=== PATIENT | female | born 1945 | race Caucasian/White ===

== ENCOUNTER 2023-06-04 14:13 | Outpatient (REF) | payer MEDICARE, SELFPAY ==
--- NOTE | ~2023-06-04 | XR_ITS ---
EXAMINATION: XR LUMBOSACRAL SPINE CLINICAL INFORMATION: Spinal stenosis. Pain. COMPARISON: None available. TECHNIQUE: Three views of the lumbosacral spine. FINDINGS: Severe degenerative disc space narrowing throughout with grade 1 anterolisthesis on a degenerative basis L4-L5 and L5-S1. No fracture or spondylolysis. Scoliosis of moderate severity convex right thoracolumbar spine junction. XR/XR lumbar spine 2-3V IMPRESSION: Advanced multilevel spondylosis as above.
== END 2023-06-04 14:14 | disposition home or self-care (01) ==
LOC: HO.HOSX 14:13
PROVIDERS: Visit Provider Neurological Surgery
DX: M48.062 Spinal stenosis, lumbar region with neurogenic claudication (principal); M41.56 Other secondary scoliosis, lumbar region
CPT/HCPCS: 72100; 99202

== ENCOUNTER 2023-06-04 14:13 | Outpatient (AMB) | payer MEDICARE, SELFPAY ==
--- NOTE | 2023-06-04 15:03 | A.SPINEOV_ITS ---
Intake Intake Visit Reasons: spinal stenoisis and severe sciatica Intake Note: Mrs. Contreras is here today c/o low back pain. MRI done @ [place], [facility]. Composite Mechanic Required: No Assessment & Plan Assessment & Plan (1) Scoliosis of lumbar region due to degenerative disease of spine in adult: Code(s): M41.56 - Other secondary scoliosis, lumbar region (2) Lumbar stenosis with neurogenic claudication: Code(s): M48.062 - Spinal stenosis, lumbar region with neurogenic claudication Plan: Dear colleague Thank you for referring Portia Contreras to the office today with a chief complaint of a bilateral leg pain. HPI: This 78-year-old female is suffering from progressive bilateral leg pain that started several years ago. She can hardly walk or stand. The symptoms are debilitating. Sitting down or leaning forward improves her symptoms. The pain radiates from her buttocks to the outside of her ankles, right right side is more affected than the left side. She also notices numbness off her feet. She tried multiple cortisone injections that initially provided relief. She also did physical therapy and chiropractic therapy. She denies significant back pain. PMH: Hypertension,, osteopenia, knee replacement in 2021 without complications Social history: . Nonsmoker. Medications: Duloxetine, bupropion, amlodipine, Abilify Allergies: Sensitivity to codeine Physical Exam: Pleasant female. She is able to reproduce her symptoms in the office with walking. Sitting down relieves her symptoms. There is numbness of her feet. Straight leg raise is negative. No motor deficits. Radiological Studies: MRI done at [place] on 04/19/2023 shows a lumbar degenerative scoliosis from L2-S1, and L4-5 grade 2 spondylolisthesis with associated severe spinal stenosis and a grade 1 L5-S1 spondylolisthesis. An x- ray of the lumbar spine confirms the MRI findings. Impression/Plan: This patient is suffering from progressive neurogenic claudication related to the grade 2 spondylolisthesis with associated severe L4- 5 spinal stenosis. She denies significant back pain. Normally, I would offer a minimally invasive correction of the spondylolisthesis and scoliosis. However, in the absence of back pain and in the presence of poor bone quality, I offered her a midline sparing L4-5 decompression only. She is aware that the spondylolisthesis can progress after the decompression which would require a minimally invasive lumbar fusion. We discussed the procedure, possible complications and expected postoperative course. The procedure will be done in day surgery. She will call my office if she wants to proceed. She will need me dical clearance from the primary care physician Thank you for allowing me to participate in your patients care. total time spent was 50 minutes in counseling ,coordination of plan, personal review of imaging, surgical decision making and subsequent plan Ramos Phillips MD, PhD Spine Fellowship Trained Neurosurgeon Director, [facility] Orders: Orders XR lumbar spine 2-3V Today M48.062 - Spinal stenosis, lumbar region with neurogenic claudication Coding Level of Care Code New Pt Level 4 (69744) Diagnoses Scoliosis of lumbar region due to degenerative disease of spine in adult M41.56 Lumbar stenosis with neurogenic claudication M48.062
== END 2023-06-04 17:00 | disposition home or self-care (01) ==
PROVIDERS: PCP Internal Medicine; Visit Provider Neurological Surgery
DX: M41.56 Other secondary scoliosis, lumbar region (principal); M48.062 Spinal stenosis, lumbar region with neurogenic claudication
CPT/HCPCS: 99204

== ENCOUNTER 2023-07-29 08:31 | Day surgery (SDC) | payer MEDICARE, SELFPAY ==
[2023-07-10 10:10] VITALS: BMI 24.7
--- NOTE | 2023-07-25 09:41 | HO.ANESPROP2 ---
Documented by User: Estelita Almodovar NP 07/31/23 14:36 HPI - Anesthesia Eval Consult details Narrative: 78yo F for L4-5 Midline Sparing Decompression PCP cleared Case reviewed by Dr Fam NAVARRO Active Problems Active Problems: All Active Problems (Updated 07/10/23 @ 14:01 by Juliann Guerrero, CHUY) Scoliosis of lumbar region due to degenerative disease of spine in adult (Acute) Lumbar stenosis with neurogenic claudication (Acute) Past Medical History Medical History (Updated 07/10/23 @ 14:01 by Juliann Guerrero RN) History of Mohs micrographic surgery for skin cancer Mild secondary hyperparathyroidism Diverticulosis Peripheral neuropathy Lumbosacral stenosis with neurogenic claudication Liver cyst Angiomyolipoma of kidney Left knee DJD Actinic keratoses White coat syndrome with hypertension Colonic adenoma Hx of squamous cell carcinoma History of MRSA infection Basal cell carcinoma (BCC) Arthritis Thyroid nodule Anxiety Depression Weakness of lower extremity Asthma Cough Osteopenia HTN (hypertension) Surgical History Surgical History (Updated 07/10/23 @ 14:01 by Juliann Guerrero RN) Hx of tonsillectomy H/O colonoscopy Hx of total knee replacement Social History Social History Are you a primary coronary care unit nurse to a significant other at home: No Do you presently have visiting nurse or other home services: No Patient Tobacco Use Status: Never used Tobacco Meds Allergies Allergy/AdvReac Type Severity Reaction Status Date / Time codeine Allergy Severe Abdominal Verified 07/29/23 09:19 Pain Home Medications Medication Instructions Recorded Confirmed Last Taken Type amlodipine 5 mg tablet 7.5 mg PO DAILY 07/10/23 07/29/23 07/29/23 History aripiprazole 2 mg tablet (Abilify) 2 mg PO DAILY 07/10/23 07/29/23 07/29/23 History bupropion HCl 150 mg 24 hr tablet, 150 mg PO QAM 07/10/23 07/29/23 07/29/23 History extended release bupropion HCl 300 mg 24 hr tablet, 300 mg PO QAM 07/10/23 07/29/23 07/29/23 History extended release duloxetine 30 mg capsule,delayed 30 mg PO DAILY 07/10/23 07/29/23 07/29/23 History release duloxetine 60 mg capsule,delayed 60 mg PO DAILY 07/10/23 07/29/23 07/29/23 History release Exam Exam Date and Time: July 25, 2023 0941 Height,Weight and Vital Signs: Height 5 ft 2 in Weight 61.235 kg Pertinent Lab Results Pertinent Lab Results: BMP 06/2023 from outside facility WNL Narrative Narrative: EKG 06/2023 NSR @ 82 Biatrial enlargement No change from 2020 Assessment and Plan Assessment Anesthesia Assessment: Chart Reviewed Documented by User: Guillermina Cruz MD 08/01/23 07:32 PMFSH Past Medical History Medical History (Updated 07/10/23 @ 14:01 by Juliann Guerrero RN) History of Mohs micrographic surgery for skin cancer Mild secondary hyperparathyroidism Diverticulosis Peripheral neuropathy Lumbosacral stenosis with neurogenic claudication Liver cyst Angiomyolipoma of kidney Left knee DJD Actinic keratoses White coat syndrome with hypertension Colonic adenoma Hx of squamous cell carcinoma History of MRSA infection Basal cell carcinoma (BCC) Arthritis Thyroid nodule Anxiety Depression Weakness of lower extremity Asthma Cough Osteopenia HTN (hypertension) Family History Family history of problems with anesthesia: No Surgical History Surgical History (Updated 07/10/23 @ 14:01 by Juliann Guerrero, RN) Hx of tonsillectomy H/O colonoscopy Hx of total knee replacement History of Problems with Anesthesia: No Social History Social History Are you a primary coronary care unit nurse to a significant other at home: No Do you presently have visiting nurse or other home services: No Patient Tobacco Use Status: Never used Tobacco Meds Allergies Allergy/AdvReac Type Severity Reaction Status Date / Time codeine Allergy Severe Abdominal Verified 07/29/23 09:19 Pain Home Medications Medication Instructions Recorded Confirmed Last Taken Type amlodipine 5 mg tablet 7.5 mg PO DAILY 07/10/23 07/29/23 07/29/23 History aripiprazole 2 mg tablet (Abilify) 2 mg PO DAILY 07/10/23 07/29/23 07/29/23 History bupropion HCl 150 mg 24 hr tablet, 150 mg PO QAM 07/10/23 07/29/23 07/29/23 History extended release bupropion HCl 300 mg 24 hr tablet, 300 mg PO QAM 07/10/23 07/29/23 07/29/23 History extended release duloxetine 30 mg capsule,delayed 30 mg PO DAILY 07/10/23 07/29/23 07/29/23 History release duloxetine 60 mg capsule,delayed 60 mg PO DAILY 07/10/23 07/29/23 07/29/23 History release Exam Airway Mallampati Class: II TM Dist: >3cm Neck ROM: Full Heart: rrr Lungs: cta Assessment and Plan Assessment Anesthesia Assessment: Anesthesia Plan Discussed Final Anesthetic Review Family History of Problems with Anesthesia: No History of Problems with Anesthesia: No NPO: Yes ASA Class: II Final Preanesthetic Review: No Changes in Pt Med Stat, Meds/Allgs Chart Reviewed, Consent Obtained/Reviewed and Anes Risks/Benef Reviewed Patient Risk: Low Procedure Risk: Low Anesthetic Plan Anesthetic Plan: GA Disposition: Standard PACU
[2023-07-29] VITALS (10 sets, daily range): BP systolic 113–141; BP diastolic 65–84; PULSE 70–79; RESP 14–16; TEMP 36.7–37.2; O2SAT 95–100
--- NOTE | ~2023-07-29 | FL_ITS ---
EXAMINATION: XR FLUOROSCOPY WITH IMAGES CLINICAL INFORMATION: L4-L5 midline sparing decompression. COMPARISON: None available. TECHNIQUE: Fluoroscopy Supervised By: Dr. Ramos Phillips. Fluoroscopy Time: 0.0 minutes. Cumulative Dose: 5.6 mGy. DAP: 0.8 Gy-cm2. Images: 1. FINDINGS: Single image submitted shows surgical instrument overlying posterior elements at L4. FL/FL guidance in OR IMPRESSION: Fluoroscopy provided with imaging.
--- NOTE | 2023-07-29 07:02 | MHC.SHP ---
Pre-Procedural Eval Section A Date of Service: 07/29/23 Section B Chief Complaint: Spinal stenosis, lumbar region with neurogenic Allergies: Allergies Allergy/AdvReac Type Severity Reaction Status Date / Time codeine Allergy Abdominal Verified 07/10/23 10:01 Pain Review of Systems Sugical H&P ROS: Negative: Constitution, Cardiovascular, Respiratory, Neurological, Psychiatric, Hem-Onc, Allergic/Immunologic, Gastrointestinal, Genitourinary, Musculoskeletal, Integumentary, Endocrine and Eyes/Ears/Nose/Throat Exam Surgical H&P Exam: Not Evaluated: HEENT, Not Evaluated: Heart, Not Evaluated: Lungs, Not Evaluated: Extremities, Not Evaluated: Abdomen, Not Evaluated: Skin and Not Evaluated: Neurological Plan Diagnosis/Plan: Unchanged I have reviewed the history and physical and performed a pertinent physical examination on my patient. No changes have occurred unless specified. Plan remains the same, L4-5 midline sparing decompression Time Spent With Patient Time: Total time managing care of this patient today _10___ minutes.
[2023-07-29] MEDS: methocarbamoL 750 MG TABLET PO (09:44)
[2023-07-29] MEDS: Lactated Ringers 1,000 ML 100 ML IVCONT (09:44)
[2023-07-29] MEDS: Gabapentin 300 MG CAPSULE PO (09:45)
[2023-07-29 09:57] LABS: Mean Corpuscular HGB Conc 33.3 g/dl (31.0-35.0); Mean Corpuscular Hemoglobin 30.2 pg (27.0-33.0); Mean Corpuscular Volume 90.7 fL (80.0-98.0); Mean Platelet Volume 9.5 fL (9.4-12.3); Platelet Count 238 X10*3/uL (160-400); Red Cell Distribution Width 14.9 % (11.0-16.0); White Blood Count 4.3 X10*3/uL (4.8-10.8)
--- NOTE | 2023-07-29 13:53 | PM.DS ---
DS: Providers Provider Date of Service: 07/29/23 Date of discharge: 07/29/23 Primary care physician: Khurram Ferrer MD Admitting clinician: Ramos Phillips DS: Diagnosis Discharge Diagnosis (1) Lumbar stenosis with neurogenic claudication: Status: Acute DS: Summary Time Spent with Patient Time attestation: Total time managing care of this patient today ____ minutes. Discharge coordination time: Less than 30 minutes Quality: Safe Use of Opioids Does Pt have an Active Cancer Diagnosis on the Problem List?: No Quality: Stroke Does the patient have a stroke diagnosis?: No Physical Exam Vital Signs: Vital Signs: Last Vital Signs Temp 99.0 F 07/29/23 09:30 Pulse 71 07/29/23 09:30 Resp 16 07/29/23 09:30 BP 141/84 H 07/29/23 09:30 Pulse Ox 98 07/29/23 09:30 O2 Del Method Room Air 07/29/23 09:30 BMI result Body Mass Index 24.7 DS: Data Data Completed and Pending Labs on day of discharge: Laboratory Results - last 24 hr 07/29/23 07/29/23 09:40 09:40 WBC 4.3 L RBC 4.30 Hgb 13.0 Hct 39.0 MCV 90.7 MCH 30.2 MCHC 33.3 RDW 14.9 Plt Count 238 MPV 9.5 Absolute Nucleated RBC 0.000 Nucleated RBC % (auto) 0.0 Blood Type A Positive Antibody Screen NEGATIVE Discharge Plan Discharge Patient Disposition: Home, Self-Care Referrals: Khurram Ferrer MD [Primary Care Provider] - 1 Week Discharge Medications: New oxycodone 5 mg tablet 5 mg PO Q4H PRN (Reason: pain) Qty: 20 0RF Rx Instructions: Partial Fill upon patient request. Continued amlodipine 5 mg Tablet 7.5 mg PO DAILY bupropion HCl 300 mg Tablet Extended Release 24 Hr 300 mg PO QAM Patient Comments: for a total of 450 mg daily in the morning bupropion HCl 150 mg Tablet Extended Release 24 Hr 150 mg PO QAM Patient Comments: for a total of 450 mg daily in the morning duloxetine 30 mg Capsule,Delayed Release(Dr/Ec) 30 mg PO DAILY duloxetine 60 mg Capsule,Delayed Release(Dr/Ec) 60 mg PO DAILY Patient Comments: for a total of 90 mg Daily in the morning aripiprazole [Abilify] 2 mg Tablet 2 mg PO DAILY Discharge Orders: Discharge Order (Routine); Ordered 07/29/23 Ordered By: Christopher Bender Diet: Advance to usual diet Activity on Discharge: As tolerated Activity Restrictions/Additional Instructions: After your spinal surgery we ask you to observe the following restrictions/guidelines: Activity: It is normal to feel some discomfort as you increase your activity, but that will improve with time. We ask you avoid heavy lifting or acitivities that cause pain. As a general rule, 8lbs is a safe limit for lifting right after surgery. Walk as much as you feel comfortable but not to exhaustion. You will feel extra tired the first few days after surgery. Stay well hydrated. It is OK to walk up and down stairs You may return to driving when you are off narcotics (such as vicodin, oxycodone, dilaudid, etc), and you are back to normal functional capacity. If you have any concerns please check with office before driving. Return to work is specific to each patient and each surgery, so please speak with your doctor/PA at first follow up. Please bring paperwork such as FMLA at that time if you need it filled out. Medications: For optimum pain control, it is best to start with a combination of 500 mg of Tylenol every 4 hours with 600 mg of Motrin every 8 hours, and use narcotics as needed in between for breakthrough pain. We will give you a short supply of narcotics after surgery (usually one weeks worth). If you need more please call the office but do not use more than prescribed. You will need to give our office 48 hours notice if you need narcotics refilled and we do not fill narcotics on weekends or evenings. If you are on a narcotic, it is a good idea to take a stool softener such as colace or senna to avoid constipation If you take blood thinner such as aspirin, Plavix, Coumadin, Effient, Eliquis etc for conditions such as Afib, DVT, Pulmonary embolus, coronary disease, stents etc please speak with your surgeon about specific details as to when you can resume these medications. You can resume NSAIDs on post op day 1 (eg: Motrin, Naproxen, etc). Follow up: Please call the office, , after surgery to arrange a 3 week follow up for wound check. Wound Care: You may remove your dressing on the first day after surgery. You may leave open to air. Please do not remove the steri strips underneath. they will fall off on their own in one week. IT IS NORMAL FOR THE WOUND TO OOZE OR BE BLOODY FOR A FEW DAYS AFTER SURGERY. IF THIS HAPPENS JUST PLACE NEW DRESSING OVER IT TO AVOID STAINING CLOTHES. You may shower on post op day # 1 We ask that you do not let the water soak the wound. If it does get wet, just towel dry lightly. Please do not scrub your incision or place any type of chemical/ointment on the wound. No tub baths, pools or jacuzzis for one month. If you have any leaking or redness from your wound, or fevers, please call office
--- NOTE | 2023-07-29 13:57 | P.OP_ITS ---
Operative Note Operative Note Date of Service: 07/29/23 Narrative: Preoperative Diagnosis: L4-5 spinal stenosis/lateral recess stenosis/neural foraminal stenosis Operation: L4-5 bilateral Laminotomy, Partial facetectomy and foraminotomy with use of microscope Consent Informed Consent was obtained for this operation. I have explained the nature, purpose and benefits of the operation. I have discussed the risks and benefit of the operation including possible complications or adverse events with patient/family. Alternative(s) were discussed with the patient with their relative benefits and risks as well as the consequences of not accepting the operation were included in obtaining consent. Surgeon: ASHLEY WYATT MD, PHD Procedure Assisted By: Christopher Taylor Description of Procedure This 78-year-old female a suffering from neurogenic claudication. Imaging reviews a lumbar degenerative scoliosis, and L4-5 spondylolisthesis min associated spinal stenosis. She has poor bone quality and in the absence of back pain, I offered her a simple L4-5 lumbar midline sparing decompression to reduce the risk of additional instability to a minimum. The procedure complications were explained. The patient was consented. The patient was brought to the operating room and endotracheally intubated. The patient was turned in prone position on the Xavier frame. Prep and drape was done followed by timeout. The Physician assistant manager pt provided access. A mid lumbar incision was made followed by release of the paravertebral muscle on the right side to expose the L4-5 lamina and facet joints. An intraoperative x-ray was obtained to confirm the correct level. The microscope was brought in. I took over the procedure. The high-speed drill was used to do a L4-5 laminotomy until flavum ligament was reached. a 2. Kerrison was used to expand the laminotomy near flush to the pedicles and to include a partial facetectomy. The flavum and was opened and resected with a 3. Kerrison to decompress the underlying thecal sac. The patient was turned contralaterally after which the spinous processes were undercut in order for me to perform a contralateral decompression. The lateral recesses and the exiting L5 nerve roots were decompressed bilaterally. A long nerve hook could be easily passed along the medial side of the pedicles as a sign of adequate decompression. The microscope was removed. Hemostasis was done. The physician assistant manager pt close the Incision in 2 layers. Steri-Strips were used to approximate incision. An OpSite with Tegaderm was used to cover the incision. All sponge needle counts were correct. Patient was extubated and transported in stable is to recovery room. Anesthesia: General Estimated Blood Loss (ml): 20 mL Complications: None Duration of Surgery: Under 60 Minutes Postoperative Plan: Discharge to home
== END 2023-07-29 16:22 | disposition home or self-care (01) ==
PROVIDERS: Nurse Practitioner; PCP Internal Medicine; Visit Provider Neurological Surgery
PROC: (CPT 63047; principal; 2023-07-29 10:40)
DX: M48.062 Spinal stenosis, lumbar region with neurogenic claudication (principal); M41.56 Other secondary scoliosis, lumbar region; M85.80 Other specified disorders of bone density and structure, unspecified site; M54.50 Low back pain, unspecified; R26.2 Difficulty in walking, not elsewhere classified; I10 Essential (primary) hypertension; E04.2 Nontoxic multinodular goiter; E21.1 Secondary hyperparathyroidism, not elsewhere classified; F32.5 Major depressive disorder, single episode, in full remission; F41.1 Generalized anxiety disorder; Z96.652 Presence of left artificial knee joint; Z85.828 Personal history of other malignant neoplasm of skin; Z86.14 Personal history of Methicillin resistant Staphylococcus aureus infection; Z79.899 Other long term (current) drug therapy
CPT/HCPCS: 63047; 36415; 85027; 86850; 86900; 86901; J0131; J0690; J1885; J2371; J2405; J3010

== ENCOUNTER → 2023-07-29 08:31 | Outpatient (BNV) | payer MEDICARE, SELFPAY | PROVIDERS: PCP Internal Medicine; Visit Provider Physician Assistant | DX: M48.062 Spinal stenosis, lumbar region with neurogenic claudication (principal) | CPT/HCPCS: 63047 ==

== ENCOUNTER 2023-08-19 14:14 | Outpatient (AMB) | payer MEDICARE, SELFPAY ==
--- NOTE | 2023-08-19 14:21 | A.SPINEOV_ITS ---
Intake Intake Visit Reasons: 1st post op Intake Note: Mrs. Contreras is here today for her 1st post-op. Hay Buckler Required: No Allergies codeine Allergy (Severe, Verified 07/29/23 09:19) Abdominal Pain Assessment & Plan Assessment & Plan (1) Lumbar stenosis with neurogenic claudication: Code(s): M48.062 - Spinal stenosis, lumbar region with neurogenic claudication Plan Procedure: L4-5 bilateral Laminotomy, Partial facetectomy and foraminotomy Portia comes in today for her 1st postoperative visit. She reports feeling very much the same since her surgery. She feels she is in the same amount of pain and continues to have difficulty walking / standing for prolonged periods of time. She is still completing a large majority of her ADLs at home. 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 Portia was encouraged that she likely has a lot of inflammation after her bilateral decompression, and that she should start feeling better in the next 2 weeks when the inflammation is able to recede. Full strength in UE / LE. Sensation grossly intact. Patient is able to ambulate well, without assistance. She can rise from a seated position without difficulty. Incision sites are clean, dry, and appear well healing. We will follow-up with the patient in 6 weeks for her 2nd postoperative visit. She requested that she be sent to physical therapy. A referral was printed out for her. Orders: Orders PT Evaluation and Treatment Today M48.062 - Spinal stenosis, lumbar region with neurogenic claudication Coding Level of Care Code Global (70081) Diagnoses Lumbar stenosis with neurogenic claudication M48.062
== END 2023-08-19 14:47 | disposition home or self-care (01) ==
PROVIDERS: PCP Internal Medicine; Visit Provider Physician Assistant
DX: M48.062 Spinal stenosis, lumbar region with neurogenic claudication (principal)
CPT/HCPCS: 99024

== ENCOUNTER → 2023-08-19 14:14 | Outpatient (BNVA) | payer MEDICARE, SELFPAY | PROVIDERS: PCP Internal Medicine; Visit Provider Physician Assistant ==

== ENCOUNTER 2023-09-30 13:56 | Outpatient (AMB) | payer MEDICARE, SELFPAY ==
--- NOTE | 2023-09-30 14:24 | A.OFFVIS_ITS ---
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: No Allergies codeine Allergy (Severe, Verified 07/29/23 09:19) Abdominal Pain PFSH Medical History (Updated 07/10/23 @ 14:01 by Juliann Guerrero RN) History of Mohs micrographic surgery for skin cancer Mild secondary hyperparathyroidism Diverticulosis Peripheral neuropathy Lumbosacral stenosis with neurogenic claudication Liver cyst Angiomyolipoma of kidney Left knee DJD Actinic keratoses White coat syndrome with hypertension Colonic adenoma Hx of squamous cell carcinoma History of MRSA infection Basal cell carcinoma (BCC) Arthritis Thyroid nodule Anxiety Depression Weakness of lower extremity Asthma Cough Osteopenia HTN (hypertension) Surgical History (Updated 07/10/23 @ 14:01 by Juliann Guerrero RN) Hx of tonsillectomy H/O colonoscopy Hx of total knee replacement Social History Are you a primary home health caregiver to a significant other at home: No Do you presently have visiting nurse or other home services: No Patient Tobacco Use Status: Never used Tobacco Assessment & Plan Assessment & Plan (1) Lumbar stenosis with neurogenic claudication: Code(s): M48.062 - Spinal stenosis, lumbar region with neurogenic claudication Plan Procedure: L4-5 bilateral Laminotomy, Partial facetectomy and foraminotomy Portia comes in today for her 2nd postoperative visit. She reports that she feels much better than she did at her previous visit. She states that she has been able to ambulate around her house, complete the majority of her ADLs, engage in walking on the treadmill, and engage in walking outside. She does state that she has been going to physical therapy as well, and finds that this is very beneficial/helpful for her. She has good control of her tenderness/ occasional pain with [id number] pain medications. Thankfully she states that she feels better day by day, and is very grateful that she no longer has the pain that she had at her 1st postoperative visit. No neurological deficits. Patient is able to ambulate well, rises from a seated position without difficulty. Incision site is closed, well healing, with no signs of drainage. Portia is doing very well at this time, and there is no need for continued routine follow-up. She was encouraged to make an appointment with our office if she feels she needs to see us in the future. Otoniel Phillips MD,PhD [facility] Coding Level of Care Code Global (96236) Diagnoses Lumbar stenosis with neurogenic claudication M48.062
== END 2023-09-30 14:45 | disposition home or self-care (01) ==
PROVIDERS: PCP Internal Medicine; Visit Provider Physician Assistant
DX: M48.062 Spinal stenosis, lumbar region with neurogenic claudication (principal)
CPT/HCPCS: 99024

== ENCOUNTER → 2023-09-30 13:56 | Outpatient (BNVA) | payer MEDICARE, SELFPAY | PROVIDERS: PCP Internal Medicine; Visit Provider Physician Assistant ==

== ENCOUNTER 2023-12-23 14:26 | Outpatient (AMB) | payer MEDICARE, SELFPAY ==
--- NOTE | 2023-12-23 14:30 | MHC.OFFVIS ---
Intake Intake Visit Reasons: sciatica pain right leg and left hip sharp pain [employer] Supervisor Required: No Allergies codeine Allergy (Severe, Verified 07/29/23 09:19) Abdominal Pain [facility] Medical History (Updated 12/23/23 @ 14:52 by Ramos Phillips MD, PhD) History of Mohs micrographic surgery for skin cancer Mild secondary hyperparathyroidism Diverticulosis Peripheral neuropathy Lumbosacral stenosis with neurogenic claudication Liver cyst Angiomyolipoma of kidney Left knee DJD Actinic keratoses White coat syndrome with hypertension Colonic adenoma Hx of squamous cell carcinoma History of MRSA infection Basal cell carcinoma (BCC) Arthritis Thyroid nodule Anxiety Depression Weakness of lower extremity Asthma Cough Osteopenia HTN (hypertension) Surgical History (Updated 07/10/23 @ 14:01 by Juliann Guerrero RN) Hx of tonsillectomy H/O colonoscopy Hx of total knee replacement Social History Are you a primary personal carer to a significant other at home: No Do you presently have visiting nurse or other home services: No Patient Tobacco Use Status: Never used Tobacco Assessment & Plan Assessment & Plan (1) Scoliosis of lumbar region due to degenerative disease of spine in adult: Code(s): M41.56 - Other secondary scoliosis, lumbar region Plan: Dear colleague, On December 23, 2023, I saw for follow-up Portia Contreras. She underwent a lumbar decompression in July 2023 for neurogenic claudication. She has residual right lumbar radiculopathy in the morning. The pain radiates down to her zimmerman. Another complaint is intermittent pain in the left SI joint region with sudden movements. I explained to the patient that her symptoms are most likely related to the L4-5 anterolisthesis and a correction may be the next step to solve the remainder of her symptoms. Today's flexion-extension x-rays show a stable L4-5 anterolisthesis. I would like to give her symptoms more time to see if further recovery happens. I will order a new MRI of the lumbar spine for January after which I will see her for return visit to determine what the next step will be. I spent 30 minutes in his reviewing imaging ordering test and discussing plan of care. Ramos Phillips MD, PhD Spine Fellowship Trained Neurosurgeon Director, [facility] (2) Spondylolisthesis, lumbar region: Code(s): M43.16 - Spondylolisthesis, lumbar region Plan gh Orders: Orders XR lumbar spine 4V min Today M41.56 - Other secondary scoliosis, lumbar region, M43.16 - Spondylolisthesis, lumbar region MR lumbar spine wo/w con 01/23/24 M48.062 - Spinal stenosis, lumbar region with neurogenic claudication Coding Level of Care Code Est Pt Level 4 (90970) Diagnoses Scoliosis of lumbar region due to degenerative disease of spine in adult M41.56 Spondylolisthesis, lumbar region M43.16
== END 2023-12-23 15:15 | disposition home or self-care (01) ==
PROVIDERS: PCP Internal Medicine; Visit Provider Neurological Surgery
DX: M41.56 Other secondary scoliosis, lumbar region (principal); M43.16 Spondylolisthesis, lumbar region
CPT/HCPCS: 99214

== ENCOUNTER 2023-12-23 14:26 | Outpatient (REF) | payer MEDICARE, SELFPAY ==
--- NOTE | ~2023-12-23 | XR_ITS ---
EXAMINATION: XR LUMBOSACRAL SPINE WITH OBLIQUES CLINICAL INFORMATION: Lumbar scoliosis. COMPARISON: None available. TECHNIQUE: AP and lateral (neutral, flexion and extension) views of the lumbosacral spine are submitted. FINDINGS: There is bony demineralization. There is a moderate lumbar levoscoliosis. There is mild leftward disc space narrowing at L1-L2. At L2-L3, there is marked disc space narrowing, with vacuum disc phenomenon. At L3-L4, there is moderate rightward disc space narrowing. At L4-L5, there is marked disc space narrowing, with vacuum disc phenomenon and a 5 mm anterolisthesis. At L5-S1, there is marked disc space narrowing, with vacuum disc phenomenon and a 6 mm anterolisthesis. No acute fracture or spondylolisthesis is seen. There is multi-level lumbar facet arthropathy, most pronounced at L3-L4 through L5-S1. The paravertebral soft tissues are unremarkable. XR/XR lumbar spine 4V min IMPRESSION: 1. There is multi-level lumbar degenerative disc disease, spondylosis and facet arthropathy. Degenerative disease is particularly pronounced at L2-L3, L4-L5 and L5-S1, where it is marked. Grade 1 anterolistheses are noted at L4-L5 and L5-S1. 2. There is multi-level lumbar facet arthropathy, most pronounced at L3-L4 through L5-S1. 3. There is a moderate lumbar levoscoliosis.
== END 2023-12-23 14:27 | disposition home or self-care (01) ==
LOC: HO.HOSX 14:26
PROVIDERS: PCP Internal Medicine; Visit Provider Neurological Surgery
DX: M43.16 Spondylolisthesis, lumbar region (principal); M41.56 Other secondary scoliosis, lumbar region; M48.062 Spinal stenosis, lumbar region with neurogenic claudication
CPT/HCPCS: 72110; 99212

== ENCOUNTER 2024-02-18 13:55 | Outpatient (AMB) | payer MEDICARE, SELFPAY ==
--- NOTE | 2024-02-18 14:03 | HO.SPINEOV ---
Intake Intake Visit Reasons: F/u MRI results Intake Note: Ms. Contreras is here today to F/u MRI [employer] Supervisor Required: No Allergies codeine Allergy (Severe, Verified 07/29/23 09:19) Abdominal Pain Assessment & Plan Assessment & Plan (1) Spondylolisthesis, lumbar region: Code(s): M43.16 - Spondylolisthesis, lumbar region Plan Portia is a pleasant 79-year-old female who comes in today as a follow-up patient after being previously evaluated by Dr. Phillips for continued low back pain with right-sided radiculopathy. She reports that her right-sided lower extremity radiculopathy is her worst symptom. When describing she states that it starts in her low back shoots over anterior thigh goes over her anterior right knee in terminates in her right anterior tibialis. She states the pain is constant throughout the day and that lifting/bending exacerbate her pain. She reports nearly 100% pain relief from laying down flat. I reviewed her MRI imaging with Dr. Phillips who saw the patient alongside this continuity writer today. He offered her a L4-5 OLIF to address her right-sided lower extremity radiculopathy. We believe her symptoms are originating from the grade 2 spondylolisthesis seen at L4-5. Portia was counseled extensively on the possibility of adjacent segment disease above this level fusion, she has a degenerative scoliosis with the apex at L2. The alternative surgery that was offered to the patient by Dr. Phillips was in L2-3, L3-4, and L4-5 OLIF. He recommended that she have the single-level performed instead as a more conservative treatment that will address her primary pain symptoms. She is aware that she may need to have subsequent superior levels addressed in the future, and agrees to proceed with a single-level fusion at L4-5. She also agrees to and understands that this is only to address her right lower extremity pain, and is not to address her back pain or any other neurological issues. Portia was given risk and benefits of surgery including but not limited to infection, hematoma, nerve injury, durotomy, weakness, bowel/bladder injury, persistent pain, as well as the option to continue with conservative treatment and patient wishes to proceed with surgery. They are aware they should stop NSAIDs 7 days prior to surgery. All questions were answered to the best of our ability. If there is anything about this patients medical history that we have overlooked or concerns you have about us proceeding with surgery we would appreciate any input you can offer. Total amount of time spent in this visit was 30 minutes in discussion of symptoms, 35 imaging results and subsequent plan of care Otoniel Phillips MD,PhD [facility] Coding Level of Care Code Est Pt Level 4 (35743) Diagnoses Spondylolisthesis, lumbar region M43.16
== END 2024-02-18 14:57 | disposition home or self-care (01) ==
LOC: HO.HNS 13:55
PROVIDERS: PCP Internal Medicine; Visit Provider Physician Assistant
DX: M43.16 Spondylolisthesis, lumbar region (principal)
CPT/HCPCS: 99214

== ENCOUNTER → 2024-02-18 13:55 | Outpatient (BNVA) | payer MEDICARE, SELFPAY | PROVIDERS: PCP Internal Medicine; Visit Provider Physician Assistant | DX: M43.16 Spondylolisthesis, lumbar region (principal) | CPT/HCPCS: 99212 ==

== ENCOUNTER → 2024-04-06 13:09 | Outpatient (BNV) | payer MEDICARE, SELFPAY | PROVIDERS: Admitting Provider Neurological Surgery; PCP Internal Medicine; Visit Provider Internal Medicine Cardiovascular Disease | DX: Z01.818 Encounter for other preprocedural examination (principal) | CPT/HCPCS: 93010 ==

== ENCOUNTER 2024-04-20 08:22 | Inpatient (IN) | payer MEDICARE, SELFPAY ==
--- NOTE | 2024-04-06 | ECG_ITS ---
Test Reason : PREOP Blood Pressure : / mmHG Vent. Rate : 074 BPM Atrial Rate : 074 BPM P-R Int : 176 ms QRS Dur : 078 ms QT Int : 380 ms P-R-T Axes : 067 015 054 degrees QTc Int : 421 ms Normal sinus rhythm Possible Left atrial enlargement Borderline ECG No previous ECGs available Referred By: Estelita Almodovar Electronically Signed By:SHARIFA SALAS MD
[2024-04-06 12:03] VITALS: BP 169/80; PULSE 74; RESP 16; O2SAT 99; BMI 24.3
--- NOTE | 2024-04-06 12:28 | P.CONAN_ITS ---
Documented by User: Estelita Almodovar NP 04/15/24 12:34 HPI - Anesthesia Eval Consult details Narrative: 79yo F for L4-5 Oblique Lumbar Interbody Fusion, 04/20/24 s/p L4-5 Midline Sparing Decompression 07/2023 with GA-ETT 7 - pt reports no issues with anesthesia (Medically cleared prior) No recent illness No CP/SOB with walking BP up at PAT. Documented white coat. Will monitor at home and bring log DOS Asthma. Controlled. No inhalers required. PMFSH Active Problems Active Problems: All Active Problems Spondylolisthesis, lumbar region (Acute) Lumbar stenosis with neurogenic claudication (Acute) Scoliosis of lumbar region due to degenerative disease of spine in adult (Acute) Past Medical History Medical History ADHD (attention deficit hyperactivity disorder) History of Mohs micrographic surgery for skin cancer Mild secondary hyperparathyroidism Diverticulosis Peripheral neuropathy Lumbosacral stenosis with neurogenic claudication Liver cyst Angiomyolipoma of kidney Left knee DJD Actinic keratoses White coat syndrome with hypertension Colonic adenoma Hx of squamous cell carcinoma History of MRSA infection (~2021) Basal cell carcinoma (BCC) Arthritis Thyroid nodule Anxiety Depression Weakness of lower extremity Asthma Cough Osteopenia HTN (hypertension) Family History Family history of problems with anesthesia: No Surgical History Surgical History History of lumbar laminectomy (~07/2023) Hx of tonsillectomy H/O colonoscopy Hx of total knee replacement History of Problems with Anesthesia: No Social History Social History Are you a primary progressive care unit registered nurse to a significant other at home: No Do you presently have visiting nurse or other home services: No Comment: aware of trip hazard Patient Tobacco Use Status: Former Tobacco user Quit Date: 1975 Tobacco use type: Cigarette Use of substances other than those prescribed or required for medical reasons: Yes Substance Use Type: Marijuana Substance Use Frequency: Occasionally Have you been hit, kicked, punched, or otherwise hurt by someone within the past year? If so, by whom?: No Are you DNR?: No Advance Directives: No (will bring dos) Advance Directives Information Provided: No Advance Directives on File: No Recently lost weight without trying: No Nutrition Risks: Surgical patient >75years Poor oral hygiene: No Meds Allergies Allergy/AdvReac Type Severity Reaction Status Date / Time codeine Allergy Severe Abdominal Verified 04/06/24 11:59 Pain Home Medications ?Medication ?Instructions ?Recorded ?Confirmed ?Last Taken ?Type amlodipine 5 mg tablet 7.5 mg PO DAILY 07/10/23 04/06/24 07/29/23 History aripiprazole 2 mg tablet (Abilify) 1 mg PO DAILY 07/10/23 04/06/24 07/29/23 History bupropion HCl 300 mg 24 hr tablet, 450 mg PO DAILY 07/10/23 04/20/24 04/20/24 History extended release duloxetine 30 mg capsule,delayed 90 mg PO DAILY 07/10/23 04/06/24 04/20/24 History release methylphenidate HCl 20 mg biphasic 20 mg PO DAILY 04/06/24 04/06/24 Unknown History 50-50 capsule,extended release alendronate 70 mg tablet 70 mg PO QWEEK 04/20/24 Unknown History bupropion HCl 300 mg 24 hr tablet, 300 mg PO DAILY 04/20/24 Unknown History extended release duloxetine 60 mg capsule,delayed 60 mg PO DAILY 04/20/24 04/20/24 Unknown History release fluorouracil 5 % topical cream 1 appl topical BID 04/20/24 Unknown History Exam Height,Weight and Vital Signs: Height 5 ft 2.5 in Weight 61.235 kg Last Vital Signs Pulse 74 04/06/24 12:03 Resp 16 04/06/24 12:03 BP 169/80 H 04/06/24 12:03 Pulse Ox 99 04/06/24 12:03 O2 Del Method Room Air 04/06/24 12:03 Pertinent Lab Results Pertinent Lab Results: Lab Results 04/06/24 04/06/24 Range/Units 13:00 13:07 WBC 3.0 L (4.8-10.8) X10*3/uL RBC 4.52 (4.20-5.50) X10*6/uL Hgb 13.5 (12.0-16.0) g/dl Hct 40.2 (37.0-47.0) % MCV 88.9 (80.0-98.0) fL MCH 29.9 (27.0-33.0) pg MCHC 33.6 (31.0-35.0) g/dl RDW 14.8 (11.0-16.0) % Plt Count 261 (160-400) X10*3/uL MPV 9.9 (9.4-12.3) fL Absolute Nucleated RBC 0.000 (0.0-0.012) X10*3/uL Nucleated RBC % (auto) 0.0 (0.0-0.2) /100WBC Sodium 141 (135-145) mmol/L Potassium 4.3 (3.3-5.1) mmol/L Chloride 104 (96-108) mmol/L Carbon Dioxide 26 (22-29) mmol/L Anion Gap 15 (12-20) BUN 16 (9-16) mg/dL Creatinine 0.67 (0.5-1.4) mg/dL Estim Creat Clear Calc 60.5 Estimated GFR > 60 Random Glucose 89 (60-115) mg/dL Calcium 10.0 (8.4-10.2) mg/dL Blood Type A Positive Antibody Screen NEGATIVE Narrative Narrative: EKG 03/2024 Vent. Rate : 074 BPM Atrial Rate : 074 BPM P-R Int : 176 ms QRS Dur : 078 ms QT Int : 380 ms P-R-T Axes : 067 015 054 degrees QTc Int : 421 ms Normal sinus rhythm Possible Left atrial enlargement Borderline ECG No previous ECGs available Airway Mallampati Class: II TM Dist: >3cm Neck ROM: Full Loose/Missing/Broken Teeth: No (crowned molars) Heart: rrr Lungs: cta Assessment and Plan Assessment Anesthesia Assessment: Anesthesia Plan Discussed and PAT Visit Final Anesthetic Review Family History of Problems with Anesthesia: No History of Problems with Anesthesia: No Documented by User: Mara Lopez MD 04/20/24 10:29 [facility] Past Medical History Medical History ADHD (attention deficit hyperactivity disorder) History of Mohs micrographic surgery for skin cancer Mild secondary hyperparathyroidism Diverticulosis Peripheral neuropathy Lumbosacral stenosis with neurogenic claudication Liver cyst Angiomyolipoma of kidney Left knee DJD Actinic keratoses White coat syndrome with hypertension Colonic adenoma Hx of squamous cell carcinoma History of MRSA infection (~2021) Basal cell carcinoma (BCC) Arthritis Thyroid nodule Anxiety Depression Weakness of lower extremity Asthma Cough Osteopenia HTN (hypertension) Surgical History Surgical History History of lumbar laminectomy (~07/2023) Hx of tonsillectomy H/O colonoscopy Hx of total knee replacement Social History Social History Are you a primary progressive care unit registered nurse to a significant other at home: No Do you presently have visiting nurse or other home services: No Comment: aware of trip hazard Patient Tobacco Use Status: Former Tobacco user Quit Date: 1975 Tobacco use type: Cigarette Use of substances other than those prescribed or required for medical reasons: Yes Substance Use Type: Marijuana Substance Use Frequency: Occasionally Have you been hit, kicked, punched, or otherwise hurt by someone within the past year? If so, by whom?: No Are you DNR?: No Advance Directives: No (will bring dos) Advance Directives Information Provided: No Advance Directives on File: No Recently lost weight without trying: No Nutrition Risks: Surgical patient >75years Poor oral hygiene: No Meds Allergies Allergy/AdvReac Type Severity Reaction Status Date / Time codeine Allergy Severe Abdominal Verified 04/06/24 11:59 Pain Home Medications ?Medication ?Instructions ?Recorded ?Confirmed ?Last Taken ?Type amlodipine 5 mg tablet 7.5 mg PO DAILY 07/10/23 04/06/24 07/29/23 History aripiprazole 2 mg tablet (Abilify) 1 mg PO DAILY 07/10/23 04/06/24 07/29/23 History bupropion HCl 300 mg 24 hr tablet, 450 mg PO DAILY 07/10/23 04/20/24 04/20/24 History extended release duloxetine 30 mg capsule,delayed 90 mg PO DAILY 07/10/23 04/06/24 04/20/24 History release methylphenidate HCl 20 mg biphasic 20 mg PO DAILY 04/06/24 04/06/24 Unknown History 50-50 capsule,extended release alendronate 70 mg tablet 70 mg PO QWEEK 04/20/24 Unknown History bupropion HCl 300 mg 24 hr tablet, 300 mg PO DAILY 04/20/24 Unknown History extended release duloxetine 60 mg capsule,delayed 60 mg PO DAILY 04/20/24 04/20/24 Unknown History release fluorouracil 5 % topical cream 1 appl topical BID 04/20/24 Unknown History Assessment and Plan Assessment Anesthesia Assessment: Chart Reviewed Final Anesthetic Review NPO: Yes ASA Class: II Final Preanesthetic Review: Meds/Allgs Chart Reviewed, Consent Obtained/Reviewed and Anes Risks/Benef Reviewed Patient Risk: Low Procedure Risk: Intermediate Anesthetic Plan Anesthetic Plan: GA Disposition: Standard PACU
[2024-04-06 13:28] LABS: Hematocrit 40.2 % (37.0-47.0); Hemoglobin 13.5 g/dl (12.0-16.0); Mean Corpuscular HGB Conc 33.6 g/dl (31.0-35.0); Mean Corpuscular Hemoglobin 29.9 pg (27.0-33.0); Mean Corpuscular Volume 88.9 fL (80.0-98.0); Mean Platelet Volume 9.9 fL (9.4-12.3); Platelet Count 261 X10*3/uL (160-400); Red Blood Count 4.52 X10*6/uL (4.20-5.50); Red Cell Distribution Width 14.8 % (11.0-16.0)
[2024-04-06 14:11] LABS: Anion Gap 15 (12-20); Blood Urea Nitrogen 16 mg/dL (9-16); Carbon Dioxide 26 mmol/L (22-29); Chloride 104 mmol/L (96-108); Creatinine Clr Calc Pharmacy 60.5; Estimated Glomerular Filt Rate > 60; Glucose Random 89 mg/dL (60-115); Potassium 4.3 mmol/L (3.3-5.1); Sodium 141 mmol/L (135-145)
[2024-04-20] VITALS (11 sets, daily range): BP systolic 101–143; BP diastolic 53–81; PULSE 69–84; RESP 16–18; TEMP 36.2–36.7; O2SAT 7–100
--- NOTE | ~2024-04-20 | FL_ITS ---
EXAMINATION: XR FLUOROSCOPY WITH IMAGES CLINICAL INFORMATION: OLIF at the level the level of L4-L5 COMPARISON: Radiograph of lumbar spine from 12/23/2023 TECHNIQUE: Fluoroscopy Supervised By: Flavio Phillips M.D.. Fluoroscopy Time: 1.62 minutes. Cumulative Dose: 55.7 mGy. DAP: 15.819 Gycm2. Images: 40 FINDINGS: 2 screws placed and each side at the level of L5-L4 with disc spacer placement. FL/FL guidance in OR IMPRESSION: See report
[2024-04-20] MEDS: Lactated Ringers 1,000 ML 100 ML IVCONT (09:29)
[2024-04-20] MEDS: methocarbamoL 750 MG TABLET PO (09:34)
[2024-04-20] MEDS: Gabapentin 300 MG CAPSULE PO (09:34)
--- NOTE | 2024-04-20 10:37 | MHC.SHP ---
Pre-Procedural Eval Section A - 24 Hr Update-Section A only Date of Service: 04/20/24 The patient is an INPATIENT: No Changes since office visit: No Cold of Flu in the past 2 weeks, No New Medical Problems, No Changes in Medication and No Patient answered all questions The patient has been examined within 24 hours of the surgical procedure. The History & Physical has been completed within 30 days and I have reviewed it.: No Section B - Complete if H&P > 30 days Chief Complaint: s/p 14-5 OLIF Allergies: Allergies Allergy/AdvReac Type Severity Reaction Status Date / Time codeine Allergy Severe Abdominal Verified 04/06/24 11:59 Pain Review of Systems Sugical H&P ROS: Negative: Constitution, Cardiovascular, Respiratory, Neurological, Psychiatric, Hem-Onc, Allergic/Immunologic, Gastrointestinal, Genitourinary, Musculoskeletal, Integumentary, Endocrine and Eyes/Ears/Nose/Throat Exam Surgical H&P Exam: Normal: Abdomen (flat ND, NT ) and Normal: Neurological (awake, alert,oriented ) Plan Diagnosis/Plan: Unchanged L4-5 OLIF Time Spent With Patient Time: Total time managing care of this patient today __5__ minutes.
--- NOTE | 2024-04-20 13:47 | W.PM.OPN ---
Operative Note Operative Note Date of Service: 04/20/24 Narrative: Preop Diagnosis: 1.) Lumbar spondylolisthesis L4-5 Procedure: 1) L4-5 discectomy, arthrodesis and implantation cage through an anterolateral, retroperitoneal approach 2) L4-5 posterior instrumented fusion 3) allograft 4)injection of 10 cc of Exparel at the bilateral L4 transverse processi for a muscular erector spinae block and additional Exparel in paravertebral tissue for postop management Consent Informed Consent was obtained for this operation. I have explained the nature, purpose and benefits of the operation. I have discussed the risks and benefit of the operation including possible complications or adverse events with patient/family. Alternative(s) were discussed with the patient with their relative benefits and risks as well as the consequences of not accepting the operation were included in obtaining consent. Surgeon: ASHLEY WYATT MD, PHD Procedure Assisted By: sahara Alvarez Description of Procedure This patient is suffering from back pain and neurogenic claudication due to grade 2 L4-5 spondylolisthesis. The patient was offered an oblique lumbar interbody fusion L4-5. The procedure complications were explained. The patient was consented. The patient was brought to the operating room and endotracheally intubated. The patient was turned in a lateral position with the left side up. Prep and drape was done followed by timeout. A small incision was made in the left lower abdominal quadrant. The muscle fascia was opened after which the 3 muscle layer was split to enter the retroperitoneal space. Dilators were docked in the anterior one third of the L4-5 disc space followed by a retractor. The retractor was opened. The L4-5 disc space was exposed. An annulotomy was done after which an elevator Meza was used to release the disc material from its endplates and to perforate the contralateral side. A partial discectomy was done. An 8 mm height trial implant was inserted. The discectomy was completed. The endplates were prepared. An 8 mm x 45 mm with Brinda degree lordosis 4 web cage filled with allograft was inserted into the disc space under fluoroscopic guidance. This resulted in partial reduction of the spondylolisthesis. The retractor was removed. Hemostasis was done. The incision was closed in 2 layers. Steri-Strips used to approximate incision. An OpSite with Tegaderm was used to cover the incision. This marked first part of the procedure. The patient was turned prone on the [place] spine table. 2C arms were installed for fluoroscopy. Prep and drape was done followed by a second timeout. 2 paramedian incisions were made lateral from the L4-L5 pedicles. The muscle fascia was opened after which the muscle layer was split bluntly to expose the posterolateral gutter. The following steps were taken. A pediguard tap was used to create a transpedicular trajectory into the vertebral body. A K wire was placed. A specially designed instrument was advanced over the K wire to decorticate the posterolateral gutter in preparation for the posterolateral fusion. A pedicle screw was advanced over the K wire and the K wire was removed. The steps were done for the bilateral L4 and L5 pedicles. A total of 4 screws were placed with a diameter of 6.5 x 45 mm. Pedicle screws were connected with for mm jeimy bilaterally and locked down with locking caps. This process resulted in a further reduction of the spondylolisthesis. The extension towers were removed. The posterolateral gutter was filled with allograft to complete the posterolateral L4-5 fusion Hemostasis was done and the incision was closed in 2 layers. Steri-Strips were used to approximate the incision. An OpSite were taken and was used to cover the incision. All sponge and needle counts were correct. Patient was extubated and transferred in stable is to recovery room. This procedure was done with the aid of our physician assistant business manager, often interpretation of the fluoroscopy images, pedicle screw placement and closure of the paramedian incisions. Anesthesia: General Estimated Blood Loss (ml): 25 Duration of Surgery: 2 hours Complications: None Postoperative Plan: Admit to inpatient for observation
--- NOTE | 2024-04-20 16:24 | PHA.MEDREC ---
Pharmacy Consult ? Medication Reconciliation Pharmacy has completed the medication reconciliation. Spoke with Patient about alendronate 70mg, she takes it every Friday.
[2024-04-20] MEDS: Ketorolac Tromethamine 15 MG/ML VIAL IVPUSH (17:32)
[2024-04-20] MEDS: ceFAZolin Sodium/Dextrose,Iso 2 GM/50 ML PIGGYBACK IV (17:32)
[2024-04-20] MEDS: 0.9 % Sodium Chloride 1,000 ML 75 ML IVCONT (17:33)
[2024-04-20] MEDS: Acetaminophen 1,000 MG/100 ML PIGGYBACK 400 MG IV (20:18)
[2024-04-20] MEDS: Docusate Sodium 100 MG CAPSULE PO (20:24)
[2024-04-21] MEDS: Ketorolac Tromethamine 15 MG/ML VIAL IVPUSH ×2 (00:43→05:29)
[2024-04-21] MEDS: ceFAZolin Sodium/Dextrose,Iso 2 GM/50 ML PIGGYBACK IV ×2 (00:43→05:30)
[2024-04-21] MEDS: Acetaminophen 1,000 MG/100 ML PIGGYBACK 400 MG IV ×2 (02:14→08:23)
[2024-04-21 03:20] VITALS: BP 138/73; PULSE 77; RESP 16; TEMP 36.2; O2SAT 96
[2024-04-21 07:25] VITALS: BP 154/72; PULSE 78; RESP 16; TEMP 36; O2SAT 95
[2024-04-21 07:29] VITALS: BP 154/72; PULSE 78; RESP 16; TEMP 36; O2SAT 95
[2024-04-21 08:13] VITALS: BP 154/72; PULSE 78; O2SAT 95
[2024-04-21] MEDS: ARIPiprazole 2 MG TABLET 1 MG PO (08:20)
[2024-04-21] MEDS: buPROPion HCl XL 150 MG TAB.ER.24H 450 MG PO (08:21)
[2024-04-21] MEDS: DULoxetine HCl 30 MG CAPSULE.DR 90 MG PO (08:21)
[2024-04-21] MEDS: Docusate Sodium 100 MG CAPSULE PO (08:21)
[2024-04-21] MEDS: amLODIPine Besylate 2.5 MG TABLET 7.5 MG PO (08:21)
--- NOTE | 2024-04-21 09:36 | PM.DS ---
DS: Providers Provider Date of Service: 04/21/24 Date of admission: 04/20/24 08:22 Primary care physician: Khurram Ferrer MD DS: Summary Time Attestation Discharge Coordination Time (in mins): 30 Quality: Safe Use of Opioids Does Pt have an Active Cancer Diagnosis on the Problem List?: No Quality: Stroke Does the patient have a stroke diagnosis?: No Physical Exam Vital Signs: Vital Signs: Last Vital Signs Temp 96.8 F 04/21/24 07:29 Pulse 78 04/21/24 08:13 Resp 16 04/21/24 07:29 BP 154/72 H 04/21/24 08:13 Pulse Ox 95 04/21/24 08:13 O2 Del Method Room Air 04/21/24 07:29 O2 Flow Rate 2 04/20/24 15:10 BMI result Body Mass Index 24.3 Discharge Plan Discharge Anticipated Discharge Date/Time: 04/21/24 09:37 Patient Disposition: Home, Self-Care Discharge Diagnosis: s/p L4-5 OLIF Referrals: Khurram Ferrer MD [Primary Care Provider] - 1 Week Discharge Medications: New hydrocodone-acetaminophen 5-325 mg tablet 1 tab PO Q4-6H PRN (Reason: severe pain (scale score 7-10)) Qty: 30 0RF Rx Instructions: Partial Fill upon patient request. Continued duloxetine 30 mg Capsule,Delayed Release(Dr/Ec) 90 mg PO DAILY aripiprazole [Abilify] 2 mg Tablet 1 mg PO DAILY methylphenidate HCl 20 mg capsule,ER biphasic 50-50 20 mg PO DAILY alendronate 70 mg tablet 70 mg PO QWEEK Rx Instructions: Sundays fluorouracil 5 % cream 1 appl topical BID amlodipine 2.5 mg tablet 2.5 mg PO DAILY amlodipine 5 mg tablet 5 mg PO DAILY bupropion HCl 450 mg Tablet Extended Release 24 Hr 450 mg PO DAILY ibuprofen 200 mg Tablet 400 mg PO DAILY PRN (Reason: Pain) Discharge Orders: Discharge Order (Routine); Ordered 04/21/24 Ordered By: Otoniel Canada Diet: Advance to usual diet Activity on Discharge: As tolerated Stand Alone Forms: Patient Portal Discharge page Print Language: Syrian Activity Restrictions/Additional Instructions: After your spinal surgery we ask you to observe the following restrictions/guidelines: Activity: With lumbar fusion surgery it is normal to have days in the first couple of weeks where you have increased leg pain. This usually lasts 1-2 days and self resolves with the continuation of medication. Attempt to stay mobile and continue activity as tolerated. It is normal to feel some discomfort as you increase your activity, but that will improve with time. We ask you avoid heavy lifting or activities that cause pain. As a general rule, 8lbs is a safe limit for lifting right after surgery. Walk as much as you feel comfortable but not to exhaustion. You will feel extra tired the first few days after surgery. Stay well hydrated. It is OK to walk up and down stairs You may return to driving when you are off narcotics (such as vicodin, oxycodone, dilaudid, etc), and you are back to normal functional capacity. If you have any concerns please check with office before driving. Return to work is specific to each patient and each surgery, so please speak with your doctor/PA at first follow up. Please bring paperwork such as FMLA at that time if you need it filled out. Medications: It is recommended that you take Tylenol 500 mg every 4 hours for the 1st week postoperatively, ?alongside ibuprofen 600 mg every 8 hours. We will give you a short supply of narcotics after surgery (usually one weeks worth). ?Please use this for breakthrough pain that is refractory to the Tylenol / ibuprofen . If you need more please call the office but do not use more than prescribed. You will need to give our office 48 hours notice if you need narcotics refilled and we do not fill narcotics on weekends or evenings. If you are on a narcotic, it is a good idea to take a stool softener such as colace or senna to avoid constipation If you take blood thinner such as aspirin, Plavix, Coumadin, Effient, Eliquis etc for conditions such as Afib, DVT, Pulmonary embolus, coronary disease, stents etc please speak with your surgeon about specific details as to when you can resume these medications. You can resume NSAIDs on post op day 1 (eg: Motrin, Naproxen, etc). Follow up: Please call the office, , after surgery to arrange a 3 week follow up for wound check. Wound Care: You may remove your dressing on the first day after surgery. ?You may ?leave open to air. Please do not remove the steri strips underneath. they will fall off on their own in one week. IT IS NORMAL FOR THE WOUND TO OOZE OR BE BLOODY FOR A FEW DAYS AFTER SURGERY. ?IF THIS HAPPENS JUST PLACE NEW DRESSING OVER IT TO AVOID STAINING CLOTHES. You may shower on post op day # 1 We ask that you do not let the water soak the wound. If it does get wet, just towel dry lightly. Please do not scrub your incision or place any type of chemical/ointment on the wound. No tub baths, pools or jacuzzis for one month. If you have any leaking or redness from your wound, or fevers, please call office Care Plan Goals: Return to normal activity as tolerated Health Concerns: None Plan of Treatment: Follow-up in clinic in 2-3 weeks Assessment: POD: 1 Procedure: L4-5 OLIF Ramona was seen sitting upright in her chair this morning eating breakfast on 3 . She reports she is up walking around is otherwise doing well. She is met with Physical therapy and was able to walk up and down the jimenez and do stairs. She feels her symptoms are much better than pre-operatively. She still reports mild low back pain but states her shooting leg pains have subsided. She is voiding well, tolerating diet. Afebrile, vital signs stable. Full strength 5/5 UE / LE. Posterior and oblique dressings have some staining without signs of hematoma. No active sanguineous drainage. Area is dry. Plan: Patient is s/p L4-5 OLIF POD:1. Overall, Portia is doing very well and meeting all expectations with physical therapy. She has ambulating to the bathroom and tolerating diet. She meets criteria to be medically discharged home. This was discussed with the attending Neurosurgeon Dr. Phillips. A prescription for Vicodin was sent into her pharmacy in [place]. Otoniel Phillips MD,PhD [facility]
--- NOTE | 2024-04-21 09:37 | HO.POSTANES ---
Post Anesthesia Evaluation Post Anesthesia Evaluation Date of Service: 04/21/24 Vital Signs: Vital Signs Temp Pulse Resp BP Pulse Ox O2 Del Method 04/21/24 08:13 78 154/72 H 95 04/21/24 07:29 96.8 F 78 16 154/72 H 95 Room Air 04/21/24 07:25 96.8 F 78 16 154/72 H 95 Room Air 04/21/24 03:20 97.2 F 77 16 138/73 96 Room Air 04/20/24 22:00 97.2 F 84 16 143/72 H 95 Room Air Anesthesia: General Endotracheal-GETA Mental Status: Awake Pain Control: Satisfactory Nausea/Vomiting: None Hydration: Adequate Anesthesia-Related Issues: No Anes. Related Issues
[2024-04-21] MEDS: HYDROcodone Bit/Acetam 7.5/325 TABLET 1 TAB PO (10:56)
--- NOTE | 2024-04-21 11:03 | MHC.CM.PN ---
IMM DELIVERED. PT LIVES WITH SPOUSE AND IS INDEPENDENT. + HCP, COPY AT HOME. PCP DR. PAZ. DP: PT HAS BEEN MEDICALLY CLEARED FOR DC HOME, NO SERVICES. [facility] WILL TRANSPORT
== END 2024-04-21 10:59 | disposition home or self-care (01) | DRG 460 ==
LOC: HO.SSSA 08:25 → HO.S3 14:16
PROVIDERS: Neurological Surgery; Nurse Practitioner; Admitting Provider Physician Assistant; PCP Internal Medicine; Visit Provider Physician Assistant
PROC: 0SG00A0 Fusion of Lumbar Vertebral Joint with Interbody Fusion Device, Anterior Approach, Anterior Column, Open Approach (ICD-10-PCS; principal; 2024-04-20 11:10)
DX: M43.16 Spondylolisthesis, lumbar region (principal); Z87.891 Personal history of nicotine dependence; Z79.899 Other long term (current) drug therapy
CPT/HCPCS: 36415; 80048; 85027; 86850; 86900; 86901; 93005; 97161; C1713; C1889; C9290; J0131; J0665; J0690; J1100; J1170; J1885; J2250; J2405; J2598; J2704; J3010; L8699

== ENCOUNTER → 2024-04-20 08:22 | Outpatient (BNV) | payer MEDICARE, SELFPAY | PROVIDERS: Admitting Provider Physician Assistant; PCP Internal Medicine; Visit Provider Neurological Surgery | DX: M43.16 Spondylolisthesis, lumbar region (principal) | CPT/HCPCS: 20930; 22558; 22612; 22840; 22853; 99499 ==

== ENCOUNTER 2024-05-13 11:19 | Outpatient (AMB) | payer MEDICARE, SELFPAY ==
--- NOTE | 2024-05-13 09:37 | A.SPINEOV_ITS ---
Intake Visit Reasons: 1st post op Intake Note: Ms. Contreras is here for her 1st post op appointment. Petroleum Sampler Required: No Allergies codeine Allergy (Severe, Verified 04/06/24 11:59) Abdominal Pain Assessment & Plan Assessment & Plan (1) Spondylolisthesis, lumbar region: Code(s): M43.16 - Spondylolisthesis, lumbar region Category: Medical Plan Procedure: L4-5 OLIF Portia comes in today for her 1st postoperative visit. To recap she is s/p L4-5 OLIF which we identified as the likely primary pain generator. She does have a degenerative scoliosis with the apex at L2 and was offered an alternative surgery by Dr. Phillips (L2-3, L3-4, and L4-5 OLIF). After discussion it was decided that she would have the single-level performed instead as a more conservative treatment that will likely address her primary pain symptoms. She is aware that she may need to have subsequent superior levels addressed in the future. She reports she is satisfied with the surgery and feels the bulk of her symptoms have resolved aside from her right-sided posterior buttocks pain. Thank fully the severe shooting radiculopathy has subsided. She is still taking her narcotic pain medications alongside OTC pain control. We extensively discussed the postoperative healing course & activity guidelines. I answered all of her questions. No new neurological deficits. Patient is able to ambulate well, rises from a seated position without the assistance of a chair. Incision sites are closed, well healing, with no signs of drainage. We will follow-up with the patient in 6 weeks for their 2nd postoperative visit. At that time we will get x-rays to review with the patient. Otoniel Phillips MD,PhD [facility] Coding Level of Care Code Global (53167) Diagnoses Spondylolisthesis, lumbar region M43.16
== END 2024-05-13 11:51 | disposition home or self-care (01) ==
PROVIDERS: PCP Internal Medicine; Visit Provider Physician Assistant
DX: M43.16 Spondylolisthesis, lumbar region (principal)
CPT/HCPCS: 99024

== ENCOUNTER → 2024-05-13 11:19 | Outpatient (BNVA) | payer MEDICARE, SELFPAY | PROVIDERS: PCP Internal Medicine; Visit Provider Physician Assistant | DX: M43.16 Spondylolisthesis, lumbar region (principal) | CPT/HCPCS: 99212 ==

== ENCOUNTER 2024-06-28 09:00 | Outpatient (REF) | payer MEDICARE, SELFPAY ==
--- NOTE | ~2024-06-28 | XR_ITS ---
EXAMINATION: XR LUMBOSACRAL SPINE CLINICAL INFORMATION: Pain status-post arthrodesis. COMPARISON: Lumbar spine radiographs dated 12/23/2023. TECHNIQUE: 4 views of the lumbar spine, inclusive of flexion and extension views, were obtained. FINDINGS: There is bony demineralization. There is a moderate lumbar levoscoliosis. At L2-3, there is marked disc space narrowing, with vacuum disc phenomenon. At L3-4, there is moderate rightward disc space narrowing. At L4-5, there has been an interim posterior fusion and discectomy, with stable grade 1 anterolisthesis and intact posterior fixation rods, pedicle screws and disc spacer. No hardware failure or loosening is seen. At L5-S1, there is marked degenerative disc disease, with disc space narrowing, vacuum disc phenomenon and a 7 mm anterolisthesis. There is no instability with flexion or extension. The posterior elements are intact. The paravertebral soft tissues are unremarkable. XR/XR lumbar spine 4V min IMPRESSION: 1. There is a stable grade 1 anterolisthesis status post L4-5 posterior fusion and discectomy. No hardware failure or loosening is seen. 2. No instability is seen with flexion or extension. 3. There is multi-level lumbar degenerative disc disease, most pronounced at L1-2 and L5-S1. Electronically signed by: Lee Gonzalez MD 07/19/2024 06:50 PM EDT
== END 2024-06-28 09:01 | disposition home or self-care (01) ==
LOC: HO.HOSX 09:00
PROVIDERS: Visit Provider Physician Assistant
DX: Z98.1 Arthrodesis status (principal)
CPT/HCPCS: 72110; 99212

== ENCOUNTER 2024-06-28 13:23 | Outpatient (AMB) | payer MEDICARE, SELFPAY ==
--- NOTE | 2024-06-28 13:43 | HO.SPINEOV ---
Intake Visit Reasons: 2nd post op with Xray Intake Note: Ms. Contreras is here for a 2nd post-op visit. 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 To recap she has a degenerative scoliosis but was offered an L4-5 OLIF to address her primary pain concerns. Since the surgery she was reported resolution of her shooting radiculopathy, but does continue to report some pain in her right posterior thigh. Overall she is doing much better than she did prior to her surgery. Her X-ray imaging shows stable placement of surgical construct with no changes from flouroscopy. No new neurological deficits. The patient is able to ambulate well and rises from a seated position without difficulty. Posterior/anterior lateral incision sites appear clean and well healed. I would like to follow up with Portia again in 2 months for her 3rd postoperative visit to ensure that she continues to heal well. Otoniel Phillips MD,PhD [facility] Orders: Orders XR lumbar spine 4V min Today Z98.1 - Arthrodesis status Coding Level of Care Code Global (19774) Diagnoses S/P spinal fusion Z98.1
== END 2024-06-28 14:11 | disposition home or self-care (01) ==
PROVIDERS: PCP Internal Medicine; Visit Provider Physician Assistant
DX: Z98.1 Arthrodesis status (principal)
CPT/HCPCS: 99024

== ENCOUNTER 2024-08-30 13:24 | Outpatient (AMB) | payer MEDICARE, SELFPAY ==
--- NOTE | 2024-08-30 13:33 | HO.SPINEOV ---
Intake Visit Reasons: 3rd post op Intake Note: Mrs. Contreras is here today for her 3rd post-op visit. Civil Litigation Attorney Required: No Allergies codeine Allergy (Severe, Verified 08/30/24 13:41) Abdominal Pain Assessment & Plan Assessment & Plan (1) S/P spinal fusion: Code(s): Z98.1 - Arthrodesis status Category: Surgical Plan Procedure: L4-5 OLIJEOMA Greene comes in today for her 3rd postoperative follow up. Thankfully, the bulk of her symptoms have resolved since her surgery. She has minimal low back pain has been doing much better in regards to ambulation. Unfortunately, she continues to report some right-sided hip/leg pain. She has tried over the counter remedies but this aching / throbbing pain persists. We discussed how this may be a result of her degenerative scoliosis, which would require more than just an L4-5 fusion to correct. She understands this and feels that overall she is doing much better than she did before surgery. She has no real want / desire to have subsequent procedures done, as her current state is quite tolerable. She overall feels much better than she did before surgery. No new neurological deficits. Patient is able to ambulate well, rises from a seated position without difficulty. We will follow-up with the patient in [address] a CT scan to evaluate for fusion. We also discussed how physical therapy may be beneficial for her. I completed a referral for her to go to physical therapy. Otoniel Phillips MD,PhD [facility] Orders: Orders PT Evaluation and Treatment 08/30/24 Z98.1 - Arthrodesis status CT lumbar spine wo IV con 01/31/25 M43.16 - Spondylolisthesis, lumbar region Coding Level of Care Code Est Pt Level 3 (09495) Diagnoses S/P spinal fusion Z98.1
== END 2024-08-30 14:03 | disposition home or self-care (01) ==
PROVIDERS: PCP Internal Medicine; Visit Provider Physician Assistant
DX: Z98.1 Arthrodesis status (principal)
CPT/HCPCS: 99213

== ENCOUNTER → 2024-08-30 13:24 | Outpatient (BNVA) | payer MEDICARE, SELFPAY | PROVIDERS: PCP Internal Medicine; Visit Provider Physician Assistant | DX: Z98.1 Arthrodesis status (principal) | CPT/HCPCS: 99212 ==

== ENCOUNTER 2025-01-31 14:51 | Outpatient (REF) | payer MEDICARE, SELFPAY ==
--- NOTE | ~2025-01-31 | CT_ITS ---
CLINICAL HISTORY: M43.16 - Spondylolisthesis, lumbar region CT lumbar spine without contrast Comparison: DX/SR - XR LUMBAR SPINE 4V MIN - 06/28/24 13:35 EDT Findings: No acute fracture. Scoliosis with multilevel degenerative changes of the lumbar spine with osteophyte formation and narrowing of the intervertebral disc space. There is grade 1 anterolisthesis of L4 on L5 and L5 on S1. Status post posterior spinal fusion of L4-L5 with spacer. Degenerative facet arthropathy of the lower lumbar spine. Left kidney stone. Angiomyolipoma of the right kidney. T12-L1: Unremarkable L1-L2: Disc bulging without spinal stenosis. Urwn-ig-nmoqnstx bilateral neural foramina stenosis. L2-L3: Disc bulging without spinal stenosis. Patent left neural foramina. Tdkb-bl-khxszfsj right neural foramina stenosis L3-L4: Disc bulging without spinal stenosis. Mild right neural foramina stenosis and moderate left neural foramina stenosis. L4-L5: No spinal stenosis. Mild bilateral neural foramina stenosis. L5-S1: No spinal stenosis. Moderate bilateral neural foramina stenosis. IMPRESSION: No acute fracture. Multilevel degenerative changes of the lumbar spine as above. Status post fusion of the lower lumbar spine with no evidence of hardware complication. This document has been electronically signed by: Katelyn Rodriguez MD on 02/01/2025 15:16:26
--- OUTSIDE RECORDS SUMMARY | 2025-01-31 16:59 | XMS_ITS | Encounter Summary ---
Author Organization [facility] Address [address] [place] [address] Care Team Providers Care Supervisor Line Department Name Role Phone Krystle Chacon MD MPH Primary Care Provider Shari Khurram Linn MD Primary Care Provider Christiano Juarez MD, Darshak Primary Care Provider [phone] Reta Schuler MD Primary Care Provider [phone] Maria Cox TURBINE SUBASSEMBLER Unavailable [phone] Encounter Details Date Type Department Care Team (Late st Contact Info) Description 05/24/2019 Orders Only [facility] [address] [place] [phone] John Pineda MD [address] [address] Social History Tobacco Use Types Packs/Day Years Used Date Smoking Tobacco: Former Cigarettes Q uit: 11/24/1975 Smokeless Tobacco: Never Comments:remote hx quit Alcohol Use Standard Drinks/Week Comments Yes 7 (1 standard drink = 0.6 oz pur e alcohol) Comments No Sex and Gender Information Value Date Recorded Sex Assigned at Not on file Legal Sex Female 8:32 PM EST Gender Identity Not on file Sexual Orientation Not on file Occupation Industry Job Start Date Job End Date retired Not on file Not on file Not on file documented as of this encounter Progress Notes * John Pineda MD - 05/28/2019 3:34 PM EDT [facility] Nursing staff; would you kindly let Portia know that the recent laboratory tests came back normal. I am looking forward to seeing her in a couple of weeks in the [facility] lab and hope we have some more information for her then. I would be pleased to talk with her if she would like. Thank you, John * John Pineda MD - 05/28/2019 3:01 PM EDT The laboratory tests performed to seek for a cause of the apparent polyneuropathy are negative/normal including B12, Lyme, DANA and JEFFREY. I have sent a Mundi message to Mrs. Contreras. cc: Dr. Chacon.John Pineda M.D. documented in this encounter Plan of Treatment Not on file documented as of this encounter Goals Goal Patient Goal Type Associated Problems Recent Progress Patient-Stated? Author Blood Pressure < 140/90 Blood Pressure 133/69(2024 10:45 AM EST) No Jacqui De Jesus RN documented as of this encounter Procedures * Due to [place] [employer] law, this organization might not be sharing negative HIV tests. Procedure Name Priority Date/Time Associated Diagnosis Comments BORRELIA BURGDORFERI AB (LYME), EIA WITH REFLEX IGG, IGM WB Routine 05/24/2019 12:15 PM EDT Idiopathic peripheral neuropathy IMMUNOFIXATION, SERUM Routine 05/24/2019 12:15 PM EDT Idiopathic peripheral neuropathy DANA SCREEN IFA W/REFLEX TO TITER/PATTERN IFA Routine 05/24/2019 12:15 PM EDT Idiopathic peripheral neuropathy VITAMIN B12 (CYANOCOBALAMIN), SERUM Routine 05/24/2019 12:15 PM EDT Idiopathic peripheral neuropathy documented in this encounter Results * Due to [place] [employer] law, this organization might not be sharing negative HIV tests. * VITAMIN B12 (CYANOCOBALAMIN), SERUM (05/24/2019 12:15 PM EDT) Vitamin B12 (Cobalamins) 742 200 - 1100 pg/mL [facility] 05/24/2019 12:1 5 PM EDT 05/24/2019 1:21 PM EDT Narrative Resulting Agency Comment [id number] John Pineda MD LABORATORY Final Result Performing Organization Address City/State/[facility] Co de Phone Number [facility] [address] [place] [address] * BORRELIA BURGDORFERI AB (LYME), EIA WITH REFLEX IGG, IGM WB (05/24/2019 12:15 PM EDT) Borrelia burgdorferi Ab <0.90 index [facility] Comment: ? Index ?Interpretation ? ----- ? < 0.90 ? Negative ? 0.90-1.09 ?Equivocal ? > 1.09 ? Positive As recommended by the Food and Drug Administration (FDA), all samples with positive or equivocal results in a Borrelia burgdorferi antibody screen will be tested using a blot method. Positive or equivocal screening test results should not be interpreted as truly positive until verified as such using a supplemental assay (e.g., B. burgdorferi blot). The screening test and/or blot for B. burgdorferi antibodies may be falsely negative in early stages of Lyme disease, including the period when erythema migrans is apparent. 05/24/2019 12:1 5 PM EDT 05/24/2019 1:21 PM EDT Narrative Resulting Agency Comment [id number] John Pineda MD LABORATORY Final Result Performing Organization Address City/State/[facility] Co de Phone Number [facility] [address] [place] [address] * IMMUNOFIXATION, SERUM (05/24/2019 12:15 PM EDT) Interpretation No monoclonal proteins detected. [facility] 05/24/2019 12:1 5 PM EDT 05/24/2019 1:21 PM EDT Narrative Resulting Agency Comment [id number] John Pineda MD LABORATORY Final Result Performing Organization Address [facility] Co de Phone Number [facility] [address] [place] [phone] * DANA SCREEN IFA W/REFLEX TO TITER/PATTERN IFA (05/24/2019 12:15 PM EDT) DANA IFA NEGATIVE NEGATIVE [facility] Comment: Although the specimen was negative for anti- nuclear antibodies (DANA), the presence of cytoplasmic fluorescence was noted on the HEp-2 slide. ??Other reactivities (e.g., anti- mitochondrial antibodies or anti-smooth muscle antibodies) may be responsible for this fluorescence. DANA IFA is a first line screen for detecting the presence of up to approximately 150 autoantibodies in various autoimmune diseases. A negative DANA IFA result suggests DANA-associated autoimmune diseases are not present at this time. Visit Physician FAQs for interpretation of all antibodies in the [place], prevalence, and association with diseases at http://education.[employer]/ faq/IZQ753 05/24/2019 12:1 5 PM EDT 05/24/2019 1:21 PM EDT Narrative Resulting Agency Comment [id number] John Pineda MD LABORATORY Final Result Performing Organization Address City/[facility] Co de Phone Number [facility] [address] [place] [address] documented in this encounter Visit Diagnoses Diagnosis Idiopathic peripheral neuropathy Unspecified hereditary and idiopathic peripheral neuropathy documented in this encounter Care Teams Supervisor Line Department Relationship Specialty Start Date End Date Krystle Chacon MD MPH PCP - General 11/11/14 12/11/20 Khurram Ferrer MD PCP - General Internal Medicine 12/12/20 05/24/24 Robert Lam MD [address] [place] [address] PCP - General 05/25/24 09/08/24 Reta Schuler MD [address] [place] [address] PCP - General Internal Medicine 09/09/24 Maria Cox NP [address] [place] [id number] PCP - Backup PCP Internal Medicine 09/09/24 documented as of this encounter
--- OUTSIDE RECORDS SUMMARY | 2025-01-31 16:59 | XMS_ITS | Encounter Summary ---
Author Organization [facility] Address [address] [place] [address] [place] [id number] Care Team Providers Care Emergency Room Physician Assistant Name Role Phone Krystle Chacon Md Primary Care Provider [phone] Encounter Details Date Type Department Care Team (Late st Contact Info) Description 05/18/2014 Patient Message [facility] [address] [place] [phone] Online, [employer]Street USED BY [employer] TO CREATE USER MESSAGE ENCOUNTERS BY NON-PROVIDERS Lab Tests Social History Tobacco Use Types Packs/Day Years Used Date Smoking Tobacco: Former Comments:remote hx quit Alcohol Use Standard Drinks/Week Comments Yes 0 (1 standard drink = 0.6 oz pur e alcohol) 4-5 drinks/week Comments No Sex and Gender Information Value Date Recorded Sex Assigned at Not on file Legal Sex Female 8:46 PM EDT Gender Identity Not on file Sexual Orientation Not on file 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
--- OUTSIDE RECORDS SUMMARY | 2025-01-31 16:59 | XMS_ITS | Encounter Summary ---
Author Organization [facility] Address [address] [place] [address] Care Team Providers Care Neck Pinner Name Role Phone Khurram Ferrer MD Primary Care Provider Christiano Juarez MD, Darshak Primary Care Provider Reta Schuler MD Primary Care Provider [phone] Maria Cox BELT BRANDER Unavailable [phone] Encounter Details Date Type Department Care Team (Late st Contact Info) Description 03/01/2021 Orders Only [facility] [address] [place] [address] Khurram Ferrer MD [address] [address] Social History Tobacco Use Types Packs/Day Years Used Date Smoking Tobacco: Former Cigarettes 1 10 0 11/24/1965 - 11/24/1975 Smokeless Tobacco: Never Comments:remote hx quit [...] file Not on file Not on file COVID-19 Exposure Response Date Recorded In the last month, have you been in contact with someone who was confirmed or suspected to have Coronavirus / COVID-19? No / Unsure 02/28/2021 11:26 AM EDT documented as of this encounter Miscellaneous Notes * Result Encounter Note - Pushpa Guerrero RN - 03/01/2021 9:23 AM EDT Pre-op labs/EKG * Result Encounter Note - Khurram Ferrer MD - 03/01/2021 9:23 AM EDT . documented in this encounter Plan of Treatment Not on file documented as of this encounter Goals Goal Patient Goal Type Associated Problems Recent Progress Patient-Stated? Author Blood Pressure < 140/90 Blood Pressure 133/69(2024 10:45 AM EST) No Jacqui De Jesus RN documented as of this encounter Procedures * Due to [place] [employer] law, this organization might not be sharing negative HIV tests. Procedure Name Priority Date/Time Associated Diagnosis Comments VENIPUNCTURE Routine 03/01/2021 9:28 AM EDT High risk medication use EKG-TO BE READ & BILLED BY ADULT OR PEDIATRIC CARDIOLOGY Routine 03/01/2021 9:10 AM EDT Benign essential HTN High risk medication use documented in this encounter Results * Due to [facility] law, this organization might not be sharing negative HIV tests. * (ABNORMAL) CBC (H/H, RBC, INDICES,WBC, PLT) (03/01/2021 9:28 AM EDT) WBC 3.7(L) 3.8 - 10.8 K/uL [facility] RBC 4.21 3.80 - 5.10 M/uL [facility] Hemoglobin 12.6 11.7 - 15.5 g/dL [facility] Hematocrit 39.7 35.0 - 45.0 % [facility] MCV 94.3 80.0 - 100.0 fl [facility] MCH 29.9 27.0 - 33.0 pg [facility] MCHC 31.7(L) 32.0 - 36.0 g/dL [facility] RDW 15.2(H) 11.0 - 15.0 % [facility] PLT 244 140 - 400 K/uL [facility] 03/01/2021 9:28 AM EDT 03/01/2021 9:[address] [facility] - 03/01/2021 12:41 PM EDT Patient's primary care provider is: ??N/A Testing performed at: [facility], [address] [place] [address], [address], Ict Customer Support Officer: Christopher Quintero MD us Khurram Ferrer MD LAB SAME DAY RESULT Final R esult [address] [address] DIRECTOR Christopher Quintero MD * EKG-TO BE READ & BILLED BY ADULT OR PEDIATRIC CARDIOLOGY (03/01/2021 9:10 AM EDT) VENTRICULAR RATE 66 BPM MUS E EKG SYSTEM ATRIAL RATE 66 BPM MUSE EKG SYSTEM P-R INTERVAL 166 ms MUSE EK G SYSTEM QRS DURATION 80 ms MUSE EK G SYSTEM QT 390 ms MUSE EKG SYSTEM QTC 408 ms MUSE EKG SYSTEM P AXIS 55 degrees MUSE EKG SYSTEM R AXIS 15 degrees MUSE EKG SYSTEM T AXIS 56 degrees MUSE EKG SYSTEM EKG INTERPRETATION Normal sinus rhythm Normal ECG When compared with ECG of 02-JAN-2016 16:23, Premature atrial complexes are no longer Present Confirmed by Dora RIVERS, MILDRED [place] ([id number]) on 03/01/2021 1:53:07 PM MUSE EKG SYSTEM 03/01/2021 9:10 AM EDT 03/01/2021 1:53 PM EDT us Khurram Ferrer MD CARDIOVASCULAR-WITH INBSKT RTG Final Result MUSE EKG SYSTEM documented in this encounter Visit Diagnoses Diagnosis Benign essential HTN Essential hypertension, benign High risk medication use Encounter for long-term (current) use of other medications documented in this encounter Care Teams Neck Pinner Relationship Specialty Start Date End Date Khurram Ferrer MD PCP - General Internal Medicine 12/12/20 05/24/24 Robert Lam MD [address] [address] PCP - General 05/25/24 09/08/24 Reta Schuler MD [address] [place] [address] PCP - General Internal Medicine 09/09/24 Maria Cox NP [address] [place] [address] PCP - Backup PCP Internal Medicine 09/09/24 documented as of this encounter
--- OUTSIDE RECORDS SUMMARY | 2025-01-31 16:59 | XMS_ITS | Encounter Summary ---
Author Organization [facility] Address [address] [place] [address] Care Team Providers Care Housing And Residence Life Director Name Role Phone Krystle Chacon MD MPH Primary Care Provider Shari Khurram Linn MD Primary Care Provider Christiano Juarez MD, Darshak Primary Care Provider Reta Schuler MD Primary Care Provider [phone] Maria Cox ADJUSTO WRITER OPERATOR Unavailable [phone] Encounter Details Date Type Department Care Team (Late st Contact Info) Description 03/01/2018 Orders Only [facility] [address] [place] [phone] Krystle Chacon MD MPH Social History Tobacco Use Types Packs/Day Years [...] 140/90 Blood Pressure 133/69(2024 10:45 AM EST) Jacqui Tatum RN documented as of this encounter Procedures * Due to [place] state law, this organization might not be sharing negative HIV tests. Procedure Name Priority Date/Time Associated Diagnosis Comments CBC (H/H, RBC, INDICES,WBC, PLT) Routine 03/01/2018 10:31 AM EDT Screening for hyperlipidemia Screening for diabetes mellitus (DM) Screening for deficiency anemia LIPID PANEL WITH REFLEX TO DIRECT LDL Routine 03/01/2018 10:31 AM EDT Screening for hyperlipidemia Screening for diabetes mellitus (DM) Screening for deficiency anemia COMPREHENSIVE METABOLIC PANEL WITH GFR Routine 03/01/2018 10:31 AM EDT Screening for hyperlipidemia Screening for diabetes mellitus (DM) Screening for deficiency anemia documented in this encounter Results * Due to [place] [employer] law, this organization might not be sharing negative HIV tests. * (ABNORMAL) LIPID PANEL WITH REFLEX TO DIRECT LDL (03/01/2018 10:31 AM EDT) Cholesterol 224(H) <200 mg/dL [facility] Triglyceride 54 <150 mg/dL [facility] HDL Cholesterol 114 >40 mg/dL [facility] Comment: NCEP GUIDELINES Desireable >60 mg/dL Borderline 40-59 mg/dL ?? Undesirable <40 mg/dL LDL Cholesterol 99 <130 mg/dL [facility] CHOL/HDL Ratio 2 0 - 5 CALC [facility] 03/01/2018 10:3 1 AM EDT 03/01/2018 10:31 AM EDT [facility] 03/01/2018 11:44 AM EDT Patient's primary care provider is: ??N/A Testing performed at: [facility], [address] [place] [address], [address], Gear Tooth Lapping Machine Operator: Rosalia Gonzales, Ph.D us Krystle Chacon MD MPH LABORATORY Final Resu lt [address] [address] DIRECTOR Rosalia Gonzales, Ph.D * COMPREHENSIVE METABOLIC PANEL WITH GFR (03/01/2018 10:31 AM EDT) Glucose 79 65 - 99 mg/dl [facility] Urea Nitrogen Blood (BUN) 16 7 - 25 mg/dL [facility] Creatinine 0.76 0.50 - 1.16 mg/dL [facility] Sodium 138 136 - 145 mmo/L [facility] Potassium 4.9 3.5 - 5.3 mmol/L [facility] Chloride 99 98 - 107 mmo/L [facility] Calcium 9.1 8.5 - 10.4 mg/dL [facility] Protein Total (Serum) 6.5 6.0 - 8.3 g/dL [facility] Albumin 4.3 3.5 - 5.2 g/dL [facility] Globulin 2 2 - 4 G/DL [facility] Bilirubin Total 0.38 0.00 - 1.20 mg/dL [facility] Alkaline phosphatase 69 33 - 130 U/L [facility] AST (SGOT) 26 <38 U/L [facility] ALT (SGPT) 25 <47 U/L [facility] Carbon dioxide 28 23 - 33 mmol/L [facility] GFR 80 >60 ml/min [facility] Comment:If the patient is Af rican Tajik, please multiply result by 1.210 03/01/2018 10:3 1 AM EDT 03/01/2018 10:31 AM EDT Narrative [facility] - 03/01/2018 11:44 AM EDT Patient's primary care provider is: ??N/A Testing performed at: [facility], [address] [place] [address], [address], Gear Tooth Lapping Machine Operator: Rosalia Gonzales, Ph.D us Krystle Chacon MD MPH LABORATORY Final Resu lt [address] [address] DIRECTOR Rosalia Gonzales, Ph.D * (ABNORMAL) CBC (H/H, RBC, INDICES,WBC, PLT) (03/01/2018 10:31 AM EDT) WBC 3.1(L) 3.8 - 10.8 K/uL [facility] RBC 4.22 3.80 - 5.10 M/uL [facility] Hemoglobin 12.8 11.7 - 15.5 g/dL [facility] Hematocrit 39.7 35.0 - 45.0 % [facility] MCV 94.1 80.0 - 100.[address] MCH 30.3 27.0 - 33.[address] MCHC 32.2 32.0 - 36.0 g/dL [facility] RDW 14.4 11.0 - 15.0 % [facility] PLT 251 140 - 400 K/uL [facility] 03/01/2018 10:3 1 AM EDT 03/01/2018 10:31 AM EDT Narrative [facility] - 03/01/2018 10:50 AM EDT Patient's primary care provider is: ??N/A Testing performed at: [facility], [address] [place] [address], [address], Gear Tooth Lapping Machine Operator: Rosalia Gonzales, Ph.D Krystle Chacon MD MPH LAB SAME DAY RESULT Final Result Performing Organization Address City/State/[facility] Co de Phone Number [address] [address] DIRECTOR Rosalia Gonzales, Ph.D documented in this encounter Visit Diagnoses Diagnosis Screening for hyperlipidemia Screening for lipoid disorders Screening for diabetes mellitus (DM) Screening for diabetes mellitus Screening for deficiency anemia Screening for other and unspecified deficiency anemia documented in this encounter Care Teams Housing And Residence Life Director Relationship Specialty Start Date End Date Krystle Chacon MD MPH PCP - General 11/11/14 12/11/20 Khurram Ferrer MD PCP - General Internal Medicine 12/12/20 05/24/24 Robert Lam MD [address] [facility] [address] [place] [address] PCP - General 05/25/24 09/08/24 Reta Schuler MD [address] [place] [address] PCP - General Internal Medicine 09/09/24 Maria Cox NP [address] [place] [address] PCP - Backup PCP Internal Medicine 09/09/24 documented as of this encounter
--- OUTSIDE RECORDS SUMMARY | 2025-01-31 16:59 | XMS_ITS | Encounter Summary ---
Author Organization [facility] Address [address] [place] [address] Care Team Providers Care Sintering Press Operator Name Role Phone Krystle Chacon MD MPH Primary Care Provider Shari Khurram Linn MD Primary Care Provider Christiano Juarez MD, Darshak Primary Care Provider Reta Schuler MD Primary Care Provider [phone] Maria Cox ABA TUTOR Unavailable [phone] Encounter Details Date Type Department Care Team (Late st Contact Info) Description 02/17/2017 Orders Only [facility] Adult Medicine [address] [place] [phone] Krystle Chacon MD MPH Social History Tobacco [...] 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 Author Blood Pressure < 140/90 Blood Pressure 133/69(2024 10:45 AM EST) Jacqui Tatum RN documented as of this encounter Procedures * Due to [place] [employer] law, this organization might not be sharing negative HIV tests. Procedure Name Priority Date/Time Associated Diagnosis Comments CBC (H/H, RBC, INDICES,WBC, PLT) Routine 02/17/2017 7:57 AM EDT Osteopenia Screening for deficiency anemia Screening for diabetes mellitus (DM) Screening for hyperlipidemia LIPID PANEL WITH REFLEX TO DIRECT LDL Routine 02/17/2017 7:57 AM EDT Osteopenia Screening for deficiency anemia Screening for diabetes mellitus (DM) Screening for hyperlipidemia COMPREHENSIVE METABOLIC PANEL WITH GFR Routine 02/17/2017 7:57 AM EDT Osteopenia Screening for deficiency anemia Screening for diabetes mellitus (DM) Screening for hyperlipidemia documented in this encounter Results * Due to [place] [employer] law, this organization might not be sharing negative HIV tests. * (ABNORMAL) LIPID PANEL WITH REFLEX TO DIRECT LDL (02/17/2017 7:57 AM EDT) Cholesterol 216(H) <200 mg/dL [facility] Triglyceride 52 <150 mg/dL [facility] HDL Cholesterol 102 >40 mg/dL [facility] Comment: NCEP GUIDELINES Desireable >60 mg/dL Borderline 40-59 mg/dL ?? Undesirable <40 mg/dL LDL Cholesterol 103 <130 mg/dL [facility] CHOL/HDL Ratio 2 0 - 5 CALC [facility] 02/17/2017 7:57 AM EDT 02/17/2017 7:57 AM EDT Narrative [facility] - 02/17/2017 12:48 PM EDT fasting Patient's primary care provider is: ??N/A Testing performed at: [facility], [address] [place] [address], [address], Geophysical Engineer: Rui Watson M.D. us Krystle Chacon MD MPH LABORATORY Final Resu lt [address] [address] DIRECTOR RUI WATSON M.D. * COMPREHENSIVE METABOLIC PANEL WITH GFR (02/17/2017 7:57 AM EDT) Glucose 96 65 - 99 mg/dl [facility] Urea Nitrogen Blood (BUN) 9 7 - 25 mg/dL [facility] Creatinine 0.77 0.50 - 1.16 mg/dL [facility] Sodium 142 136 - 145 mmo/L [facility] Potassium 4.8 3.5 - 5.3 mmol/L [facility] Chloride 102 98 - 107 mmo/L [facility] Calcium 9.2 8.5 - 10.4 mg/dL [facility] Protein Total (Serum) 6.8 6.0 - 8.3 g/dL [facility] Albumin 4.3 3.5 - 5.2 g/dL [facility] Globulin 2 2 - 4 G/DL [facility] Bilirubin Total 0.21 0.20 - 1.50 mg/dL [facility] Alkaline phosphatase 83 33 - 130 U/L [facility] AST (SGOT) 26 <38 U/L [facility] ALT (SGPT) 24 <47 U/L [facility] Carbon dioxide 29 23 - 33 mmol/L [facility] GFR 79 >60 ml/min [facility] Comment:If the patient is Af rican Venezuelan, please multiply result by 1.210 02/17/2017 7:57 AM EDT 02/17/2017 7:57 AM EDT Narrative [facility] - 02/17/2017 12:48 PM EDT fasting Patient's primary care provider is: ??N/A Testing performed at: [facility], [address] [place] [address], [address], Geophysical Engineer: Rui Watson M.D. us Krystle Chacon MD MPH LABORATORY Final Resu lt [address] [address] DIRECTOR RUI WATSON M.D. * CBC (H/H, RBC, INDICES,WBC, PLT) (02/17/2017 7:57 AM EDT) WBC 3.9 3.8 - 10.8 K/uL [facility] RBC 4.33 3.80 - 5.10 M/uL [facility] Hemoglobin 13.2 11.7 - 15.5 g/dL [facility] Hematocrit 39.7 35.0 - 45.0 % [facility] MCV 91.7 80.0 - 100.0 fl [facility] MCH 30.5 27.0 - 33.0 pg [facility] MCHC 33.2 32.0 - 36.0 g/dL [facility] RDW 14.4 11.0 - 15.0 % [facility] PLT 249 140 - 400 K/uL [facility] 02/17/2017 7:57 AM EDT 02/17/2017 7:57 AM EDT Narrative [facility] - 02/17/2017 8:34 AM EDT fasting Patient's primary care provider is: ??N/A Testing performed at: [facility], [address] [place] [address], [id number], Geophysical Engineer: Rui Watson M.D. Krystle Chacon MD MPH LAB SAME DAY RESULT Final Result Performing Organization Address City/State/[facility] de Phone Number [address] [address] DIRECTOR RUI WATSON M.D. documented in this encounter Visit Diagnoses Diagnosis Osteopenia Disorder of bone and cartilage, unspecified Screening for deficiency anemia Screening for other and unspecified deficiency anemia Screening for diabetes mellitus (DM) Screening for diabetes mellitus Screening for hyperlipidemia Screening for lipoid disorders documented in this encounter Care Teams Sintering Press Operator Relationship Specialty Start Date End Date Krystle Chacon MD MPH PCP - General 11/11/14 12/11/20 Khurram Ferrer MD PCP - General Internal Medicine 12/12/20 05/24/24 Robert Lam MD [address] [place] [address] PCP - General 05/25/24 09/08/24 Reta Schuler MD [address] [place] [address] PCP - General Internal Medicine 09/09/24 Maria Cox NP [address] [place] [address] PCP - Backup PCP Internal Medicine 09/09/24 documented as of this encounter
--- OUTSIDE RECORDS SUMMARY | 2025-01-31 16:59 | XMS_ITS | Encounter Summary ---
Author Organization [facility] Address [address] [place] [address] Care Team Providers Care Teller Supervisor Name Role Phone Krystle Chacon MD MPH Primary Care Provider Shari Khurram Linn MD Primary Care Provider Christiano Juarez MD, Darshak Primary Care Provider Reta Schuler MD Primary Care Provider [phone] Maria Cox RISK ASSESSOR Unavailable [phone] Encounter Details Date Type Department Care Team (Late st Contact Info) Description 04/08/2016 [facility] [address] [place] [phone] Charito Neal MD [address] [address] Social History Tobacco Use Types Packs/Day Years [...] 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 Author Blood Pressure < 140/90 Blood Pressure 133/69(2024 10:45 AM EST) No Jacqui De Jesus RN documented as of this encounter Procedures * Due to [employer] law, this organization might not be sharing negative HIV tests. Procedure Name Priority Date/Time Associated Diagnosis Comments PHOSPHATE, SERUM Routine 04/08/2016 9:12 AM EDT Osteopenia MAGNESIUM, SERUM Routine 04/08/2016 9:12 AM EDT Osteopenia VITAMIN D, 25-HYDROXY, TOTAL, IMMUNOASSAY Routine 04/08/2016 9:12 AM EDT Osteopenia COMPREHENSIVE METABOLIC PANEL WITH GFR Routine 04/08/2016 9:12 AM EDT Osteopenia PARATHYROID HORMONE (PTH), INTACT WITH CALCIUM, SERUM Routine 04/08/2016 9:10 AM EDT Osteopenia COLLAGEN CROSS-LINKED N-TELOPEPTIDE (NTX), URINE Routine 04/08/2016 9:10 AM EDT Osteopenia documented in this encounter Results * Due to [place] [employer] law, this organization might not be sharing negative HIV tests. * COMPREHENSIVE METABOLIC PANEL WITH GFR (04/08/2016 9:12 AM EDT) Glucose 87 65 - 99 mg/dl [facility] Urea Nitrogen Blood (BUN) 19 7 - 25 mg/dL [facility] Creatinine 0.77 0.50 - 1.16 mg/dL [facility] Sodium 140 136 - 145 mmo/L [facility] Potassium 4.4 3.5 - 5.3 mmol/L [facility] Chloride 100 98 - 107 mmo/L [facility] Calcium 9.7 8.5 - 10.4 mg/dL [facility] Protein Total (Serum) 6.9 6.0 - 8.3 g/dL [facility] Albumin 4.6 3.5 - 5.2 g/dL [facility] Globulin 2 2 - 4 G/DL [facility] Bilirubin Total 0.29 0.20 - 1.50 mg/dL [facility] Alkaline phosphatase 81 33 - 130 U/L [facility] AST (SGOT) 24 <38 U/L [facility] ALT (SGPT) 22 <47 U/L [facility] Carbon dioxide 27 23 - 33 mmol/L [facility] GFR 79 >60 ml/min [facility] Comment:If the patient is Af rican [place], please multiply result by 1.210 04/08/2016 9:12 AM EDT 04/08/2016 9:12 AM EDT [facility] - 04/08/2016 10:51 AM EDT Patient is not fasting Patient's primary care provider is: ??N/A Testing performed at: [facility], [address] [place] [address], [address], Lactation Nurse: Rui Watson M.D. us Charito Neal MD LABORATORY Final Result Performing Organization Address [facility] de Phone Number [address] [address] DIRECTOR RUI WATSON M.D. * PHOSPHATE, SERUM (04/08/2016 9:12 AM EDT) [facility] Phosphate 3.0 2.5 - 4.5 mg/dL [facility] 04/08/2016 9:12 AM EDT 04/08/2016 9:12 AM EDT [facility] - 04/08/2016 10:51 AM EDT Patient is not fasting Patient's primary care provider is: ??N/A Testing performed at: [facility], [address] [place] [address], [address], Lactation Nurse: Rui Watson M.D. us Charito Neal MD LABORATORY Final Result Performing Organization Address [facility] de Phone Number [address] [address] DIRECTOR RUI WATSON M.D. * MAGNESIUM, SERUM (04/08/2016 9:12 AM EDT) Magnesium 2.1 1.5 - 2.5 mg/dL [facility] 04/08/2016 9:12 AM EDT 04/08/2016 9:[address] [facility] - 04/08/2016 10:51 AM EDT Patient is not fasting Patient's primary care provider is: ??N/A Testing performed at: [facility], [address] [place] [address], [address], Lactation Nurse: Rui Watson M.D. Charito Nela MD LABORATORY Final Result Performing Organization Address [facility] Co de Phone Number [address] [address] DIRECTOR RUI WATSON M.D. * VITAMIN D, 25-HYDROXY, TOTAL, IMMUNOASSAY (04/08/2016 9:12 AM EDT) VIT D, 25-OH, TOTAL 58 >29 ng/mL [facility] Comment: Vitamin D Status ??25-OH Vitamin D: Deficiency: ? <20 ng/mL Insufficiency: ? 20-29 ng/mL Optimal: ?> or = 30 ng/mL 04/08/2016 9:12 AM EDT 04/08/2016 9:12 AM EDT [facility] - 04/08/2016 11:45 AM EDT Patient is not fasting Patient's primary care provider is: ??N/A Testing performed at: [facility], [address] [place] [address], [address], Lactation Nurse: Rui Watson M.D. us Charito Neal MD LABORATORY Final Result Performing Organization Address [facility] Co de Phone Number [address] [address] DIRECTOR RUI WATSON M.D. * COLLAGEN CROSS-LINKED N-TELOPEPTIDE (NTX), URINE (04/08/2016 9:10 AM EDT) Collagen crosslinked N-telopeptide/Cre atinine (Urine) 27 4 - 64 [facility] Comment: {N TELOPEPTIDE (NTX) {[id number]) Premenopausal ?Females: ??4 - 64 nmole BCE/mmole creatinine Results are primarily used for monitoring the response to therapy. ??A value within the premenopausal range does not rule out osteoporosis nor the need for therapy Units of Measure: nmol BCE/mmol creatinine Creatinine (Urine) 22.9 20 - 320 mg/dL [facility] Comment:{CREATININE, RANDOM URINE {[id number]) 04/08/2016 9:10 AM EDT 04/08/2016 2:46 PM EDT Narrative Resulting Agency Comment [id number] us Charito Neal MD LABORATORY Final Result [facility] [address] [place] [address] * PARATHYROID HORMONE (PTH), INTACT WITH CALCIUM, SERUM (04/08/2016 9:10 AM EDT) Parathyroid Hormone (PTH), Intact 53 14 - 64 pg/mL [facility] Comment: {PARATHYROID HORMONE, INTACT {[id number]) Interpretive Guide ?Intact PTH ? Calcium ? ------- Normal Parathyroid ?Normal ? Normal Hypoparathyroidism ?Low or Low Normal ?Low Hyperparathyroidism ?? Primary ?Normal or High ? High ?? Secondary ?High ? Normal or Low ?? Tertiary ? High ? High Non-Parathyroid ?? Hypercalcemia ?Low or Low Normal ?High Calcium 9.6 8.6 - 10.4 mg/dL [facility] Comment:{CALCIUM {[id number]) 04/08/2016 9:10 AM EDT 04/08/2016 2:46 PM EDT Narrative Resulting Agency Comment [id number] Charito Neal MD LABORATORY Final Result [facility] [address] [place] [address] documented in this encounter Visit Diagnoses Diagnosis Osteopenia Disorder of bone and cartilage, unspecified documented in this encounter Care Teams Teller Supervisor Relationship Specialty Start Date End Date Krystle Chacon MD MPH PCP - General 11/11/14 12/11/20 Khurram Ferrer MD PCP - General Internal Medicine 12/12/20 05/24/24 Robert Lam MD [address] [place] [address] PCP - General 05/25/24 09/08/24 Reta Schuler MD [address] [place] [address] PCP - General Internal Medicine 09/09/24 Maria Cox, PATI [address] [place] [address] PCP - Backup PCP Internal Medicine 09/09/24 documented as of this encounter
--- OUTSIDE RECORDS SUMMARY | 2025-01-31 16:59 | XMS_ITS | Encounter Summary ---
Author Organization [facility] Address [address] [place] [address] Care Team Providers Care Product Promoter Sales Person Name Role Phone Krystle Chacon MD MPH Primary Care Provider Shari Khurram Linn MD Primary Care Provider Christiano Juarez MD, Darshak Primary Care Provider [phone] Reta Schuler MD Primary Care Provider [phone] Maria Cox LEGAL SUPPORT MANAGER Unavailable Reason for Referral * CONSULT AND TREATMENT (Routine) - Auth Not Needed Specialty Diagnoses / Procedures Referred By Jessie kenny Referred To Contact Mammography Diagnoses annual screening Procedures REQUEST FOR MAMMOGRAPHY BILATERAL(DX: SCREENING FOR BREAST CANCER Z12.31)(1 YR FROM LAST) NON-FC Krystle Chacon MD MPH [facility] Referral ID Status Reason Start Date Expiration Date Visits Requested Visits Authorized [id number] Auth Not Needed Continuity of Care 01/09/2017 1 1 Encounter Details Date Type Department Care Team (Late st Contact Info) Description 01/09/2017 Orders Only [facility] Adult Medicine [address] [place] [phone] Krystle Chacon MD MPH Social History Tobacco [...] 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 Author Blood Pressure < 140/90 Blood Pressure 133/69(2024 10:45 AM EST) No Jacqui De Jesus RN documented as of this encounter Visit Diagnoses Not on filedocumented in this encounter Care Teams Product Promoter Sales Person Relationship Specialty Start Date End Date Krystle Chacon MD MPH PCP - General 11/11/14 12/11/20 Khurram Ferrer MD PCP - General Internal Medicine 12/12/20 05/24/24 Robert Lam MD [address] [address] PCP - General 05/25/24 09/08/24 Reta Schuler MD [address] [place] [address] PCP - General Internal Medicine 09/09/24 Maria Cox NP [address] [place] [address] PCP - Backup PCP Internal Medicine 09/09/24 documented as of this encounter
--- OUTSIDE RECORDS SUMMARY | 2025-01-31 16:59 | XMS_ITS | Encounter Summary ---
Author Organization [facility] Address [address] [place] [address] Care Team Providers Care Logistics Coordinator Name Role Phone Krystle Chacon MD MPH Primary Care Provider Shari Khurram Linn MD Primary Care Provider Christiano Juarez MD, Darshak Primary Care Provider [phone] Reta Schuler MD Primary Care Provider [phone] Maria Cox PACKAGER OR PACKER AND WEIGHER Unavailable [phone] Encounter Details Date Type Department Care Team (Late st Contact Info) Description 01/10/2016 Orders Only [facility] Adult Medicine [address] [place] [phone] Krystle Chacon MD MPH Social History Tobacco [...] 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 Author Blood Pressure < 140/90 Blood Pressure 133/69(2024 10:45 AM EST) No Jacqui De Jesus RN documented as of this encounter Procedures * Due to [facility] law, this organization might not be sharing negative HIV tests. Procedure Name Priority Date/Time Associated Diagnosis Comments T4, FREE, SERUM Routine 01/10/2016 9:52 AM EST Thyroid nodule BUN/CREATININE RATIOW/EGFR Routine 01/10/2016 9:52 AM EST Liver lesion HTN, white coat LIPID PANEL WITH REFLEX TO DIRECT LDL Routine 01/10/2016 9:52 AM EST HTN, white coat Osteopenia Screening for hyperlipidemia T3 (TRIIODOTHYRONINE) , FREE, SERUM Routine 01/10/2016 9:52 AM EST Thyroid nodule documented in this encounter Results * Due to [place] [employer] law, this organization might not be sharing negative HIV tests. * T4, FREE, SERUM (01/10/2016 9:52 AM EST) FT4 1.5 0.9 - 1.7 NG/DL [facility] 01/10/2016 9:52 AM EST 01/10/2016 9:52 AM EST Narrative [facility] - 01/10/2016 11:48 AM EST fasting Patient's primary care provider is: ??N/A Testing performed at: [facility], [address] [place] [address], [address], Police Chief: Rui Watson M.D. us Krystle Chacon MD MPH LABORATORY Final Resu lt Performing Organization Address City/State/[facility] Co de Phone Number [address] [address] DIRECTOR RUI WATSON M.D. * (ABNORMAL) LIPID PANEL WITH REFLEX TO DIRECT LDL (01/10/2016 9:52 AM EST) Cholesterol 224(H) <200 mg/dL [facility] Triglyceride 59 <150 mg/dL [facility] HDL Cholesterol 112 >40 mg/dL [facility] Comment: NCEP GUIDELINES Desireable >60 mg/dL Borderline 40-59 mg/dL ?? Undesirable <40 mg/dL LDL Cholesterol 100 <130 mg/dL [facility] CHOL/HDL Ratio 2 0 - 5 CALC [facility] 01/10/2016 9:52 AM EST 01/10/2016 9:52 AM EST Narrative [facility] - 01/10/2016 11:48 AM EST fasting Patient's primary care provider is: ??N/A Testing performed at: [facility], [address] [place] [address], [address], Police Chief: Rui Watson M.D. us Krystle Chacon MD MPH LABORATORY Final Resu lt Performing Organization Address [facility] de Phone Number [address] [address] DIRECTOR RUI WATSON M.D. * BUN/CREATININE RATIOW/EGFR (01/10/2016 9:52 AM EST) Urea Nitrogen Blood (BUN) 15 7 - 25 mg/dL [facility] Creatinine 0.82 0.50 - 1.16 mg/dL [facility] GFR 73 >60 ml/min [facility] Comment:If the patient is Af rican [place], please multiply result by 1.210 01/10/2016 9:52 AM EST 01/10/2016 9:52 AM EST Narrative [facility] - 01/10/2016 11:48 AM EST fasting Patient's primary care provider is: ??N/A Testing performed at: [facility], [address] [place] [address], [address], Police Chief: Rui Watson M.D. us Krystle Chacon MD MPH LABORATORY Final Resu lt Performing Organization Address [facility] de Phone Number [address] [address] DIRECTOR RUI E. WATSON, M.D. * T3 (TRIIODOTHYRONINE), FREE, SERUM (01/10/2016 9:52 AM EST) Free T3 2.5 2.3 - 4.2 pg/mL [facility] Comment:{T3, FREE {[id number]) 01/10/2016 9:52 AM EST 01/10/2016 2:01 PM EST Narrative Resulting Agency Comment [id number] us Krystle Chacon MD MPH LABORATORY Final Resu lt [facility] [address] [place] [address] documented in this encounter Visit Diagnoses Diagnosis Liver lesion Other specified disorders of liver HTN, white coat Unspecified essential hypertension Osteopenia Disorder of bone and cartilage, unspecified Screening for hyperlipidemia Screening for lipoid disorders Thyroid nodule Nontoxic uninodular goiter documented in this encounter Care Teams Logistics Coordinator Relationship Specialty Start Date End Date Krystle Chacon MD MPH PCP - General 11/11/14 12/11/20 Khurram Ferrer MD PCP - General Internal Medicine 12/12/20 05/24/24 Robert Lam MD [address] [place] [address] PCP - General 05/25/24 09/08/24 Reta Schuler MD [address] [place] [address] PCP - General Internal Medicine 09/09/24 Maria Cox NP [address] [place] [address] PCP - Backup PCP Internal Medicine 09/09/24 documented as of this encounter
--- OUTSIDE RECORDS SUMMARY | 2025-01-31 16:59 | XMS_ITS | Encounter Summary ---
Author Organization [facility] Address [address] [place] [address] Care Team Providers Care Livestock Broker Name Role Phone Krystle Chacon MD MPH Primary Care Provider Shari Khurram Linn MD Primary Care Provider Christiano Juarez MD, Darshak Primary Care Provider [phone] Reta Schuler MD Primary Care Provider [phone] Maria Cox CAPPER MACHINE OPERATOR Unavailable Reason for Visit * Reason Onset Date Comments Discussion With Provider 01/05/2016 Encounter Details Date Type Department Care Team (Late st Contact Info) Description 01/05/2016 Telephone [facility] Medicine [address] [place] [phone] Krystle Chacon, MPH Discussion With Provider Social History Tobacco Use Types Packs/Day Years [...] 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 palps are associated w NSR and occ wPACs. I advised consideration of starting low dose beta-gerardo Check cardiac enzymes F/u w me next week * Telephone Encounter - Jacque Leon - 01/05/2016 2:45 PM EST [facility] ER calling asking for Dr. Chacon to call Dr. Gould. [phone] documented in this encounter Plan of Treatment Not on file documented as of this encounter Goals Goal Patient Goal Type Associated Problems Recent Progress Patient-Stated? Author Blood Pressure < 140/90 Blood Pressure 133/69(2024 10:45 AM EST) No Jacqui De Jesus RN documented as of this encounter Visit Diagnoses Not on filedocumented in this encounter Care Teams Livestock Broker Relationship Specialty Start Date End Date Krystle Chacon MD MPH PCP - General 11/11/14 12/11/20 Khurram Ferrer MD PCP - General Internal Medicine 12/12/20 05/24/24 Robert Lam MD [address] [place] [address] PCP - General 05/25/24 09/08/24 Reta Schuler MD [address] [place] [address] PCP - General Internal Medicine 09/09/24 Maria Cox NP [address] [place] [address] PCP - Backup PCP Internal Medicine 09/09/24 documented as of this encounter
--- OUTSIDE RECORDS SUMMARY | 2025-01-31 16:59 | XMS_ITS | Encounter Summary ---
Author Organization [facility] Address [address] [place] [address] Care Team Providers Care Rcis Name Role Phone Krystle Chacon MD MPH Primary Care Provider Shari Khurram Linn MD Primary Care Provider [phone] Christiano Juarez MD, Darshak Primary Care Provider Reta Schuler MD Primary Care Provider [phone] Maria Cox HAND HOSE CUTTER Unavailable [phone] Encounter Details Date Type Department Care Team (Late st Contact Info) Description 04/08/2016 Orders Only [facility] Adult Medicine [address] [place] [phone] Krystle Chacon MD MPH Social History Tobacco [...] 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 documented in this encounter Plan of Treatment Not on file documented as of this encounter Goals Goal Patient Goal Type Associated Problems Recent Progress Patient-Stated? Author Blood Pressure < 140/90 Blood Pressure 133/69(2024 10:45 AM EST) No Jacqui De Jesus RN documented as of this encounter Procedures * Due to [place] [employer] law, this organization might not be sharing negative HIV tests. Procedure Name Priority Date/Time Associated Diagnosis Comments TSH, 3RD GENERATION Routine 04/08/2016 9 :11 AM EDT Thyroid nodule documented in this encounter Results * Due to [place] [employer] law, this organization might not be sharing negative HIV tests. * TSH, 3RD GENERATION (04/08/2016 9:11 AM EDT) TSH (Thyrotropin) 1.89 0.40 - 4.50 uIU/ml [facility] 04/08/2016 9:11 AM EDT 04/08/2016 9:11 AM EDT Narrative [facility] - 04/08/2016 10:50 AM EDT Patient is not fasting Patient's primary care provider is: ??N/A Testing performed at: [facility], [address] [place] [address], [address], Carry Out Clerk: Rui Watson M.D. us Krystle Chacon MD MPH LABORATORY Final Resu lt [address] [address] DIRECTOR RUI WATSON M.D. documented in this encounter Visit Diagnoses Diagnosis Thyroid nodule Nontoxic uninodular goiter documented in this encounter Care Teams Rcis Relationship Specialty Start Date End Date Krystle Chacon MD MPH PCP - General 11/11/14 12/11/20 Khurram Ferrer MD PCP - General Internal Medicine 12/12/20 05/24/24 Robert Lam MD [address] [place] [address] PCP - General 05/25/24 09/08/24 Reta Schuler MD [address] [place] [address] PCP - General Internal Medicine 09/09/24 Maria Cox NP [address] [place] [address] PCP - Backup PCP Internal Medicine 09/09/24 documented as of this encounter
--- OUTSIDE RECORDS SUMMARY | 2025-01-31 16:59 | XMS_ITS | Encounter Summary ---
Author Organization [facility] Address [address] [place] [address] Care Team Providers Care Packer And Carry Out Name Role Phone Krystle Chacon MD MPH Primary Care Provider Shari Khurram Linn MD Primary Care Provider Christiano Juarez MD, Darshak Primary Care Provider [phone] Reta Schuler MD Primary Care Provider [phone] Maria Cox STEEL HANGER Unavailable [phone] Encounter Details Date Type Department Care Team (Late st Contact Info) Description 05/29/[address] 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 * Krysta Eduardo - 06/02/2015 9:20 AM EDTQuick Note: Pt notified of lab results and plan documented in this encounter Plan of Treatment Not on file documented as of this encounter Procedures * Due to [place] [employer] law, this organization might not be sharing negative HIV tests. Procedure Name Priority Date/Time Associated Diagnosis Comments MEASLES IGG AB (RUBEOLA) Routine 05/29/2015 11:50 AM EDT Disorder of bone and cartilage, unspecified Benign neoplasm of colon Need for prophylactic vaccination and inoculation against unspecified single disease Elevated blood pressure reading without diagnosis of hypertension Routine general medical examination at a health care facility RUBELLA ANTIBODY IGG, SERUM Routine 05/29/2015 11:50 AM EDT Disorder of bone and cartilage, unspecified Benign neoplasm of colon Need for prophylactic vaccination and inoculation against unspecified single disease Elevated blood pressure reading without diagnosis of hypertension Routine general medical examination at a health care facility MUMPS VIRUS ANTIBODY, IGG, SERUM Routine 05/29/2015 11:50 AM EDT Disorder of bone and cartilage, unspecified Benign neoplasm of colon Need for prophylactic vaccination and inoculation against unspecified single disease Elevated blood pressure reading without diagnosis of hypertension Routine general medical examination at a health care facility BUN/CREATININE RATIOW/EGFR Routine 05/29/2015 11:50 AM EDT documented in this encounter Results * Due to [place] [employer] law, this organization might not be sharing negative HIV tests. * BUN/CREATININE RATIOW/EGFR (05/29/2015 11:50 AM EDT) Urea Nitrogen Blood (BUN) 14 7 - 25 mg/dL [facility] Comment:{UREA NITROGEN (BUN) {[id number]) Creatinine 0.74 0.50 - 0.99 mg/dL [facility] Comment: {CREATININE {[id number]) For patients >49 years of age, the reference limit for Creatinine is approximately 13% higher for people identified as -Icelandic. GFR 83 > OR = 60 mL/min/1 .73m2 [facility] Comment:{eGFR NON-AFR. AMERI CAN {[id number]) GFR () 96 > OR = 60 mL/min/1 .73m2 [facility] Comment:{eGFR AMERIC AN {[id number]) BUN/Creatinine Ratio NOT APPLICABLE 6 (calc) [facility] Comment:{BUN/CREATININE RATI O {[id number]) 05/29/2015 11:5 0 AM EDT 05/30/2015 3:34 AM EDT Narrative [facility] - 05/31/2015 12:07 PM EDT Please note that this estimated GFR does not include an adjustment for the patient's height or weight, and can therefore, be viewed as reliable only for patients with heights between 60 and 72 . More precise quantification using a 24-hour urine sample or height-based algorithm is recommended for patients outside of this range of height and for those individuals with more precise needs for GFR calculation. Report Comments: (ORIGINAL ATRIUS R-KVNAHSQ ANTIBODY I (ORIGINAL ATRIUS AGDBGIE (MEASLES) I us Krystle Chacon MD MPH LABORATORY Final Resu lt [facility] [address] [place] [address] * (ABNORMAL) MUMPS VIRUS ANTIBODY, IGG, SERUM (05/29/2015 11:50 AM EDT) Mumps virus Ab.IgG 0.93(L) index [facility] Comment: {MUMPS VIRUS ANTIBODY (IGG) {[id number]) Index ?Interpretation < or = 0.90 ?Negative 0.91-1.09 ?Equivocal > or = 1.10 ?Positive A positive result indicates that the patient has antibody to mumps virus. It does not differentiate between an active or past infection. The clinical diagnosis must be interpreted in conjunction with the clinical signs and symptoms of the patient. 05/29/2015 11:5 0 AM EDT 05/30/2015 3:34 AM EDT Narrative [facility] - 05/30/2015 2:15 PM EDT Report Comments: (ORIGINAL ATRIUS U-[id number] ANTIBODY I (ORIGINAL ATRIUS YTHOPLX (MEASLES) I Resulting Agency Comment [id number] us Krystle Chacon MD MPH LABORATORY Final Resu lt Performing Organization Address City/State/[facility] Co de Phone Number [facility] [address] [place] [address] * MEASLES IGG AB (RUBEOLA) (05/29/2015 11:50 AM EDT) Measles virus Ab.IgG >5.00 index [facility] Comment: {MEASLES ANTIBODY (IGG) {[id number]) ? Index ? Explanation of Test Results ? --------- ?< or = 0.90 ?Negative - No Rubeola (Measles) IgG ?Antibody detected ?0.91 - 1.09 ?Equivocal ?> or = 1.10 ?Positive - Rubeola (Measles) IgG ?Antibody detected ?Positive results suggest recent or previous infection ?with Measles (Rubeola) virus and imply immunity. ?Patients exhibiting equivocal results should be ?retested in one month, if clinically indicated. 05/29/2015 11:5 0 AM EDT 05/30/2015 3:34 AM EDT Narrative [facility] - 05/30/2015 2:15 PM EDT Report Comments: (ORIGINAL ATRIUS B-VWVTDTE ANTIBODY I (ORIGINAL ATRIUS RMWVORR (MEASLES) I Resulting Agency Comment [id number] us Krystle Chacon MD MPH LABORATORY Final Resu lt Performing Organization Address [facility] de Phone Number [facility] [address] [place] [address] * RUBELLA ANTIBODY IGG, SERUM (05/29/2015 11:50 AM EDT) Rubella virus Ab.IgG 3.37 [facility] Comment: {RUBELLA ANTIBODY (IGG) {[id number]) ? Value ?Interpretation ? ----- ? < or = 0.90 ?Not consistent with Immunity ? 0.91-1.09 ?Equivocal ? > or = 1.10 ?Consistent with Immunity The presence of rubella IgG antibody suggests immunization or past or current infection with rubella virus. 05/29/2015 11:5 0 AM EDT 05/30/2015 3:34 AM EDT Narrative [facility] - 05/30/2015 2:15 PM EDT Report Comments: (ORIGINAL ATRIUS D-WIITGZS ANTIBODY I (ORIGINAL ATRIUS SFDTTLZ (MEASLES) I Resulting Agency Comment [id number] us Krystle Chacon MD MPH LABORATORY Final Resu lt Performing Organization Address [facility] Co de Phone Number [facility] [address] [place] [address] documented in this encounter Visit Diagnoses Diagnosis Disorder of bone and cartilage, unspecified- Primary Benign neoplasm of colon Need for prophylactic vaccination and inoculation against unspecified single disease Elevated blood pressure reading without diagnosis of hypertension Routine general medical examination at a health care facility Abnormal finding Other nonspecific abnormal finding documented in this encounter Care Teams Packer And Carry Out Relationship Specialty Start Date End Date Krystle Chacon MD MPH PCP - General 11/11/14 12/11/20 Khurram Ferrer MD PCP - General Internal Medicine 12/12/20 05/24/24 Robert Lam MD [address] [place] [address] PCP - General 05/25/24 09/08/24 Reta Schuler MD [address] [place] [address] PCP - General Internal Medicine 09/09/24 Maria Cox NP [address] [place] [address] PCP - Backup PCP Internal Medicine 09/09/24 documented as of this encounter
--- OUTSIDE RECORDS SUMMARY | 2025-01-31 16:59 | XMS_ITS | Encounter Summary ---
Author Organization [facility] Address [address] [place] [address] Care Team Providers Care Supervisor Process Testing Name Role Phone Khurram Ferrer MD Primary Care Provider Christiano Juarez MD, Darshak Primary Care Provider [phone] Reta Schuler MD Primary Care Provider [phone] Maria Cox WELFARE INVESTIGATOR Unavailable [phone] Encounter Details Date Type Department Care Team (Late st Contact Info) Description 12/25/2020 Orders Only [facility] Adult Medicine [address] [place] [phone] Krystle Chacon MD MPH Social History [...] Progress Notes * Marybeth Horn LPN - 12/25/2020 9:17 AM EST . documented in this encounter Plan of Treatment Not on file documented as of this encounter Goals Goal Patient Goal Type Associated Problems Recent Progress Patient-Stated? Author Blood Pressure < 140/90 Blood Pressure 133/69(2024 10:45 AM EST) No Jacqui De Jesus RN documented as of this encounter Procedures * Due to [place] [employer] law, this organization might not be sharing negative HIV tests. 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 * (ABNORMAL) COMPREHENSIVE METABOLIC PANEL WITH GFR (12/25/2020 9:23 AM EST) Glucose 104(H) 65 - 99 mg/dl [facility] Urea Nitrogen Blood (BUN) 15 7 - 25 mg/dL [facility] Creatinine 0.84 0.50 - 1.16 mg/dL [facility] Sodium 142 136 - 145 mmo/L [facility] Potassium 4.8 3.5 - 5.3 mmol/L [facility] Chloride 104 98 - 107 mmo/L [facility] Calcium 9.5 8.5 - 10.4 mg/dL [facility] Protein Total (Serum) 6.4 6.0 - 8.3 g/dL [facility] Albumin 4.2 3.5 - 5.2 g/dL [facility] Globulin 2 2 - 4 G/DL [facility] Bilirubin Total 0.22 0.00 - 1.20 mg/dL [facility] Alkaline phosphatase 94 33 - 130 U/L [facility] AST (SGOT) 28 <38 U/L [facility] ALT (SGPT) 23 <47 U/L [facility] Carbon dioxide 28 23 - 33 mmol/L [facility] GFR 70 >60 ml/min [facility] Comment:If the patient is Af rican Swazi, please multiply result by 1.210 12/25/2020 9:23 AM EST 12/25/2020 9:23 AM EST Narrative [facility] - 12/25/2020 11:35 AM EST Patient's primary care provider is: ??N/A Testing performed at: [facility], [address] [place] [address], [address], Metal Shaping Machine Operator: Christopher Quintero MD us Krystle Chacon MD MPH LABORATORY Final Resu lt Performing Organization Address [facility] Co de Phone Number [address] [address] DIRECTOR Christopher Quintero MD * (ABNORMAL) LIPID PANEL WITH REFLEX TO DIRECT LDL (12/25/2020 9:23 AM EST) Cholesterol 218(H) <200 mg/dL [facility] Triglyceride 56 <150 mg/dL [facility] HDL Cholesterol 95 >40 mg/dL [facility] Comment: NCEP GUIDELINES Desirable >60 mg/dL Borderline 40-59 mg/dL ?? Undesirable <40 mg/dL LDL Cholesterol 112 <130 mg/dL [facility] CHOL/HDL Ratio 2 0 - 5 CALC [facility] 12/25/2020 9:23 AM EST 12/25/2020 9:23 AM EST Narrative [facility] - 12/25/2020 11:35 AM EST Patient's primary care provider is: ??N/A Testing performed at: [facility], [address] [place] [address], [address], Metal Shaping Machine Operator: Christopher Quintero MD us Krystle Chacon MD MPH LABORATORY Final Resu lt Performing Organization Address 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
--- OUTSIDE RECORDS SUMMARY | 2025-01-31 16:59 | XMS_ITS | Encounter Summary ---
Author Organization [facility] Address [address] [place] [address] Care Team Providers Care Kerfer Machine Operator Name Role Phone Krystle Chacon MD MPH Primary Care Provider Shari Khurram Linn MD Primary Care Provider Christiano Juarez MD, Darshak Primary Care Provider [phone] Reta Schuler MD Primary Care Provider [phone] Maria Cox CHRISTIAN SCIENCE READER Unavailable [phone] Reason for Referral * CONSULT AND TREATMENT (Routine) - Closed Specialty Diagnoses / Procedures Referred By Jessie kenny Referred To Contact Mammography Diagnoses annual screening Procedures REQUEST FOR MAMMOGRAPHY BILATERAL(DX: SCREENING FOR BREAST CANCER V76.12)(1 YR FROM LAST) NON-FC Krystle Chacon MD MPH [facility] Referral ID Status Reason Start Date Expiration Date V isits Requested Visits Authorized [id number] Closed Continuity of Care 10/13/2016 1 1 Encounter Details Date Type Department Care Team (Late st Contact Info) Description 11/28/2015 Orders Only 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 Not on file documented as of this encounter Plan of Treatment Scheduled Orders Name Type Priority Associated Diagnoses Orde r Schedule REQUEST FOR MAMMOGRAPHY BILATERAL(DX: SCREENING FOR BREAST CANCER V76.12)(1 YR FROM LAST) NON-FC Imaging Routine Expected: 2015 documented as of this encounter Visit Diagnoses Not on filedocumented in this encounter Care Teams Kerfer Machine Operator Relationship Specialty Start Date End Date Krystle Chacon MD MPH PCP - General 11/11/14 12/11/20 Khurram Ferrer MD PCP - General Internal Medicine 12/12/20 05/24/24 Robert Lam MD [address] [place] [address] PCP - General 05/25/24 09/08/24 Reta Schuler MD [address] [place] [address] PCP - General Internal Medicine 09/09/24 Maria Cox NP [address] [place] [address] PCP - Backup PCP Internal Medicine 09/09/24 documented as of this encounter
--- OUTSIDE RECORDS SUMMARY | 2025-01-31 16:59 | XMS_ITS | Encounter Summary ---
Author Organization [facility] Address [address] [place] [address] Care Team Providers Care System Specialist Name Role Phone Krystle Chacon MD MPH Primary Care Provider Shari Khurram Linn MD Primary Care Provider Christiano Juarez MD, Darshak Primary Care Provider [phone] Reta Schuler MD Primary Care Provider [phone] Maria Cox PERSONNEL PSYCHOLOGIST Unavailable [phone] Encounter Details Date Type Department Care Team (Late st Contact Info) Description 06/17/2018 Orders Only [facility] [address] [place] [phone] Charito Neal MD [address] [address] Social History Tobacco Use Types Packs/Day Years Used Date Smoking Tobacco: Former Cigarettes Q uit: 11/24/1975 Smokeless Tobacco: Never Comments:remote hx quit Alcohol Use Standard Drinks/Week Comments Yes 0 (1 standard drink = 0.6 oz pur e alcohol) 7 drinks/week Comments No Sex and Gender Information [...] of this encounter Procedures * Due to [place] [employer] law, this organization might not be sharing negative HIV tests. Procedure Name Priority Date/Time Associated Diagnosis Comments TSH, 3RD GENERATION Routine 06/17/2018 7 :50 AM EDT Multinodular goiter T4, FREE, SERUM Routine 06/17/2018 7:50 AM EDT Multinodular goiter PHOSPHATE, SERUM Routine 06/17/2018 7:50 AM EDT Multinodular goiter Osteopenia, unspecified location MAGNESIUM, SERUM Routine 06/17/2018 7:50 AM EDT Multinodular goiter Osteopenia, unspecified location COMPREHENSIVE METABOLIC PANEL WITH GFR Routine 06/17/2018 7:50 AM EDT Multinodular goiter Osteopenia, unspecified location PARATHYROID HORMONE (PTH), INTACT WITH CALCIUM, SERUM Routine 06/17/2018 7:47 AM EDT Multinodular goiter Osteopenia, unspecified location COLLAGEN CROSS-LINKED N-TELOPEPTIDE (NTX), URINE Routine 06/17/2018 7:47 AM EDT Multinodular goiter Osteopenia, unspecified location documented in this encounter Results * Due to [place] [employer] law, this organization might not be sharing negative HIV tests. * T4, FREE, SERUM (06/17/2018 7:50 AM EDT) FT4 1.2 0.9 - 1.7 NG/DL [facility] 06/17/2018 7:50 AM EDT 06/17/2018 7:50 AM EDT Narrative [facility] - 06/17/2018 9:41 AM EDT fasting Patient's primary care provider is: ??N/A Testing performed at: [facility], [address] [place] [address], [address], Ross Carrier Driver: Rosalia Gonzales, Ph.D us Charito Neal MD LABORATORY Final Result Performing Organization Address [facility] de Phone Number [address] [address] DIRECTOR Rosalia Gonzales, Ph.D * TSH, 3RD GENERATION (06/17/2018 7:50 AM EDT) TSH (Thyrotropin) 2.45 0.40 - 4.50 uIU/ml [facility] 06/17/2018 7:50 AM EDT 06/17/2018 7:50 AM EDT Narrative [facility] - 06/17/2018 11:58 AM EDT fasting Patient's primary care provider is: ??N/A Testing performed at: [facility], [address] [place] [address], [address], Ross Carrier Driver: Rosalia Gonzales, Ph.D Charito Neal MD LABORATORY Final Result Performing Organization Address [facility] de Phone Number [address] [address] DIRECTOR Rosalia Gonzales, Ph.D * PHOSPHATE, SERUM (06/17/2018 7:50 AM EDT) Phosphate 3.1 2.5 - 4.5 mg/dL [facility] 06/17/2018 7:50 AM EDT 06/17/2018 7:50 AM EDT Narrative [facility] - 06/17/2018 9:41 AM EDT fasting Patient's primary care provider is: ??N/A Testing performed at: [facility], [address] [place] [address], [address], Ross Carrier Driver: Rosalia Gonzales, Ph.D Charito Neal MD LABORATORY Final Result Performing Organization Address [facility] de Phone Number [address] [address] DIRECTOR Rosalia Gonzales, Ph.D * MAGNESIUM, SERUM (06/17/2018 7:50 AM EDT) Magnesium 1.9 1.5 - 2.5 mg/dL [facility] 06/17/2018 7:50 AM EDT 06/17/2018 7:50 AM EDT Narrative [facility] - 06/17/2018 9:41 AM EDT fasting Patient's primary care provider is: ??N/A Testing performed at: [facility], [address] [place] [address], [address], Ross Carrier Driver: Rosalia Gonzales, Ph.D Charito Neal MD LABORATORY Final Result Performing Organization Address [facility] de Phone Number [address] [address] DIRECTOR Rosalia Gonzales, Ph.D * COMPREHENSIVE METABOLIC PANEL WITH GFR (06/17/2018 7:50 AM EDT) Glucose 98 65 - 99 mg/dl [facility] Urea Nitrogen Blood (BUN) 15 7 - 25 mg/dL [facility] Creatinine 0.71 0.50 - 1.16 mg/dL [facility] Sodium 137 136 - 145 mmo/L [facility] Potassium 4.7 3.5 - 5.3 mmol/L [facility] Chloride 102 98 - 107 mmo/L [facility] Calcium 9.2 8.5 - 10.4 mg/dL [facility] Protein Total (Serum) 6.3 6.0 - 8.3 g/dL [facility] Albumin 4.2 3.5 - 5.2 g/dL [facility] Globulin 2 2 - 4 G/DL [facility] Bilirubin Total 0.37 0.00 - 1.20 mg/dL [facility] Alkaline phosphatase 71 33 - 130 U/L [facility] AST (SGOT) 24 <38 U/L [facility] ALT (SGPT) 24 <47 U/L [facility] Carbon dioxide 27 23 - 33 mmol/L [facility] GFR 86 >60 ml/min [facility] Comment:If the patient is Af rican Gabonese, please multiply result by 1.210 06/17/2018 7:50 AM EDT 06/17/2018 7:50 AM EDT Narrative [facility] - 06/17/2018 9:41 AM EDT fasting Patient's primary care provider is: ??N/A Testing performed at: [facility], [address] [place] [address], [address], Ross Carrier Driver: Rosalia Gonzales, Ph.D us Charito Neal MD LABORATORY Final Result Performing Organization Address [facility] de Phone Number [address] [address] DIRECTOR Rosalia Gonzales, Ph.D * (ABNORMAL) PARATHYROID HORMONE (PTH), INTACT WITH CALCIUM, SERUM (06/17/2018 7:47 AM EDT) Parathyroid Hormone (PTH), Intact 82(H) 14 - 64 pg/mL [facility] Comment: Interpretive Guide ?Intact PTH ? Calcium ? ------- Normal Parathyroid ?Normal ? Normal Hypoparathyroidism ?Low or Low Normal ?Low Hyperparathyroidism ?? Primary ?Normal or High ? High ?? Secondary ?High ? Normal or Low ?? Tertiary ? High ? High Non-Parathyroid ?? Hypercalcemia ?Low or Low Normal ?High Calcium 8.8 8.6 - 10.4 mg/dL [facility] 06/17/2018 7:47 AM EDT 06/17/2018 5:12 PM EDT Narrative Resulting Agency Comment [id number] Charito Neal MD LABORATORY Final Result Performing Organization Address [facility] de Phone Number [facility] [address] [place] [address] * COLLAGEN CROSS-LINKED N-TELOPEPTIDE (NTX), URINE (06/17/2018 7:47 AM EDT) Collagen crosslinked N-telopeptide/Cre atinine (Urine) 33 4 - 64 [facility] Comment: Premenopausal ?Females: ??4 - 64 nmole BCE/mmole creatinine Results are primarily used for monitoring the response to therapy. ??A value within the premenopausal range does not rule out osteoporosis nor the need for therapy Units of Measure: nmol BCE/mmol creatinine Creatinine (Urine) 56.2 20 - 320 mg/dL [facility] 06/17/2018 7:47 AM EDT 06/17/2018 5:12 PM EDT Narrative Resulting Agency Comment [id number] Charito Neal MD LABORATORY Final Result Performing Organization Address [facility] de Phone Number [facility] [address] [place] [address] documented in this encounter Visit Diagnoses Diagnosis Multinodular goiter Nontoxic multinodular goiter Osteopenia, unspecified location documented in this encounter Care Teams System Specialist Relationship Specialty Start Date End Date Krystle Chacon MD MPH PCP - General 11/11/14 12/11/20 Khurram Ferrer MD PCP - General Internal Medicine 12/12/20 05/24/24 Robert Lam MD [address] [facility] [address] [place] [address] PCP - General 05/25/24 09/08/24 Reta Schuler MD [address] [place] [address] PCP - General Internal Medicine 09/09/24 Maria Cox NP [address] [place] [address] PCP - Backup PCP Internal Medicine 09/09/24 documented as of this encounter
--- OUTSIDE RECORDS SUMMARY | 2025-01-31 16:59 | XMS_ITS | Encounter Summary ---
Author Organization [facility] Address [address] [place] [address] Care Team Providers Care Carpet Technician Name Role Phone Khurram Ferrer MD Primary Care Provider Christiano Juarez MD, Darshak Primary Care Provider [phone] Reta Schuler MD Primary Care Provider [phone] Maria Cox FEEDER CATCHER TOBACCO Unavailable [phone] Reason for Visit * Reason Comments Appointment Encounter Details Date Type Department Care Team ([facility] st Contact Info) Description 04/07/2023 Telephone [facility] REFERRAL [facility] [address] [place] [address] Christo Carranza MD [address] [place] [address] Appointment Social History Tobacco Use Types Packs/Day Years Used Date Smoking Tobacco: Former Cigarettes 1 10 0 11/24/1965 - 11/24/1975 Smokeless Tobacco: Never Comments:remote hx quit Alcohol Use Standard Drinks/Week Comments Yes 7 (1 standard drink = 0.6 oz pur e alcohol) PHQ-2 Answer Date Recorded [facility] PHQ-2 SEVERITY SCORE (Range 0-6) 2 04/03/2022 Comments No Sex and Gender Information Value Date Recorded Sex Assigned at Not on file Legal Sex Female 8:32 PM EST Gender Identity Not on file Sexual Orientation Not on file Occupation Industry Job Start Date Job End Date retired Not on file Not on file Not on file documented as of this encounter Miscellaneous Notes * Telephone Encounter - Yaima Christine - 04/07/2023 9:01 AM EDT Please remove the current MRI order as the exam is not being done within [facility] Please place a NON-FCorder instead. When the patient is not coming to [facility] we should not have these orders on our work queue. Thank you, Benefit Coordinator Radiology documented in this encounter Plan of Treatment Not on file documented as of this encounter Goals Goal Patient Goal Type Associated Problems Recent Progress Patient-Stated? Author Blood Pressure < 140/90 Blood Pressure 133/69(2024 10:45 AM EST) Jacqui Tatum RN documented as of this encounter Visit Diagnoses Not on filedocumented in this encounter Care Teams Carpet Technician Relationship Specialty Start Date End Date Khurram Ferrer MD PCP - General Internal Medicine 12/12/20 05/24/24 Robert Lam MD [address] [place] [address] PCP - General 05/25/24 09/08/24 Reta Schuler MD [address] [place] [address] PCP - General Internal Medicine 09/09/24 Maria Cox NP [address] [place] [address] PCP - Backup PCP Internal Medicine 09/09/24 documented as of this encounter
--- OUTSIDE RECORDS SUMMARY | 2025-01-31 16:59 | XMS_ITS | Encounter Summary ---
Author Organization [facility] Address [address] [place] [address] Care Team Providers Care Field Marketing Associate Name Role Phone Khurram Ferrer MD Primary Care Provider Christiano Juarez MD, Darshak Primary Care Provider [phone] Reta Schuler MD Primary Care Provider [phone] Maria Cox COMPUTER HELP DESK REPRESENTATIVE Unavailable [phone] Encounter Details Date Type Department Care Team (Late st Contact Info) Description 07/16/2023 Orders Only [facility] [address] [place] [phone] Maria Cox, COMPUTER HELP DESK REPRESENTATIVE [address] [place] [address] Social History Tobacco Use Types Packs/Day Years Used Date Smoking Tobacco: Former Cigarettes 1 10 0 11/24/1965 - 11/24/1975 Smokeless Tobacco: Never Comments:remote hx quit Alcohol Use Standard Drinks/Week Comments Yes 7 (1 standard drink = 0.6 oz pur e alcohol) PHQ-2 Answer Date Recorded PHQ-2 Score 0 06/17/2023 Intimate Partner Violence Answer Date R ecorded Fear of Current or Ex-Partner Not on file Emotionally Abused Not on file 07/10/2023 Physically Abused Not on file 07/10/2023 Sexually Abused Not on file 07/10/2023 Feel Safe at Home Not on file 07/10/2023 Comments No Sex and Gender Information Value Date Recorded Sex Assigned at Not on file Legal Sex Female 8:32 PM EST Gender Identity Not on file Sexual Orientation Not on file Occupation Industry Job Start Date Job End Date retired Not on file Not on file Not on file documented as of this encounter Miscellaneous Notes * Result Encounter Note - Maria Cox NP - 07/16/2023 1:36 PM EDT See tele enc 07/23/2023. documented in this encounter Plan of Treatment Not on file documented as of this encounter Goals Goal Patient Goal Type Associated Problems Recent Progress Patient-Stated? Author Blood Pressure < 140/90 Blood Pressure 133/69(2024 10:45 AM EST) No Jacqui De Jesus RN documented as of this encounter Procedures * Due to [facility] law, this organization might not be sharing negative HIV tests. Procedure Name Priority Date/Time Associated Diagnosis Comments LIPID PANEL WITH REFLEX TO DIRECT LDL Routine 07/16/2023 1:38 PM EDT Screening for lipid disorders COMPREHENSIVE METABOLIC PANEL WITH GFR Routine 07/16/2023 1:38 PM EDT Screening for diabetes mellitus documented in this encounter Results * Due to [facility] law, this organization might not be sharing negative HIV tests. * (ABNORMAL) LIPID PANEL WITH REFLEX TO DIRECT LDL (07/16/2023 1:38 PM EDT) Cholesterol 271(H) <200 mg/dL [facility] Triglyceride 66 <150 mg/dL [facility] HDL Cholesterol 94 >40 mg/dL [facility] Comment: NCEP GUIDELINES Desirable >60 mg/dL Borderline 40-59 mg/dL ?? Undesirable <40 mg/dL LDL Cholesterol 164(H) <130 mg/dL [facility] CHOL/HDL Ratio 3 0 - 5 CALC [facility] 07/16/2023 1:38 PM EDT 07/16/2023 1:38 PM EDT Narrative [facility] - 07/16/2023 3:31 PM EDT Patient's primary care provider is: ??N/A Testing performed at: [facility], [address] [place] [address], [address], Thiokol Operator: Christopher Quintero MD Maria Cox PATI LABORATORY Final Result [address] [address] DIRECTOR Christopher Quintero MD * COMPREHENSIVE METABOLIC PANEL WITH GFR (07/16/2023 1:38 PM EDT) Glucose 87 65 - 99 mg/dl [facility] Urea Nitrogen Blood (BUN) 15 7 - 25 mg/dL [facility] Creatinine 0.65 0.50 - 1.16 mg/dL [facility] Sodium 139 135 - 146 mmo/L [facility] Potassium 4.3 3.5 - 5.3 mmol/L [facility] Chloride 101 98 - 107 mmo/L [facility] Calcium 9.8 8.5 - 10.4 mg/dL [facility] Protein Total (Serum) 6.6 6.0 - 8.3 g/dL [facility] Albumin 4.5 3.5 - 5.2 g/dL [facility] Globulin 2 2 - 4 G/DL [facility] Bilirubin Total 0.62 0.00 - 1.20 mg/dL [facility] Alkaline phosphatase 81 33 - 130 U/L [facility] AST (SGOT) 26 <38 U/L [facility] ALT (SGPT) 31 <47 U/L [facility] Carbon dioxide 27 23 - 33 mmol/L [facility] GFR 94 >60 ml/min [facility] 07/16/2023 1:38 PM EDT 07/16/2023 1:38 PM EDT Narrative [facility] - 07/16/2023 3:31 PM EDT Patient's primary care provider is: ??N/A Testing performed at: [facility], [address] [place] [address] [place], [address], Thiokol Operator: Christopher Quintero MD Maria Cox COMPUTER HELP DESK REPRESENTATIVE LABORATORY Final Result [facility] [address] [place] [address] DIRECTOR Christopher Quintero MD documented in this encounter Visit Diagnoses Diagnosis Screening for diabetes mellitus Screening for lipid disorders documented in this encounter Care Teams Field Marketing Associate Relationship Specialty Start Date End Date Khurram Ferrer MD PCP - General Internal Medicine 12/12/20 05/24/24 Robert Lam MD [address] [address] PCP - General 05/25/24 09/08/24 Reta Schuler MD [address] [place] [address] PCP - General Internal Medicine 09/09/24 Maria Cox NP [address] [place] [address] PCP - Backup PCP Internal Medicine 09/09/24 documented as of this encounter
--- OUTSIDE RECORDS SUMMARY | 2025-01-31 16:59 | XMS_ITS | Encounter Summary ---
Author Organization [facility] Address [address] [place] [address] Care Team Providers Care Wad Impregnator Name Role Phone Krystle Chacon MD MPH Primary Care Provider Shari Khurram Linn MD Primary Care Provider Christiano Juarez MD, Darshak Primary Care Provider [phone] Reta Schuler MD Primary Care Provider [phone] Maria Cox SHOWCASE TRIMMER Unavailable [phone] Encounter Details Date Type Department Care Team (Late st Contact Info) Description 04/12/2019 Orders Only [facility] [address] [place] [phone] Krystle Chacon MD MPH Social History Tobacco [...] of this encounter Procedures * Due to [place] [employer] law, this organization might not be sharing negative HIV tests. Procedure Name Priority Date/Time Associated Diagnosis Comments HEMOGLOBIN A1C Routine 04/12/2019 4:42 PM EDT Numbness of foot documented in this encounter Results * Due to [facility] law, this organization might not be sharing negative HIV tests. * HEMOGLOBIN A1C (04/12/2019 4:42 PM EDT) Hemoglobin A1C 4.7 <5.7 % Total [facility] Comment: For diagnostic purposes: <5.7 ?Decreased risk of diabetes 5.7 - 6.4 ?Increased risk of diabetes >6.5 ? Consistent with diabetes Diagnosis of diabetes should be confirmed by repeat testing. Estimated Average Glucose 88 mg/dL(calc ) [facility] 04/12/2019 4:42 PM EDT 04/12/2019 4:42 PM EDT Narrative [facility] - 04/12/2019 5:42 PM EDT Patient's primary care provider is: ??N/A Testing performed at: [facility], [address] [place] [address], [address], Food And Beverage Outlets Manager: Christopher Quintero MD Krystle Chacon MD MPH LABORATORY Final Resu lt [address] [address] DIRECTOR Christopher Quintero MD documented in this encounter Visit Diagnoses Diagnosis Numbness of foot Disturbance of skin sensation documented in this encounter Care Teams Wad Impregnator Relationship Specialty Start Date End Date Krystle Chacon MD MPH PCP - General 11/11/14 12/11/20 Khurram Ferrer MD PCP - General Internal Medicine 12/12/20 05/24/24 Robert Lam MD [address] [place] [address] [address] [place] [address] PCP - General 05/25/24 09/08/24 Reta Schuler MD [address] [place] [address] PCP - General Internal Medicine 09/09/24 Maria Cox NP [address] [place] [address] PCP - Backup PCP Internal Medicine 09/09/24 documented as of this encounter
--- OUTSIDE RECORDS SUMMARY | 2025-01-31 16:59 | XMS_ITS | Encounter Summary ---
Author Organization [facility] Address [address] [place] [address] Care Team Providers Care Tonguer Name Role Phone Khurram Ferrer MD Primary Care Provider Christiano Juarez MD, Darshak Primary Care Provider Reta Schuler MD Primary Care Provider [phone] Maria Cox BREWING TECHNICIAN Unavailable [phone] Encounter Details Date Type Department Care Team (Late st Contact Info) Description 09/04/2022 Orders Only [facility] [address] [place] [phone] Nina Goldberg MD [address] [place] [address] Social History Tobacco Use Types Packs/Day Years Used Date Smoking Tobacco: Former Cigarettes 1 10 0 11/24/1965 - 11/24/1975 Smokeless Tobacco: Never Comments:remote hx quit Alcohol Use Standard Drinks/Week Comments Yes 7 (1 standard drink = 0.6 oz pur e alcohol) PHQ-2 Answer Date [facility]ed [facility] SEVERITY SCORE (Range 0-6) 2 04/03/2022 [...] Miscellaneous Notes * Result Encounter Note - Asad Parnell LPN - 09/04/2022 9:49 AM EDT Received result note via nurse pool . Routing to covering provider. Please advise : Future Appointments 09/12/22 9:25 AM [facility] 10/16/22 10:15 AM Christo Carranza MD [facility] * Result Encounter Note - Mara Collins MD FACP - 09/04/2022 9:49 AM EDT . documented in this encounter Plan of Treatment Not on file documented as of this encounter Goals Goal Patient Goal Type Associated Problems Recent Progress Patient-Stated? Author Blood Pressure < 140/90 Blood Pressure 133/69(2024 10:45 AM EST) No Jacqui De Jesus RN documented as of this encounter Procedures * Due to [place] state law, this organization might not be sharing negative HIV tests. Procedure Name Priority Date/Time Associated Diagnosis Comments PTH, INTACT (WITHOUT CALCIUM) Routine 09/04/2022 9:50 AM EDT TSH, 3RD GENERATION Routine 09/04/2022 9 :50 AM EDT Multinodular goiter VENIPUNCTURE Routine 09/04/2022 9:50 AM EDT Mild secondary hyperparathyroidism (HCC) COMPREHENSIVE METABOLIC PANEL WITH GFR Routine 09/04/2022 9:50 AM EDT Mild secondary hyperparathyroidism (HCC) documented in this encounter Results * Due to [place] [employer] law, this organization might not be sharing negative HIV tests. * (ABNORMAL) PTH, INTACT (WITHOUT CALCIUM) (09/04/2022 9:50 AM EDT) Parathyroid Hormone (PTH), Intact 78.2(H) 14.0 - 72.0 pg/mL [facility] Comment:PTH pg/mL x 0.1061 = pmol/L 09/04/2022 9:50 AM EDT 09/04/2022 9:50 AM EDT N[address]ative [facility] - 09/04/2022 12:33 PM EDT Patient's primary care provider is: ??N/A Testing performed at: [facility], [address] [place] [address], [address], Information Technology Audit Manager: Christopher Quintero MD us Mara Collins MD FACP LABORATORY Final Resu lt [address] [address] DIRECTOR Christopher Quintero MD * COMPREHENSIVE METABOLIC PANEL WITH GFR (09/04/2022 9:50 AM EDT) Glucose 84 65 - 99 mg/dl [facility] Urea Nitrogen Blood (BUN) 16 7 - 25 mg/dL [facility] Creatinine 0.73 0.50 - 1.16 mg/dL [facility] Sodium 138 135 - 146 mmo/L [facility] Potassium 4.5 3.5 - 5.3 mmol/L [facility] Chloride 101 98 - 107 mmo/L [facility] Calcium 9.4 8.5 - 10.4 mg/dL [facility] Protein Total (Serum) 6.5 6.0 - 8.3 g/dL [facility] Albumin 4.3 3.5 - 5.2 g/dL [facility] Globulin 2 2 - 4 G/DL [facility] Bilirubin Total 0.49 0.00 - 1.20 mg/dL [facility] Alkaline phosphatase 76 33 - 130 U/L [facility] AST (SGOT) 24 <38 U/L [facility] ALT (SGPT) 22 <47 U/L [facility] Carbon dioxide 27 23 - 33 mmol/L [facility] GFR 82 >60 ml/min [facility] 09/04/2022 9:50 AM EDT 09/04/2022 9:50 AM EDT Narrative [facility] - 09/04/2022 12:33 PM EDT Patient's primary care provider is: ??N/A Testing performed at: [facility], [address] [place] [address], [address], Information Technology Audit Manager: Christopher Quintero MD Mara Collins MD [facility] Final Resu lt Performing Organization Address [facility] de Phone Number [address] [address] DIRECTOR Christopher Quintero MD * TSH, 3RD GENERATION (09/04/2022 9:50 AM EDT) TSH (Thyrotropin) 1.90 0.40 - 4.50 uIU/ml [facility] 09/04/2022 9:50 AM EDT 09/04/2022 9:50 AM EDT Narrative [facility] - 09/04/2022 12:47 PM EDT Patient's primary care provider is: ??N/A Testing performed at: [facility], [address] [place] [address], [address], Information Technology Audit Manager: Christopher Quintero MD Mara Collins MD [facility] Final Resu lt Performing Organization Address [facility] Phone Number [address] [address] DIRECTOR Christopher Quintero MD * VITAMIN D, 25-HYDROXY, TOTAL, IMMUNOASSAY (09/04/2022 9:50 AM EDT) VIT D, 25-OH, TOTAL 53 >29 ng/mL [facility] Comment: Vitamin D Status ??25-OH Vitamin D: Deficiency: ? <20 ng/mL Insufficiency: ? 20-29 ng/mL Optimal: ?> or = 30 ng/mL 09/04/2022 9:50 AM EDT 09/04/2022 9:50 AM EDT Narrative [facility] - 09/04/2022 12:33 PM EDT Patient's primary care provider is: ??N/A Testing performed at: [facility], [address] [place] [address], [address], Information Technology Audit Manager: Christopher Quintero MD us Mara oCllins MD FACP LABORATORY Final Resu lt [address] [address] DIRECTOR Christopher Quintero MD documented in this encounter Visit Diagnoses Diagnosis Mild secondary hyperparathyroidism (HHS) Multinodular goiter Nontoxic multinodular goiter documented in this encounter Care Teams Tonguer Relationship Specialty Start Date End Date Khurram Ferrer MD PCP - General Internal Medicine 12/12/20 05/24/24 Robert Lam MD [address] [place] [address] PCP - General 05/25/24 09/08/24 Reta Schuler MD [address] [place] [address] PCP - General Internal Medicine 09/09/24 Maria Cox NP [address] [place] [address] PCP - Backup PCP Internal Medicine 09/09/24 documented as of this encounter
--- OUTSIDE RECORDS SUMMARY | 2025-01-31 16:59 | XMS_ITS | Clinical Summary ---
Author Organization [facility] [employer] [facility] [employer] Address [address] [facility] [place] [address] Care Team Providers Care Manager Forensic Name Role Phone Krystle Chacon MD Primary Care Provider [phone] Immunizations Name Administration Dates Next Due Fluzone Trivalent High Dose (65+ years) 10/03/20 16 Social History Tobacco Use Types Packs/Day Years Used Date Smoking Tobacco: Never Assessed Comments Unknown Sex and Gender Information Value Date Recorded Sex Assigned at Not on file Legal Sex Female 3:59 AM EDT Gender Identity Not on file Sexual Orientation Not on file Plan of Treatment Health Maintenance Due Date Last Done Comments Depression: Screening Annual ly using PHQ-2/9 in Adults 18 yrs or above (or HM Modifier)([facility]) 1963 Hepatitis C Virus Infection in Adolescents and Adults: Screening (or Modifier) ([facility]) 1963 SDOH Screening Reminder: Monica arias for all adults ([facility]) 1963 Tobacco Smoking Cessation: i n Adults excluding Women: Behavioral and Pharmacotherapy Interventions ([facility]) 1965 DTaP/Tdap/Td Vaccines ([facility]) (1 - Tdap) 1966 Lipid Screening: Every 5 yrs for Women aged 45+ (or HM Modifier) ([facility]) 1993 Zoster/Shingles Vaccine Seri es Screening: Adults aged 18+ yrs (or HM Modifiers)([facility]) (1 of 2) 1997 Osteoporosis Screening to Pr event Fractures: Women aged 65 years+ ([facility]) 01/29/2012 Pneumococcal Vaccination Scr eening: Patients 65+ yrs of age ([facility]) (1 of 1 - PCV) 01/29/2012 RSV Vaccines (1 - 1-dose 75+ series) 2022 Flu Vaccination: Ages 65+: Y early High Dose Recommended (or Modifier)([facility] ) 06/24/2024 10/03/2016 COVID-19 Vaccine Screening: Initial Series and Booster Status ([facility]) (2023- season) 2024 Medical Devices Not on file Insurance [facility] Care Teams Manager Forensic Relationship Specialty Start Date End Date Krystle Chacon MD PCP - Drywall Mechanic 10/03/16
--- OUTSIDE RECORDS SUMMARY | 2025-01-31 16:59 | XMS_ITS | Encounter Summary ---
Author Organization [facility] Address [address] [place] [address] Care Team Providers Care Plant Security Guard Name Role Phone Krystle Chacon MD MPH Primary Care Provider Shari Khurram Linn MD Primary Care Provider Christiano Juarez MD, Darshak Primary Care Provider [phone] Reta Schuler MD Primary Care Provider [phone] Maria Cox CLINIC OFFICE MANAGER Unavailable [phone] Encounter Details Date Type Department Care Team (Late st Contact Info) Description 08/15/2020 Orders Only [facility] Orthopedic Surgery [address] [place] [address] Jose Davis MD [address] [place] [address] Social History Tobacco Use Types Packs/Day Years [...] documented as of this encounter Visit Diagnoses Diagnosis Pain Generalized pain documented in this encounter Care Teams Plant Security Guard Relationship Specialty Start Date End Date Krystle Chacon MD MPH PCP - General 11/11/14 12/11/20 Khurram Ferrer MD PCP - General Internal Medicine 12/12/20 05/24/24 Robert Lam MD [address] [place] [address] PCP - General 05/25/24 09/08/24 Reta Schuler MD [address] [place] [address] PCP - General Internal Medicine 09/09/24 Maria Cox NP [address] [place] [address] PCP - Backup PCP Internal Medicine 09/09/24 documented as of this encounter
--- OUTSIDE RECORDS SUMMARY | 2025-01-31 16:59 | XMS_ITS | Encounter Summary ---
Author Organization [facility] Address [address] [place] [address] Care Team Providers Care Executive Housekeeper Name Role Phone Krystle Chacon MD MPH Primary Care Provider Shari Khurram Linn MD Primary Care Provider Christiano Juarez MD, Darshak Primary Care Provider [phone] Reta Schuler MD Primary Care Provider [phone] Maria Cox WOOD HEEL CEMENTER Unavailable [phone] Reason for Referral * CONSULT AND TREATMENT (Routine) - [facility]irect [facility] Diagnoses / Procedures Referred By Jessie kenny Referred To Contact Nephrology Diagnoses Angiomyolipoma of kidney, unspecified laterality Minerva Ortiz MD Phone: tel: fax: Referral ID Status Reason Start Date Expiration Date Visits Requested Visits Authorized [id number] [facility] Required 06/14/2015 3 3 Encounter Details Date Type Department Care Team (Late st Contact Info) Description 06/14/2015 Orders Only [facility] Adult Medicine [address] [place] [phone] Minerva Ortiz MD [facility] [address] 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 Not on file Not on file documented as of this encounter Plan of Treatment Scheduled Referrals Name Type Priority Associated Diagnoses Orde r Schedule CONSULT NEPHROLOGY NON-FC Referral Routine Angiomyolipoma of kidney, unspecified laterality Ordered: 06/14/2015 documented as of this encounter Visit Diagnoses Diagnosis Angiomyolipoma of kidney, unspecified laterality- Primary documented in this encounter Care Teams Executive Housekeeper Relationship Specialty Start Date End Date Krystle Chacon MD MPH PCP - General 11/11/14 12/11/20 Khurarm Ferrer MD PCP - General Internal Medicine 12/12/20 05/24/24 Robert Lam MD [address] [place] [address] PCP - General 05/25/24 09/08/24 Reta Schuler MD [address] [place] [address] PCP - General Internal Medicine 09/09/24 Maria Cox NP [address] [place] [address] PCP - Backup PCP Internal Medicine 09/09/24 documented as of this encounter
--- OUTSIDE RECORDS SUMMARY | 2025-01-31 16:59 | XMS_ITS | Patient Health Record ---
Author Organization Andrew Raphael MD Address [address] [place] [address]46 Care Team Providers Care Display And Banner Designer Name Role Phone Ijeoma Andrew Unavailable [phone] ALLERGIES Allergen (clinical drug ingredient) Drug/Non Drug Allergy documented on EMR Reaction Allergy Type Onset Date Status codeine codeine (uncoded) Unknown Allergy Ac tive REASON FOR REFERRAL No Information MEDICATIONS Medication SIG (Take, Route, Frequency, Duration) Notes Start Date End Date Status Fluoxetine Active buPROPion HCl Active PROBLEMS Problem Type ICD Code Onset Dates Problem Status W/U Status Risk SNOMED Code Notes Problem Lumbar spondylosis (M47.816) Active confirmed Lumbar spondylosis (607561854) 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 566556413 PLAN OF TREATMENT Pending Test Test Name Order Date X Ray : lumbar spine (PA,LAT,Flex,Ext) 0 07/09/2023 x ray: 3 ft scoliosis series 07/09/2023 LUMBAR SPINE W_FLEX EXT 4 _5V 07/09/2023 EOS SCOLIOSIS 2 VIEW 07/09/2023 Insurance Providers Payer Name Payer Address Payer Phone Subscriber Number Group Number Insured Name Patient Relationship to Insured Coverage Start Date Coverage End Date MEDICARE [address] [place] [address] [id number] Portia Contreras Self - patient is the insured [employer] [id number] Portia Tracey Self - patient is the insured MEDICAL (GENERAL) HISTORY Medical History History ICD Code bronchitis depression Surgical History Surgery Date(Month/Year) knee scope
--- OUTSIDE RECORDS SUMMARY | 2025-01-31 16:59 | XMS_ITS | Encounter Summary ---
Author Organization [facility] Address [address] [place] [address] Care Team Providers Care Supervisor Cell Room Name Role Phone Krystle Chacon MD MPH Primary Care Provider Shari Khurram Linn MD Primary Care Provider Christiano Juarez MD, Darshak Primary Care Provider [phone] Reta Schuler MD Primary Care Provider [phone] Maria Cox MAINTENANCE MECHANIC ENGINE Unavailable [phone] Reason for Visit * Reason Comments Results Encounter Details Date Type Department Care Team (Late st Contact Info) Description 06/16/2020 Telephone [facility] Dermatology [address] [place] [address] Christopher Griffith MD [facility] [address] [facility] [address] [place] [address] Results Social History Tobacco Use Types Packs/Day Years [...] have Coronavirus / COVID-19? No / Unsure 06/19/2020 10:53 AM EDT documented as of this encounter Miscellaneous Notes * Telephone Encounter - Kumar Machuca - 06/16/2020 12:27 PM EDT Pt informed of results, order placed for general sx Closing encounter. * Telephone Encounter - Kumar Machuca - 06/16/2020 12:14 PM EDT ----- Message from Christopher Griffith MD sent at 06/16/2020 9:32 AM EDT ----- Hi, please inform patient of the NMSC and schedule with general surgery thanks documented in this encounter Plan of Treatment Not on file documented as of this encounter Goals Goal Patient Goal Type Associated Problems Recent Progress Patient-Stated? Author Blood Pressure < 140/90 Blood Pressure 133/69(2024 10:45 AM EST) Jacqui Tatum RN documented as of this encounter Visit Diagnoses Diagnosis Basal cell carcinoma (BCC), unspecified site documented in this encounter Care Teams Supervisor Cell Room Relationship Specialty Start Date End Date Krystle Chacon MD MPH PCP - General 11/11/14 12/11/20 Khurram Ferrer MD PCP - General Internal Medicine 12/12/20 05/24/24 Robert Lam MD [address] [place] [address] PCP - General 05/25/24 09/08/24 Reta Schuler MD [address] [place] [address] PCP - General Internal Medicine 09/09/24 Maria Cox NP [address] [place] [address] PCP - Backup PCP Internal Medicine 09/09/24 documented as of this encounter
--- OUTSIDE RECORDS SUMMARY | 2025-01-31 16:59 | XMS_ITS | Clinical Summary ---
Author Organization Maritza don Address [address] [place], [place] [id number] Care Team Providers Care Manager Project Management Name Role Phone Unavailable Primary Care Provider Unavailabl e Social History Tobacco Use Types Packs/Day Years Used Date Smoking Tobacco: Never Assessed Comments Unknown Sex and Gender Information Value Date Recorded Sex Assigned at Not on file Legal Sex Female 11:18 PM EST Gender Identity Not on file Sexual Orientation Not on file Plan of Treatment Health Maintenance Due Date Last Done Comments Blood Pressure 1945 Depression Screening 1951 Hepatitis C Screening 1965 DTaP,Tdap,and Td Vaccines (1 - Tdap) 1966 Zoster Vaccine (1 of 2) 1997 Osteoporosis Screening 01/29/2012 Pneumococcal Vaccine: 65+ Ye ars (1 of 1 - PCV) 01/29/2012 COVID-19 Vaccine (2023-2 5 season) 2024 Influenza Vaccine (#1) 2024 Meningococcal Vaccines Aged Out No lo nger eligible based on patient's age to complete this topic
--- OUTSIDE RECORDS SUMMARY | 2025-01-31 16:59 | XMS_ITS | Encounter Summary ---
Author Organization [facility] Address [address] [place] [address] Care Team Providers Care Carbon Setter Name Role Phone Krystle Chacon MD MPH Primary Care Provider Shari Khurram Linn MD Primary Care Provider Christiano Juarez MD, Darshak Primary Care Provider [phone] Reta Schuler MD Primary Care Provider [phone] CREW MEMBER Unavailable [phone] Encounter Details Date Type Department Care Team (Late st Contact Info) Description 01/02/2016 Orders Only [facility] Adult Medicine [address] [place] [phone] Krystle Chacon MD MPH Social History Tobacco [...] 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 Author Blood Pressure < 140/90 Blood Pressure 133/69(2024 10:45 AM EST) No Jacqui De Jesus RN documented as of this encounter Procedures * Due to [place] [employer] law, this organization might not be sharing negative HIV tests. Procedure Name Priority Date/Time Associated Diagnosis Comments EKG-USE ONLY IN READYMED/OCC MED/CARDIO Routine 01/02/2016 4:23 PM EST Cough Palpitations TSH, 3RD GENERATION Routine 01/02/2016 3 :21 PM EST Palpitations documented in this encounter Results * Due to [place] [employer] law, this organization might not be sharing negative HIV tests. * TSH, 3RD GENERATION (01/02/2016 3:21 PM EST) TSH (Thyrotropin) 3.06 0.40 - 4.50 uIU/ml [facility] 01/02/2016 3:21 PM EST 01/02/2016 3:21 PM EST Narrative [facility] - 01/02/2016 5:26 PM EST Patient's primary care provider is: ??N/A Testing performed at: [facility], [address] [place] [address], [address], Sas Clinical Programmer: Rui Watson M.D. us Krystle Chacon MD MPH LABORATORY Final Resu lt [address] [address] DIRECTOR RUI WATSON M.D. documented in this encounter Visit Diagnoses Diagnosis Palpitations Cough documented in this encounter Care Teams Carbon Setter Relationship Specialty Start Date End Date Krystle Chacon MD MPH PCP - General 11/11/14 12/11/20 Khurram Ferrer MD PCP - General Internal Medicine 12/12/20 05/24/24 Robert Lam MD [address] [facility] [address] [place] [address] PCP - General 05/25/24 09/08/24 Reta Schuler MD [address] [place] [address] PCP - General Internal Medicine 09/09/24 Maria Cox NP [address] [place] [address] PCP - Backup PCP Internal Medicine 09/09/24 documented as of this encounter
--- OUTSIDE RECORDS SUMMARY | 2025-01-31 16:59 | XMS_ITS | Encounter Summary ---
Author Organization [facility] Address [address] [place] [address] Care Team Providers Care Impregnator Helper Name Role Phone Krystle Chacon MD MPH Primary Care Provider Shari Khurram Linn MD Primary Care Provider Christiano Juarez MD, Darshak Primary Care Provider Reta Schuler MD Primary Care Provider [phone] Maria Cox RETIREMENT SPECIALIST Unavailable [phone] Encounter Details Date Type Department Care Team (Late st Contact Info) Description 09/13/2020 [facility] Endocr[facility]ology [address] [place] [phone] Charito Neal MD [address] [address] Social History Tobacco Use Types Packs/Day Years [...] have Coronavirus / COVID-19? No / Unsure 09/13/2020 2:21 PM EDT documented as of this encounter Progress Notes * Charito Neal MD - 09/13/2020 2:56 PM EDT . documented in this encounter Plan of Treatment Not on file documented as of this encounter Goals Goal Patient Goal Type Associated Problems Recent Progress Patient-Stated? Author Blood Pressure < 140/90 Blood Pressure 133/69(2024 10:45 AM EST) No Jacqui De Jesus RN documented as of this encounter Procedures * Due to [place] [employer] law, this organization might not be sharing negative HIV tests. Procedure Name Priority Date/Time Associated Diagnosis Comments THYROID STIMULATING HORMONE (TSH) WITH FREE T4 REFLEX, SERUM Routine 09/13/2020 2:59 PM EDT Multinodular goiter PARATHYROID HORMONE (PTH), INTACT WITH CALCIUM, SERUM Routine 09/13/2020 2:59 PM EDT Mild secondary hyperparathyroidism (HCC) VENIPUNCTURE Routine 09/13/2020 2:59 PM EDT Mild secondary hyperparathyroidism (HCC) documented in this encounter Results * Due to [place] [employer] law, this organization might not be sharing negative HIV tests. * THYROID STIMULATING HORMONE (TSH) WITH FREE T4 REFLEX, SERUM (09/13/2020 2:59 PM EDT) TSH (Thyrotropin) 2.35 0.40 - 4.50 uIU/ml [facility] 09/13/2020 2:59 PM EDT 09/13/2020 2:59 PM EDT Narrative [facility] - 09/13/2020 4:39 PM EDT Patient's primary care provider is: ??N/A Testing performed at: [facility], [address] [place] [address], [address], Corporate Security Manager: Christopher Quintero MD Charito Neal MD LABORATORY Final Result Performing Organization Address City/State/[facility] Co de Phone Number [address] [address] DIRECTOR Christopher Quintero MD * PARATHYROID HORMONE (PTH), INTACT WITH CALCIUM, SERUM (09/13/2020 2:59 PM EDT) Parathyroid Hormone (PTH), Intact 45.1 14.0 - 72.0 pg/mL [facility] Comment:PTH pg/mL x 0.1061 = pmol/L Calcium 10.0 8.5 - 10.4 mg/dL [facility] 09/13/2020 2:59 PM EDT 09/13/2020 2:59 PM EDT [facility] - 09/13/2020 4:39 PM EDT Patient's primary care provider is: ??N/A Testing performed at: [facility], [address] [place] [address], [address], Corporate Security Manager: Christopher Quintero MD Charito Neal MD LABORATORY Final Result Performing Organization Address [facility] de Phone Number [address] [address] DIRECTOR Christopher Quintero MD * VITAMIN D, 25-HYDROXY, TOTAL, IMMUNOASSAY (09/13/2020 2:59 PM EDT) VIT D, 25-OH, TOTAL 75 >29 ng/mL [facility] Comment: Vitamin D Status ??25-OH Vitamin D: Deficiency: ? <20 ng/mL Insufficiency: ? 20-29 ng/mL Optimal: ?> or = 30 ng/mL 09/13/2020 2:59 PM EDT 09/13/2020 2:59 PM EDT [facility] - 09/13/2020 4:39 PM EDT Patient's primary care provider is: ??N/A Testing performed at: [facility], [address] [place] [address], [address], Corporate Security Manager: Christopher Quintero MD Charito Neal MD LABORATORY Final Result [address] [address] DIRECTOR Christopher Quintero MD documented in this encounter Visit Diagnoses Diagnosis Mild secondary hyperparathyroidism (HHS) Multinodular goiter Nontoxic multinodular goiter documented in this encounter Care Teams Impregnator Helper Relationship Specialty Start Date End Date Krystle Chacon MD MPH PCP - General 11/11/14 12/11/20 Khurram Ferrer MD PCP - General Internal Medicine 12/12/20 05/24/24 Robert Lam MD [address] [address] PCP - General 05/25/24 09/08/24 Reta Schuler MD [address] [place] [address] PCP - General Internal Medicine 09/09/24 Maria Cox NP [address] [place] [address] PCP - Backup PCP Internal Medicine 09/09/24 documented as of this encounter
--- OUTSIDE RECORDS SUMMARY | 2025-01-31 16:59 | XMS_ITS | Encounter Summary ---
Author Organization [facility] Address [address] [place] [address] Care Team Providers Care Instructional Systems Designer Name Role Phone Krystle Chacon MD MPH Primary Care Provider Shari Khurram Linn MD Primary Care Provider Christiano Juarez MD, Darshak Primary Care Provider Reta Schuler MD Primary Care Provider [phone] Maria Cox E D TECH Unavailable [phone] Encounter Details Date Type Department Care Team (Late st Contact Info) Description 05/31/2015 Orders Only [facility] Adult Medicine [address] [place] [phone] Krystle Chacon MD MPH Social History Tobacco [...] as of this encounter Visit Diagnoses Diagnosis Disorder of bone and cartilage, unspecified Benign neoplasm of colon Need for prophylactic vaccination and inoculation against unspecified single disease Elevated blood pressure reading without diagnosis of hypertension Routine general medical examination at a health care facility Abnormal finding Other nonspecific abnormal finding documented in this encounter Care Teams Instructional Systems Designer Relationship Specialty Start Date End Date Krystle Chacon MD MPH PCP - General 11/11/14 12/11/20 Khurram Ferrer MD PCP - General Internal Medicine 12/12/20 05/24/24 Robert Lam MD [address] [place] [address] PCP - General 05/25/24 09/08/24 Reta Schuler MD [address] [place] [address] PCP - General Internal Medicine 09/09/24 Maria Cox NP [address] [place] [address] PCP - Backup PCP Internal Medicine 09/09/24 documented as of this encounter
--- OUTSIDE RECORDS SUMMARY | 2025-01-31 16:59 | XMS_ITS | Encounter Summary ---
Author Organization [facility] Address [address] [place] [address] Care Team Providers Care Metal Sponge Making Machine Operator Name Role Phone Krystle Chacon MD MPH Primary Care Provider Shari Khurram Linn MD Primary Care Provider Christiano Juarez MD, Darshak Primary Care Provider [phone] Reta Schuler MD Primary Care Provider [phone] Maria Cox PATIENT FINANCIAL SERVICES SPECIALIST Unavailable [phone] Encounter Details Date Type Department Care Team (Late st Contact Info) Description 07/28/2020 Orders Only [facility] Orthopedic Surgery [address] [place] [address] Jose Davis MD [address] [place] [address] Social History Tobacco Use Types Packs/Day Years [...] have Coronavirus / COVID-19? No / Unsure 07/12/2020 8:23 AM EDT documented as of this encounter Plan of Treatment Not on file documented as of this encounter Goals Goal Patient Goal Type Associated Problems Recent Progress Patient-Stated? Author Blood Pressure < 140/90 Blood Pressure 133/69(2024 10:45 AM EST) Jacqui Tatum RN documented as of this encounter Visit Diagnoses Not on filedocumented in this encounter Care Teams Metal Sponge Making Machine Operator Relationship Specialty Start Date End Date Krystle Chacon MD MPH PCP - General 11/11/14 12/11/20 Khurram Ferrer MD PCP - General Internal Medicine 12/12/20 05/24/24 Robert Lam MD [address] [address] PCP - General 05/25/24 09/08/24 Reta Schuler MD 1 [place] [address] PCP - General Internal Medicine 09/09/24 Maria Cox, PATI [address] [place] [address] PCP - Backup PCP Internal Medicine 09/09/24 documented as of this encounter
--- OUTSIDE RECORDS SUMMARY | 2025-01-31 16:59 | XMS_ITS | Encounter Summary ---
Author Organization [facility] Address [address] [place] [address] Care Team Providers Care Packing Checker Name Role Phone Khurram Ferrer MD Primary Care Provider [phone] Christiano Juarez MD, Darshak Primary Care Provider [phone] Reta Schuler MD Primary Care Provider [phone] Maria Cox MOSAIC TILER Unavailable [phone] Encounter Details Date Type Department Care Team (Late st Contact Info) Description 07/16/2023 Orders Only [facility] [address] [place] [phone] Nina Goldberg MD [address] [place] [address] Social History Tobacco Use Types Packs/Day Years [...] of this encounter Procedures * Due to [place] [employer] law, this organization might not be sharing negative HIV tests. Procedure Name Priority Date/Time Associated Diagnosis Comments PARATHYROID HORMONE (PTH), INTACT WITH CALCIUM, SERUM Routine 07/16/2023 1:39 PM EDT Mild secondary hyperparathyroidism (HCC) documented in this encounter Results * Due to [place] [employer] law, this organization might not be sharing negative HIV tests. * PARATHYROID HORMONE (PTH), INTACT WITH CALCIUM, SERUM (07/16/2023 1:39 PM EDT) Parathyroid Hormone (PTH), Intact 53.5 14.0 - 72.0 pg/mL [facility] Comment:PTH pg/mL x 0.1061 = pmol/L Calcium 9.8 8.5 - 10.4 mg/dL [facility] 07/16/2023 1:39 PM EDT 07/16/2023 1:39 PM EDT Narrative [facility] - 07/16/2023 3:45 PM EDT Patient's primary care provider is: ??N/A Testing performed at: [facility], [address] [place] [address], [address], Extracorporeal Technician: Christopher Quintero MD us Nina Goldberg MD LABORATORY Final Resul t [address] [address] DIRECTOR Christopher Quintero MD documented in this encounter Visit Diagnoses Diagnosis Mild secondary hyperparathyroidism (HHS) documented in this encounter Care Teams Packing Checker Relationship Specialty Start Date End Date Khurram Ferrer MD PCP - General Internal Medicine 12/12/20 05/24/24 Robert Lam MD [address] [facility] [address] [place] [address] PCP - General 05/25/24 09/08/24 Reta Schuler MD [address] [place] [address] PCP - General Internal Medicine 09/09/24 Maria Cox NP [address] [place] [address] PCP - Backup PCP Internal Medicine 09/09/24 documented as of this encounter
--- OUTSIDE RECORDS SUMMARY | 2025-01-31 16:59 | XMS_ITS | Encounter Summary ---
Author Organization [facility] Address [address] [place] [address] Care Team Providers Care Turbine Operator Name Role Phone Krystle Chacon MD MPH Primary Care Provider Shari Khurram Linn MD Primary Care Provider Christiano Juarez MD, Darshak Primary Care Provider Reta Schuler MD Primary Care Provider [phone] Maria Cox RETAIL BANKING MANAGER Unavailable [phone] Encounter Details Date Type Department Care Team (Late st Contact Info) Description 02/12/2018 Orders Only [facility] Adult Medicine [address] [place] [phone] Krystle Chacon MD MPH Social History Tobacco [...] Jesus RN documented as of this encounter Results * Due to [place] state law, this organization might not be [...] AM EDT 03/01/2018 10:31 AM EDT Narrative [facility] - 03/01/2018 11:44 AM EDT Patient's primary care provider is: ??N/A Testing performed at: [facility], [address] [place] [address], [address], Vacuum Drum Drier Operator: Rosalia Gonzales, Ph.D us Krystle Chacon MD MPH LABORATORY Final Resu lt [address] [address] DIRECTOR Rosalia Gonzales, Ph.D * COMPREHENSIVE METABOLIC [...] GROUP Comment:If the patient is Af rican Bulgarian, please multiply result by 1.210 03/01/2018 10:3 1 AM EDT 03/01/2018 10:31 AM EDT Narrative [facility] - 03/01/2018 11:44 AM EDT Patient's primary care provider is: ??N/A Testing performed at: [facility], [address] [place] [address], [address], Vacuum Drum Drier Operator: Rosalia Gonzales, Ph.D us Krystle Chacon MD MPH LABORATORY Final Resu lt [address] [address] DIRECTOR Rosalia Gonzales, Ph.D * (ABNORMAL) CBC (H/H, RBC, INDICES,WBC, PLT) (03/01/2018 10:31 AM EDT) WBC 3.1(L) 3.8 - 10.8 K/uL [facility] RBC 4.22 3.80 - 5.10 M/uL [facility] Hemoglobin 12.8 11.7 - 15.5 g/dL [facility] Hematocrit 39.7 35.0 - 45.0 % [facility] MCV 94.1 80.0 - 100.0 fl [facility] MCH 30.3 27.0 - 33.0 pg [facility] MCHC 32.2 32.0 - 36.0 g/dL [facility] RDW 14.4 11.0 - 15.0 % [facility] PLT 251 140 - 400 K/uL [facility] 03/01/2018 10:3 1 AM EDT 03/01/2018 10:31 AM EDT Narrative [facility] - 03/01/2018 10:50 AM EDT Patient's primary care provider is: ??N/A Testing performed at: [facility], [address] [place] [address], [address], Vacuum Drum Drier Operator: Rosalia Gonzales, Ph.D Krystle Chacon MD MPH LAB SAME DAY RESULT Final Result [address] [address] DIRECTOR Rosalia Gonzales, Ph.D documented in this encounter Visit Diagnoses Diagnosis Screening for hyperlipidemia Screening for lipoid disorders Screening for diabetes mellitus (DM) Screening for diabetes mellitus Screening for deficiency anemia Screening for other and unspecified deficiency anemia Screening for hyperlipidemia Screening for lipoid disorders Screening for diabetes mellitus (DM) Screening for diabetes mellitus Screening for deficiency anemia Screening for other and unspecified deficiency anemia documented in this encounter Care Teams Turbine Operator Relationship Specialty Start Date End Date Krystle Chacon MD MPH PCP - General 11/11/14 12/11/20 Khurram Ferrer MD PCP - General Internal Medicine 12/12/20 05/24/24 Robert Lam MD [address] [place] [address] PCP - General 05/25/24 09/08/24 Reta Schuler MD [address] [place] [address] PCP - General Internal Medicine 09/09/24 Maria Cox NP [address] [place] [address] PCP - Backup PCP Internal Medicine 09/09/24 documented as of this encounter
--- OUTSIDE RECORDS SUMMARY | 2025-01-31 16:59 | XMS_ITS | Encounter Summary ---
Author Organization [facility] Address [address] [place] [address] Care Team Providers Care Equipment Cleaner And Tester Name Role Phone Khurram Ferrer MD Primary Care Provider Christiano Juarez MD, Darshak Primary Care Provider Reta Schuler MD Primary Care Provider [phone] Maria Cox DIRECTOR OF GLOBAL SALES Unavailable [phone] Encounter Details Date Type Department Care Team (Late st Contact Info) Description 09/25/2021 Orders Only [facility] [address] [place] [address] Khurram Ferrer MD [address] [address] Social History Tobacco Use Types Packs/Day Years Used Date Smoking Tobacco: Former Cigarettes 1 10 0 11/24/1965 - 11/24/1975 Smokeless Tobacco: Never Comments:remote hx quit Alcohol Use Standard Drinks/Week Comments Yes 7 (1 standard drink = 0.6 oz pur e alcohol) PHQ-2 Answer Date Recorded [facility] PHQ-2 SEVERITY SCORE (Range 0-6) 2 03/28/2021 Comments No Sex and Gender Information Value [...] of this encounter Procedures * Due to [facility] law, this organization might not be sharing negative HIV tests. Procedure Name Priority Date/Time Associated Diagnosis Comments VENIPUNCTURE Routine 09/25/2021 7:39 AM EDT Dyslipidemia documented in this encounter Results * Due to [place] [employer] law, this organization might not be sharing negative HIV tests. * (ABNORMAL) LIPID PANEL WITH REFLEX TO DIRECT LDL (09/25/2021 7:39 AM EDT) Cholesterol 210(H) <200 mg/dL [facility] Triglyceride 64 <150 mg/dL [facility] HDL Cholesterol 107 >40 mg/dL [facility] Comment: NCEP GUIDELINES Desirable >60 mg/dL Borderline 40-59 mg/dL ?? Undesirable <40 mg/dL LDL Cholesterol 90 <130 mg/dL [facility] CHOL/HDL Ratio 2 0 - 5 CALC [facility] 09/25/2021 7:39 AM EDT 09/25/2021 7:39 AM EDT Narrative [facility] - 09/25/2021 10:04 AM EDT Patient's primary care provider is: ??N/A Testing performed at: [facility], [address] [place] [address], [address], Billet Inspector: Christopher Quintero MD Khurram Ferrer MD LABORATORY Final Resul t [address] [address] DIRECTOR Christopher Quintero MD documented in this encounter Visit Diagnoses Diagnosis Dyslipidemia Other and unspecified hyperlipidemia documented in this encounter Care Teams Equipment Cleaner And Tester Relationship Specialty Start Date End Date Khurram Ferrer MD PCP - General Internal Medicine 12/12/20 05/24/24 Robert Lam MD [address] [address] PCP - General 05/25/24 09/08/24 Reta Schuler MD [address] [place] [address] PCP - General Internal Medicine 09/09/24 Maria Cox NP [address] [place] [address] PCP - Backup PCP Internal Medicine 09/09/24 documented as of this encounter
--- OUTSIDE RECORDS SUMMARY | 2025-01-31 17:00 | XMS_ITS | Encounter Summary ---
Author Organization [facility] Address [address] [place] [address] Care Team Providers Care Supervisor Dried Yeast Name Role Phone Reta Schuler MD Primary Care Provider [phone] Maria Cox VISUAL DISPLAY MANAGER Unavailable [phone] Encounter Details Date Type Department Care Team (Late st Contact Info) Description 09/13/2024 Orders Only [facility] [address] [place] [address] Maria Cox, VISUAL DISPLAY MANAGER [address] [place] [address] Social History Tobacco Use Types Packs/Day Years Used Date Smoking Tobacco: Former Cigarettes 1 6 0 11/24/1969 - 11/24/1975 Smokeless Tobacco: Never Comments:remote hx quit Alcohol Use Standard Drinks/Week Comments Yes 7 (1 standard drink = 0.6 oz pur e alcohol) PHQ-2 Answer Date Recorded Patient Health Questionnaire-2 Score 0 09/08/2024 PHQ-9 Answer Date Recorded PHQ-9 Score 0 09/09/2024 Intimate Partner Violence Answer Date R ecorded Fear of Current or Ex-Partner Not on file Emotionally Abused Not on file 07/10/2023 Physically Abused Not on file 07/10/2023 Sexually Abused Not on file 07/10/2023 Feel Safe at Home Not on file 07/10/2023 Social Connections Answer Date Recorded Phone Communication Three times a week Get together with friends / family Three times a week 09/03/2024 Attend voodoo services Never 2023 Club Membership Yes 09/03/2024 Club Attendance More than 4 times per year 09/03 Marital Status 09/03/2024 Financial Resource Strain Answer Date R ecorded Difficulty paying for basics Not very hard 09/2024 How hard is it for you to pa y for utilities (electricity, gas, water)? Not very hard 09/03/2024 Food Insecurity Answer Date Recorded Worry that food will run out Never true 09/2024 Inability to get food Never true 09/03/2024 Transportation Needs Answer Date Record ed Lacking transport to medical appts No 09/03/2024 Lacking transport to non-medical No 09/03/2024 Housing Stability Answer Date Recorded Unable to Pay for Housing in the Last Year No 09/03/2024 [address] of Places Lived in the Last Year 1 09/03/2024 Unstable Housing in the Last Year No 09/03/2024 Do you have housing? 09/03/2024 Are you worried about losing your housing? 09/03/2024 Are you worried about losing your housing? 09/03/2024 Adolescent Education and Socialization Answer Date Recorded Getting School Help Needed Not on file 09/03 How often do you get together with friends or re latives? 4 09/03/2024 Do you belong to any clubs o r organizations such as mormonism groups, unions, athletic groups, or school groups? 1 09/2024 How often do you attend meet ings of the clubs or organizations you belong to? 3 09/03/2024 Comments No Sex and Gender Information Value [...] Encounter Note - Maria Cox NP - 09/13/2024 12:46 PM EDT [facility] message sent, see message for details. documented in this encounter Plan of Treatment Not on file documented as of this encounter Goals Goal Patient Goal Type Associated Problems Recent Progress Patient-Stated? Author Blood Pressure < 140/90 Blood Pressure 133/69(2024 10:45 AM EST) Jacqui Tatum RN documented as of this encounter Procedures * Due to [place] [employer] law, this organization might not be sharing negative HIV tests. Procedure Name Priority Date/Time Associated Diagnosis Comments LIPID PANEL WITH REFLEX TO DIRECT LDL Routine 09/13/2024 12:47 PM EDT Screening for lipid disorders documented in this encounter Results * Due to [place] [employer] law, this organization might not be sharing negative HIV tests. * (ABNORMAL) LIPID PANEL WITH REFLEX TO DIRECT LDL (09/13/2024 12:47 PM EDT) Cholesterol 236(H) <200 mg/dL [facility] Triglyceride 62 <150 mg/dL [facility] HDL Cholesterol 94 >40 mg/dL [facility] Comment: NCEP GUIDELINES Desirable >60 mg/dL Borderline 40-59 mg/dL ?? Undesirable <40 mg/dL LDL Cholesterol 130(H) <130 mg/dL [facility] CHOL/HDL Ratio 3 0 - 5 CALC [facility] 09/13/2024 12:4 7 PM EDT 09/13/2024 12:47 PM EDT Narrative [facility] - 09/13/2024 2:41 PM EDT Patient's primary care provider is: ??N/A Testing performed at: [facility], [address] [place] [address], [address], Manager Stars: Christopher Quintero MD Maria Cox NP LABORATORY Final Result [address] [address] DIRECTOR Christopher Quintero MD documented in this encounter Visit Diagnoses Diagnosis Screening for lipid disorders documented in this encounter Care Teams Supervisor Dried Yeast Relationship Specialty Start Date End Date Reta Schuler MD [address] [place] [address] PCP - General Internal Medicine 09/09/24 Maria Cox NP [address] [place] [address] PCP - Backup PCP Internal Medicine 09/09/24 documented as of this encounter
--- OUTSIDE RECORDS SUMMARY | 2025-01-31 17:00 | XMS_ITS | Encounter Summary ---
Author Organization [facility] Address [address] [place] [address] Care Team Providers Care Clerk Operator Name Role Phone Krystle Chacon MD MPH Primary Care Provider Shari Khurram Linn MD Primary Care Provider [phone] Christiano Juarez MD, Darshak Primary Care Provider [phone] Reta Schuler MD Primary Care Provider [phone] Maria Cox ENDOCRINOLOGY TEACHER Unavailable [phone] Encounter Details Date Type Department Care Team (Late st Contact Info) Description 09/21/2019 [facility] [address] [place] [address] Charito Neal MD 1 [facility] [address] [place] [address] Social History Tobacco Use Types Packs/Day Years [...] this encounter Procedures * Due to [place] [employer] law, this organization might not be sharing negative HIV tests. Procedure Name Priority Date/Time Associated Diagnosis Comments TSH, 3RD GENERATION Routine 09/21/2019 8 :11 AM EDT Multinodular goiter T4, FREE, SERUM Routine 09/21/2019 8:11 AM EDT Multinodular goiter VENIPUNCTURE Routine 09/21/2019 8:11 AM EDT Osteopenia, unspecified location VITAMIN D, 25-HYDROXY, TOTAL, IMMUNOASSAY Routine 09/21/2019 8:11 AM EDT Osteopenia, unspecified location COLLAGEN CROSS-LINKED N-TELOPEPTIDE (NTX), URINE Routine 09/21/2019 8:10 AM EDT Osteopenia, unspecified location documented in this encounter Results * Due to [place] [employer] law, this organization might not be sharing negative HIV tests. * TSH, 3RD GENERATION (09/21/2019 8:11 AM EDT) TSH (Thyrotropin) 3.46 0.40 - 4.50 uIU/ml [facility] 09/21/2019 8:11 AM EDT 09/21/2019 8:11 AM EDT Narrative [facility] - 09/21/2019 10:04 AM EDT Patient's primary care provider is: ??N/A Testing performed at: [facility], [address] [place] [address], [address], Lion Trainer: Christopher Quintero MD Charito Neal MD LABORATORY Final Result [address] [address] DIRECTOR Christopher Quintero MD * T4, FREE, SERUM (09/21/2019 8:11 AM EDT) FT4 1.1 0.9 - 1.7 NG/DL [facility] 09/21/2019 8:11 AM EDT 09/21/2019 8:11 AM EDT [facility] - 09/21/2019 10:04 AM EDT Patient's primary care provider is: ??N/A Testing performed at: [facility], [address] [place] [address], [address], Lion Trainer: Christopher Quintero MD Charito Neal MD LABORATORY Final Result Performing Organization Address [facility] de Phone Number [address] [address] DIRECTOR Christopher Quintero MD * VITAMIN D, 25-HYDROXY, TOTAL, IMMUNOASSAY (09/21/2019 8:11 AM EDT) VIT D, 25-OH, TOTAL 51 >29 ng/mL [facility] Comment: Vitamin D Status ??25-OH Vitamin D: Deficiency: ? <20 ng/mL Insufficiency: ? 20-29 ng/mL Optimal: ?> or = 30 ng/mL 09/21/2019 8:11 AM EDT 09/21/2019 8:11 AM EDT [facility] - 09/21/2019 10:04 AM EDT Patient's primary care provider is: ??N/A Testing performed at: [facility], [address] [place] [address], [address], Lion Trainer: Christopher Quintero MD Charito Neal MD LABORATORY Final Result Performing Organization Address [facility] de Phone Number [address] [address] DIRECTOR Christopher Quintero MD * (ABNORMAL) PARATHYROID HORMONE (PTH), INTACT WITH CALCIUM, SERUM (09/21/2019 8:11 AM EDT) Parathyroid Hormone (PTH), Intact 77.7(H) 14.0 - 72.0 pg/mL [facility] Comment:PTH pg/mL x 0.1061 = pmol/L Calcium 9.2 8.5 - 10.4 mg/dL [facility] 09/21/2019 8:11 AM EDT 09/21/2019 8:11 AM EDT Narrative [facility] - 09/21/2019 10:04 AM EDT Patient's primary care provider is: ??N/A Testing performed at: [facility], [address] [place] [address], [address], Lion Trainer: Christopher Quintero MD Charito Neal MD LABORATORY Final Result Performing Organization Address [facility] de Phone Number [address] [address] DIRECTOR Christopher Quintero MD * COLLAGEN CROSS-LINKED N-TELOPEPTIDE (NTX), URINE (09/21/2019 8:10 AM EDT) Collagen crosslinked N-telopeptide/Cre atinine (Urine) 50 see note nM BCE/mM creat [facility] Comment: Premenopausal ?Females: ??4 - 64 nM BCE/mM creat Results are primarily used for monitoring the response to therapy. ??A value within the premenopausal range does not rule out osteoporosis nor the need for therapy Units of Measure: nM BCE/mM creat Creatinine (Urine) 44 20 - 275 mg/dL [facility] 09/21/2019 8:10 AM EDT 09/21/2019 11:40 PM EDT Narrative Resulting Agency Comment [id number] Charito Neal MD LABORATORY Final Result [facility] [address] [place] [address] documented in this encounter Visit Diagnoses Diagnosis Osteopenia, unspecified location Multinodular goiter Nontoxic multinodular goiter documented in this encounter Care Teams Clerk Operator Relationship Specialty Start Date End Date Krystle Chacon MD MPH PCP - General 11/11/14 12/11/20 Khurram Ferrer MD PCP - General Internal Medicine 12/12/20 05/24/24 Robert Lam MD [address] [place] [address] PCP - General 05/25/24 09/08/24 Reta Schuler MD [address] [place] [address] PCP - General Internal Medicine 09/09/24 Maria Cox NP [address] [place] [address] PCP - Backup PCP Internal Medicine 09/09/24 documented as of this encounter
--- OUTSIDE RECORDS SUMMARY | 2025-01-31 17:00 | XMS_ITS | Encounter Summary ---
Author Organization [facility] Address [address] [place] [address] Care Team Providers Care Seasonal Tax Preparer Name Role Phone Krystle Chacon MD MPH Primary Care Provider Shari Khurram Linn MD Primary Care Provider Christiano Juarez MD, Darshak Primary Care Provider [phone] Reta Schuler MD Primary Care Provider [phone] Maria Cox BEHAVIORAL HEALTH TECHNICIAN Unavailable [phone] Encounter Details Date Type Department Care Team (Late st Contact Info) Description 06/03/2019 Orders Only [facility] Adult Medicine [address] [place] [phone] Krystle Chacon MD MPH Social History Tobacco [...] of this encounter Procedures * Due to [place] [employer] law, this organization might not be sharing negative HIV tests. Procedure Name Priority Date/Time Associated Diagnosis Comments CBC (H/H, RBC, INDICES,WBC, PLT) Routine 06/03/2019 9:33 AM EDT Leukopenia, unspecified type documented in this encounter Results * Due to [place] [employer] - is now [employer] law, this organization might not be sharing negative HIV tests. * CBC (H/H, RBC, INDICES,WBC, PLT) (06/03/2019 9:33 AM EDT) WBC 4.5 3.8 - 10.8 K/uL [facility] RBC 4.16 3.80 - 5.10 M/uL [facility] Hemoglobin 12.5 11.7 - 15.5 g/dL [facility] Hematocrit 38.2 35.0 - 45.0 % [facility] MCV 91.8 80.0 - 100.0 fl [facility] MCH 30.0 27.0 - 33.0 pg [facility] MCHC 32.7 32.0 - 36.0 g/dL [facility] RDW 14.7 11.0 - 15.0 % [facility] PLT 284 140 - 400 K/uL [facility] 06/03/2019 9:33 AM EDT 06/03/2019 9:33 AM EDT Narrative [facility] - 06/03/2019 10:14 AM EDT Patient's primary care provider is: ??N/A Testing performed at: [facility], [address] [place] [address], [address], Service Electrician: Christopher Quintero MD Krystle Chacon MD MPH LAB SAME DAY RESULT Final Result [address] [address] DIRECTOR Christopher Quintero MD documented in this encounter Visit Diagnoses Diagnosis Leukopenia, unspecified type documented in this encounter Care Teams Seasonal Tax Preparer Relationship Specialty Start Date End Date Krystle Chacon MD MPH PCP - General 11/11/14 12/11/20 Khurram Ferrer MD PCP - General Internal Medicine 12/12/20 05/24/24 Robert Lam MD [address] [place] [address] PCP - General 05/25/24 09/08/24 Reta Schuler MD [address] [place] [address] PCP - General Internal Medicine 09/09/24 Maria Cox NP [address] [place] [address] PCP - Backup PCP Internal Medicine 09/09/24 documented as of this encounter
--- OUTSIDE RECORDS SUMMARY | 2025-01-31 17:00 | XMS_ITS | Encounter Summary ---
Author Organization [facility] Address [address] [place] [address] Care Team Providers Care Tank Cleaner Name Role Phone Reta Schuler MD Primary Care Provider Maria Cox INFECTION PREVENTION COORDINATOR Unavailable [phone] Encounter Details Date Type Department Care Team ([facility] st Contact Info) Description 11/02/2024 Orders Only [facility] Endocrinology [address] [place] [address] Nina Goldberg MD [address] [place] [address] Social History Tobacco Use Types Packs/Day Years [...] family Three times a week 09/03/2024 Attend scientology services Never 2023 Club Membership Yes 09/03/2024 [...] any clubs o r organizations such as episcopalian groups, unions, athletic groups, or school groups? [...] Miscellaneous Notes * Result Encounter Note - Nina Goldberg MD - 11/02/2024 12:21 PM EST . documented in this encounter Plan of Treatment Not on file documented as of this encounter Goals Goal Patient Goal Type Associated Problems Recent Progress Patient-Stated? Author Blood Pressure < 140/90 Blood Pressure 133/69(2024 10:45 AM EST) No Jacqui De Jesus RN documented as of this encounter Procedures * Due to [place] [employer] law, this organization might not be sharing negative HIV tests. Procedure Name Priority Date/Time Associated Diagnosis Comments PTH, INTACT (WITHOUT CALCIUM) Routine 11/02/2024 12:23 PM EST TSH, 3RD GENERATION Routine 11/02/2024 1 2:23 PM EST Multinodular goiter T4, FREE, SERUM Routine 11/02/2024 12:23 PM EST Multinodular goiter VITAMIN D, 25-HYDROXY, TOTAL, IMMUNOASSAY Routine 11/02/2024 12:23 PM EST Osteopenia, unspecified location BASIC METABOLIC PANEL WITH (GFR) Routine 11/02/2024 12:23 PM EST Osteopenia, unspecified location documented in this encounter Results * Due to [place] state law, this organization might not be sharing negative HIV tests. * PTH, INTACT (WITHOUT CALCIUM) (11/02/2024 12:23 PM EST) Parathyroid Hormone (PTH), Intact 50.4 14.0 - 72.0 pg/mL [facility] Comment:PTH pg/mL x 0.1061 = pmol/L 11/02/2024 12:2 3 PM EST 11/02/2024 12:23 PM EST Narrative [facility] - 11/02/2024 2:22 PM EST Patient's primary care provider is: ??N/A Testing performed at: [facility], [address] [place] [address], [address], Chief Jailer: Christopher Quintero MD us Nina Goldberg MD LABORATORY Final Resul t [address] [address] DIRECTOR Christopher Quintero MD * TSH, 3RD GENERATION (11/02/2024 12:23 PM EST) TSH (Thyrotropin) 2.77 0.40 - 4.50 uIU/ml [facility] 11/02/2024 12:2 3 PM EST 11/02/2024 12:23 PM EST Narrative [facility] - 11/02/2024 2:22 PM EST Patient's primary care provider is: ??N/A Testing performed at: [facility], [address] [place] [address], [address], Chief Jailer: Christopher Quintero MD Nina Goldberg MD LABORATORY Final Resul t Performing Organization Address [facility] de Phone Number [address] [address] DIRECTOR Christopher Quintero MD * T4, FREE, SERUM (11/02/2024 12:23 PM EST) FT4 1.2 0.9 - 1.7 NG/DL [facility] 11/02/2024 12:2 3 PM EST 11/02/2024 12:23 PM EST Narrative [facility] - 11/02/2024 2:22 PM EST Patient's primary care provider is: ??N/A Testing performed at: [facility], [address] [place] [address], [address], Chief Jailer: Christopher Quintero MD Nina Goldberg MD LABORATORY Final Resul t Performing Organization Address [facility] de Phone Number [address] [address] DIRECTOR Christopher Quintero MD * BASIC METABOLIC PANEL WITH (GFR) (11/02/2024 12:23 PM EST) Glucose 92 65 - 99 mg/dl [facility] Urea Nitrogen Blood (BUN) 15 7 - 25 mg/dL [facility] Creatinine 0.68 0.50 - 1.16 mg/dL [facility] Sodium 139 135 - 146 mmo/L [facility] Potassium 4.8 3.5 - 5.3 mmol/L [facility] Chloride 103 98 - 107 mmo/L [facility] Carbon dioxide 27 23 - 33 mmol/L [facility] Calcium 9.7 8.5 - 10.4 mg/dL [facility] GFR 89 >60 ml/min [facility] 11/02/2024 12:2 3 PM EST 11/02/2024 12:23 PM EST Narrative [facility] - 11/02/2024 2:22 PM EST Patient's primary care provider is: ??N/A Testing performed at: [facility], [address] [place] [address], [address], Chief Jailer: Christopher Quintero MD us Nina Goldberg MD LABORATORY Final Resul t [address] [address] DIRECTOR Christopher Quintero MD * VITAMIN D, 25-HYDROXY, TOTAL, IMMUNOASSAY (11/02/2024 12:23 PM EST) VIT D, 25-OH, TOTAL 63 >29 ng/mL [facility] Comment: Vitamin D Status ??25-OH Vitamin D: Deficiency: ? <20 ng/mL Insufficiency: ? 20-29 ng/mL Optimal: ?> or = 30 ng/mL 11/02/2024 12:2 3 PM EST 11/02/2024 12:23 PM EST Narrative [facility] - 11/02/2024 2:22 PM EST Patient's primary care provider is: ??N/A Testing performed at: [facility], [address] [place] [address], [address], Chief Jailer: Christopher Quintero MD Nina Goldberg MD LABORATORY Final Resul t [address] [address] DIRECTOR Christopher Quintero MD documented in this encounter Visit Diagnoses Diagnosis Osteopenia, unspecified location Multinodular goiter Nontoxic multinodular goiter documented in this encounter Care Teams Tank Cleaner Relationship Specialty Start Date End Date Reta Schuler MD [address] [place] [address] PCP - General Internal Medicine 09/09/24 Maria Cox NP [address] [place] [address] PCP - Backup PCP Internal Medicine 09/09/24 documented as of this encounter
--- OUTSIDE RECORDS SUMMARY | 2025-01-31 17:00 | XMS_ITS | Continuity of Care Document ---
Author Organization [facility] Address [address] [place] [address] Care Team Providers Care Mechanical Inspector Name Role Phone Reta Schuler MD Primary Care Provider [phone] Maria Cox PROFESSOR IN FAMILY STUDIES Unavailable [phone] Encounters Date Type Department Care Team Description 01/12/2025 9:45 AM EST Office Visit [facility] Medicine [address] [place] [phone] Kendal Garza MD Mild intermittent reactive airway disease with acute exacerbation (HHS) (Primary Dx); Post-viral cough syndrome; Essential hypertension 01/12/[address] [phone] Reta Schuler MD Cough 12/16/2024 11:45 AM EST Office Visit [facility] Endocrinology [address] [place] [phone] Nina Goldberg MD Multinodular goiter (Primary Dx); Osteopenia, unspecified location 12/03/2024 3:30 PM EST Office Visit [address] [phone] Reta Schuler MD Vertigo (Primary Dx); Mild secondary hyperparathyroidism (HHS); Major depressive disorder, recurrent episode, in partial remission 11/29/2024 Consult (Initial) GASTRO UNSPECIFIED Malgorzata Merino NP 11/21/2024 Refill [facility] [address] [place] [phone] Reta Schuler MD E-prescribing Refill Request 11/11/2024 11:30 AM EST Radiology [address] [address] Multinodular goiter 11/03/[address] [phone] Reta Schuler MD Letter/form Request 11/02/2024 4:30 PM EST Office Visit [address] [phone] Reta Schuler MD Pre-op evaluation (Primary Dx) 11/02/2024 Orders Only [facility] Endocrinology [address] [place] [phone] Nina Goldberg MD 10/25/[address] [phone] Reta Schuler MD Covid 10/14/[address] [phone] Maria Cox NP Follow Up (Pre-op) 10/08/2024 1:00 PM EST Office Visit [address] [phone] Maria Cox NP Senile cataract of right eye, unspecified age-related cataract type (Primary Dx); Essential hypertension; Major depressive disorder, single episode, in full remission; Attention deficit hyperactivity disorder (ADHD), unspecified ADHD type; Pre-op evaluation 10/01/2024 Refill [facility] Endocrinology [address] [place] [phone] Nina Goldberg MD E-prescribing Refill Request 09/16/2024 Minor Procedure/Test [facility] [address] [place] [address] Nina Goldberg MD 09/16/2024 Minor Procedure/Test [facility] [address] [facility], [address] Reta Schuler MD Discharge Disposition: Discharged to home or self care (routine discharge) 09/13/2024 Orders Only [address] [phone] Maria Cox NP 09/09/2024 9:45 AM EDT CPE - Comprehensive Physical Exam [address] [phone] Maria Cox NP Encounter for Medicare annual wellness exam (Primary Dx); Essential hypertension; Major depressive disorder, single episode, in full remission; Attention deficit hyperactivity disorder (ADHD), unspecified ADHD type; History of SCC (squamous cell carcinoma) of skin; History of basal cell carcinoma; Multinodular goiter; Mild secondary hyperparathyroidism (HHS); Osteopenia, unspecified location; Colonic adenoma; Screening for lipid disorders; Solar purpura 08/30/2024 Consult (Initial) GEN VAS UNSPECIFIED Provider, Unknown 08/26/[address] [phone] Khurram Ferrer MD E-prescribing Refill Request 06/28/2024 Consult (Initial) PAIN MGMT UNSPECIFIED Provider, Unknown 05/13/2024 Consult (Initial) ORTHO SURG UNSPECIFIED Provider, Unknown 04/28/2024 Telephone [facility] [address] [place] [phone] Patito Phillip Care Coordination Communication 04/20/2024 Surgery/Major Procedure NEUROSURGERY UNSPEC Max Phillips MD 04/20/2024 Hospital/Inpatient [facility]KNOWN Hospital, Unk Prov 03/01/2024 Minor Procedure/Test [facility] [address] [place] [address] [facility], Unknown Provider 02/18/2024 Consult (Initial) NEUROSURGERY UNSPEC Max Phillips MD 12/23/2023 Consult (Initial) NEUROSURGERY UNSPEC Max Phillips MD 11/27/2023 Telephone [facility] [address] [place] [address] Khurram Ferrer MD Geriatric Primary Care 11/20/2023 Telephone [facility] [address] [place] [address] Tanesha Villatoro MD Geriatric Primary Care 11/06/2023 1:25 PM EST Office Visit [facility] Endocrinology [address] [place] [phone] Nina Goldberg MD Multinodular goiter (Primary Dx); Osteopenia, unspecified location; Mild secondary hyperparathyroidism (HCC) 09/30/2023 Consult (Initial) GEN VAS UNSPECIFIED Provider, Unknown 09/04/[address] [phone] Khurram Ferrer MD E-prescribing Refill Request 08/27/2023 11:00 AM EDT Radiology [facility] Ultrasound [address] [place] [address] Multinodular goiter 08/19/2023 Consult (Initial) PAIN MGMT UNSPECIFIED Provider, Unknown 07/23/[address] [phone] Khurram Ferrer MD Information (From Patient visit 07/22 to be faxed Flavio Phillips ); Pre Op Exam (07/22 with PROFESSOR IN FAMILY STUDIES ) 07/22/2023 Orders Only [facility] Cardiology [address] [place] [address] [place] [phone] Fatou Carrillo MD 07/22/2023 3:30 PM EDT Office Visit [address] [phone] Maria Cox NP Pre-op evaluation (Primary Dx); Essential hypertension; Lumbosacral stenosis with neurogenic claudication; Major depressive disorder, single episode, in full remission; Anxiety states; Abnormal EKG 07/16/2023 Orders Only [facility] Medicine [address] [place] [phone] Maria Cox NP 07/16/2023 Orders Only [facility] Endocrinology [address] [place] [phone] Nina Goldberg MD 06/17/2023 10:15 AM EDT CPE - Comprehensive Physical Exam [facility] Medicine [address] [place] [phone] Maria Cox, PATI Routine history and physical examination of adult (Primary Dx); Essential hypertension; Major depressive disorder, single episode, in full remission; Anxiety states; History of SCC (squamous cell carcinoma) of skin; Colonic adenoma; Screening for lipid disorders; Screening for diabetes mellitus; Lumbosacral stenosis with neurogenic claudication; History of basal cell carcinoma; Mild secondary hyperparathyroidism (HCC); Multinodular goiter 06/04/2023 Consult (Initial) NEUROSURGERY UNSPEC Max Phillips MD 06/03/[address] [phone] Maria Cox NP E-prescribing Refill Request 04/30/2023 1:00 PM EDT Minor Procedure/Test [facility] Orthopedic Surgery [address] [place] [address] Christo Carranza MD Bilateral lumbar radiculopathy (Primary Dx) 04/19/2023 Minor Procedure/Test [facility] Orthopedic Surgery [address] [place] [phone] Christo Carranza MD 04/07/2023 Telephone [facility] [address] [place] [address] Christo Carranza MD Appointment 04/04/2023 Orders Only [facility] Orthopedic Surgery [address] [place] [phone] Christo Carranza MD 03/19/2023 Orders Only [facility] Orthopedic Surgery [address] [place] [phone] Christo Carranza MD Medications 03/17/2023 Consult (Initial) DERMATOLOGY UNSPEC Christopher Griffith MD 03/11/2023 4:15 PM EDT Office Visit [address] [phone] Maria Cox NP Essential hypertension (Primary Dx) 03/07/[address] [phone] Khurram Ferrer MD E-prescribing Refill Request; Appointment (LMOM to schedule BP check with PCP or PROFESSOR IN FAMILY STUDIES. MCM Sent ); CPE/Physical (LMOM to schedule a CPE with PCP or PROFESSOR IN FAMILY STUDIES ) 02/25/2023 Minor Procedure/Test [facility] [address] [place] [address] [facility], Unknown Provider 01/22/2023 10:00 AM EST Minor Procedure/Test [facility] Orthopedic Surgery [address] [place] [address] Christo Carranza MD Lumbar radiculopathy, right (Primary Dx) 12/16/2022 Consult (Initial) DERMATOLOGY UNSPEC Christopher Griffith MD 11/28/2022 3:15 PM EST Office Visit [address] [phone] Kendal Garza MD Benign paroxysmal positional vertigo due to bilateral vestibular disorder (Primary Dx); Major depressive disorder, single episode, in full remission; Anxiety states; Mild secondary hyperparathyroidism (HCC); Essential hypertension 11/28/[address] [phone] Khurram Ferrer MD Vertigo (Off and on since 09/2022.. no symptoms at time of call ) 10/20/2022 Telephone [facility] Night Triage [address] [place] [address] Khurram Ferrer MD Covid 10/09/2022 10:30 AM EST Minor Procedure/Test [facility] Orthopedic Surgery [address] [place] [address] Christo Carranza MD Bilateral lumbar radiculopathy (Primary Dx) 09/16/2022 Consult (Initial) DERMATOLOGY UNSPEC Christopher Griffith MD 09/12/[address] [phone] Khurram Ferrer MD E-prescribing Refill Request 09/12/2022 9:25 AM EDT Office Visit [address] [phone] Nina Goldberg MD Multinodular goiter (Primary Dx); Mild secondary hyperparathyroidism (HCC); Osteopenia, unspecified location 09/05/[address] [phone] Charito Neal MD Results 09/04/2022 Orders Only [facility] Endocrinology [address] [place] [phone] Nina Goldberg MD 09/03/2022 Minor Procedure/Test [address] [phone] Khurram Ferrer MD 08/22/[address] [phone] Nina Goldberg MD Labs/orders 07/10/2022 11:15 AM EDT Minor Procedure/Test [facility] Surgery [address] [place] [address] Christo Carranza MD Bilateral lumbar radiculopathy (Primary Dx) 06/17/2022 Consult (Initial) DERMATOLOGY UNSPEC Christopher Griffith MD 06/14/[address] [phone] Khurram Ferrer MD E-prescribing Refill Request 05/09/2022 Consult (Initial) ORTHO SURG UNSPECIFIED Andrés Clark 04/04/2022 Consult (Initial) ORTHO SURG UNSPECIFIED Andrés Clark E 04/03/2022 1:15 PM EDT CPE - Comprehensive Physical Exam [facility] [address] [place] [phone] Khurram Ferrer MD Routine history and physical examination of adult (Primary Dx); Benign essential HTN; Major depressive disorder, single episode, in full remission; Lumbosacral stenosis with neurogenic claudication (HCC); Dyslipidemia; Skin cancer; Mild secondary hyperparathyroidism (HCC) 03/27/2022 1:00 PM EDT Minor Procedure/Test [facility] Orthopedic Surgery [address] [place] [address] Christo Carranza MD Bilateral lumbar radiculopathy (Primary Dx) 03/18/2022 Minor Procedure/Test DERMATOLOGY UNSPEC Christopher Griffith MD 03/16/[address] [phone] Khurram Ferrer MD E-prescribing Refill Request 03/15/2022 Orders Only [address] [phone] Khurram Ferrer MD 02/21/2022 Minor Procedure/Test [facility] [address] [place] [address] [facility], Unknown Provider 02/14/2022 Minor Procedure/Test ORTHO SURG UNSPECIFIED Andrés Clark 12/31/[address] [phone] Khurram Ferrer MD Information 12/26/2021 1:45 PM EST Minor Procedure/Test [facility] Orthopedic Surgery [address] [place] [address] Christo Carranza MD Bilateral lumbar radiculopathy (Primary Dx) 12/25/2021 Orders Only [facility] Endocrinology [address] [place] [address] Charito Neal MD 12/16/2021 Refill [facility] Medicine [address] [place] [phone] Khurram Ferrer MD E-prescribing Refill Request 11/28/2021 10:15 AM EST Office Visit [facility] Orthopedic Surgery [address] [place] [address] Christo Carranza MD Lumbar back pain with radiculopathy affecting left lower extremity (Primary Dx) 11/19/2021 Consult (Initial) GASTRO UNSPECIFIED Provider, Unknown 11/19/2021 Minor Procedure/Test RADIOLOGY UNSPECIFIED Kumar Contreras 11/19/2021 Minor Procedure/Test [address] [phone] Charito Neal MD 11/15/[address] [phone] Charito Neal MD Other (Imaging) 11/15/[address] [address] Charito Neal MD Labs/orders 10/30/2021 Consult (Initial) DERMATOLOGY UNSPEC Christopher Griffith MD 10/05/[address] [phone] Khurram Ferrer MD Results 10/04/2021 1:30 PM EST Office Visit [address] [phone] Maria Cox NP Left hip pain (Primary Dx) 10/02/[address] [phone] Khurram Ferrer MD 10/01/2021 Orders Only [address] [phone] Charito Neal MD 10/01/2021 3:55 PM EST Office Visit [address] [phone] Charito Neal MD Multinodular goiter (Primary Dx); Mild secondary hyperparathyroidism (HCC); Osteopenia, unspecified location; Postmenopausal disorder 09/26/2021 11:00 AM EDT Minor Procedure/Test [facility] Orthopedic Surgery [address] [place] [address] Christo Carranza MD Lumbar radiculopathy, right (Primary Dx) 09/26/2021 2:15 PM EDT Office Visit [address] [phone] Khurram Ferrer MD Benign essential HTN (Primary Dx) 09/25/2021 Orders Only [address] [phone] Khurram Ferrer MD 09/24/2021 Consult (Initial) ORTHOPEDICS UNSPEC Provider, Unknown 09/19/[address] [phone] Aziza Garza NP E-prescribing Refill Request 09/19/2021 11:00 AM EDT Office Visit [facility] Orthopedic Surgery [address] [place] [address] Christo Carranza MD Bilateral lumbar radiculopathy (Primary Dx) 09/13/2021 9:30 AM EDT Radiology [facility] Ultrasound [address] [place] [address] Multinodular goiter 08/20/[address] [phone] Khurram Ferrer MD E-prescribing Refill Request 08/01/2021 Consult (Initial) DERMATOLOGY UNSPEC Christopher Griffith MD 06/21/[address] [phone] Khurram Ferrer MD E-prescribing Refill Request 04/18/2021 Consult (Initial) DERMATOLOGY UNSPEC Provider, Unknown 03/28/2021 Travel 03/28/2021 1:15 PM EDT CPE - Comprehensive Physical Exam [address] [phone] Khurram Ferrer MD Routine history and physical examination of adult (Primary Dx); Major depressive disorder, single episode, in full remission; Benign essential HTN; High risk medication use; Lumbosacral stenosis with neurogenic claudication (HCC); Dyslipidemia; Seasonal allergies 03/01/2021 Orders Only [facility] Cardiology [address] [facility] [address] [place] [address] Anton Garrett MD 03/01/2021 Orders Only [facility] Medicine [address] [place] [phone] Khurram Ferrer MD 02/28/2021 Travel 02/28/2021 11:30 AM EDT Office Visit [address] [phone] Khurram Ferrer MD Benign essential HTN (Primary Dx); Major depressive disorder, single episode, in full remission; High risk medication use; Lumbosacral stenosis with neurogenic claudication (HCC); Pre-op evaluation 02/13/2021 Travel 01/30/2021 Travel 01/30/2021 10:15 AM EST Office Visit [facility] Orthopedic Surgery [address] [place] [address] Jose Davis MD Other secondary osteoarthritis of both knees (Primary Dx) 01/22/2021 Minor Procedure/Test [facility] [address] [place] [address] [facility], Unknown Provider 01/18/2021 Consult (Initial) DERMATOLOGY UNSPEC Christopher Griffith MD 01/09/2021 Minor Procedure/Test OPHTHAL UNSPECIFIED Maricel Cleary MD 12/25/2020 Travel 12/25/2020 Orders Only [facility] Medicine [address] [place] [phone] Susan Chacon MD MPH 12/25/2020 1:00 PM EST Office Visit [address] [phone] Khurram Ferrer MD Benign essential HTN (Primary Dx); Chronic bilateral low back pain with bilateral sciatica 12/12/2020 Refill [facility] Adult Medicine [address] [place] [phone] Susan Chacon MD MPH Refill Request 11/07/2020 Minor Procedure/Test DERMATOLOGY UNSPEC Christopher Griffith MD 10/23/2020 10:00 AM EST Nurse Visit [facility] [address] [place] [address] Denise Antonio RN Abscess of right forearm (Primary Dx) 10/23/2020 10:00 AM EST Consult (Initial) [facility] Infectious Disease [address] [place] [address] Derik Niño MD Cellulitis of right forearm (Primary Dx); MRSA infection 10/22/2020 9:45 AM EST Office Visit [address] [phone] Julita King PA Cellulitis, unspecified cellulitis site (Primary Dx); Abscess 10/22/2020 Travel 10/21/2020 9:30 AM EST Office Visit [address] [phone] Julita King PA Cellulitis of right upper extremity (Primary Dx) 10/21/2020 Travel 10/20/2020 9:30 AM EST Office Visit [address] [phone] Corinna Montanez NP Cellulitis of right upper extremity (Primary Dx); Abscess 10/20/2020 Travel 10/16/2020 Telephone [facility] Adult Medicine [address] [place] [phone] Susan Chacon MD MPH Labs/orders 10/16/2020 Telephone [facility] Adult Medicine [address] [place] [phone] Susan Chacon MD MPH Infection 09/13/2020 Orders Only [facility] Endocrinology [address] [place] [phone] Charito Neal MD 09/13/2020 Travel 09/13/2020 2:25 PM EDT Office Visit [facility] Endocr[facility]ology [address] [place] [address] Charito Neal MD Mild secondary hyperparathyroidism (HCC) (Primary Dx); Multinodular goiter; Osteopenia, unspecified location 08/30/2020 Minor Procedure/Test GASTRO UNSPECIFIED Dakota Muller 08/29/2020 Consult (Initial) [facility] Dermatology [address] [place] [address] Christopher Griffith MD 08/15/2020 8:30 AM EDT Radiology [facility] Xray [address] [place] [address] Pain 08/15/2020 Orders Only [facility] Orthopedic Surgery [address] [place] [address] Jose Davis MD 08/15/2020 10:00 AM EDT Consult (Initial) [facility] Orth[facility] Surgery [address] [place] [address] Jose Davis MD Primary osteoarthritis of both knees (Primary Dx) 08/08/2020 Minor Procedure/Test [facility] [address] [place] [phone] Charito Neal MD 08/08/2020 Minor Procedure/Test [facility] [address] [place] [address] [facility], Unknown Provider 08/07/2020 Consult (Initial) DERMATOLOGY UNSPEC Spenser Palacio 07/28/2020 Orders Only [facility] Orthopedic Surgery [address] [place] [address] Jose Davis MD 07/20/2020 Telephone [facility] Orthopedic Surgery [address] [place] [address] John Jordan MD Results 07/19/2020 1:30 PM EDT Consult (Initial) [facility] Orth[facility] Surgery [address] [place] [address] Christo Carranza MD Bilateral lumbar radiculopathy 07/14/2020 Telephone [facility] Orthopedic Surgery [address] [place] [address] [place] [phone] John Jordan MD Results 07/12/2020 Travel 07/12/2020 8:30 AM EDT Minor Procedure/Test [facility] Surgery [address] [place] [address] John Jordan MD BCC (basal cell carcinoma), arm, right (Primary Dx); Face lesion 07/05/2020 10:00 AM EDT Nurse Visit [address] [phone] Marybeth Horn LPN Need for vaccination (Primary Dx) 07/03/2020 2:30 PM EDT Consult (Initial) [facility] [address] [place] [address] John Jordan MD Basal cell carcinoma (BCC) of right upper arm (Primary Dx) 06/19/2020 Travel 06/16/2020 Telephone [facility] Dermatology [address] [place] [address] Christopher Griffith MD Results 06/15/2020 Travel 06/15/2020 1:30 PM EDT Office Visit [address] [phone] Susan Chacon MD MPH Numbness of foot (Primary Dx); Hypertension, unspecified type; Screen for colon cancer; Major depressive disorder, single episode, in full remission; Anxiety states 06/14/2020 Travel 06/14/2020 2:00 PM EDT Office Visit [facility] Dermatology [address] [place] [address] Christopher Griffith MD Inflamed seborrheic keratosis (Primary Dx); Neoplasm of uncertain behavior of skin; Basal cell carcinoma (BCC) of pretibial region of right lower extremity 04/23/2020 Refill [facility] Medicine [address] [place] [phone] Susan Chacon MD MPH E-prescribing Refill Request 03/29/2020 Travel 01/21/2020 Minor Procedure/Test [facility] [address] [place] [address] [facility], Unknown Provider 01/14/2020 10:30 AM EST Minor Procedure/Test [facility] Specialties [address] [place] [phone] Kimberly Dahl LPN Open wound (Primary Dx) 01/11/2020 Telephone [facility] Dermatology [address] [place] [address] Christopher Griffith MD Results 01/07/2020 11:10 AM EST Office Visit [facility] Dermatology [address] [place] [address] Christopher Griffith MD Neoplasm of uncertain behavior of skin (Primary Dx); Actinic keratosis; History of nonmelanoma skin cancer; Seborrheic keratoses; Hypertrophic scar 12/17/2019 2:30 PM EST Consult (Initial) [facility] Orthopedic Surgery [address] [place] [address] Spenser Gray MD Foraminal stenosis of lumbar region (Primary Dx); Lumbosacral stenosis with neurogenic claudication (HCC); Facet arthritis of lumbar region; Low back pain of over 3 months duration 12/15/2019 2:45 PM EST Radiology [facility] Xray [address] [place] [address] Cough 12/15/2019 2:00 PM EST Office Visit [facility] [address] [place] [phone] Tai Torres MD Subacute maxillary sinusitis (Primary Dx); Cough 12/15/2019 Telephone [facility] Adult Medicine [address] [place] [phone] Susan Chacon MD MPH Sinusitis 12/04/2019 Refill [facility] Medicine [address] [place] [phone] Khurram Ferrer MD E-prescribing Refill Request 11/25/2019 Telephone [facility] Neurology [address] [facility] [address] [place] [phone] John Pineda MD F/u From OV 11/12/2019 3:00 PM EST Office Visit [address] [phone] Khurram Ferrer MD Cough (Primary Dx); Wheezing; Bronchitis 11/12/2019 Telephone [facility] Medicine [address] [place] [phone] Susan Chacon MD MPH Cold 11/11/2019 Minor Procedure/Test [facility]rology [address] [facility] [address] [place] [address] John Pineda MD 11/09/2019 Minor Procedure/Test OPHTHAL UNSPECIFIED Gm Haynes. 11/08/2019 Minor Procedure/Test [facility] Neurology [address] [facility] [address] [place] [address] John Pineda MD 11/08/2019 8:30 AM EST Minor Procedure/Test [facility] [address] [place] [phone] John Pineda MD Lumbar radiculopathy (Primary Dx) 10/19/2019 Refill [facility] Medicine [address] [place] [phone] Cody Kaminski NP E-prescribing Refill Request 10/04/2019 10:00 AM EST Office Visit [facility] [address] [place] [phone] John Pineda MD Paresthesia (Primary Dx); Idiopathic peripheral neuropathy 09/21/2019 Orders Only [facility] Endocrinology [address] [place] [phone] Charito Neal MD 09/15/2019 Letter/Form GASTRO UNSPECIFIED Dakota Muller 09/13/2019 11:30 AM EDT Office Visit [facility] Endocrinology [address] [place] [phone] Charito Neal MD Osteopenia, unspecified location (Primary Dx); Multinodular goiter; Menopausal disorder 08/30/2019 8:40 AM EDT Office Visit [facility] Dermatology [address] [place] [address] Christopher Griffith MD Neoplasm of uncertain behavior (Primary Dx); Multiple benign nevi; History of nonmelanoma skin cancer; Actinic keratosis due to exposure to sunlight 08/04/2019 Minor Procedure/Test GASTRO UNSPECIFIED Dakota Muller Justice 06/28/2019 10:30 AM EDT Office Visit [facility] D[facility]ology [address] [place] [address] Christopher Griffith MD Squamous cell carcinoma in situ (Primary Dx); Actinic keratoses; Scar, hypertrophic; History of basal cell carcinoma 06/22/2019 11:30 AM EDT Minor Procedure/Test [facility] Neurology [address] [phone] John Pineda MD Paresthesia (Primary Dx) 06/16/2019 9:30 AM EDT Radiology [facility] Ultrasound [address] [place] [address] Multinodular goiter 06/03/2019 9:45 AM EDT Radiology [facility] Xray [address] [place] [address] Acute right ankle pain 06/03/2019 Orders Only [facility] Adult Medicine [address] [place] [phone] Susan Chacon MD MPH 06/03/2019 9:00 AM EDT Office Visit [address] [phone] Cindy Hoyt, PATI Acute right ankle pain (Primary Dx) 05/31/2019 Telephone [facility] Medicine [address] [place] [phone] Susan Chacon MD MPH Follow Up 05/31/2019 Telephone [facility] Neurology [address] [phone] John Pineda MD Results 05/31/2019 1:10 PM EDT Office Visit [facility] D[facility]atology [address] [place] [address] Christopher Griffith MD Actinic keratoses (Primary Dx); History of basal cell carcinoma; History of SCC (squamous cell carcinoma) of skin; Scar; Neoplasm of uncertain behavior 05/25/2019 Telephone [facility] [address] [place] [phone] Christopher Beth MD Endoscopy Request (lower And/or Upper) 05/24/2019 Orders Only [facility] [address] [place] [address] John Pineda MD 05/24/2019 11:00 AM EDT Consult (Initial) [facility] [address] [place] [address] John Pineda MD Idiopathic peripheral neuropathy (Primary Dx) 05/10/2019 Letter/Form GASTRO UNSPECIFIED Dakota Muller N 04/15/2019 Refill [facility] Medicine [address] [place] [phone] Susan Chacon MD MPH E-prescribing Refill Request 04/12/2019 Orders Only [address] [phone] Susan Chacon MD MPH 04/12/2019 4:15 PM EDT Office Visit [facility] Podiatry [address] [place] [address] [address] [place] [address] Tanesha Osman, DPM Pronation deformity of ankle, acquired, unspecified laterality (Primary Dx); Walking difficulty due to ankle and foot 04/08/[address] [phone] Christopher Fang MD Results 03/30/2019 11:00 AM EDT Minor Procedure/Test [address] [address] Christopher Fang MD Basal cell carcinoma of skin of trunk (Primary Dx) 03/17/2019 3:15 PM EDT Office Visit [address] [phone] Susan Chacon MD MPH Well adult exam (Primary Dx); Numbness of foot; Depressive disorder; Anxiety states; Routine history and physical examination of adult 03/16/2019 9:30 AM EDT Consult (Initial) [address] [phone] Christopher Fang MD Basal cell carcinoma of skin of trunk (Primary Dx) 03/12/[address] [phone] Susan Chacon MD MPH Labs/orders 02/25/2019 Telephone [facility] Dermatology [address] [place] [address] Christopher Griffith MD Derm Problem 02/22/2019 8:50 AM EDT Office Visit [facility] D[facility] [address] [place] [address] Christopher Griffith MD Neoplasm of uncertain behavior (Primary Dx) 02/08/2019 9:20 AM EDT Office Visit [facility] Podiatry [address] [place] [address] Tanesha Osman, DPM Numbness (Primary Dx); Foot pain, bilateral 01/15/2019 Minor Procedure/Test [facility] [address] [place] [address] [facility], Unknown Provider 12/28/2018 11:00 AM EST Office Visit [address] [address] Christopher Griffith MD Neoplasm of uncertain behavior (Primary Dx); Actinic keratoses; Hypertrophic scar 11/06/2018 Telephone [facility] Podiatry [address] [place] [address] Tanesha Osman DPM Information (ORTHOTICS) 11/06/2018 2:50 PM EST Consult (Initial) [facility] Podiatry [address] [place] [address] [place] [address] Tanesha Osman DPZhao Neuropathy (Primary Dx); Foot pain, bilateral 10/21/2018 12:00 PM EST Office Visit [address] [phone] Cody Kaminski NP Bilateral foot pain (Primary Dx); Hypertension, unspecified type 10/20/[address] [phone] Susan Chacon MD MPH Numbness 10/05/2018 Minor Procedure/Test ORTHO SURG UNSPECIFIED Christopher Carolina 10/02/2018 Abstract [facility] Medicine [address] [place] [phone] Susan Chacon MD MPH 09/28/2018 11:10 AM EST Office Visit [facility] Dermat[facility] [address] [place] [address] Christopher Griffith MD History of basal cell carcinoma (Primary Dx); Neoplasm of uncertain behavior; Actinic keratoses 09/15/2018 Abstract [facility] Medicine [address] [place] [phone] Susan Chacon MD MPH 09/09/2018 Home Visit [facility] UNSPEC Provider, Unknown 09/01/2018 Consult (Initial) NON FC SA NON FC UNK Provider, Unknown 08/31/[address] [phone] Susan Chacon MD MPH 08/27/2018 Telephone [facility] Dermatology [address] [place] [phone] Christopher Griffith MD FYI 08/27/2018 Telephone [facility] Endocrinology [address] [place] [phone] Charito Neal MD Results 08/24/[address] [phone] Susan Chacon MD MPH Erroneous encounter-disregard 08/19/2018 Home Visit [facility] UNSPEC Provider, Unknown 08/19/2018 Telephone [facility] Dermatology [address] [place] [phone] Christopher Griffith MD Derm Problem 08/19/2018 Telephone [facility] Medicine [address] [place] [phone] Susan Chacon MD MPH VNA Communication 08/15/2018 Hospital/Inpatient HOSPITAL UNKNOWN Chente Hector 08/13/2018 7:30 PM EDT Office Visit [facility] [address] [place] [phone] Dev King MD Cellulitis of neck (Primary Dx) 08/13/2018 Telephone [facility] Adult Medicine [address] [place] [phone] Susan Chacon MD MPH Derm Problem 08/13/2018 Telephone [facility] [address] [place] [address] Christopher Griffith MD Infection 08/10/2018 8:20 AM EDT Minor Procedure/Test [facility] [address] [place] [address] Christopher Griffith MD Basal cell carcinoma of neck (Primary Dx) 07/29/2018 Minor Procedure/Test ENDO UNSPECIFIED Charito Neal MD 07/13/2018 8:10 AM EDT Office Visit [facility] [address] [place] [address] Christopher Griffith MD Basal cell carcinoma, trunk (Primary Dx) 06/30/2018 Telephone [facility] [address] [place] [address] Christopher Griffith MD Results 06/22/2018 1:40 PM EDT Consult (Initial) [facility] [address] [place] [address] Christopher Griffith MD Actinic keratoses (Primary Dx); Neoplasm of uncertain behavior; History of basal cell carcinoma; History of SCC (squamous cell carcinoma) of skin; Multiple nevi 06/18/2018 Telephone [facility] Endocrinology [address] [place] [phone] Charito Neal MD Appointment (BMD) 06/17/2018 Orders Only [facility] Endocrinology [address] [place] [phone] Charito Neal MD 06/15/2018 10:00 AM EDT Radiology [address] [address] Multinodular goiter 06/04/2018 2:10 PM EDT Office Visit [facility] End[facility] [address] [place] [phone] Charito Neal MD Osteopenia, unspecified location (Primary Dx); Multinodular goiter 03/02/[address] [phone] Susan Chacon MD MPH Records 03/02/2018 10:00 AM EDT CPE - Comprehensive Physical Exam [address] [phone] Susan Chacon MD MPH Routine history and physical examination of adult (Primary Dx); History of basal cell carcinoma; History of SCC (squamous cell carcinoma) of skin 03/01/2018 Orders Only [address] [phone] Susan Chacon MD MPH 02/12/2018 Orders Only [address] [phone] Susan Chacon MD MPH 01/14/2018 Minor Procedure/Test [facility] [address] [place] [address] [facility], Unknown Provider 01/14/2018 Letter/Form [address] [phone] Susan Chacon MD MPH 12/01/[address] [phone] Susan Chacon MD MPH Return Call 10/27/2017 Consult (Initial) GEN VAS UNSPECIFIED Susana Duenas MD 05/08/2017 Consult (Initial) DERMATOLOGY UNSPEC Steven Sanchez 04/14/2017 Consult (Initial) DERMATOLOGY UNSPEC Amy Dunbar 04/08/2017 Consult (Initial) GEN VAS UNSPECIFIED Susana Duenas MD 03/24/2017 Minor Procedure/Test ORTHO SURG UNSPECIFIED Christopher Carolina 03/06/2017 Consult (Initial) DERMATOLOGY UNSPEC Amy Dunbar 02/26/2017 2:15 PM EDT CPE - Comprehensive Physical Exam [address] [phone] Susan Chacon MD MPH Well adult exam (Primary Dx); White coat syndrome without diagnosis of hypertension 02/17/2017 Orders Only [facility] [address] [place] [phone] Susan Chacon MD MPH 01/23/2017 Orders Only [address] [phone] Susan Chacon MD MPH 01/14/2017 Letter/Form [facility] [address] [place] [phone] Susan Chacon MD MPH 01/09/2017 Orders Only [address] [phone] Susan Chacon MD MPH 01/08/2017 Orders Only [facility] [address] [place], [place] [phone] [place] [address], Unknown Provider 01/08/2017 Minor Procedure/Test [address] [address] Susan Chacon MD MPH [facility], Unknown Provider 01/08/2017 Minor Procedure/Test INTERNAL MED UNSPEC Susan Chacon MD MPH 01/06/2017 Minor Procedure/Test [facility] [address] [place] [address] Susan Chacon MD MPH [facility], Unknown Provider 10/22/2016 Consult (Initial) GEN VAS UNSPECIFIED Susana Duenas MD 05/16/2016 Consult (Initial) GEN VAS UNSPECIFIED Susana Duenas MD 04/19/2016 3:00 PM EDT Radiology [facility] [address] [place] [address] Thyroid nodule 04/09/2016 Telephone [facility] [address] [place] [phone] Susan Chacon MD MPH Results 04/08/2016 Orders Only [facility] Endocrinology [address] [place] [phone] Charito Neal MD 04/08/2016 Orders Only [facility] [address] [place] [phone] Susan Chacon MD MPH 04/08/2016 8:30 AM EDT Office Visit [facility] Endocrin[facility] [address] [place] [phone] Charito Neal MD Osteopenia (Primary Dx); Thyroid nodule 03/19/2016 9:15 AM EDT Minor Procedure/Test [facility] [address] [place] [phone] Hesham Monaco MD Palpitations (Primary Dx) 03/18/2016 Abstract [facility] [address] [place] [phone] Susan Chacon MD MPH 03/12/2016 Abstract [facility] [address] [place] [phone] Susan Chacon MD MPH 02/29/[address] [phone] Susan Chacon MD MPH Imaging Study 02/26/2016 Minor Procedure/Test INTERNAL MED UNSPEC Susan Chacon MD MPH 02/21/2016 8:30 AM EDT Office Visit [facility] [address] [place] [phone] Andrew Munoz MD Palpitations (Primary Dx); PAC (premature atrial contraction); Non-rheumatic mitral regurgitation 02/09/2016 Minor Procedure/Test INTERNAL MED UNSPEC Minerva Ortiz MD 02/08/[address] [phone] Susan Chacon MD MPH Echocardiogram 01/31/2016 8:00 AM EST Minor Procedure/Test [facility] [address] [place] [phone] Andrew Munoz MD Palpitations (Primary Dx) 01/29/2016 8:30 AM EST CPE - Comprehensive Physical Exam [address] [phone] Susan Chacon MD MPH Well adult exam (Primary Dx); Osteopenia; Thyroid nodule 01/15/2016 Consult (Initial) ENDO UNSPECIFIED Moon Lindseyfortino Bill 01/11/2016 Abstract [facility] [address] [place] [phone] Susan Chacon MD MPH 01/11/[address] [phone] Susan Chacon MD MPH Information 01/10/2016 Orders Only [address] [phone] Susan Chacon MD MPH 01/10/2016 9:00 AM EST Office Visit [address] [phone] Susan Chacon MD MPH Palpitations (Primary Dx); Thyroid nodule; Bronchitis 01/08/2016 Telephone [facility] [address] [place] [address] Susan Chacon MD MPH ER F/U 01/05/2016 Orders Only [facility] [address] [facility], [address] Unknown Pcp, Non Rmg 01/05/2016 ER [facility], [address] Provider, Unknown 01/05/2016 Minor Procedure/Test [facility] [address] [facility], [address] Provider, Unknown 01/05/2016 Orders Only [facility] [address] [place] [phone] Hesham Monaco MD 01/05/[address] [phone] Susan Chacon MD MPH Discussion With Provider 01/05/[address] [phone] Susan Chacon MD MPH Follow Up (Pt sent to ER) 01/03/[address] [phone] Susan Chacon MD MPH 01/02/2016 4:45 PM EST Nurse Visit [address] [phone] Susan Chacon MD MPH Palpitations (Primary Dx) 01/02/2016 3:30 PM EST Radiology [facility] [address] Cough; Palpitations 01/02/2016 Orders Only [address] [phone] Susan Chacon MD MPH 01/02/2016 3:00 PM EST Office Visit [address] [phone] Susan Chacon MD MPH Bronchitis (Primary Dx); Cough; Palpitations 01/02/[address] [phone] Susan Chacno MD MPH Cough 12/27/2015 Orders Only [address] [phone] Susan Cahcon MD MPH 12/20/[address] [phone] Susan Chacon MD MPH Labs/orders 12/08/2015 3:30 PM EST Office Visit [address] [phone] Aziza Garza NP Cough (Primary Dx) 12/08/[address] [phone] Susan Chacon MD MPH Cough 11/28/2015 Orders Only [address] [phone] Susan Chacon MD MPH 11/20/2015 Minor Procedure/Test INTERNAL MED UNSPEC Susan Chacon MD MPH 10/13/2015 Minor Procedure/Test ORTHO SURG UNSPECIFIED Christopher Carolina 09/22/2015 Minor Procedure/Test ORTHO SURG UNSPECIFIED Christopher Carolina 06/19/2015 11:30 AM EDT Consult (Initial) [facility] [address] [place] [phone] Stevan Redman MD Angiomyolipoma (Primary Dx) 06/14/2015 Orders Only [address] [phone] Minerva Ortiz MD 06/06/[address] [phone] Minerva Ortiz MD Results 06/04/2015 Minor Procedure/Test INTERNAL MED UNSPEC Minerva Ortiz MD 05/31/2015 Orders Only [address] [phone] Susan Chacon MD MPH 05/31/[address] [phone] Susan Chacon MD MPH Labs/orders ([facility]- MMR titer) 05/29/2015 Orders Only [address] [phone] Susan Chacon MD MPH 05/25/2015 Minor Procedure/Test ORTHO SURG UNSPECIFIED Christopher Carolina 05/22/2015 Consult (Initial) ORTHO SURG UNSPECIFIED Christopher Carolina 05/22/[address] [phone] Susan Chacon MD MPH Imaging Study 05/18/2015 Minor Procedure/Test ORTHO SURG UNSPECIFIED Christopher Carolina 05/17/2015 Minor Procedure/Test ORTHO SURG UNSPECIFIED Christopher Carolina 04/14/2015 Flowsheet (Clinical) [address] [phone] Unknown Pcp, Non Rmg 03/10/[address] [phone] Susan Chacon MD MPH Other ; Provider (SUSAN CHACON MD (Medical Doctor,Internal Medicine [id number]) [facility] ([id number])) 02/20/2015 Consult (Initial) DERMATOLOGY UNSPEC Amy Dunbar 02/20/2015 Letter/Form NON FC SA NON FC UNK Amy Dunbar Other unknown and unspecified cause of morbidity or mortality 01/23/2015 Orders Only [facility] [address] [place] [phone] Susan Chacon MD MPH 01/23/2015 CPE - Comprehensive Physical Exam [address] [phone] Susan Chacon MD MPH Elevated blood pressure reading without diagnosis of hypertension; Need for prophylactic vaccination and inoculation against unspecified single disease; Routine general medical examination at a health care facility 01/06/2015 Letter/Form [address] [phone] Susan Chacon MD MPH 01/04/[address] [phone] Susan Chacon MD MPH 12/29/2014 Orders Only [address] [phone] Susan Chacon MD MPH 12/27/2014 Letter/Form [address] [phone] Susan Chacon MD MPH 12/27/[address] [phone] Susan Chacon MD MPH 12/26/[address] [phone] Susan Chacon MD MPH Other ; Provider (SUSAN CHACON MD (Medical Doctor,Internal Medicine [id number]) [facility] ([id number])) 12/26/2014 Orders Only [address] [phone] Susan Chacon MD MPH 11/15/2014 Orders Only NON FC SA FC Susan Moon MD MPH 08/12/2014 Orders Only NON FC SA FC Susan Moon MD MPH 08/02/2014 Office Visit [address] [place] [phone] Susan Chacon MD MPH Pain in joint, lower leg; Pain in joint, shoulder region 08/01/[address] [phone] Susan Chacon MD MPH FYI ; Provider (SUSAN CHACON MD (Medical Doctor,Internal Medicine [id number]) [facility] ([id number])) 06/30/2014 Orders Only NON FC SA FC Susan Moon MD MPH 06/13/2014 Consult (Initial) DERMATOLOGY UNSPEC Amy Dunbar 06/13/2014 Letter/Form NON FC SA NON FC UNK Amy Dunbar Other unknown and unspecified cause of morbidity or mortality 05/18/2014 Orders Only [address] [phone] Susan Chacon MD MPH 04/26/2014 Letter/Form [address] [phone] Susan Chacon MD MPH 03/17/2014 Office Visit [address] [phone] Susan Chacon MD MPH Unspecified essential hypertension 02/28/[address] [phone] Susan Chacon MD MPH Other ; Provider (SUSAN CHACON MD (Medical Doctor,Internal Medicine [id number]) [facility] ([id number])) 02/25/[address] [phone] Susan Chacon MD MPH Other ; Provider (SUSAN CHACON MD (Medical Doctor,Internal Medicine [id number]) [facility] ([id number])) 02/22/2014 Letter/Form [address] [phone] Susan Chacon MD MPH 02/20/2014 Consult (Initial) DERMATOLOGY UNSPEC Amer[employer], Amy Zhao 02/20/2014 Letter/Form NON FC SA NON FC UNK Amy Dunbar Other unknown and unspecified cause of morbidity or mortality 01/20/2014 Letter/Form [address] [phone] Susan Chacon MD MPH 01/19/2014 CPE - Comprehensive Physical Exam [address] [phone] Susan Chacon MD MPH Disorder of bone and cartilage, unspecified; Benign neoplasm of colon; Need for prophylactic vaccination and inoculation against unspecified single disease; Elevated blood pressure reading without diagnosis of hypertension; Routine general medical examination at a health care facility 01/16/2014 Orders Only [facility] [address] [place] [phone] Susan Chacon MD MPH 01/07/2014 Office Visit [address] [phone] Albert Cadena MD Acute sinusitis, unspecified; Nonsuppurative otitis media, not specified as acute or chronic 12/29/2013 Consult (Initial) NON FC SA NON FC UNK Provider, Unknown 12/29/2013 Letter/Form NON FC SA NON FC UNK Unknown Pcp, Non Rmg Unspecified otitis media 12/28/2013 Letter/Form [address] [phone] Susan Chacon MD MPH 12/14/2013 Orders Only [address] [phone] Susan Chacon MD MPH 12/13/2013 Consult (Initial) DERMATOLOGY UNSPEC Amy Dunbar Zhao 12/13/2013 Letter/Form NON FC SA NON FC UNK Amy Dunbar Unspecified disorder of skin and subcutaneous tissue 11/10/2013 Orders Only NON FC SA FC UNK Susan Chacon MD MPH 07/19/2013 Letter/Form NON FC SA NON FC UNK Provider, Unknown 07/19/2013 Abstract NON FC SA FC UNK Provider, Unknown Other unknown and unspecified cause of morbidity or mortality 07/16/2013 Office Visit [facility] [address] [place] [phone] Tanesha Osman DPM Pain in limb; Injury, other and unspecified, unspecified site; Closed fracture of one or more phalanges of foot 06/25/2013 Office Visit [facility] [address] [place] [phone] Tanesha Osman DPM Closed fracture of one or more phalanges of foot; Pain in limb; Difficulty in walking 06/04/2013 Office Visit [facility] [address] [place] [phone] Tanesha Osman DPM Closed fracture of one or more phalanges of foot; Pain in limb; Difficulty in walking 06/03/2013 Consult (Initial) DERMATOLOGY Amy Catalan 06/03/2013 Letter/Form NON FC SA NON FC UNAmy Edmonds Actinic keratosis 06/01/[address] [phone] Neelam Rosario LPN Other (XRAY RESULTS); Provider (NEELAM ROSARIO LPN (Licensed Practical Nurse,Internal Medicine [id number]) [facility] ([id number])) 06/01/2013 Office Visit [address] [phone] Minerva Hays NP Pain in limb 06/01/[address] [phone] Medhat Viveros RN Toe Pain; Provider (MEDHAT VIVEROS RN (Registered Nurse,Internal Medicine [id number]) [facility] ([id number])) 12/02/2012 Consult (Initial) DERMATOLOGY UNSPEC Amy Dunbar 12/02/2012 Letter/Form NON FC SA NON FC Amy Deleon Unspecified disorder of skin and subcutaneous tissue 11/20/2012 Consult (Initial) ENDO UNSPECIFIED Laila Lindsey 11/20/2012 Letter/Form NON FC SA NON FC UNK Safmarito, Laila S Nontoxic uninodular goiter 11/20/2012 Abstract [facility] [address] [place] [phone] Susan Chacon MD MPH 11/20/2012 Abstract [facility] [address] [place] [phone] Susan Chacon MD MPH 11/20/2012 Orders Only NON FC SA FC Susan Moon MD MPH 11/19/2012 CPE - Comprehensive Physical Exam [address] [phone] Susan Chacon MD MPH Need for prophylactic vaccination and inoculation against unspecified single disease; Pain in joint, lower leg; Special screening examination for other specified viral diseases; Routine general medical examination at a health care facility; Backache, unspecified; Cough 11/12/2012 Orders Only NON FC SA FC Susan Moon MD MPH 11/06/2012 Letter/Form [facility] [address] [place] [phone] Susan Chacon MD MPH 11/06/2012 Orders Only [address] [phone] Susan Chacon MD MPH 10/26/2012 Consult (Initial) ENDO UNSPECIFIED Laila Lindsey S 10/26/2012 Letter/Form NON FC SA NON FC UNK Moon Lindseyrie S Nontoxic uninodular goiter 10/16/2012 Orders Only NON FC SA FC Susan Moon MD MPH 06/05/2012 Consult (Initial) DERMATOLOGY UNSPEC Amy Dunbar 06/05/2012 Letter/Form NON FC SA NON FC Amy Deleon Personal history of other malignant neoplasm of skin 05/01/2012 Orders Only NON FC SA FC Susan Moon MD MPH 03/13/2012 Consult (Initial) DERMATOLOGY UNSPEC Amy Dunbar 03/13/2012 Letter/Form NON FC SA NON FC Amy Deleon Photokeratitis 11/11/2011 Consult (Initial) DERMATOLOGY UNSPEC Amy Dunbar 11/11/2011 Letter/Form NON FC SA NON FC UNK Amy Dunbar Personal history of other malignant neoplasm of skin 11/01/2011 Orders Only NON FC SA FC UNK Susan Chacon MD MPH 09/16/2011 Consult (Initial) DERMATOLOGY UNSPEC Amy Dunbar 09/16/2011 Letter/Form NON FC SA NON FC UNK Amy Dunbar Actinic keratosis 08/15/2011 Consult (Initial) DERMATOLOGY UNSPEC Amy Dunbar 08/15/2011 Letter/Form NON FC SA NON FC UNK Amy Dunbar Personal history of other malignant neoplasm of skin 06/20/2011 CPE - Comprehensive Physical Exam [address] [phone] Susan Chacon MD MPH Routine general medical examination at a health care facility 06/06/2011 Orders Only [address] [phone] Susan Chacon MD MPH 06/03/2011 Letter/Form [address] [phone] Susan Chacon MD MPH 06/01/2011 Orders Only NON FC SA FC UNK Unknown Pcp, Non Rmg 05/14/2011 Hospital/Inpatient NON FC SA NON FC UNK Provider, Unknown 05/14/2011 Hospital/Inpatient NON FC SA NON FC UNK Unknown Pcp, Non Rmg Unspecified disorder of skin and subcutaneous tissue 04/26/2011 Consult (Initial) [address] [phone] Susan Chacon MD MPH 04/26/2011 Consult (Initial) DERMATOLOGY UNSPEC Amy Dunbar 04/26/2011 Letter/Form NON FC SA NON FC UNK Amy Dunbar Personal history of other malignant neoplasm of skin 01/31/[address] [phone] Susan Chacon MD MPH Other (RETURNED CALL); Provider (SUSAN CHACON MD (Medical Doctor,Internal Medicine [id number]) [facility] ([id number])) 01/30/2011 Office Visit [address] [phone] Susan Chacon MD MPH Lumbago 01/29/[address] [phone] Susan Chacon MD MPH Other (NEEDS F/U ON PINCHED NERVE); Provider (SUSAN CHACON MD (Medical Doctor,Internal Medicine [id number]) [facility] ([id number])) 01/23/[address] [phone] Susan Chacon MD MPH Other (WOULD LIKE RX FOR MUSCLE RELAXERS); Provider (SUSAN CHACON MD (Medical Doctor,Internal Medicine [id number]) [facility] ([id number])) 01/22/[address] [phone] Susan Chacon MD MPH Back Pain ; Provider (SUSAN CHACON MD (Medical Doctor,Internal Medicine [id number]) [facility] ([id number])) 01/22/2011 Office Visit [address] [phone] Samra Miller MD Lumbago 01/22/2011 Orders Only NON FC SA FC UNK Unknown Pcp, Non Rmg 01/21/2011 Orders Only NON FC SA FC UNK Unknown Pcp, Non Rmg 11/06/2010 Orders Only NON FC SA FC UNK Susan Chacon MD MPH 10/19/2010 Orders Only NON FC SA FC UNK Unknown Pcp, Non Rmg 10/16/2010 Orders Only NON FC SA FC UNK Unknown Pcp, Non Rmg 10/15/2010 Orders Only NON FC SA FC UNK Unknown Pcp, Non Rmg 09/26/[address] [phone] Susan Chacon MD MPH Other ; Provider (SUSAN CHACON MD (Medical Doctor,Internal Medicine [id number]) [facility] ([id number])) 09/26/2010 Orders Only NON FC SA FC UNK Susan Chacon MD MPH 07/02/2010 Orders Only NON FC SA FC UNK Unknown Pcp, Non Rmg 06/25/2010 Consult (Initial) ENDO UNSPECIFIED Laila Lindsey S 06/25/2010 Letter/Form NON FC SA NON FC UNK [place] Nontoxic uninodular goiter; Disorder of bone and cartilage, unspecified; Unspecified vitamin D deficiency 06/19/2010 CPE - Comprehensive Physical Exam [facility] [address] [place] [phone] Susan Chacon MD MPH Personal history of other malignant neoplasm of skin; Routine general medical examination at a health care facility; Disorder of bone and cartilage, unspecified; Lumbago 05/10/2010 Office Visit DERMATOLOGY UNSPEC Cecil Edmond MD Actinic keratosis; Neoplasm of uncertain behavior of skin; Benign neoplasm of skin, site unspecified 03/28/2010 Orders Only NON FC SA FC UNK Unknown Pcp, Non Rmg 03/19/2010 Office Visit DERMATOLOGY UNSPEC Cecil Edmond MD Neoplasm of uncertain behavior of skin; Malignant neoplasm of skin of trunk 03/15/2010 Office Visit DERMATOLOGY Cecil Morales MD Neoplasm of uncertain behavior of skin; Benign neoplasm of skin, site unspecified; Actinic keratosis; Malignant neoplasm of skin of trunk; Personal history of other malignant neoplasm of skin; Other seborrheic keratosis 01/01/2010 Telephone DERMATOLOGY UNSPEC Cecil Edmond MD Other ; Provider (CECIL EDMOND (Medical Doctor,Dermatology [id number]) [facility] ([id number])) 12/21/2009 Office Visit DERMATOLOGY Cecil Morales MD Actinic keratosis; Inflamed seborrheic keratosis 10/30/2009 Office Visit DERMATOLOGY Cecil Morales MD Neoplasm of Uncertain Behavior of Skin; Benign Neoplasm of Skin, Site Unspecified; Actinic Keratosis; Personal History of Other Malignant Neoplasm of Skin; Inflamed Seborrheic Keratosis 08/07/2009 Office Visit DERMATOLOGY UNSPEC Cecil Edmond MD Neoplasm of Uncertain Behavior of Skin; Actinic Keratosis; Benign Neoplasm of Skin, Site Unspecified; Personal History of Other Malignant Neoplasm of Skin; Inflamed Seborrheic Keratosis 06/12/2009 Office Visit [facility] [address] [place] [phone] Brittanie Simon OD Examination of Eyes and Vision 06/05/2009 Consult (Initial) ENDO UNSPECIFIED PreetiLaila devi S 06/05/2009 Letter/Form NON FC SA NON FC UNK Rosalia Laila S Nontoxic Uninodular Goiter 05/16/2009 Orders Only NON FC SA FC UNK Unknown Pcp, Non Rmg 05/11/2009 Telephone DERMATOLOGY UNSPEC Cecil Edmond MD Results ; Provider (CECIL EDMOND (Medical Doctor,Dermatology A-) [facility] ([id number])) 05/09/2009 Telephone DERMATOLOGY UNSPEC Cecil Edmond MD Other ; Provider (CECIL EDMOND (Medical Doctor,Dermatology A-) [facility] ([id number])) 05/01/2009 Office Visit DERMATOLOGY UNSPEC Cecil Edmond MD Malignant Neoplasm of Skin 04/13/2009 Office Visit DERMATOLOGY UNSPEC Cecil Edmond MD Neoplasm of Uncertain Behavior of Skin; Personal History of Other Malignant Neoplasm of Skin 03/27/[address] [phone] Susan Chacon MD MPH Chronic Bronchitis; Provider (SUSAN CHACON MD (Medical Doctor,Internal Medicine [id number]) [facility] ([id number])) 03/27/2009 Office Visit [facility] [address] [place] [phone] Minerva Ortiz MD Acute Bronchitis 01/10/2009 Letter/Form [address] [phone] Susan Chacon MD MPH 12/23/2008 Orders Only NON FC SA FC UNK Unknown Pcp, Non Rmg 12/15/2008 Minor Procedure/Test UNKOWN UNSPEC Provider, Unknown 12/15/2008 Letter/Form NON FC SA NON FC UNK Provider, Unknown 12/15/2008 Office Visit DERMATOLOGY UNSPEC Cecil Edmond MD Malignant Neoplasm of Skin 11/01/2008 Office Visit DERMATOLOGY UNSPEC Cecil Edmond MD Actinic Keratosis; Malignant Neoplasm of Skin; Personal History of Other Malignant Neoplasm of Skin; Unspecified Seborrheic Dermatitis; Benign Neoplasm of Skin, Site Unspecified 08/29/2008 Letter/Form [address] [phone] Susan Chacon MD MPH 08/22/2008 Letter/Form [address] [phone] Susan Chacon MD MPH 08/15/2008 Orders Only [facility] [address] [place] [phone] Susan Chacon MD MPH 08/15/2008 CPE - Comprehensive Physical Exam [address] [phone] Susan Chacon MD MPH Personal History of Other Malignant Neoplasm of Skin; Symptomatic Menopausal or Female Climacteric States; Routine General Medical Examination at a Health Care Facility; Depressive Disorder, not Elsewhere Classified; Anxiety State, Unspecified 08/05/2008 Letter/Form [address] [phone] Susan Chacon MD MPH 08/04/2008 Office Visit [address] [phone] Susan Chacon MD MPH Unspecified Backache; Sciatica 07/06/2008 Orders Only [address] [phone] Susan Chacon MD MPH 07/05/2008 Letter/Form [address] [phone] Susan Chacon MD MPH 06/29/2008 Orders Only [address] [phone] Susan Chacon MD MPH 06/28/2008 Orders Only [facility] [address] [place] [phone] Susan Chacon MD MPH 06/25/2008 Orders Only [facility] [address] [place] [phone] Susan Chacon MD MPH 06/14/2008 Letter/Form [facility] [address] [place] [phone] Provider, Unknown 05/11/2007 Abstract [facility] [address] [place] [phone] Susan Chacon MD MPH 04/29/2007 Orders Only [facility] [address] [place] [phone] Susan Chacon MD MPH 02/26/2007 Letter/Form [facility] [address] [place] [phone] Susan Chacon MD MPH 02/04/2006 Consult (Initial) GEN VAS UNSPECIFIED Christopher Carolina 02/04/2006 Letter/Form NON FC SA NON FC UNK Christopher Carolina Unspecified Reason for Consultation 01/30/2006 Consult (Initial) GEN VAS UNSPECIFIED Christopher Carolina 01/30/2006 Letter/Form NON FC SA NON FC UNK Christopher Carolina Unspecified Reason for Consultation 10/30/2005 Orders Only [facility] [address] [place] [phone] Susan Chacon MD MPH 12/08/1999 Letter/Form NON FC SA NON FC UNK Provider, Unknown 12/08/1999 Abstract NON FC SA FC UNK Provider, Unknown Other unknown and unspecified cause of morbidity or mortality 12/06/1999 Consult (Initial) NON FC SA NON FC UNK Provider, Unknown 12/06/1999 Letter/Form NON FC SA NON FC UNK Unknown Pcp, Non Rmg Unspecified reason for consultation 10/25/1999 Consult (Initial) ENDO UNSPECIFIED Laila Lindsey 10/25/1999 Letter/Form NON FC SA NON FC UNK Laila Lindsey Unspecified reason for consultation 06/21/1999 Consult (Initial) NON FC SA NON FC UNK Provider, Unknown 06/21/1999 Letter/Form NON FC SA NON FC UNK Unknown Pcp, Non Rmg Unspecified reason for consultation 05/21/1999 Consult (Initial) ENDO UNSPECIFIED Laila Lindsey 05/21/1999 Letter/Form NON FC SA NON FC UNK Laila Lindsey Other unknown and unspecified cause of morbidity or mortality 05/21/1999 Letter/Form NON FC SA NON FC UNK Laila Lindsey Other unknown and unspecified cause of morbidity or mortality 12/13/1993 Hospital/Inpatient NON FC SA NON FC UNK Unknown Pcp, Non Rmg Malignant neoplasm of skin 12/06/1993 Hospital/Inpatient NON FC SA NON FC UNK Provider, Unknown 12/06/1993 Hospital/Inpatient NON FC SA NON FC UNK Unknown Pcp, Non Rmg Malignant neoplasm of skin 11/29/1993 Hospital/Inpatient NON FC SA NON FC UNK Unknown Pcp, Non Rmg Malignant neoplasm of skin Allergies Active Allergy Reactions Criticality Noted Date Comments Codeine Nausea/GI Upset GI intolerance Seasonal 09/28/2018 Medications Cholecalciferol (VITAMIN D) 2000 UNITS CapIndications: Palpitations,PA C (premature atrial contraction) 2 CAPSULE DAILY Active Magnesium 200 MG TabIndications: Palpitations,PA C (premature atrial contraction) 1 TABLET DAILY Ac tive Calcium-Magnesi um 500-250 MG Tab 1 DAILY 6 Active Fluorouracil 5 % Cream bid to affected areas on face x 2 wks 40 g 1 8 Active Diclofenac Sodium 1 % Gel apply to affected areas as needed 8 Active buPROPion HCl ER, XL, 300 MG TABLET SR 24 HR Take with 150 mg daily 9 Active DULoxetine HCl [address] Particles Take 1 capsule daily 9 Active buPROPion HCl ER, XL, (WELLBUTRIN XL) 150 MG 24 hr tablet 0 Active Niacinamide 500 MG Tab CR Take one tablet once daily 30 tablet 1 Active DULoxetine HCl (CYMBALTA) 30 MG capsule Take one capsule daily 90 capsule 1 Active Aripiprazole (ABILIFY) 2 MG tablet Take 2 mg by mouth Take half tab (1mg) for 2 weeks and then increase to 2mg 2 Active Methylphenidate HCl (RITALIN LA) 20 MG 24 hr capsule Take by mouth 1 (one) time each day 2 Active Alendronate Sodium (FOSAMAX) 70 MG tablet TAKE 1 TABLET(70 MG) BY MOUTH 1 TIME EVERY WEEK FIRST THING IN THE MORNING WITH A FULL GLASS OF WATER. DO NOT LAY DOWN OR RECLINE FOR 30 MINUTES 12 tablet 4 4 Active Methylphenidate HCl (RITALIN) 10 MG tablet 4 Active amLODIPine Besylate (Norvasc) 10 MG tablet Take one tablet (10 mg total) by mouth 1 (one) time each day. 90 tablet 3 5 03/10/20 26 Active predniSONE (DELTASONE) 10 MG tablet Take five tablets (50 mg total) by mouth 1 (one) time each day for 1 day, THEN four tablets (40 mg total) 1 (one) time each day for 1 day, THEN three tablets (30 mg total) 1 (one) time each day for 1 day, THEN two tablets (20 mg total) 1 (one) time each day for 1 day, THEN one tablet (10 mg total) 1 (one) time each day for 1 day. 15 tablet 5 02/17/20 25 Active Benzonatate (TESSALON) 200 MG capsule Take one capsule (200 mg total) by mouth 3 (three) times a day if needed for cough for up to 10 days. 42 capsule 5 02/22/20 25 Active Meclizine HCl (ANTIVERT) 12.5 MG tabletIndicatio ns:Vertigo Take one tablet (12.5 mg total) by mouth 3 (three) times a day if needed for dizziness or nausea for up to 10 days. 60 tablet 2 5 01/12/20 25 Active Problems Problem Noted Date Diagnosed Date Solar purpura 08/20/2023 Overview (08/20/2023): 06/16/2023 Essential Dermatology, [facility] encounter Assessment/Plan Solar purpura The patient is reassured that these symptoms do not appear to represent a serious or threatening condition. 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 Actinic keratoses 06/17/2014 White coat syndrome with hypertension 03/17/2014 Overview (12/09/2024): Blood pressure numbers are elevated today but they range in the past She carries diagnosis of whitecoat hypertension as well, but still numbers are elevated Start Norvasc 5 mg/d Colonic adenoma 06/20/2011 LBP (low back pain) 06/19/2010 Overview (10/20/2015): History of SCC (squamous cell carcinoma) of skin 06/19/2010 Osteopenia 08/29/2008 Major depressive disorder, s sami episode, in full remission 08/15/2008 Overview (07/21/2019): Refer to office visit note 10/21/18, additional chronic condition assessment: Major Depression Status: Stable based on review of symptoms. Continue present treatment plan and recheck at least yearly. Single episode Mild Sx in remission Psychiatric medications: ??Fluoxetine Hcl 40 Mg Or Caps, [previous overview note] Dr Raquel Lucero, [place] Anxiety states 08/15/2008 History of basal cell carcinoma 08/04/2008 Multinodular goiter Overview (03/02/2018): Immunizations Name Administration Dates Next Due COVID-19, mRNA (Moderna Pre Fall 2022) Monovalent, 100 mcg/0.5 ml or 50 mcg/0.25 ml dose 02/28/2022,09/22/2021 COVID-19, mRNA (Moderna Pre Fall 2022) bivalent, 25 mcg/0.25 ml (6 months - 11 years) or 50 mcg/0.5 ml (12+ years) 08/26/2022 COVID-19, mRNA (Moderna Spik evax) Seasonal, 50 mcg/0.5 mL (12+) 07/30/2024,09/16/2023 Covid-19, Vector-nr (Holidu), 0.5 Ml 01/31/2021 Influenza (SEASONAL) - 10/24/2005 Influenza, Quad, Inactivated , Adjuvanted, Preser Fr 09/16/2023,08/25/2020 Influenza,adjuvanted,trivale nt,PF (Fluad) 07/30/2024 Influenza,high dose seasonal,trivalent,PF (Fluzone HD) 09/20/2019,08/18/2018,11/18/2017,2015,10/04/2015,11/10/2014 Influenza,high-dose, Quadrivalent 08/26/2022, Influenza,seasonal,trivalent ,preserva tive (FLUZONE MDV) 09/29/2013,12/03/2012 PCV-13 09/20/2019,01/23/2015 PPV23 (Pneumovax) 11/19/2012 Td (adult), adsorbed 05/24/2000 Td - 07/05/2020 Tdap - 06/19/2010 Zoster (Shingrix) 08/02/2021,05/29/2021 Zoster (Zostavax) 11/19/2012 Family History Medical History Relation Name Comments CAD/PVD - Early Father Mo Cancer - Colon Father Mo Heart Disorder Father Mo Kidney Disorder Father Mo age 88 Stroke Maternal grandmother Leeann Arthritis/Joint disorder Mother Antionette Cancer - Skin Mother Antionette Hearing Loss Mother Antionette Hypertension Mother Antionette Other Mother Antionette PARATHYROID Thyroid Disorder Mother Antionette parathyroid Relation Name Status Comments Brother Alive HTN Father Mo (Age 86) COLON CA, SKIN CA, CAD, CRF Maternal grandmother Leeann Mother Antionette Alive HTN, HTN, parat hyroid dz Social History Smoking Status as of 01/31/2025 Tobacco Use Types Packs/Day Years Used Date Smoking Tobacco: Never Assessed PHQ-2 Answer Date Recorded Patient Health Questionnaire-2 [...] Social Connections Answer Date Recorded Phone Communication More than three times a week 12/03/2024 Get together with friends / family Twice a week 12/03/2024 Attend jewish services Never 2024 Club Membership Yes 12/03/2024 Club Attendance More than 4 times per year 12/03 Marital Status 12/03/2024 Financial Resource Strain Answer Date R ecorded Difficulty paying for basics Somewhat hard 08/2025 How hard is it for you to pa y for utilities (electricity, gas, water)? Somewhat hard 12/03/2024 Food Insecurity Answer Date Recorded Worry that [...] Getting School Help Needed Not on file 12/03 How often do you get together with friends or re latives? 3 12/03/2024 Do you belong to any clubs o r organizations such as denominational groups, unions, athletic groups, or school groups? 1 08/2025 How often do you attend meet ings of the clubs or organizations you belong to? 3 12/03/2024 Sex and Gender Information Value Date Recorded Sex Assigned at Not on file Legal Sex Female 8:32 PM EST Gender Identity Not on file Sexual Orientation Not on file Last Filed Vital Signs Vital Sign Reading Time Taken Comments Blood Pressure 133/69 01/12/2025 10:45 AM EST Pulse 93 01/12/2025 9:59 AM EST Temperature 36.8 ??C (98.2 ??F) 01/12/2025 9:59 AM ES T Respiratory Rate 16 10/23/2020 10:05 AM EST Oxygen Saturation 96% 01/12/2025 9:59 AM EST Inhaled Oxygen Concentration - - Weight 66.4 kg (146 lb 6.4 oz) 01/12/2025 9:59 A M EST Height 155.6 cm (5' 1.25 ) 12/16/2024 11:[address] Body Mass Index 27.44 12/16/2024 11:44 AM EST Plan of Treatment Not on file Procedures * Due to [place] state law, this organization might not be sharing negative HIV tests. Procedure Name Priority Date/Time Associated Diagnosis Comments US NECK/THYROID Routine 11/11/2024 11:42 AM EST Multinodular goiter PTH, INTACT (WITHOUT CALCIUM) Routine 11/02/2024 12:23 PM EST TSH, 3RD GENERATION Routine 11/02/2024 12:23 PM EST Multinodular goiter T4, FREE, SERUM Routine 11/02/2024 12:23 PM EST Multinodular goiter BASIC METABOLIC PANEL WITH (GFR) Routine 11/02/2024 12:23 PM EST Osteopenia, unspecified location VITAMIN D, 25-HYDROXY, TOTAL, IMMUNOASSAY Routine 11/02/2024 12:23 PM EST Osteopenia, unspecified location DEXA AXIAL SKELETON Routine 09/16/2024 10:11 AM EDT DUAL ENERGY DEXA BONE DENSITY ONE/MORE SITES AXIAL SKEL 09/16/2024 LIPID PANEL WITH REFLEX TO DIRECT LDL Routine 09/13/2024 12:47 PM EDT Screening for lipid disorders XRAY SPINE 04/20/2024 UNSPECIFIED MAJOR PROCEDURE 04/20/2024 DIANE BILATERAL SCREENING DIGITAL MAMMOGRAM WITH DARRON 03/01/2024 4:46 PM EDT US NECK/THYROID FC Routine 08/27/2023 11:21 AM EDT Multinodular goiter EKG-TO BE READ & BILLED BY ADULT OR PEDIATRIC CARDIOLOGY Routine 07/22/2023 4:07 PM EDT Essential hypertension PARATHYROID HORMONE (PTH), INTACT WITH CALCIUM, SERUM Routine 07/16/2023 1:39 PM EDT Mild secondary hyperparathyroidism (HCC) LIPID PANEL WITH REFLEX TO DIRECT LDL Routine 07/16/2023 1:38 PM EDT Screening for lipid disorders COMPREHENSIVE METABOLIC PANEL WITH GFR Routine 07/16/2023 1:38 PM EDT Screening for diabetes mellitus INJECTION(S) OF DIAGNOSTIC OR THERAPEUTIC SUSTANCES(S), LUMBAR OR SACRAL W/IMAGE Routine 04/30/2023 1:38 PM EDT Bilateral lumbar radiculopathy MRI SPINE 04/19/2023 DIANE BILATERAL SCREENING DIGITAL MAMMOGRAM WITH DARRON 02/25/2023 2:02 PM EDT INJECTION(S) OF DIAGNOSTIC OR THERAPEUTIC SUSTANCES(S), LUMBAR OR SACRAL W/IMAGE Routine 01/22/2023 10:25 AM EST Lumbar radiculopathy, right INJECTION(S) OF DIAGNOSTIC OR THERAPEUTIC SUSTANCES(S), LUMBAR OR SACRAL W/IMAGE Routine 10/09/2022 12:11 PM EST Bilateral lumbar radiculopathy PTH, INTACT (WITHOUT CALCIUM) Routine 09/04/2022 9:50 AM EDT COMPREHENSIVE METABOLIC PANEL WITH GFR Routine 09/04/2022 9:50 AM EDT Mild secondary hyperparathyroidism (HCC) TSH, 3RD GENERATION Routine 09/04/2022 9:50 AM EDT Multinodular goiter VENIPUNCTURE Routine 09/04/2022 9:50 AM EDT Mild secondary hyperparathyroidism (HCC) DUAL ENERGY DEXA BONE DENSITY ONE/MORE SITES AXIAL SKEL 09/03/2022 INJECTION(S) OF DIAGNOSTIC OR THERAPEUTIC SUSTANCES(S), LUMBAR OR SACRAL W/IMAGE Routine 07/10/2022 11:52 AM EDT Bilateral lumbar radiculopathy INJECTION(S) OF DIAGNOSTIC OR THERAPEUTIC SUSTANCES(S), LUMBAR OR SACRAL W/IMAGE Routine 03/27/2022 1:33 PM EDT Bilateral lumbar radiculopathy CYTOLOGY/PATHOLOGY/GE NETICS UNSPECIFIED 03/18/2022 SARS COV 2 RNA(COVID 19), QUALITATIVE NAAT Routine 03/15/2022 11:55 AM EDT Contact with and (suspected) exposure to covid-19 DIANE BILATERAL SCREENING DIGITAL MAMMOGRAM WITH DARRON 02/21/2022 1:53 PM EDT DUPLEX/DOPPLER SCAN OF ARTERY OR VEIN 02/14/2022 INJECTION(S) OF DIAGNOSTIC OR THERAPEUTIC SUSTANCES(S), LUMBAR OR SACRAL W/IMAGE Routine 12/26/2021 2:10 PM EST Bilateral lumbar radiculopathy CYTOLOGY/PATHOLOGY/GE NETICS UNSPECIFIED 11/19/2021 US NECK/THYROID 11/19/2021 XRAY HIPS BILATERAL MIN 2 VIEWS HIP AND AP PELVIS 10/04/2021 Left hip pain PTH, INTACT (WITHOUT CALCIUM) Routine 10/01/2021 4:21 PM EST Mild secondary hyperparathyroidism (HCC) VITAMIN D, 25-HYDROXY, TOTAL, IMMUNOASSAY Routine 10/01/2021 4:21 PM EST Mild secondary hyperparathyroidism (HCC) COMPREHENSIVE METABOLIC PANEL WITH GFR Routine 10/01/2021 4:21 PM EST Mild secondary hyperparathyroidism (HCC) TSH, 3RD GENERATION Routine 10/01/2021 4:21 PM EST Multinodular goiter VENIPUNCTURE Routine 10/01/2021 4:21 PM EST Multinodular goiter INJECTION(S) OF DIAGNOSTIC OR THERAPEUTIC SUSTANCES(S), LUMBAR OR SACRAL W/IMAGE Routine 09/26/2021 11:25 AM EDT Lumbar radiculopathy, right VENIPUNCTURE Routine 09/25/2021 7:39 AM EDT Dyslipidemia US NECK/THYROID FC Routine 09/13/2021 9:41 AM EDT Multinodular goiter VENIPUNCTURE Routine 03/01/2021 9:28 AM EDT High risk medication use EKG-TO BE READ & BILLED BY ADULT OR PEDIATRIC CARDIOLOGY Routine 03/01/2021 9:10 AM EDT Benign essential HTN High risk medication use DIANE BILATERAL SCREENING DIGITAL MAMMOGRAM WITH DARRON 01/23/2021 5:51 PM EST COMPREHENSIVE EYE EXAM 01/09/2021 COMPREHENSIVE METABOLIC PANEL WITH GFR Routine 12/25/2020 9:23 AM EST Hypertension, unspecified type Angiomyolipoma of kidney VENIPUNCTURE Routine 12/25/2020 9:23 AM EST Hypertension, unspecified type Screening for lipid disorders CYTOLOGY/PATHOLOGY/GE NETICS UNSPECIFIED 11/07/2020 CBC (INCLUDES DIFF/PLT) (ON-SITE) STAT (All results called to provider) 10/20/2020 10:53 AM EST Cellulitis of right upper extremity THYROID STIMULATING HORMONE (TSH) WITH FREE T4 REFLEX, SERUM Routine 09/13/2020 2:59 PM EDT Multinodular goiter PARATHYROID HORMONE (PTH), INTACT WITH CALCIUM, SERUM Routine 09/13/2020 2:59 PM EDT Mild secondary hyperparathyroidism (HCC) VENIPUNCTURE Routine 09/13/2020 2:59 PM EDT Mild secondary hyperparathyroidism (HCC) COLONOSCOPY 08/30/2020 XR KNEE ORTHO-BILAT (DX: KNEE PAIN *NO INJURY*)(AGE>=35, CAN WEIGHT-BEAR) Routine 08/15/2020 9:56 AM EDT Pain DEXA BONE DENSITY 08/08/2020 11:27 AM EDT DUAL ENERGY DEXA BONE DENSITY ONE/MORE SITES AXIAL SKEL 08/08/2020 EXCISION, MALIGNANT LESION, INCL MARGINS, TRUNK/ARMS/LEGS; EXCISED DIAM 1.1 TO 2.0 CM Routine 07/12/2020 12:59 PM EDT BCC (basal cell carcinoma), arm, right TISSUE PATHOLOGY Routine 07/12/2020 8:30 AM EDT DESTRUCTION, MALIGNANT LESION, TRUNK, ARMS OR LEGS; LESION DIAMETER 0.6 TO 1.0 CM Routine 06/14/2020 2:32 PM EDT Basal cell carcinoma (BCC) of pretibial region of right lower extremity SURGICAL PATHOLOGY DERM Routine 06/14/2020 2:00 PM EDT Neoplasm of uncertain behavior of skin DIANE BILATERAL SCREENING DIGITAL MAMMOGRAM WITH DARRON 01/23/2020 8:48 AM EST SURGICAL PATHOLOGY DERM Routine 01/07/2020 11:10 AM EST Neoplasm of uncertain behavior of skin XRAY CHEST, 2 VIEWS, PA & LATERAL (DX: COUGH R05.9/ 786.2) FC STAT (All results called to provider) 12/15/2019 2:46 PM EST Cough MRI SPINE 11/11/2019 NERVE CONDUCTION STUDIES; 7-8 STUDIES Routine 11/10/2019 6:40 PM EST Lumbar radiculopathy NEEDLE ELECTROMYOGRAPHY (EMG) EACH EXTREM, W/WO PARASPINAL AREAS, COMPLETE, W/ PRIM PROC Routine 11/10/2019 6:40 PM EST Lumbar radiculopathy COMPREHENSIVE EYE EXAM 11/09/2019 ELECTROMYOGRAM/NERVE CONDUCTION STUDY (EMG/NCS) 11/08/2019 TSH, 3RD GENERATION Routine 09/21/2019 8:11 AM EDT Multinodular goiter T4, FREE, SERUM Routine 09/21/2019 8:11 AM EDT Multinodular goiter VITAMIN D, 25-HYDROXY, TOTAL, IMMUNOASSAY Routine 09/21/2019 8:11 AM EDT Osteopenia, unspecified location VENIPUNCTURE Routine 09/21/2019 8:11 AM EDT Osteopenia, unspecified location COLLAGEN CROSS-LINKED N-TELOPEPTIDE (NTX), URINE Routine 09/21/2019 8:10 AM EDT Osteopenia, unspecified location COLONOSCOPY 08/04/2019 NERVE CONDUCTION STUDIES; 7-8 STUDIES Routine 06/24/2019 7:53 PM EDT Paresthesia NEEDLE ELECTROMYOGRAPHY (EMG) EACH EXTREM, W/WO PARASPINAL AREAS, LIMITED, W/ PRIM PROC Routine 06/24/2019 7:53 PM EDT Paresthesia ELECTROMYOGRAM/NERVE CONDUCTION STUDY (EMG/NCS) 06/22/2019 US NECK/THYROID FC Routine 06/16/2019 9:40 AM EDT Multinodular goiter XRAY ANKLE COMPLETE MIN 3 VWS - RIGHT Routine 06/03/2019 9:41 AM EDT Acute right ankle pain CBC (H/H, RBC, INDICES,WBC, PLT) Routine 06/03/2019 9:33 AM EDT Leukopenia, unspecified type VITAMIN B12 (CYANOCOBALAMIN), SERUM Routine 05/24/2019 12:15 PM EDT Idiopathic peripheral neuropathy BORRELIA BURGDORFERI AB (LYME), EIA WITH REFLEX IGG, IGM WB Routine 05/24/2019 12:15 PM EDT Idiopathic peripheral neuropathy IMMUNOFIXATION, SERUM Routine 05/24/2019 12:15 PM EDT Idiopathic peripheral neuropathy DANA SCREEN IFA W/REFLEX TO TITER/PATTERN IFA Routine 05/24/2019 12:15 PM EDT Idiopathic peripheral neuropathy HEMOGLOBIN A1C Routine 04/12/2019 4:42 PM EDT Numbness of foot EXCISION, MALIGNANT LESION, INCL MARGINS, TRUNK/ARMS/LEGS; EXCISED DIAM 1.1 TO 2.0 CM Routine 03/30/2019 1:48 PM EDT Basal cell carcinoma of skin of trunk TISSUE PATHOLOGY Routine 03/30/2019 11:00 AM EDT SURGICAL PATHOLOGY DERM Routine 02/22/2019 8:50 AM EDT Neoplasm of uncertain behavior DIANE BILATERAL SCREENING DIGITAL MAMMOGRAM WITH DARRON 01/15/2019 11:17 AM EST XRAY KNEE COMPLETE INCL OBLQ/TU/SUN 10/05/2018 XRAY HIPS BILATERAL MIN 2 VIEWS HIP AND AP PELVIS 10/05/2018 EXCISION, MALIGNANT LESION, INCL MARGINS, SCALP/NECK/HANDS/FEET /GENITALIA; EXCISED DIAM 2.1-3.0 CM Routine 08/10/2018 9:30 AM EDT Basal cell carcinoma of neck SURGICAL PATHOLOGY DERM Routine 08/10/2018 8:20 AM EDT DUAL ENERGY DEXA BONE DENSITY ONE/MORE SITES AXIAL SKEL 07/29/2018 DESTRUCTION, MALIGNANT LESION, TRUNK, ARMS OR LEGS; DIAMETER 1.1 TO 2.0 CM Routine 07/13/2018 8:21 AM EDT Basal cell carcinoma, trunk SURGICAL PATHOLOGY DERM Routine 06/22/2018 1:40 PM EDT Actinic keratoses Neoplasm of uncertain behavior History of basal cell carcinoma History of SCC (squamous cell carcinoma) of skin T4, FREE, SERUM Routine 06/17/2018 7:50 AM EDT Multinodular goiter TSH, 3RD GENERATION Routine 06/17/2018 7:50 AM EDT Multinodular goiter [...] AM EDT Multinodular goiter Osteopenia, unspecified location US NECK/THYROID FC Routine 06/15/2018 10:28 AM EDT Multinodular goiter LIPID PANEL WITH REFLEX TO DIRECT LDL Routine 03/01/2018 10:31 AM EDT Screening for hyperlipidemia Screening for diabetes mellitus (DM) Screening for deficiency anemia COMPREHENSIVE METABOLIC PANEL WITH GFR Routine 03/01/2018 10:31 AM EDT Screening for hyperlipidemia Screening for diabetes mellitus (DM) Screening for deficiency anemia CBC (H/H, RBC, INDICES,WBC, PLT) Routine 03/01/2018 10:31 AM EDT Screening for hyperlipidemia Screening for diabetes mellitus (DM) Screening for deficiency anemia DIANE BILATERAL SCREENING DIGITAL MAMMOGRAM WITH DARRON 01/15/2018 1:08 PM EST XRAY KNEE COMPLETE INCL OBLQ/TU/SUN 03/24/2017 LIPID PANEL WITH REFLEX TO DIRECT LDL Routine 02/17/2017 7:57 AM EDT Osteopenia Screening for deficiency anemia Screening for diabetes mellitus (DM) Screening for hyperlipidemia COMPREHENSIVE METABOLIC PANEL WITH GFR Routine 02/17/2017 7:57 AM EDT Osteopenia Screening for deficiency anemia Screening for diabetes mellitus (DM) Screening for hyperlipidemia CBC (H/H, RBC, INDICES,WBC, PLT) Routine 02/17/2017 7:57 AM EDT Osteopenia Screening for deficiency anemia Screening for diabetes mellitus (DM) Screening for hyperlipidemia DIANE BILATERAL SCREENING DIGITAL MAMMOGRAM WITH DARRON Routine 01/08/2017 11:43 AM EST MAMMOGRAPHY-BILATERAL 01/08/2017 US NECK/THYROID FC Routine 04/19/2016 3:37 PM EDT Thyroid nodule COMPREHENSIVE METABOLIC PANEL WITH GFR Routine 04/08/2016 9:12 AM EDT Osteopenia PHOSPHATE, SERUM Routine 04/08/2016 9:12 AM EDT Osteopenia MAGNESIUM, SERUM Routine 04/08/2016 9:12 AM EDT Osteopenia VITAMIN D, 25-HYDROXY, TOTAL, IMMUNOASSAY Routine 04/08/2016 9:12 AM EDT Osteopenia TSH, 3RD GENERATION Routine 04/08/2016 9:11 AM EDT Thyroid nodule COLLAGEN CROSS-LINKED N-TELOPEPTIDE (NTX), URINE Routine 04/08/2016 9:10 AM EDT Osteopenia PARATHYROID HORMONE (PTH), INTACT WITH CALCIUM, SERUM Routine 04/08/2016 9:10 AM EDT Osteopenia CARDIOVASCULAR STRESS TEST W/TREADMILL, BICYCLE, AND/OR PHARMACOLOGICAL STRESS; W/ SUPERV/INTERP Routine 03/19/2016 Palpitations DUAL ENERGY DEXA BONE DENSITY ONE/MORE SITES AXIAL SKEL 02/26/2016 MRI ABDOMEN W/O CONTRAST MATERIAL(S) FOLLOWED BY CONTRAST MATERIAL(S) AND 02/09/2016 ECHOCARDIOGRAPHY, TRANSTHORACIC (TTE) WITH 2D IMAGE W/WO M-MODE RECORDING, COMPLETE, WITH DOPPLER Routine 01/31/2016 Palpitations T4, FREE, SERUM Routine 01/10/2016 9:52 AM EST Thyroid nodule LIPID PANEL WITH REFLEX TO DIRECT LDL Routine 01/10/2016 9:52 AM EST HTN, white coat Osteopenia Screening for hyperlipidemia BUN/CREATININE RATIOW/EGFR Routine 01/10/2016 9:52 AM EST Liver lesion HTN, white coat T3 (TRIIODOTHYRONINE), FREE, SERUM Routine 01/10/2016 9:52 AM EST Thyroid nodule EKG 01/05/2016 EXTERNAL CONTINUOUS ECG RECORDING <=48 HRS W/ SCAN ANALYSIS REVIEW & INTERP BY SKILLED PROFESSIONAL Routine 01/05/2016 Palpitations UNSPECIFIED DIAGNOSTIC PROCE 01/05/2016 EKG-USE ONLY IN READYMED/OCC MED/CARDIO Routine 01/02/2016 4:23 PM EST Cough Palpitations XRAY CHEST, 2 VIEWS, PA & LATERAL (DX: COUGH R05.9/ 786.2) FC Routine 01/02/2016 3:26 PM EST Cough Palpitations TSH, 3RD GENERATION Routine 01/02/2016 3:21 PM EST Palpitations MAMMOGRAPHY-BILATERAL 11/20/2015 MRI SPINE 10/13/2015 CT SCAN OF SPINE 09/22/2015 MRI ABDOMEN W/O CONTRAST MATERIAL(S) FOLLOWED BY CONTRAST MATERIAL(S) AND 06/04/2015 BUN/CREATININE RATIOW/EGFR Routine 05/29/2015 11:50 AM EDT MUMPS VIRUS ANTIBODY, IGG, SERUM Routine 05/29/2015 11:50 AM EDT Disorder of bone and cartilage, unspecified Benign neoplasm of colon Need for prophylactic vaccination and inoculation against unspecified single disease Elevated blood pressure reading without diagnosis of hypertension Routine general medical examination at a health care facility MEASLES IGG AB (RUBEOLA) Routine 05/29/2015 11:50 [...] medical examination at a health care facility CT SCAN OF SPINE 05/25/2015 REQUEST FOR MRI NON-FC Routine 05/22/2015 Abnormal MRI MRI SPINE 05/18/2015 MRI SPINE 05/18/2015 XRAY SPINE 05/17/2015 XRAY SPINE 05/17/2015 LIPID PROFILE Routine 01/23/2015 9:43 AM EST COMPREHENSIVE METABOLIC PROFILE W/GFR (SMG) Routine 01/23/2015 9:43 AM EST HEMOGRAM (CBC) Routine 01/23/2015 9:43 AM EST SCREENING MAMMOGRAPHY DIGITAL Routine 11/14/2014 12:00 AM EST SHOULDER XRAY RIGHT Routine 08/12/2014 12:00 AM EDT KNEE XRAY LEFT MIN 4 VIEWS Routine 08/12/2014 12:00 AM EDT COLONOSCOPY Routine 08/04/2014 12:00 AM EDT SURGICAL / TISSUE PATHOLOGY Routine 06/22/2014 12:00 AM EDT DXA BONE DENSITY STUDY 1+ SITS AXIAL SKEL Routine 02/15/2014 12:00 AM EDT LIPID PROFILE Routine 01/16/2014 10:15 AM EST COMPREHENSIVE METABOLIC PROFILE W/GFR (SMG) Routine 01/16/2014 10:15 AM EST HEMOGRAM (CBC) Routine 01/16/2014 10:15 AM EST SCREENING MAMMOGRAPHY DIGITAL Routine 11/08/2013 12:00 AM EST FOOT XRAY MIN 3 VIEWS Routine 07/16/2013 11:12 AM EDT CLOSED TREATMENT, FX GREAT TOE, PHALANX/PHALANGES; W/O MANIPULATION 07/16/2013 12:00 AM EDT Pain in limb Injury, other and unspecified, unspecified site Closed fracture of one or more phalanges of foot FOOT XRAY MIN 3 VIEWS Routine 06/01/2013 3:44 PM EDT PODIATRY CONSULTATION Routine 06/01/2013 12:00 AM EDT US NECK/THYROID 11/20/2012 US HEAD/NECK TISSUES, B-SCAN/REAL TIME W/IMAGE DOCUMENTATION Routine 11/20/2012 12:00 AM EST KNEE XRAY LEFT MIN 3 VIEWS Routine 11/19/2012 11:51 AM EST HEPATITIS C ANTIBODY Routine 11/19/2012 9:25 AM EST LIPID PROFILE Routine 11/19/2012 9:25 AM EST HEMOGRAM (CBC) Routine 11/19/2012 9:25 AM EST COMPREHENSIVE METABOLIC PROFILE W/GFR ([facility]) Routine 11/19/2012 9:25 AM EST EKG Routine 11/19/2012 SCREENING MAMMOGRAPHY DIGITAL Routine 11/05/2012 12:00 AM EST SURGICAL / TISSUE PATHOLOGY Routine 10/09/2012 12:00 AM EST WOOD PATH 4 Routine 04/27/2012 12:00 AM EDT SCREENING MAMMOGRAPHY, BILATERAL (2-VIEW STUDY OF EACH BREAST) Routine 10/30/2011 12:00 AM EST VITAMIN D 25-HYDROXY TOTAL PLUS D2, D3 Routine 06/20/2011 11:15 AM EDT COMPREHENSIVE METABOLIC PROFILE W/GFR (SMG) Routine 06/20/2011 11:15 AM EDT LIPID PROFILE Routine 06/20/2011 11:15 AM EDT HEMOGRAM (CBC) Routine 06/20/2011 11:15 AM EDT SURGICAL / TISSUE PATHOLOGY Routine 05/14/2011 12:00 AM EDT LUMBAR SPINE XRAY 3 VIEWS Routine 01/30/2011 3:46 PM EST VITAMIN D 25-HYDROXY TOTAL PLUS D2, D3 Routine 01/22/2011 7:30 PM EST SURGICAL / TISSUE PATHOLOGY Routine 01/02/2011 12:00 AM EST COLONOSCOPY Routine 01/02/2011 12:00 AM EST SCREENING MAMMOGRAPHY, BILATERAL (2-VIEW STUDY OF EACH BREAST) Routine 10/26/2010 12:00 AM EST DXA BONE DENSITY STUDY 1+ SITS AXIAL SKEL Routine 09/26/2010 12:00 AM EDT HEMOGRAM (CBC) Routine 06/19/2010 11:13 AM EDT COMPREHENSIVE METABOLIC PROFILE Routine 06/19/2010 11:13 AM EDT LIPID PROFILE Routine 06/19/2010 11:13 AM EDT XR SPINE, LUMBOSACRAL; 2 OR 3 VIEWS Routine 06/19/2010 US PELVIC (NONOBSTETRIC), B-SCAN &/OR REAL TIME W/IMAGE DOCUMENTATION; COMPLETE Routine 06/14/2010 12:00 AM EDT WOOD PATH 4 Routine 03/19/2010 12:00 AM EDT DESTRUCTION, MALIGNANT LESION, TRUNK, ARMS OR LEGS; DIAMETER 1.1 TO 2.0 CM 03/19/2010 12:00 AM EDT Neoplasm of uncertain behavior of skin Malignant neoplasm of skin of trunk EXCISE, BENIGN SKIN LESION, INCL MARGINS, EXCEPT SKIN TAG, TRUNK/ARMS/LEGS; EXCISED DIAM 0.6-1.0 CM 03/19/2010 12:00 AM EDT Neoplasm of uncertain behavior of skin Malignant neoplasm of skin of trunk WOOD PATH 4 Routine 05/01/2009 12:00 AM EDT EXCISION, MALIGNANT LESION, INCL MARGINS, TRUNK/ARMS/LEGS; EXCISED DIAM 1.1 TO 2.0 CM 05/01/2009 12:00 AM EDT Malignant neoplasm of skin CYTOLOGY/PATHOLOGY/GE NETICS UNSPECIFIED 12/15/2008 WOOD PATH 4 Routine 12/15/2008 12:00 AM EST DESTRUCTION, MALIGNANT LESION, TRUNK, ARMS OR LEGS; LESION DIAMETER 2.1 TO 3.0 CM 12/15/2008 12:00 AM EST Malignant neoplasm of skin BONE DENSITY STUDY Routine 08/22/2008 LIPID PROFILE Routine 08/15/2008 12:00 AM EDT COMPREHENSIVE METABOLIC PROFILE Routine 08/15/2008 12:00 AM EDT HEMOGRAM (CBC) W AUTO DIFF RFLX MAN DIFF Routine 08/15/2008 12:00 AM EDT URINALYSIS W MICROSCOPIC Routine 08/04/2008 12:00 AM EDT SCREENING MAMMOGRAPHY, BILATERAL (2-VIEW STUDY OF EACH BREAST) Routine 07/02/2008 COMPREHENSIVE METABOLIC PROFILE Routine 04/29/2007 9:13 AM EDT HEMOGRAM (CBC) W AUTO DIFF RFLX MAN DIFF Routine 04/29/2007 9:13 AM EDT LIPID PROFILE Routine 04/29/2007 9:13 AM EDT COMPREHENSIVE METABOLIC PROFILE Routine 10/30/2005 10:31 AM EST HEMOGRAM (CBC) W AUTO DIFF RFLX MAN DIFF Routine 10/30/2005 10:31 AM EST LIPID PROFILE Routine 10/30/2005 10:31 AM EST XR KNEE; BOTH KNEES, STANDING, ANTEROPOSTERIOR Routine 11/08/2004 12:00 AM EST MAMMOGRAM RIGHT Routine 05/24/2004 12:00 AM EDT DXA BONE DENSITY STUDY 1+ SITS AXIAL SKEL Routine 04/25/2004 12:00 AM EDT EKG Routine 02/13/2004 12:00 AM EST COLONOSCOPY Routine 09/29/2002 12:00 AM EST PULMONARY FUNCTION SPIROMETRY Routine 06/08/2002 12:00 AM EDT EKG Routine 08/03/1997 12:00 AM EDT SURGICAL / TISSUE PATHOLOGY Routine 12/13/1993 12:00 AM EST SURGICAL / TISSUE PATHOLOGY Routine 12/06/1993 12:00 AM EST EKG Routine 08/17/1993 12:00 AM EDT Results * Due to [place] state law, this organization might not be sharing negative HIV tests. * US NECK/THYROID (11/11/2024 11:42 AM EST) Anatomical Region Laterality Modality HEAD/BRAIN Ultrasound Narrative 11/12/2024 2:14 PM EST Patient History: thyroid nodules CONTRAST: US Thyroid Comparison: ??US/MN/SD - US SOFT TISSUE HEAD AND NECK FC - 08/27/23 11:02 EDT US/MN/SD - U/S ST HEAD / NECK-THY - 09/13/21 09:26 EDT SD/US/MN - U/S ST HEAD / NECK-THY - 06/16/19 09:39 EDT SD/US - U/S ST HEAD / NECK-THY - 06/15/18 10:14 EDT ?? Findings: The thyroid gland is mildly inhomogeneous. Right thyroid 4.0 x 1.3 x 1.3 cm. Left thyroid 4.2 x 1.0 x 1.4 cm. Thyroid isthmus 6.7 mm. Nodule #1 Isthmus, at the junction with the right thyroid lobe 3.5 x 2.1 x 3.1 cm. Overall similar appearance dating back to 2018. Measured 2.4 x 2.5 x 3.0 cm on prior most recent study. Mixed cystic and solid, isoechoic, wider than tall, partly exophytic, no echogenic foci Points Total 5. TI-RADS Category 4 5 mm colloid cysts in the upper pole of the right thyroid lobe. Impression: 1. 3.5 cm right isthmus nodule has increased in volume roughly 20 percent since prior most recent study. Mixed solid and cystic appearance has been present since 2018. TI-RADS category 4. Recommend fine needle biopsy if not already performed. [employer] TI-RADS Categories TR1 and TR2 nodules do not have follow-up recommendations TR3 (FNA >= 2.5cm, F/U >= 1.5cm at 1, 3, and 5 yrs) TR4 (FNA >= 1.5cm, F/U >= 1cm at 1, 2, 3, and 5 yrs) TR5 (FNA >= 1cm, F/U >= 0.5cm annually for up to 5 yrs) Procedure Note Connie Ricks MD - 11/12/2024 Patient History: thyroid nodules CONTRAST: US Thyroid Comparison: US/MN/SD - US SOFT TISSUE HEAD AND NECK FC - 08/27/23 11:02EDT US/MN/SD - U/S HEAD / NECK-THY - 09/13/21 09:26 EDT SD/US/MN - U/S HEAD / NECK-THY - 06/16/19 09:39 EDT SD/US - U/S HEAD / NECK-THY - 06/15/18 10:14 EDT Findings: The thyroid gland is mildly inhomogeneous. Right thyroid 4.0 x 1.3 x 1.3 cm. Left thyroid 4.2 x 1.0 x 1.4 cm. Thyroid isthmus 6.7 mm. Nodule #1 Isthmus, at the junction with the right thyroid lobe 3.5 x 2.1 x 3.1 cm.Overall similar appearance dating back to 2018. Measured 2.4 x 2.5 x 3.0cm on prior most recent study. Mixed cystic and solid, isoechoic, wider than tall, partly exophytic, noechogenic foci Points Total 5. TI-RADS Category 4 5 mm colloid cysts in the upper pole of the right thyroid lobe. Impression: 1. 3.5 cm right isthmus nodule has increased in volume roughly 20 percentsince prior most recent study. Mixed solid and cystic appearance has beenpresent since 2018. TI-RADS category 4. Recommend fine needle biopsy ifnot already performed. [employer] TI-RADS Categories TR1 and TR2 nodules do not have follow-up recommendations TR3 (FNA >= 2.5cm, F/U >= 1.5cm at 1, 3, and 5 yrs) TR4 (FNA >= 1.5cm, F/U >= 1cm at 1, 2, 3, and 5 yrs) TR5 (FNA >= 1cm, F/U >= 0.5cm annually for up to 5 yrs) us Nina Goldberg MD IMG US ORDERABLES Final Res ult * PTH, INTACT (WITHOUT CALCIUM) (11/02/2024 12:23 PM EST) Only the most recent of3 resultswithin the time period is included. Parathyroid Hormone (PTH), Intact 50.4 14.0 - 72.0 pg/mL [facility] Comment:PTH pg/mL x 0.1061 = pmol/L 11/02/2024 12:2 3 PM EST 11/02/2024 12:23 PM EST Narrative [facility] - 11/02/2024 2:22 PM EST Patient's primary care provider is: ??N/A Testing performed at: [address], [address], Policyholder Information Clerk: Christopher Quintero MD Nina Goldberg MD LABORATORY Final Resul t Performing Organization Address [facility] de Phone Number [address] [address] DIRECTOR Christopher Quintero MD * TSH, 3RD GENERATION (11/02/2024 12:23 PM EST) Only the most recent of7 resultswithin the time period is included. TSH (Thyrotropin) 2.77 0.40 - 4.50 uIU/ml [facility] 11/02/2024 12:2 3 PM EST 11/02/2024 12:23 PM EST Narrative [facility] - 11/02/2024 2:22 PM EST Patient's primary care provider is: ??N/A Testing performed at: [address], [address], Policyholder Information Clerk: Christopher Quintero MD Nina Goldberg MD LABORATORY Final Resul t Performing Organization Address [facility] de Phone Number [address] [address] DIRECTOR Christopher Quintero MD * T4, FREE, SERUM (11/02/2024 12:23 PM EST) Only the most recent of5 resultswithin the time period is included. FT4 1.2 0.9 - 1.7 NG/DL [facility] 11/02/2024 12:2 3 PM EST 11/02/2024 12:23 PM EST Narrative [facility] - 11/02/2024 2:22 PM EST Patient's primary care provider is: ??N/A Testing performed at: [address], [address], Policyholder Information Clerk: Christopher Quintero MD us Nina Goldberg MD LABORATORY Final Resul t Performing Organization Address [facility] de Phone Number [address] [address] DIRECTOR Christopher Quintero MD * VITAMIN D, 25-HYDROXY, TOTAL, IMMUNOASSAY (11/02/2024 12:23 PM EST) Only the most recent of6 resultswithin the time period is included. VIT D, 25-OH, TOTAL 63 >29 ng/mL [facility] Comment: Vitamin D Status ??25-OH Vitamin D: Deficiency: ? <20 ng/mL Insufficiency: ? 20-29 ng/mL Optimal: ?> or = 30 ng/mL 11/02/2024 12:2 3 PM EST 11/02/2024 12:23 PM EST Narrative [facility] - 11/02/2024 2:22 PM EST Patient's primary care provider is: ??N/A Testing performed at: [facility], [address] [place] [address], [id number], Policyholder Information Clerk: Christopher Quintero MD us Nina Goldberg MD LABORATORY Final Resul t Performing Organization Address [facility] de Phone Number [address] [address] DIRECTOR Christopher Quintero MD * BASIC METABOLIC PANEL WITH (GFR) (11/02/2024 12:23 PM EST) Glucose 92 65 - 99 mg/dl [facility] Urea Nitrogen Blood (BUN) 15 7 - 25 mg/dL [facility] Creatinine 0.68 0.50 - 1.16 mg/dL [facility] Sodium 139 135 - 146 mmo/L [facility] Potassium 4.8 3.5 - 5.3 mmol/L [facility] Chloride 103 98 - 107 mmo/L [facility] Carbon dioxide 27 23 - 33 mmol/L [facility] Calcium 9.7 8.5 - 10.4 mg/dL [facility] GFR 89 >60 ml/min [facility] 11/02/2024 12:2 3 PM EST 11/02/2024 12:23 PM EST Narrative [facility] - 11/02/2024 2:22 PM EST Patient's primary care provider is: ??N/A Testing performed at: [facility], [address] [place], [address], Policyholder Information Clerk: Christopher Quintero MD us Nina Goldberg MD LABORATORY Final Resul t [facility] [address] [place] [address] DIRECTOR Christopher Quintero MD * DEXA AXIAL SKELETON (09/16/2024 10:11 AM EDT) Pathologist [facility] RADRPT Patient Name: ? FRIDA HARPER : ??1945 ?Sex:Female ; ?Location: [facility] ? [phone] ?[place] [address]- ? Radiology ACCESSION ? EXAM DATE/TIME ??PROCEDURE ? ORDERING ? STATUS ?PROVIDER [id number] ??09/16/2024 ?BD DEXA Axial ?? DONG SINCLAIR, Auth 23 ?10:11 EDT ? Skeleton ?NINA L ? 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 INDICATION: ??: E04.2, M85.80 COMPARISON: DXA scan 09/03/2022 FINDINGS: Lumbar Spine L1-L4: Bone mineral density= 1.242 g/cm2. T-score= 0.5 Interval change: -0.1% Is changed significant based on 95% confidence interval?: No HIPS: Left Femoral Neck: Bone mineral density 0.814 g/cm2. T-score= -1.6 Right Femoral Neck: Bone mineral density 0.75 g/cm2. T-score= -2.3 Left Total Hip: Bone mineral density of the proximal femur is 0.846 g/cm2. T-score= -1.3 Right Total Hip: Bone mineral density of the proximal femur is 0.792 g/cm2. T-score= -1.7 DUAL FEMUR Bone mineral density of dual femur based on total mean: 0.819 g/cm2. T-score= -1.5 Admitting: ?RETA SCHULER MD Consulting: Patient Name: ? FRIDA HARPER : ??1945 ?Sex:Female ; ?Location: [facility] ? [phone] ?[place] [address]- ? Radiology Report Interval change: 1.0% Is changed significant based on 95% confidence interval?: No IMPRESSION: 1. ??Osteopenia 2. ??FRAX score: The score is 16.6 percent for major osteoporotic fracture,5.1 percent for hip fracture. (Attending sign by Dr. Ad Palma M.D. READING SITE: [facility]) Final Report Dictated: 09/16/2024 3:22 pm ?Dictated By: AD PALMA MD Electronic Signature: ??09/16/2024 3:23 pm ?? Signed By: AD PALMA MD Admitting: ?MICHELLE SINCLAIR, RETA Consulting: KEITH ROMERO Anatomical Region Laterality Modality Other 09/16/2024 10:1 1 AM EDT us Nina Goldberg MD IMAGING-TENET Final Resul t * DUAL ENERGY DEXA BONE DENSITY ONE/MORE SITES AXIAL SKEL (09/16/2024) Only the most recent of5 resultswithin the time period is included. 09/16/2024 Narrative 09/16/2024 Ordered by an unspecified provider. us Unknown Provider GENERAL IMAGING- OTHER Final Re sult * (ABNORMAL) LIPID PANEL WITH REFLEX TO DIRECT LDL (09/13/2024 12:47 PM EDT) Only the most recent of7 resultswithin the time period is included. Cholesterol 236(H) <200 mg/dL [facility] Triglyceride 62 <150 mg/dL [facility] HDL Cholesterol 94 >40 mg/dL [facility] Comment: NCEP GUIDELINES Desirable >60 mg/dL Borderline 40-59 mg/dL ?? Undesirable <40 mg/dL LDL Cholesterol 130(H) <130 mg/dL [facility] CHOL/HDL Ratio 3 0 - 5 CALC [facility] 09/13/2024 12:4 7 PM EDT 09/13/2024 12:47 PM EDT Narrative [facility] - 09/13/2024 2:41 PM EDT Patient's primary care provider is: ??N/A Testing performed at: [facility], [address] [place] [address], [address], Policyholder Information Clerk: Christopher Quintero MD us Maria Cox NP LABORATORY Final Result [address] [address] DIRECTOR Christopher Quintero MD * XRAY SPINE (04/20/2024) Only the most recent of3 resultswithin the time period is included. 04/20/2024 Narrative 04/20/2024 Ordered by an unspecified provider. us Unknown Provider GENERAL IMAGING- OTHER Final Re sult * UNSPECIFIED MAJOR PROCEDURE (04/20/2024) Max Phillips MD PROCEDURES Final Res ult * DIANE BILATERAL SCREENING DIGITAL MAMMOGRAM WITH DARRON (03/01/2024 4:46 PM EDT) Only the most recent of8 resultswithin the time period is included. Anatomical Region Laterality Modality Other 03/01/2024 4:46 PM EDT Narrative 03/01/2024 4:46 PM EDT EXAMINATION DIANE Bilateral Screening Digital Mammogram With Darron. INDICATION Frida Harper is a 79 y.o. female and is seen for: DIANE Bilateral Screening Digital Mammogram With Darron. CC and MLO views were obtained. FDA approved [employer] ??AI (artificial intelligence) software and R2 CAD were used as a concurrent reading aid in the interpretation of this study. COMPARISON Compared to: 02/25/2023 DIANE Bilateral Screening Digital Mammogram With Darron, 02/21/2022 DIANE Bilateral Screening Digital Mammogram With Darron, 01/22/2021 DIANE BILATERAL SCREENING DIGITAL MAMMOGRAM WITH DARRON, 01/21/2020 DIANE Bilateral Screening Digital Mammogram With Darron, and 01/15/2019 DIANE Bilateral Screening Digital Mammogram With Darron Bilateral Breast Findings: The breasts have scattered areas of fibroglandular density. No significant masses, calcifications or other abnormalities are seen. IMPRESSION BI-RADS ??ATLAS category (overall): 1 - Negative MANAGEMENT Routine Screening Mammogram in 1 Year is recommended for bilateral. ??The patient was entered into a reminder system with a target date for their next mammogram. If this radiology report contains a blank impression section, it is an incomplete radiology report. ??Please contact the interpreting radiologist or applicable radiology division as soon as possible to obtain the completed interpretation. 5' 2.75 143 Procedure Note [facility], Unknown Provider - 03/01/2024 EXAMINATION DIANE Bilateral Screening Digital Mammogram With Darron. INDICATION Frida Harper is a 79 y.o. female and is seen for: DIANE Bilateral Screening Digital Mammogram With Darron. CC and MLO views were obtained. FDA approved [employer] AI (artificialintelligence) software and R2 CAD were used as a concurrent reading aid inthe interpretation of this study. COMPARISON Compared to: 02/25/2023 DIANE Bilateral Screening Digital Mammogram WithTomo, 02/21/2022 DIANE Bilateral Screening Digital Mammogram With Darron,01/22/2021 DIANE BILATERAL SCREENING DIGITAL MAMMOGRAM WITH DARRON, 01/21/2020MAM Bilateral Screening Digital Mammogram With Darron, and 01/15/2019 DIANE Bilateral Screening DigitalMammogram With Darron Bilateral Breast Findings: The breasts have scattered areas of fibroglandular density. No significantmasses, calcifications or other abnormalities are seen. IMPRESSION BI-RADS ATLAS category (overall): 1 - Negative MANAGEMENT Routine Screening Mammogram in 1 Year is recommended for bilateral. Thepatient was entered into a reminder system with a target date for theirnext mammogram. If this radiology report contains a blank impression section, it is anincomplete radiology report. Please contact the interpreting radiologistor applicable radiology division as soon as possible to obtain thecompleted interpretation. 5' [phone] us Khurram Ferrer MD IMAGING-[facility] Final Resul t * US SOFT TISSUE HEAD AND NECK FC (08/27/2023 11:21 AM EDT) Only the most recent of5 resultswithin the time period is included. Anatomical Region Laterality Modality HEAD/BRAIN Ultrasound 09/02/2023 1:15 PM EDT Narrative 09/02/2023 1:15 PM EDT CONTRAST: Ultrasound of the thyroid Comparison: US/MN/SD - U/S ST HEAD / NECK-THY - 09/13/2021 09:26 AM EDT SD/US/MN - U/S ST HEAD / NECK-THY - 06/16/2019 09:39 AM EDT SD/US - U/S HEAD / NECK-THY - 06/15/2018 10:14 AM EDT US/OT/SR - U/S HEAD / NECK-THY - 04/19/2016 03:12 PM EDT Findings: Right lobe of the thyroid measures 4.1 x 1.5 x 1.3 cm. Left lobe of thyroid measures 4.3 x 1.4 x 1.2 cm. The isthmus measures 6 mm. Nodules on the right: Complex cyst upper aspect right lobe measuring 4 x 3 mm. No follow-up recommendations. Nodules in the left: None Isthmus nodule measuring 2.4 x 3.0 x 2.5 cm previously 3.1 x 2.6 x 2.4 cm. ?? This is solid, isoechoic, wider than tall, smooth margins and no calcifications. ??This is a TI-RADS 3 nodule. This is been stable for over 5 years. ??No additional follow-up required. Impression: Nodule within the isthmus. ??This is been stable for over 5 years. ??No additional follow-up required. [employer] TI-RADS Categories TR1 and TR2 nodules do not have followup recommendations TR3 (FNA >= 2.5cm, F/U >= 1.5cm) TR4 (FNA >= 1.5cm, F/U >= 1cm) TR5 (FNA >= 1cm, F/U >= 0.5cm) Procedure Note Sancho De Jesus MD - 09/02/2023 CONTRAST: Ultrasound of the thyroid Comparison: US/MN/SD - U/S HEAD / NECK-THY - 09/13/2021 09:26 AM EDT SD/US/MN - U/S HEAD / NECK-THY - 06/16/2019 09:39 AM EDT SD/US - U/S HEAD / NECK-THY - 06/15/2018 10:14 AM EDT US/OT/SR - U/S HEAD / NECK-THY - 04/19/2016 03:12 PM EDT Findings: Right lobe of the thyroid measures 4.1 x 1.5 x 1.3 cm. Left lobe of thyroid measures 4.3 x 1.4 x 1.2 cm. The isthmus measures 6 mm. Nodules on the right: Complex cyst upper aspect right lobe measuring 4 x 3 mm. No follow-up recommendations. Nodules in the left: None Isthmus nodule measuring 2.4 x 3.0 x 2.5 cm previously 3.1 x 2.6 x 2.4 cm. This is solid, isoechoic, wider than tall, smooth margins and no calcifications. This is a TI-RADS 3 nodule. This is been stable for over5 years. No additional follow-up required. Impression: Nodule within the isthmus. This is been stable for over 5 years. No additional follow-up required. [employer] TI-RADS Categories TR1 and TR2 nodules do not have followup recommendations TR3 (FNA >= 2.5cm, F/U >= 1.5cm) TR4 (FNA >= 1.5cm, F/U >= 1cm) TR5 (FNA >= 1cm, F/U >= 0.5cm) us Nina Goldberg MD IMG US ORDERABLES Final Res ult * EKG-TO BE READ & BILLED BY ADULT OR PEDIATRIC CARDIOLOGY (07/22/2023 4:07 PM EDT) Only the most recent of2 resultswithin the time period is included. VENTRICULAR RATE 82 BPM MUS E EKG SYSTEM ATRIAL RATE 82 BPM MUSE EKG SYSTEM P-R INTERVAL 164 ms MUSE EK G SYSTEM QRS DURATION 78 ms MUSE EK G SYSTEM QT 366 ms MUSE EKG SYSTEM QTC 427 ms MUSE EKG SYSTEM P AXIS 61 degrees MUSE EKG SYSTEM R AXIS 8 degrees MUSE EKG SYSTEM T AXIS 38 degrees MUSE EKG SYSTEM EKG INTERPRETATION Normal sinus rhythm Biatrial enlargement Abnormal ECG When compared with ECG of 01-MAR-2021 09:10, No significant change was found Confirmed by FATOU CARRILLO ([id number]) on 07/22/2023 8:42:17 PM MUSE EKG SYSTEM 07/22/2023 4:07 PM EDT 07/22/2023 8:42 PM EDT us Maria Cox NP CARDIOVASCULAR-WITH INBSKT RTG Final Result Performing Organization Address City/[facility] Co de Phone Number MUSE EKG SYSTEM * PARATHYROID HORMONE (PTH), INTACT WITH CALCIUM, SERUM (07/16/2023 1:39 PM EDT) Only the most recent of5 resultswithin the time period is included. Parathyroid Hormone (PTH), Intact 53.5 14.0 - 72.0 pg/mL [facility] Comment:PTH pg/mL x 0.1061 = pmol/L Calcium 9.8 8.5 - 10.4 mg/dL [facility] 07/16/2023 1:39 PM EDT 07/16/2023 1:39 PM EDT Narrative [facility] - 07/16/2023 3:45 PM EDT Patient's primary care provider is: ??N/A Testing performed at: [facility], [address] [place] [address], [id number], Policyholder Information Clerk: Chirstopher Quintero MD us Nina Goldberg MD LABORATORY Final Resul t [address] [address] DIRECTOR Christopher Quintero MD * COMPREHENSIVE METABOLIC PANEL WITH GFR (07/16/2023 1:38 PM EDT) Only the most recent of8 resultswithin the time period is included. Glucose 87 65 - 99 mg/dl [facility] [...] Alkaline phosphatase 81 33 - 130 U/L [facility] AST (SGOT) 26 <38 U/L [facility] ALT (SGPT) 31 <47 U/L [facility] Carbon dioxide 27 23 - 33 mmol/L [facility] GFR 94 >60 ml/min [facility] 07/16/2023 1:38 PM EDT 07/16/2023 1:38 PM EDT Narrative [facility] - 07/16/2023 3:31 PM EDT Patient's primary care provider is: ??N/A Testing performed at: [facility], [address] [place] [address], [phone], Policyholder Information Clerk: Christopher Quintero MD Maria Cox NP LABORATORY Final Result Performing Organization Address [facility] Co de Phone Number [address] [address] DIRECTOR Christopher Quintero MD * MRI SPINE (04/19/2023) Only the most recent of5 resultswithin the time period is included. 04/19/2023 Narrative 04/19/2023 Ordered by an unspecified provider. us Unknown Provider CONTRAST STUDY- OTHER Final Res ult * CYTOLOGY/PATHOLOGY/GENETICS UNSPECIFIED (03/18/2022) Only the most recent of4 resultswithin the time period is included. us Christopher Griffith MD PATHOLOGY Final R esult * SARS COV 2 RNA(COVID 19), QUALITATIVE NAAT (03/15/2022 11:55 AM EDT) SARS-COV-2 RNA NOT DETECTED NOT DETECTED [facility] Comment: A Not Detected result means that SARS-CoV-2 RNA was not present in the specimen above the limit of detection. A Not Detected result does not rule out the possibility of COVID-19 and should not be used as the sole basis for treatment or patient management decisions. If COVID-19 is still suspected, based on exposure history together with other clinical findings, re-testing should be considered in the context of clinical observations and epidemiological data for patient management decisions. Test Method: Nucleic Acid Amplification Test including reverse air conditioning mechanic industrial polymerase chain reaction (RT-PCR) and air conditioning mechanic industrial mediated amplification (TMA). The test method meets the [place] Centers for Disease Control and prevention (CDC) pre departure and arrival requirement for viral test for COVID-19 dated December 21, 2020. Testing requirements for traveling may change with time. The patient is responsible for determining the test requirements for each nation while they are traveling. This test has been authorized by the FDA under an Emergency Use Authorization (EUA) for use by authorized laboratories. Please review the Fact Sheets and FDA authorized labeling available for health care providers and patients using the following websites: https://www.[employer].com/home/Covid-19/HCP/QuestLDT/ fact-sheet.html https://www.[employer].com/home/Covid-19/Patients/QuestLDT/ fact-sheet.html Due to the current public health emergency, [facility] is accepting samples from appropriate clinical sources collected using wide variety of swabs and transport media for COVID-19. Not detected test results derived from specimens received in non- commercially manufactured viral collection kits or those not yet authorized by FDA for COVID-19 testing should be cautiously evaluated and take extra precautions such as additional clinical monitoring, including collection of an additional specimen. ?? Additional information about COVID-19 can be found at the [facility] website: www.[employer].ehealthtracker/Covid19. Anterior Nares 03/15/2022 11 :55 AM EDT 03/15/2022 11:04 PM EDT Narrative [facility] - 03/16/2022 12:43 PM EDT Patient has been notified of COVID result by [employer] automated phone system. ?? ##NOTIFIED## Resulting Agency Comment [id number] Khurram Ferrer MD LABORATORY Final Resul t [facility] [address] [place] [address] * DUPLEX/DOPPLER SCAN OF ARTERY OR VEIN (02/14/2022) Andrés Clark CARDIOVASCULAR-NO INBASKET RTG F inal Result * US NECK/THYROID (11/19/2021) Only the most recent of2 resultswithin the time period is included. Anatomical Region Laterality Modality Other 11/19/2021 Narrative 11/19/2021 Ordered by an unspecified provider. us Unknown Provider IMAGING-[facility] Final Result * XRAY HIPS BILATERAL MIN 2 VIEWS HIP AND AP PELVIS (10/04/2021) Only the most recent of2 resultswithin the time period is included. 10/04/2021 Narrative 10/04/2021 Ordered by an unspecified provider. us Unknown Provider GENERAL IMAGING- OTHER Final Re sult * (ABNORMAL) CBC (H/H, RBC, INDICES,WBC, PLT) (03/01/2021 9:28 AM EDT) Only the most recent of4 resultswithin the time period is included. WBC 3.7(L) 3.8 - 10.8 K/uL [facility] RBC 4.21 3.80 - 5.10 M/uL [facility] Hemoglobin 12.6 11.7 - 15.5 g/dL [facility] Hematocrit 39.7 35.0 - 45.0 % [facility] MCV 94.3 80.0 - 100.0 fl [facility] MCH 29.9 27.0 - 33.0 pg [facility] MCHC 31.7(L) 32.0 - 36.0 g/dL [facility] RDW 15.2(H) 11.0 - 15.0 % [facility] PLT 244 140 - 400 K/uL [facility] 03/01/2021 9:28 AM EDT 03/01/2021 9:28 AM EDT Narrative [facility] - 03/01/2021 12:41 PM EDT Patient's primary care provider is: ??N/A Testing performed at: [facility], [address] [place] [address], [address], Policyholder Information Clerk: Christopher Quintero MD us Khurram Ferrer MD LAB SAME DAY RESULT Final R esult [address] [address] DIRECTOR Christopher Quintero MD * COMPREHENSIVE EYE EXAM (01/09/2021) Only the most recent of2 resultswithin the time period is included. us Maricel Cleary MD MINOR PROCEDURE Final Resu lt * (ABNORMAL) CBC (INCLUDES DIFF/PLT) (ON-SITE) (10/20/2020 10:53 AM EST) WBC 3.6(L) 3.8 - 10.8 Thousand/u L [facility] RBC 4.32 3.80 - 5.10 Million/uL [facility] Hemoglobin 12.9 11.7 - 15.5 g/dL [facility] Hematocrit 39.5 35.0 - 45.0 % [facility] MCV 91.4 80.0 - 100.0 fL [facility] MCH 29.9 27.0 - 33.0 pg [facility] MCHC 32.7 32.0 - 36.0 g/dL [facility] RDW 14.4 11.0 - 15.0 % [facility] PLT 346 140 - 400 Thousand/u L [facility] MPV 9.4 7.5 - 12.5 fL [facility] Neutrophils # 2243 1500 - 7800 cells/uL [facility] Lymphocytes # 871 850 - 3900 cells/uL [facility] Monocytes # 475 200 - 950 cells/uL [facility] Eosinophils # 0(L) 15 - 500 cells/uL [facility] Basophils # 11 0 - 200 cells/uL [facility] Neutrophils % 62.3 % [facility] Lymphocytes % 24.2 % [facility] Monocytes % 13.2 % [facility] Eosinophils % 0.0 % [facility] Basophils % 0.3 % [facility] 10/20/2020 10:5 3 AM EST 10/20/2020 12:05 PM EST Narrative Resulting Agency Comment [id number] us Corinna Montanez PROFESSOR IN FAMILY STUDIES LAB SAME DAY RESULT Final Resul t Performing Organization Address City/State/[facility] Co de Phone Number [facility] [address] [place] [address] * THYROID STIMULATING HORMONE (TSH) WITH FREE T4 REFLEX, SERUM (09/13/2020 2:59 PM EDT) TSH (Thyrotropin) 2.35 0.40 - 4.50 uIU/ml [facility] 09/13/2020 2:59 PM EDT 09/13/2020 2:59 PM EDT Narrative [facility] - 09/13/2020 4:39 PM EDT Patient's primary care provider is: ??N/A Testing performed at: [facility], [address] , [place], [address], Policyholder Information Clerk: Christopher Quintero MD Charito Neal MD LABORATORY Final Result [address] [address] DIRECTOR Christopher Quintero MD * COLONOSCOPY (08/30/2020) Dakota Justice Muller PROCEDURES Final Result * XR KNEE ORTHO-BILAT (DX: KNEE PAIN *NO INJURY* M25.569/ 719.46)(AGE>=35, CAN WEIGHT-BEAR) FC (08/15/2020 9:56 AM EDT) Anatomical Region Laterality Modality LOWER EXTREMITY Radiographic Meron ging 08/15/2020 10:1 1 AM EDT Narrative 08/15/2020 10:11 AM EDT EXAM: BILATERAL KNEE SERIES WITH STANDING IMAGE: COMPARISON: None TECHNIQUE: ?? Standing, weightbearing AP image of both knees, lateral and sunrise views of both knees. FINDINGS: The bones are mildly osteopenic. ??No acute fracture. Tricompartmental osteoarthritis of the left knee is more pronounced than the right. ??There is medial compartment narrowing and slight lateral subluxation. ?? Medial and lateral marginal osteophytes and patellofemoral osteophytes are noted. No significant joint effusion appreciated. Medial compartment narrowing of the right knee is less pronounced, and there is no significant lateral subluxation. ??Small posterior patellar osteophytes are also noted. No joint effusion or loose body appreciated. IMPRESSION: ?? Tricompartmental osteoarthritis, more pronounced on the left than the right. Procedure Note Dakota Poon MD - 08/15/2020 EXAM: BILATERAL KNEE SERIES WITH STANDING IMAGE: COMPARISON: None TECHNIQUE: Standing, weightbearing AP image of both knees, lateral and sunrise views of both knees. FINDINGS: The bones are mildly osteopenic. No acute fracture. Tricompartmental osteoarthritis of the left knee is more pronounced thanthe right. There is medial compartment narrowing and slight lateralsubluxation. Medial and lateral marginal osteophytes and patellofemoral osteophytes are noted. No significant joint effusion appreciated. Medial compartment narrowing of the right knee is less pronounced, andthere is no significant lateral subluxation. Small posterior patellar osteophytesare also noted. No joint effusion or loose body appreciated. IMPRESSION: Tricompartmental osteoarthritis, more pronounced on the left than theright. us Jose Davis MD IMG XRAY NO CONTRAST ORDERABLE S Final Result * DEXA BONE DENSITY (08/08/2020 11:27 AM EDT) Anatomical Region Laterality Modality Other 08/08/2020 11:2 7 AM EDT Narrative 08/08/2020 11:27 AM EDT EXAM: ??BONE MINERAL DENSITY INDICATION: ??75year old post-menopausal female with estrogen deficiency . PROCEDURE: The bone mineral density (BMD) of the spine, left forearm, and proximal left femur was determined using an external X-ray source Hologic. COMPARISON: [id number] prior studies cannot be compared via BMD and thus % change. ??Approximate comparisons can be made based on T values. FINDINGS: L1-L4: ??BMD: 0.933gm/cm2 ??T-Score: -1.0 ??Z-score: 1.3 ?? Femoral neck: ??BMD: 0.666gm/cm2 ??T-Score: -1.6 ??Z-score: 0.4 ?? Total hip: ?? BMD 0.869gm/cm2 ?T-Score -0.6 ?Z-score 1.1 Trabecular forearm: ??BMD 0.407gm/cm2 ?T-Score -0.6 ?Z-score: 1.1 ?? Cortical forearm: ??BMD 0.681gm/cm2 ?T-Score -0.2 ?Z-score 2.2 ?? The World Health Organization (WHO) defines osteoporosis (as studied in post-menopausal women) as a T value of (-)2.5 or less at any site. ??Osteopenia is defined by a T value between (-)1.0 and (-)2.4. In general, it is recommended that patients receive approximately 1000 mg of calcium daily, either from dairy products or supplements (including multiple vitamin). Patients should consider supplementing with vitamin D. Vitamin D recommendations should be discussed with Health Care Provider and measurement of vitamin D levels should be considered. Careful weight-bearing exercise is also useful in maintaining bone mass and to help protect against falls. IMPRESSION: This patient has osteopenia. Thank you for the courtesy of this referral. Alfred Santana MD, PhD ?? [id number] Procedure Note [facility], Unknown Provider - 08/08/2020 EXAM: BONE MINERAL DENSITY INDICATION: 75year old post-menopausal female with estrogen deficiency. PROCEDURE: The bone mineral density (BMD) of the spine, left forearm, andproximal left femur was determined using an external X-ray sourceHologic. COMPARISON: [id number] prior studies cannot be compared via BMD andthus % change. Approximate comparisons can be made based on T values. FINDINGS: L1-L4: BMD: 0.933gm/cm2 T-Score: -1.0 Z-score: 1.3 Femoral neck: BMD: 0.666gm/cm2 T-Score: -1.6 Z-score: 0.4 Total hip: BMD 0.869gm/cm2 T-Score -0.6 Z-score 1.1 Trabecular forearm: BMD 0.407gm/cm2 T-Score -0.6 Z-score: 1.1 Cortical forearm: BMD 0.681gm/cm2 T-Score -0.2 Z-score 2.2 The World Health Organization (WHO) defines osteoporosis (as studied inpost-menopausal women) as a T value of (-)2.5 or less at any site.Osteopenia is defined by a T value between (-)1.0 and (-)2.4. In general, it is recommended that patients receive approximately 1000 mgof calcium daily, either from dairy products or supplements (includingmultiple vitamin). Patients should consider supplementing with vitamin D.Vitamin D recommendations should be discussed with Health Care Provider and measurement of vitamin D levelsshould be considered. Careful weight-bearing exercise is also useful inmaintaining bone mass and to help protect against falls. IMPRESSION: This patient has osteopenia. Thank you for the courtesy of this referral. Alfred Santana MD, PhD [id number] us Charito Neal MD IMAGING-[facility] Final Result * TISSUE PATHOLOGY (07/12/2020 8:30 AM EDT) Only the most recent of2 resultswithin the time period is included. COLLECTION DATE 07/12/2020 8:30 AM [facility] SPECIMEN SOURCE . A . SKIN EXCISION RIGHT UPPER ARM [facility] DIAGNOSIS . A . SCAR WITH RESIDUAL BASAL CELL CARCINOMA, MARGINS FREE OF INVOLVEMENT. [facility] SPECIMEN SOURCE . B . SKIN SHAVE LEFT FOREHEAD [facility] DIAGNOSIS . B . Irritated and inflamed seborrheic keratosis. [facility] Clinical Information None given [facility] Pathologist Katiana Serna M.D., Ph.D., Board Certified in Anatomic Pathology and Dermatopathology (electronic signature) Consulting Pathologist [facility] [address] [place] [address] [facility] GROSS DESCRIPTION . A . SEE NOTE [facility] Comment: The container is labeled with patient's name and source R arm lesion . ??The specimen is received in formalin and consists of a single unoriented ellipse of light alejo skin tissue measuring 2.4 x 1.0 x 0.5 cm. ??In the Center of the specimen is a pale alejo roughened defect measuring 0.9 x 0.6 cm. The surgical resection margins are inked black. ?? The specimen is serially sectioned and entirely submitted in 4 cassettes with the opposing tips in cassette A4. ??Gross exam(s) performed at: [facility] ??[address] [place] [phone] ??Policyholder Information Clerk: JEAN-PIERRE TORRES MD GROSS DESCRIPTION . B . SEE NOTE [facility] Comment: The container is labeled with patient's name and source L forehead lesion . ??Specimen is received in formalin and consists of a yellow-alejo crusted piece of skin measuring 0.6 x 0.5 x 0.1 cm. The surgical resection margin is inked black. Specimen is bisected and entirely submitted in cassette B1. DC 07/13/2020 07/12/2020 8:30 AM EDT 07/12/2020 11:39 PM EDT John Jordan MD PATHOLOGY-INTERFACED Final Resul t Performing Organization Address City/[facility] Co de Phone Number [facility] [address] [place] [address] * DERMATOPATHOLOGY REPORT (06/14/2020 2:00 PM EDT) Only the most recent of5 resultswithin the time period is included. COLLECTION DATE 06/14/2020 2:00 PM [facility] SPECIMEN SOURCE . A . SKIN SHAVE RIGHT DELTOID [facility] DIAGNOSIS . A . BASAL CELL CARCINOMA, NODULAR TYPE WITH SQUAMOUS FEATURES, EXTENDING TO TISSUE EDGES AND BASE. [facility] Clinical Information [facility] Pathologist Dave Fonseca M.D. Board Certified in Anatomic Pathology and Dermatopathology (electronic signature) Consulting Pathologist [facility] [address] [place] [address] [facility] GROSS DESCRIPTION . A . SEE NOTE [facility] Comment: The container is labeled with patient's name and source R deltoid . ??Specimen is received in formalin and consists of a light alejo crusted piece of skin measuring 0.8 x 0.5 x 0.1 cm. The surgical resection margin is inked black. Specimen is bisected and entirely submitted in cassette A1. MS 06/14/2020 ??Gross exam(s) performed at: [facility] ??[address] [place] [phone] ??Policyholder Information Clerk: JEAN-PIERRE TORRES MD 06/14/2020 2:00 PM EDT 06/14/2020 10:44 PM EDT Christopher Griffith MD PATHOLOGY-INTERFACED Fi nal Result Performing Organization Address City/[facility]/ZIP Co de Phone Number [facility] [address] [place] [address] * XRAY CHEST, 2 VIEWS, PA & LATERAL (DX: COUGH R05/ 786.2) FC (12/15/2019 2:46 PM EST) Only the most recent of2 resultswithin the time period is included. Anatomical Region Laterality Modality CHEST Radiographic Meron ging 12/15/2019 3:40 PM EST Narrative 12/15/2019 3:40 PM EST 2 views of the chest. Comparison 01/02/2016. Findings: Heart size is normal. There is no consolidation. No pleural effusion is seen. Impression: No consolidation. Procedure Note Kain Brand MD - 12/15/2019 2 views of the chest. Comparison 01/02/2016. Findings: Heart size is normal. There is no consolidation. No pleural effusion isseen. Impression: No consolidation. Tai Torres MD IMG XRAY NO CONTRAST ORDERABLES Final Result * ELECTROMYOGRAM/NERVE CONDUCTION STUDY (EMG/NCS) (11/08/2019) John Pineda MD PROCEDURES Final Result * COLLAGEN CROSS-LINKED N-TELOPEPTIDE (NTX), URINE (09/21/2019 8:10 AM EDT) Only the most recent of3 resultswithin the time period is included. Collagen crosslinked N-telopeptide/Cre atinine (Urine) 50 see [...] 11:40 PM EDT Narrative Resulting Agency Comment [id number] us Charito Neal MD LABORATORY Final Result [facility] [address] [place] [address] * COLONOSCOPY (08/04/2019) Dakota Muller PROCEDURES Final Result * ELECTROMYOGRAM/NERVE CONDUCTION STUDY (EMG/NCS) (06/22/2019) John Pineda MD PROCEDURES Final Result * XRAY ANKLE COMPLETE MIN 3 VWS - RIGHT FC (06/03/2019 9:41 AM EDT) Anatomical Region Laterality Modality LOWER EXTREMITY Radiographic Meron ging 06/03/2019 10:0 6 AM EDT Narrative 06/03/2019 10:06 AM EDT EXAM: ??3 views of the right ankle. TECHNIQUE: ??3 views of the right ankle. COMPARISON: None FINDINGS: Lateral soft tissue swelling. ??Alignment is normal. ??No fractures or other osseous abnormalities. ?? IMPRESSION: Lateral soft tissue swelling. ??Otherwise, negative ankle. Procedure Note Dillon Forrest MD - 06/03/2019 EXAM: 3 views of the right ankle. TECHNIQUE: 3 views of the right ankle. COMPARISON: None FINDINGS: Lateral soft tissue swelling. Alignment is normal. No fractures or other osseous abnormalities. IMPRESSION: Lateral soft tissue swelling. Otherwise, negative ankle. Cindy Hoyt PROFESSOR IN FAMILY STUDIES IMG XRAY NO CONTRAST ORDERAB LES Final Result * BORRELIA BURGDORFERI AB (LYME), EIA WITH [...] 1:21 PM EDT Narrative Resulting Agency Comment [id number] John Pineda MD LABORATORY Final Result Performing Organization Address [facility] de Phone Number [facility] [address] [place] [address] * IMMUNOFIXATION, SERUM (05/24/2019 12:15 PM EDT) Pathologist [facility] Interpretation No monoclonal proteins detected. [facility] 05/24/2019 12:1 5 PM EDT 05/24/2019 1:21 PM EDT Narrative Resulting Agency Comment [id number] John Pineda MD LABORATORY Final Result Performing Organization Address [facility] de Phone Number [facility] [address] [place] [address] * DANA SCREEN IFA W/REFLEX TO TITER/PATTERN [...] for interpretation of all antibodies in the [place], prevalence, and association with diseases at [email or web address] 05/24/2019 12:1 5 PM EDT 05/24/2019 1:21 PM EDT Narrative Resulting Agency Comment [id number] John Pineda MD LABORATORY Final Result Performing Organization Address [facility] Co de Phone Number [facility] [address] [place] [address] * VITAMIN B12 (CYANOCOBALAMIN), SERUM (05/24/2019 12:15 PM EDT) Vitamin B12 (Cobalamins) 742 200 - 1100 pg/mL [facility] 05/24/2019 12:1 5 PM EDT 05/24/2019 1:21 PM EDT Narrative Resulting Agency Comment [id number] John Pineda MD LABORATORY Final Result Performing Organization Address [facility] Co de Phone Number [facility] [address] [place] [address] * HEMOGLOBIN A1C (04/12/2019 4:42 PM EDT) Hemoglobin A1C 4.7 <5.7 % Total [facility] Comment: For diagnostic purposes: <5.7 ?Decreased risk of diabetes 5.7 - 6.4 ?Increased risk of diabetes >6.5 ? Consistent with diabetes Diagnosis of diabetes should be confirmed by repeat testing. Estimated Average Glucose 88 mg/dL(calc ) [facility] 04/12/2019 4:42 PM EDT 04/12/2019 4:42 PM EDT Narrative [facility] - 04/12/2019 5:42 PM EDT Patient's primary care provider is: ??N/A Testing performed at: [facility], [address] [place] [address], [id number], Policyholder Information Clerk: Christopher Quintero MD Susan Chacon MD MPH LABORATORY Final Resu lt Performing Organization Address [facility] de Phone Number [address] [address] DIRECTOR Christopher Quintero MD * XRAY KNEE COMPLETE INCL OBLQ/TU/SUN (10/05/2018) Only the most recent of2 resultswithin the time period is included. 10/05/2018 Christopher Carolina [facility] IMAGING- OTHER Final R esult * PHOSPHATE, SERUM (06/17/2018 7:50 AM EDT) Only the most recent of2 resultswithin the time period is included. Phosphate 3.1 2.5 - 4.5 mg/dL [facility] 06/17/2018 7:50 AM EDT 06/17/2018 7:50 AM EDT Narrative [facility] - 06/17/2018 9:41 AM EDT fasting Patient's primary care provider is: ??N/A Testing performed at: [facility], [address] [place] [address], [id number], Policyholder Information Clerk: Rosalia Gonzales, Ph.D Charito Neal MD LABORATORY Final Result Performing Organization Address [facility] de Phone Number [address] [address] DIRECTOR Rosalia Gonzales, Ph.D * MAGNESIUM, SERUM (06/17/2018 7:50 AM EDT) Only the most recent of2 resultswithin the time period is included. Magnesium 1.9 1.5 - 2.5 mg/dL [facility] 06/17/2018 7:50 AM EDT 06/17/2018 7:50 AM EDT Narrative [facility] - 06/17/2018 9:41 AM EDT fasting Patient's primary care provider is: ??N/A Testing performed at: [facility], [address] [place] [address], [id number], Policyholder Information Clerk: Rosalia Gonzales, Ph.D Charito Neal MD LABORATORY Final Result [address] [address] DIRECTOR Rosalia Gonzales, Ph.D * MAMMOGRAPHY-BILATERAL (01/08/2017) Only the most recent of2 resultswithin the time period is included. 01/08/2017 Susan Chacon MD MPH GENERAL IMAGING- OTHER Fin al Result * CARDIOVASCULAR STRESS TEST W/TREADMILL, BICYCLE, AND/OR PHARMACOLOGICAL STRESS; W/ SUPERV/INTERP (03/19/2016) ETT BASELINE HR beats/min ETT BASELINE SYSTOLIC BP mmHg ETT BASELINE DIASTOLIC BP mmHg ETT EXERCISE TIME MINUTES minutes ETT EXERCISE TIME SECONDS secs ETT METS METS ETT PEAK HR beats/min ETT % MAXIMAL PEAK HR % ETT PEAK SYSTOLIC BP mmHg ETT PEAK DIASTOLIC BP mmHg ETT RESOLUTION OF ST SEGMENTS minutes ETT RESOLUTION OF SYMPTOMS minutes ETT PERSANTINE DOSE mg ETT LEXISCAN DOSE Narrative 03/19/2016 Negative max Henry ETT. ??She did have frequent PACs at rest and in recovery. See scanned. ??The results of this test have been briefly discussed with this patient. Transcriptions Hesham Monaco MD - 03/20/2016 12:00 AM EDT us Hesham Monaco MD CARDIOVASCULAR-WITH INBSKT RT G Final Result * MRI ABDOMEN W/O CONTRAST MATERIAL(S) FOLLOWED BY CONTRAST MATERIAL(S) AND (02/09/2016) Only the most recent of2 resultswithin the time period is included. 02/09/2016 Narrative Transcriptions Minerva Ortiz - 02/09/2016 12:00 AM EDT Minerva Ortiz MD CONTRAST STUDY- OTHER Final Re sult * ECHOCARDIOGRAPHY, TRANSTHORACIC (TTE) WITH 2D IMAGE W/WO M-MODE RECORDING, COMPLETE, WITH DOPPLER (01/31/2016) LV DIASTOLIC DIMENSION 3.9 - 5.3 cm LV SYSTOLIC DIMENSION 2.1 - 4.0 cm LV SEPTUM DIMENSION 0.6 - 0.9 cm LV POSTERIOR WALL DIMENSION 0.6 - 0.9 cm LV EJECTION FRACTION 54 - 74 % LA DIMENSION 2.7 - 3.8 cm LA VOLUME INDEX 16 - 34 ml/m2 RA VOLUME INDEX 15 - 27 ml/m2 RV BASAL DIMENSION <=4.2 cm AORTIC ROOT DIAMETER 2.7 - 3.3 cm AORTIC ROOT INDEX 1.6 - 2.0 cm/m2 ASCENDING AORTA DIAMETER 2.3 - 3.1 cm ASCENDING AORTA INDEX 1.3 - 1.9 cm/m2 LVOT DIAMETER cm AV MAXIMUM VELOCITY m/sec LVOT VELOCITY m/sec V1/V2 RATIO AV MAXIMUM GRADIENT mmHg AV MEAN GRADIENT mmHg AORTIC VALVE AREA cm2 MV DIASTOLIC MEAN GRADIENT mmHg MV PRESSURE HALF-TIME msec MITRAL VALVE AREA cm2 TV REGURGITANT VELOCITY m/sec PA PRESSURE mmHg MITRAL E VELOCITY cm/s MITRAL DECELERATION TIME msec MITRAL E/A VELOCITY RATIO SEPTAL E VELOCITY cm/s SEPTAL E/E' VELOCITY RATIO 01/31/2016 Narrative Samira Joseph LPN - 01/31/2016 ECHOCARDIOGRAM REPORT ? Date of Service: 01/31/2016 LOCATION: [facility] ? Referring Physician: Susan Chacon MD MPH ? Patient: Frida Harper, ?? Date of : 1945 ? BMI: There is no weight on file to calculate BMI. Reason for Echocardiogram:Palpitations Performing It Project Manager: Sima Milan CARDIAC CHAMBER SIZES: Left Atrium: 3.5 (nl <4.0cm) ? LV Diastolic Dimension: 4.4 (nl 3.6-5.6cm) Aortic Root: 3.3 (nl <3.6cm) ? LV Systolic Dimension: 3.0 (nl 2.0-3.5cm) Prox Ascending Aorta:3.2(nl <3.8cm) ? LV Septal thickness: 0.9 (nl 0.7-1.1cm) LV Posterior Wall thickness: 1.0 (nl 0.7-1.1cm) TWO DIMENSIONAL IMAGING: Left Ventricle: ??Normal left ventricular size, thickness and systolic function with no regional wall motion abnormalities. Estimated LVEF 60%. Indeterminate indices of diastolic function. Right Ventricle: Normal right ventricular size and function. Left Atrium: ??Normal left atrium; 25 ml/m2 Right Atrium: ??Normal right atrium. Aortic Root: ??Normal size aortic root. Pericardium: ??No pericardial effusion. HEART VALVES; ??DOPPLER/COLOR FLOW IMAGING: Aortic Valve: Trileaflet aortic valve; Trace AI. Vmax 1.2 m/s Mitral Valve: ??Mildly thickened mitral valve leaflets; Mild-moderate MR Pulmonic Valve: Structurally normal pulmonic valve with trace pulmonic insufficiency. Tricuspid Valve: ??Normal tricuspid valve with mild tricuspid regurgitation. Peak Velocity: 2.6 m/sec Est PASP: 32 mmHg assuming an RA pressure of 5mmHg Normal size IVC with > 50%. respirophasic IMPRESSION: 1. Normal left ventricular size, thickness and systolic function with no regional wall motion abnormalities. Estimated LVEF 60% 2. Normal right ventricular size and function. 3. Trileaflet aortic valve; Trace AI. No 4. ??Mildly thickened mitral valve leaflets; Mild-moderate MR 5. Mild tricuspid regurgitation; Est PASP: 32 mmHg assuming an RA pressure of 5mmHg 6. No pericardial effusion ?? No prior report for comparison us Susan Chacon MD MPH CARDIO-VASCULAR - OTHER Fi nal Result * BUN/CREATININE RATIOW/EGFR (01/10/2016 9:52 AM EST) Only the most recent of2 resultswithin the time period is included. Urea Nitrogen Blood (BUN) 15 7 - 25 mg/dL [facility] Creatinine 0.82 0.50 - 1.16 mg/dL [facility] GFR 73 >60 ml/min [facility] Comment:If the patient is Af rican [place], please multiply result by 1.210 01/10/2016 9:52 AM EST 01/10/2016 9:52 AM EST Narrative [facility] - 01/10/2016 11:48 AM EST fasting Patient's primary care provider is: ??N/A Testing performed at: [facility], [address] [place] [address], [id number], Policyholder Information Clerk: Rui Walker M.D. us Susan Chacon MD MPH LABORATORY Final Resu lt [address] [address] DIRECTOR RUI WALKER M.D. * T3 (TRIIODOTHYRONINE), FREE, SERUM (01/10/2016 9:52 AM EST) Free T3 2.5 2.3 - 4.2 pg/mL [facility] Comment:{T3, FREE {[id number]) 01/10/2016 9:52 AM EST 01/10/2016 2:01 PM EST Narrative Resulting Agency Comment [id number] us Susan Chacon MD MPH LABORATORY Final Resu lt [facility] [address] [place] [address] * EKG (01/05/2016) Narrative Transcriptions Provider, Unknown - 01/08/2016 12:00 AM EST us Unknown Provider CARDIOVASCULAR-NO INBASKET RTG Final Result * EXTERNAL CONTINUOUS ECG RECORDING <=48 HRS W/ SCAN ANALYSIS REVIEW & INTERP BY SKILLED PROFESSIONAL (01/05/2016) Narrative 01/05/2016 Frida Harper 1945 Susan Chacon MD MPH 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 The heart rate ranged from 60 to 122 BPM with an average heart rate of 77 BPM The predominant rhythm was normal sinus. There were also periods of sinus bradycardia and sinus tachycardia. There was no evidence of conduction disease. There were no pauses. There were 1648 supraventricular ectopic beats averaging 69 beats/hour. These ectopic beats were isolated premature atrial contractions (PACs). There were 798 ventricular ectopic beats averaging 33 beats/hour. These ectopic beats were all isolated premature ventricular contractions (PVCs). A diary was submitted and symptoms were recorded. Symptoms of palpitations and flutter correlated with normal sinus rhythm and occasionally with premature atrial contractions. Impression: Normal sinus rhythm with occasional PACs and PVCs but, no significant arrhythmias noted during the periods of reported symptoms. Read By: Hesham Monaco M.D. Transcriptions Hesham Monaco MD - 01/09/2016 12:00 AM EST us Hesham Monaco MD CARDIOVASCULAR-WITH INBSKT RT G Final Result * UNSPECIFIED DIAGNOSTIC PROCE (01/05/2016) Narrative Transcriptions Unknown Pcp, Non Rmg - 01/10/2016 12:00 AM EST Non Rmg Unknown Pcp LABORATORY Final Result * CT SCAN OF SPINE (09/22/2015) Only the most recent of2 resultswithin the time period is included. 09/22/2015 Narrative Transcriptions Ge Christopher Philip - 09/22/2015 12:00 AM EDT Christopher Caroilna GENERAL IMAGING- OTHER Final R esult * MEASLES IGG AB (RUBEOLA) (05/29/2015 11:50 AM EDT) Measles virus Ab.IgG >5.00 index [facility] Comment: {MEASLES ANTIBODY (IGG) {[id number]) ? Index ? Explanation of Test Results [...] 2:15 PM EDT Report Comments: (ORIGINAL [facility] C-HXKOTVF ANTIBODY I (ORIGINAL [facility] JYHZJEU (MEASLES) I Resulting Agency Comment [id number] Susan Chacon MD MPH LABORATORY Final Resu lt Performing Organization Address [facility] de Phone Number [facility] [address] [place] [address] * RUBELLA ANTIBODY IGG, SERUM (05/29/2015 11:50 AM EDT) Rubella virus Ab.IgG 3.37 [facility] Comment: {RUBELLA ANTIBODY (IGG) {[id number]) ? Value ?Interpretation ? ----- ? < or = 0.90 ?Not consistent with Immunity ? 0.91-1.09 ?Equivocal ? > or = 1.10 ?Consistent with Immunity The presence of rubella IgG antibody suggests immunization or past or current infection with rubella virus. 05/29/2015 11:5 0 AM EDT 05/30/2015 3:34 AM EDT Narrative [facility] - 05/30/2015 2:15 PM EDT Report Comments: (ORIGINAL [facility] V-BSEPXOY ANTIBODY I (ORIGINAL [facility] NQVVQOX (MEASLES) I Resulting Agency Comment [id number] us Susan Chacon MD MPH LABORATORY Final Resu lt Performing Organization Address [facility] de Phone Number [facility] [address] [place] [address] * (ABNORMAL) MUMPS VIRUS ANTIBODY, IGG, SERUM (05/29/2015 11:50 AM EDT) Mumps virus Ab.IgG 0.93(L) index [facility] Comment: {MUMPS VIRUS ANTIBODY (IGG) {[id number]) Index ?Interpretation < or = 0.90 ?Negative [...] 2:15 PM EDT Report Comments: (ORIGINAL [facility] J-JERQMSK ANTIBODY I (ORIGINAL [facility] ILMMLMM (MEASLES) I Resulting Agency Comment [id number] us Susan Chacon MD MPH LABORATORY Final Resu lt [facility] [address] [place] [address] * REQUEST FOR MRI NON-FC (05/22/2015) Anatomical Region Laterality Modality Other Narrative Transcriptions Minerva Ortiz - 06/05/2015 12:00 AM EDT us Minerva Ortiz MD REQUEST [facility] Final Result * (ABNORMAL) LIPID PROFILE (01/23/2015 9:43 AM EST) Only the most recent of8 resultswithin the time period is included. Cholesterol 223(H) <200 mg/dL 01/23/2015 11:[address] [facility] Triglyceride 68 <150 mg/dL 01/23/2015 11:[address] [facility] Cholesterol.in HDL 89 >40 mg/dL 01/23/2015 11:[address] [facility] Comment: NCEP GUIDELINES Desireable >60 mg/dL Borderline 40-59 mg/dL ?? Undesirable <40 mg/dL LDL 120 <130 mg/dL 01/23/2015 11:[address] [facility] Chol/HDL Ratio 2 0 - 5 CALC 01/23/2015 11:[address] [facility] 01/23/2015 9:43 AM EST 01/23/2015 9:[address] [facility] - 01/23/2015 12:00 AM EST fasting Patient's primary care provider is: ??Susan Chacon. us Susan Chacon MD MPH LABORATORY Final Resu lt [facility] * HEMOGRAM (CBC) (01/23/2015 9:43 AM EST) Only the most recent of5 resultswithin the time period is included. Leukocytes 3.9 3.8 - 10.8 K/uL 01/23/2015 9:[address] [facility] Erythrocytes 4.30 3.80 - 5.10 M/uL 01/23/2015 9:[address] [facility] Hemoglobin 13.0 11.7 - 15.5 g/dL 01/23/2015 9:[address] [facility] Hematocrit 39.7 35.0 - 45.0 % 01/23/2015 9:[address] [facility] Mean Corpuscular Volume 92.3 80.0 - 100.0 fl 01/23/2015 9:[address] [facility] Mean Corpuscular Hemoglobin 30.2 27.0 - 33.0 pg 01/23/2015 9:[address] [facility] Mean Corpuscular Hemoglobin Conc 32.7 32.0 - 36.0 g/dL 01/23/2015 9:[address] [facility] RDW 13.8 11.0 - 15.0 % 01/23/2015 9:[address] [facility] Platelets 273 140 - 400 K/uL 01/23/2015 9:[address] [facility] 01/23/2015 9:4 3 AM EST 01/23/2015 9:[address] [facility] - 01/23/2015 12:00 AM EST fasting Patient's primary care provider is: ??Susan Chacon us Susan Chacon MD MPH LABORATORY Final Resu lt [facility] * (ABNORMAL) COMPREHENSIVE METABOLIC PROFILE W/GFR ([facility]) (01/23/2015 9:43 AM EST) Only the most recent of4 resultswithin the time period is included. [facility] Glucose 79 65 - 99 mg/dl 01/23/2015 11:[address] [facility] Urea Nitrogen Blood (BUN) 11 7 - 25 mg/dL 01/23/2015 11:[address] [facility] Creatinine 0.72 0.50 - 1.16 mg/dL 01/23/2015 11:[address] [facility] Sodium 134(L) 136 - 145 mmo/L 01/23/2015 11:[address] [facility] Potassium 4.1 3.5 - 5.3 mmol/L 01/23/2015 11:[address] [facility] Chloride 97(L) 98 - 107 mmo/L 01/23/2015 11:[address] [facility] Calcium 9.3 8.5 - 10.4 mg/dL 01/23/2015 11:[address] [facility] Protein Total (Serum) 6.9 6.0 - 8.3 g/dL 01/23/2015 11:[address] [facility] Albumin 4.4 3.5 - 5.2 g/dL 01/23/2015 11:[address] [facility] Globulin 2 2 - 4 G/DL 01/23/2015 11:[address] [facility] Bilirubin, Total 0.34 0.20 - 1.50 mg/dL 01/23/2015 11:[address] [facility] Alkaline Phosphatase 74 33 - 130 U/L 01/23/2015 11:[address] [facility] AST (SGOT) 21 <38 U/L 01/23/2015 11:[address] [facility] ALT (SGPT) 20 <47 U/L 01/23/2015 11:[address] [facility] Carbon Dioxide 26 23 - 33 mmol/L 01/23/2015 11:[address] [facility] Glomerular Filtration Rate,Est 86 >60 ml/min 01/23/2015 11:[address] [facility] Comment: For patients greater than 18 years of and and if the patient is , please multiply result by 1.210 01/23/2015 9:43 AM EST 01/23/2015 9:[address] [facility] - 01/23/2015 12:00 AM EST fasting Patient's primary care provider is: ??Susan Chacon. us Susan Chacno MD MPH LABORATORY Final Resu lt [facility] * SCREENING MAMMOGRAPHY DIGITAL (11/14/2014 12:00 AM EST) Only the most recent of3 resultswithin the time period is included. ATTACHED DOCUMENT 11/14/2014 12:00 AM EST Anatomical Region Laterality Modality Other 11/14/2014 11/14/2014 Narrative Transcriptions Susan Chacon MD MPH - 05/19/2015 12:00 AM EDT Susan Chacon MD MPH IMAGING-ATRIUS Final Resu lt * KNEE XRAY LEFT MIN 4 VIEWS (08/12/2014 12:00 AM EDT) ATTACHED DOCUMENT 08/12/2014 12:00 AM EDT Anatomical Region Laterality Modality Other 08/12/2014 08/12/2014 Narrative Transcriptions Susan Chacon MD MPH - 05/20/2015 12:00 AM EDT Susan Chacon MD MPH IMAGING - NO INBASKET RTG Final Result * SHOULDER XRAY RIGHT (08/12/2014 12:00 AM EDT) ATTACHED DOCUMENT 08/12/2014 12:00 AM EDT Anatomical Region Laterality Modality Other 08/12/2014 08/12/2014 Narrative Transcriptions Susan Chacon MD MPH - 05/21/2015 12:00 AM EDT Susan Chacon MD MPH IMAGING - NO INBASKET RTG Final Result * COLONOSCOPY (08/04/2014 12:00 AM EDT) ATTACHED DOCUMENT 08/04/2014 12:00 AM EDT ATTACHED DOCUMENT 08/04/2014 12:00 AM EDT 08/04/2014 08/04/2014 Narrative Transcriptions Susan Chacon MD MPH - 05/18/2015 12:00 AM EDT Susan Chacon MD MPH - 05/18/2015 12:00 AM EDT Susan Chacon MD MPH PROCEDURES Final Resu lt * SURGICAL / TISSUE PATHOLOGY (06/22/2014 12:00 AM EDT) Only the most recent of6 resultswithin the time period is included. ATTACHED DOCUMENT 06/22/2014 12:[address] [facility] 06/22/2014 06/22/2014 Narrative Transcriptions Susan Chacon MD MPH - 05/19/2015 12:00 AM EDT Susan Chacon MD MPH PATHOLOGY Final Resu lt [facility] * DXA BONE DENSITY STUDY 1+ SITS AXIAL SKEL (02/15/2014 12:00 AM EDT) Only the most recent of3 resultswithin the time period is included. ATTACHED DOCUMENT 02/15/2014 12:00 AM EDT ATTACHED DOCUMENT 02/15/2014 12:00 AM EDT Anatomical Region Laterality Modality Other 02/15/2014 02/15/2014 Narrative Transcriptions Susan Chacon MD MPH - 05/18/2015 12:00 AM EDT Susan Chacon MD MPH - 05/18/2015 12:00 AM EDT Susan Chacon MD MPH IMAGING - NO INBASKET RTG Final Result * FOOT XRAY MIN 3 VIEWS (07/16/2013 11:12 AM EDT) Only the most recent of2 resultswithin the time period is included. Anatomical Region Laterality Modality Other 07/16/2013 11:1 2 AM EDT 07/16/2013 11:12 AM EDT Narrative 07/16/2013 12:00 AM EDT EXAMINATION: ?? Right foot 3 views. INDICATION: Followup fracture great toe. TECHNIQUE: AP, oblique and lateral views of the right foot. COMPARISON: 06/01/2013 FINDINGS/IMPRESSION: No significant change in the oblique fracture of the proximal phalanx of the right first digit. Tanesha Rowdy Osman DPM IMAGING - NO INBASKET RTG F inal Result * PODIATRY CONSULTATION (06/01/2013 12:00 AM EDT) 06/01/2013 06/01/2013 Susan Chacon MD MPH EVALUATION AND MGMT Final Result * US HEAD/NECK TISSUES, B-SCAN/REAL TIME W/IMAGE DOCUMENTATION (11/20/2012 12:00 AM EST) ATTACHED DOCUMENT 11/20/2012 12:00 AM EST Anatomical Region Laterality Modality Other 11/20/2012 11/20/2012 Narrative Transcriptions Susan Chacon MD MPH - 05/22/2015 12:00 AM EDT Susan Chacon MD [facility]PH [facility] Final Result * KNEE XRAY LEFT MIN 3 VIEWS (11/19/2012 11:51 AM EST) Anatomical Region Laterality Modality Other 11/19/2012 11:5 1 AM EST 11/19/2012 11:51 AM EST Impressions 11/19/2012 12:00 AM EST Impression: No acute fracture. Mild to moderate osteoarthritis of the knee. Narrative 11/19/2012 12:00 AM EST Clinical Information: knee pain ???arthritis This order has been electronically signed by the provider listed. Examination: Left complete knee. Indication: Pain. Technique: AP, lateral, tunnel and sunrise views of the left knee. Comparison: None. Findings: There is no acute fracture. Moderate joint space narrowing involving the medial compartment. Also, joint space narrowing involving the lateral aspect of the patellofemoral joint. Medial joint space marginal osteophytes. Small joint effusion. The soft tissues are grossly unremarkable. Susan Chacon MD MPH [facility] Final Result * HEPATITIS C ANTIBODY (11/19/2012 9:25 AM EST) Hepatitis C Virus Ab < 0.02 <1.00 11/20/2012 9:[address] [facility] Hepatitis C Virus Ab Negative 11/20/2012 9:[address] [facility] Comment: Not infected with HCV, unless recent infection is suspected or other evidence exists to indicate HCV infection. Performing site ML: [employer] [place], [place] Christopher Horton MD, ?? CLIA:[id number] 11/19/2012 9:25 AM EST 11/19/2012 9:[address] [facility] - 11/20/2012 12:00 AM EST hepc added on per pool ??11-19-12 kr Patient's primary care provider is: ??Chacon, Susan C. Susan Chacon MD MPH LABORATORY Final Resu lt Performing Organization Address City/[facility] Co de Phone Number [facility] * EKG (11/19/2012) Only the most recent of4 resultswithin the time period is included. ATTACHED DOCUMENT 11/19/2012 12:00 AM EST 11/19/2012 11/19/2012 Narrative Transcriptions Susan Chacon MD MPH - 05/22/2015 12:00 AM EDT Susan Chacon MD MPH CARDIOVASCULAR-NO INBASKET RTG Final Result * WOOD PATH 4 (04/27/2012 12:00 AM EDT) Only the most recent of3 resultswithin the time period is included. ATTACHED DOCUMENT 04/27/2012 12:[address] [facility] 04/27/2012 04/27/2012 Narrative Transcriptions Susan Chacon MD MPH - 05/19/2015 12:00 AM EDT Susan Chacon MD MPH PATHOLOGY Final Resu lt Performing Organization Address [facility] Co de Phone Number [facility] * SCREENING MAMMOGRAPHY BILATERAL (10/30/2011 12:00 AM EST) Only the most recent of3 resultswithin the time period is included. ATTACHED DOCUMENT 10/30/2011 12:00 AM EST Anatomical Region Laterality Modality Other 10/30/2011 10/30/2011 Narrative Transcriptions Susan Chacon MD MPH - 05/19/2015 12:00 AM EDT Susan Chacon MD MPH IMAGING - NO INBASKET RTG Final Result * VITAMIN D 25-HYDROXY TOTAL PLUS D2, D3 (06/20/2011 11:15 AM EDT) Only the most recent of2 resultswithin the time period is included. Vitamin D, 25 Hydroxy Total 32 30 - 100 ng/mL 06/22/2011 8:[address] [facility] Vitamin D, D3 (Cholecalcifero l) 32 ng/mL 06/22/2011 8:[address] [facility] Vitamin D, 25-OH, D2 (Calciferol) <4 ng/mL 06/22/2011 8:[address] [facility] Comment: ? 25-OHD3 indicates both endogenous production and supplementation. 25-OHD2 is an indicator of exogenous sources such as diet or supplementation. Therapy is based on measurement of Total 25-OHD, with levels <20 ng/mL indicative of Vitamin D deficiency, while levels between 20 ng/mL and 30 ng/mL suggest insufficiency. Optimal levels are ? > or = 30 ng/mL. 06/20/2011 11:1 5 AM EDT 06/20/2011 11:[address] [facility] - 06/22/2011 12:00 AM EDT Fastin hours Testing performed at: [facility], [address] [place] [address] ??, [place], [phone], Policyholder Information Clerk: JOSE NOVAK MD us Susan Chacon MD MPH LABORATORY Final Resu lt [facility] * LUMBAR SPINE XRAY 3 VIEWS (01/30/2011 3:46 PM EST) Anatomical Region Laterality Modality Other 01/30/2011 3:46 PM EST 01/30/2011 3:46 PM EST Impressions 01/30/2011 12:00 AM EST IMPRESSION: ??Degenerative changes, as described. Narrative 01/30/2011 12:00 AM EST Clinical Data: LBP LUMBAR SPINE 3 VIEWS: Scoliosis convex left in the lower lumbar region. Normal lateral alignment. Significant facet joint osteoarthritis at L3-S1. Mild disc narrowing at L2-L3. Vacuum degeneration of the L5-S1 disc. us Susan Chacon MD MPH IMAGING - NO INBASKET RTG Final Result * COLONOSCOPY (01/02/2011 12:00 AM EST) ATTACHED DOCUMENT 01/02/2011 12:00 AM EST 01/02/2011 01/02/2011 Narrative Transcriptions Provider, Unknown - 05/21/2015 12:00 AM EDT us Non Rmg Unknown Pcp PROCEDURES Final Result * COMPREHENSIVE METABOLIC PROFILE (06/19/2010 11:13 AM EDT) Only the most recent of4 resultswithin the time period is included. Glucose 92 65 - 99 mg/dL 06/19/2010 4:[address] [facility] Urea Nitrogen Blood (BUN) 15 7 - 25 MG/DL 06/19/2010 4:17 PM EDT [facility] Creatinine 0.6 0.5 - 1.3 MG/DL 06/19/2010 4:17 PM EDT [facility] BUN/Creatinine Ratio 25 6 - 25 RATIO 06/19/2010 4:17 PM EDT [facility] Sodium 142 135 - 148 MEQ/L 06/19/2010 4:17 PM EDT [facility] Potassium 4.7 3.5 - 5.3 MEQ/L 06/19/2010 4:17 PM EDT [facility] Chloride 105 98 - 110 MEQ/L 06/19/2010 4:17 PM EDT [facility] Calcium 9.1 8.5 - 10.4 MG/DL 06/19/2010 4:17 PM EDT [facility] Protein Total (Serum) 6.2 6.0 - 8.3 G/DL 06/19/2010 4:17 PM EDT [facility] Albumin 3.9 3.5 - 4.9 G/DL 06/19/2010 4:17 PM EDT [facility] Globulin 2 2 - 4 G/DL 06/19/2010 4:17 PM EDT [facility] A/G Ratio 1.8 0.8 - 2.0 (CALC) 06/19/2010 4:[address] [facility] Bilirubin, Total 0.2 0.2 - 1.5 MG/DL 06/19/2010 4:[address] [facility] Alkaline Phosphatase 57 33 - 130 U/L 06/19/2010 4:[address] [facility] AST (SGOT) 28 14 - 36 U/L 06/19/2010 4:[address] [facility] Carbon Dioxide 28 21 - 33 MEQ/L 06/19/2010 4:[address] [facility] ALT (SGPT) 28 9 - 52 U/L 06/19/2010 4:[address] [facility] 06/19/2010 11:1 3 AM EDT 06/19/2010 11:13 AM EDT us Susan Chacon MD MPH LABORATORY Final Resu lt [facility] * XR SPINE, LUMBOSACRAL; 2 OR 3 VIEWS (06/19/2010) ATTACHED DOCUMENT 06/19/2010 12:00 AM EDT Anatomical Region Laterality Modality Other 06/19/2010 06/19/2010 Narrative Transcriptions Susan Chacon MD MPH - 05/21/2015 12:00 AM EDT us Susan Chacon MD MPH IMAGING - NO INBASKET RTG Final Result * US PELVIC (NONOBSTETRIC), B-SCAN &/OR REAL TIME W/IMAGE DOCUMENTATION; COMPLETE (06/14/2010 12:00 AM EDT) ATTACHED DOCUMENT 06/14/2010 12:00 AM EDT Anatomical Region Laterality Modality Other 06/14/2010 06/14/2010 Narrative Transcriptions Provider, Unknown - 05/22/2015 12:00 AM EDT us Non Rmg Unknown Pcp IMAGING - NO INBASKET RTG Fi nal Result * BONE DENSITY STUDY (08/22/2008) ATTACHED DOCUMENT 08/22/2008 12:00 AM EDT ATTACHED DOCUMENT 08/22/2008 12:00 AM EDT Anatomical Region Laterality Modality Other 08/22/2008 08/22/2008 Narrative Transcriptions Susan Chacon MD MPH - 05/18/2015 12:00 AM EDT Susan Chacon MD MPH - 05/18/2015 12:00 AM EDT Susan Chacon MD MPH IMAGING-ATRIUS Final Resu lt * HEMOGRAM (CBC) W AUTO DIFF RFLX MAN DIFF (08/15/2008 12:00 AM EDT) Only the most recent of3 resultswithin the time period is included. Leukocytes 5.6 3.8 - 10.8 K/uL 08/15/2008 1:[address] [facility] Neutrophils # 4.2 2.0 - 6.9 K/uL 08/15/2008 1:16 PM EDT [facility] Lymphocytes # 1.0 0.6 - 3.4 K/uL 08/15/2008 1:[address] [facility] Monocytes # 0.3 0.0 - 0.9 K/uL 08/15/2008 1:16 PM EDT [facility] Eosinophils # 0.0 0.0 - 0.7 K/uL 08/15/2008 1:16 PM EDT [facility] Basophils # 0.1 0.0 - 0.2 K/uL 08/15/2008 1:16 PM EDT [facility] Neutrophils % 74.7 37.0 - 80.0 % 08/15/2008 1:16 PM EDT [facility] Lymphocytes % 18.4 10.0 - 50.0 % 08/15/2008 1:16 PM EDT [facility] Monocytes/100 Leukocytes 5.3 0.0 - 12.0 % 08/15/2008 1:16 PM EDT [facility] Eosinophils/100 leukocytes 0.2 0.0 - 7.0 % 08/15/2008 1:16 PM EDT [facility] Basophils/100 leukocytes 1.4 0.0 - 2.5 % 08/15/2008 1:16 PM EDT [facility] Erythrocytes 4.14 3.80 - 5.10 M/uL 08/15/2008 1:16 PM EDT [facility] Hemoglobin 13.0 11.7 - 15.5 g/dL 08/15/2008 1:16 PM EDT [facility] Hematocrit 39.3 35.0 - 45.0 % 08/15/2008 1:16 PM EDT [facility] Mean Corpuscular Volume 94.7 80.0 - 100.0 fl 08/15/2008 1:16 PM EDT [facility] Mean Corpuscular Hemoglobin 31.5 27.0 - 33.0 pg 08/15/2008 1:16 PM EDT [facility] Mean Corpuscular Hemoglobin Conc 33.2 32.0 - 36.0 % 08/15/2008 1:16 PM EDT [facility] RDW 12.4 11.0 - 15.0 % 08/15/2008 1:16 PM EDT [facility] Platelets 359 140 - 400 K/uL 08/15/2008 1:16 PM EDT [facility] 08/15/2008 08/15/2008 us Susan Chacon MD MPH LABORATORY Final Resu lt [facility] * URINALYSIS W MICROSCOPIC (08/04/2008 12:00 AM EDT) Color (Urine) YELLOW Yellow 08/04/2008 2:[address] [facility] Appearance (Urine) CLEAR Clear 08/04/2008 2:07 PM EDT [facility] PH (Urine) 7.0 5.0 - 8.0 08/04/2008 2:07 PM EDT [facility] Specific [place] (Urine) <=1.005 1.005 - 1.030 08/04/2008 2:07 PM EDT [facility] Glucose (Urine) NEGATIVE Negative 8 2:[address] [facility] Bilirubin (Urine) NEGATIVE Negative 008 2:07 PM EDT [facility] Ketones (Urine) NEGATIVE Negative 8 2:07 PM EDT [facility] Protein (Urine) NEGATIVE Negative 8 2:07 PM EDT [facility] Urobilinogen (Urine) 0.2 0.0 - 1.0 EU/dl 08/04/2008 2:07 PM EDT [facility] Nitrite (Urine) NEGATIVE Negative 8 2:07 PM EDT [facility] Blood (Urine) NEGATIVE Negative 08/04/2008 2:07 PM EDT [facility] Leukocyte Esterase (Urine) TRACE Negative 08/04/2008 2:07 PM EDT [facility] Leukocytes (Urine) 0-2 Negative 08/04/2008 2:07 PM EDT [facility] RBC (Urine Sed) 0 Negative 8 2:07 PM EDT [facility] Epithelial Cells (Urine Sed) rare Negative 08/04/2008 2:07 PM EDT [facility] Casts (Urine) 0 Negative 08/04/2008 2:07 PM EDT [facility] Crystals (Urine sed) 0 Negative 08/04/2008 2:07 PM EDT [facility] Bacteria (Urine) trace Negative 08/04/20 08 2:07 PM EDT [facility] Miscellaneous Urine 0 Negative 08/04/2008 2:07 PM EDT [facility] Miscellaneous 2, Ur 0 Negative 08/04/2008 2:07 PM EDT [facility] 08/04/2008 08/04/2008 us Susan Chacon MD MPH LABORATORY Final Resu lt [facility] * XR KNEE; BOTH KNEES, STANDING, ANTEROPOSTERIOR (11/08/2004 12:00 AM EST) ATTACHED DOCUMENT 11/08/2004 12:00 AM EST Anatomical Region Laterality Modality Other 11/08/2004 11/08/2004 Narrative Transcriptions Provider, Unknown - 05/21/2015 12:00 AM EDT us Non Rmg Unknown Pcp IMAGING - NO INBASKET RTG Fi nal Result * MAMMOGRAM RIGHT (05/24/2004 12:00 AM EDT) ATTACHED DOCUMENT 05/24/2004 12:00 AM EDT Anatomical Region Laterality Modality Other 05/24/2004 05/24/2004 Narrative Transcriptions Provider, Unknown - 05/21/2015 12:00 AM EDT us Non Rmg Unknown Pcp IMAGING - NO INBASKET RTG Fi nal Result * COLONOSCOPY (09/29/2002 12:00 AM EST) ATTACHED DOCUMENT 09/29/2002 12:00 AM EST 09/29/2002 09/29/2002 Narrative Transcriptions Provider, Unknown - 05/19/2015 12:00 AM EDT us Non Rmg Unknown Pcp PROCEDURES Final Result * PULMONARY FUNCTION SPIROMETRY (06/08/2002 12:00 AM EDT) ATTACHED DOCUMENT 06/08/2002 12:00 AM EDT ATTACHED DOCUMENT 06/08/2002 12:00 AM EDT 06/08/2002 06/08/2002 Narrative Transcriptions Provider, Unknown - 05/21/2015 12:00 AM EDT Provider, Unknown - 05/22/2015 12:00 AM EDT us Non Rmg Unknown Pcp PROCEDURES Final Result Visit Diagnoses Diagnosis Start Date Malignant neoplasm of skin Unspecified malignant neoplasm of skin, site unspecified 11/29/1993 Malignant neoplasm of skin Unspecified malignant neoplasm of skin, site unspecified 12/06/1993 Malignant neoplasm of skin Unspecified malignant neoplasm of skin, site unspecified 12/13/1993 Other unknown and unspecified cause of morbidity or mortality 05/21/1999 Other unknown and unspecified cause of morbidity or mortality 05/21/1999 Unspecified reason for consultation 06/21/1999 Unspecified reason for consultation 10/25/1999 Unspecified reason for consultation 12/06/1999 Other unknown and unspecified cause of morbidity or mortality 12/08/1999 Unspecified reason for consultation 01/30/2006 Unspecified reason for consultation 02/04/2006 Breast screening, unspecified 06/25/2008 Breast screening, unspecified 06/28/2008 Other screening mammogram 07/06/2008 Backache, unspecified 08/04/2008 Sciatica 08/04/2008 Routine general medical examination at a health care facility 08/15/2008 Personal history of other malignant neoplasm of skin 08/15/2008 Symptomatic menopausal or female climacteric states 08/15/2008 Routine general medical examination at a health care facility 08/15/2008 Depressive disorder, not elsewhere classified 08/15/2008 Anxiety state, unspecified 08/15/2008 Actinic keratosis 11/01/2008 Malignant neoplasm of skin Unspecified malignant neoplasm of skin, site unspecified 11/01/2008 Personal history of other malignant neoplasm of skin 11/01/2008 Seborrheic dermatitis, unspecified 11/01/2008 Benign neoplasm of skin, site unspecified 11/01/2008 Malignant neoplasm of skin Unspecified malignant neoplasm of skin, site unspecified 12/15/2008 Other specified counseling 12/23/2008 Acute bronchitis 03/27/2009 Neoplasm of uncertain behavior of skin 04/13/2009 Personal history of other malignant neoplasm of skin 04/13/2009 Malignant neoplasm of skin Unspecified malignant neoplasm of skin, site unspecified 05/01/2009 Personal history of other malignant neoplasm of skin 05/16/2009 Nontoxic uninodular goiter 06/05/2009 Examination of eyes and vision 06/12/2009 Neoplasm of uncertain behavior of skin 08/07/2009 Actinic keratosis 08/07/2009 Benign neoplasm of skin, site unspecified 08/07/2009 Personal history of other malignant neoplasm of skin 08/07/2009 Inflamed seborrheic keratosis 08/07/2009 Neoplasm of uncertain behavior of skin 10/30/2009 Benign neoplasm of skin, site unspecified 10/30/2009 Actinic keratosis 10/30/2009 Personal history of other malignant neoplasm of skin 10/30/2009 Inflamed seborrheic keratosis 10/30/2009 Actinic keratosis 12/21/2009 Inflamed seborrheic keratosis 12/21/2009 Neoplasm of uncertain behavior of skin 03/15/2010 Benign neoplasm of skin, site unspecified 03/15/2010 Actinic keratosis 03/15/2010 Malignant neoplasm of skin of trunk Unspecified malignant neoplasm of skin of trunk, except scrotum 03/15/2010 Personal history of other malignant neoplasm of skin 03/15/2010 Other seborrheic keratosis 03/15/2010 Neoplasm of uncertain behavior of skin 03/19/2010 Malignant neoplasm of skin of trunk Unspecified malignant neoplasm of skin of trunk, except scrotum 03/19/2010 Other specified counseling 03/28/2010 Actinic keratosis 05/10/2010 Neoplasm of uncertain behavior of skin 05/10/2010 Benign neoplasm of skin, site unspecified 05/10/2010 Personal history of other malignant neoplasm of skin 06/19/2010 Routine general medical examination at a health care facility 06/19/2010 Disorder of bone and cartilage, unspecified 06/19/2010 Lumbago 06/19/2010 Nontoxic uninodular goiter 06/25/2010 Disorder of bone and cartilage, unspecified 06/25/2010 Unspecified vitamin D deficiency 06/25/2010 Other specified counseling 07/02/2010 Disorder of bone and cartilage, unspecified 09/26/2010 Disorder of bone and cartilage, unspecified 09/26/2010 Other specified counseling 10/15/2010 Other specified counseling 10/16/2010 Other specified counseling 10/19/2010 Other screening mammogram 11/06/2010 Other specified counseling 01/21/2011 Lumbago 01/22/2011 Other specified counseling 01/22/2011 Lumbago 01/30/2011 Personal history of other malignant neoplasm of skin 04/26/2011 Unspecified disorder of skin and subcutaneous tissue 05/14/2011 Other specified counseling 06/01/2011 Disorder of bone and cartilage, unspecified 06/06/2011 Screening for lipoid disorders 06/06/2011 Screening for other and unspecified deficiency anemia 06/06/2011 Screening for diabetes mellitus 06/06/2011 Routine general medical examination at a health care facility 06/20/2011 Personal history of other malignant neoplasm of skin 08/15/2011 Actinic keratosis 09/16/2011 Other screening mammogram 11/01/2011 Personal history of other malignant neoplasm of skin 11/11/2011 Photokeratitis 03/13/2012 Other dyschromia 05/01/2012 Personal history of other malignant neoplasm of skin 06/05/2012 Other specified counseling 10/16/2012 Nontoxic uninodular goiter 10/26/2012 Screening for iron deficiency anemia 11/06/2012 Screening for diabetes mellitus 11/06/2012 Screening for lipoid disorders 11/06/2012 Other specified counseling 11/12/2012 Need for prophylactic vaccination and inoculation against unspecified single disease 11/19/2012 Pain in joint, lower leg 11/19/2012 Special screening examination for other specified viral diseases 11/19/2012 Routine general medical examination at a health care facility 11/19/2012 Backache, unspecified 11/19/2012 Cough 11/19/2012 Nontoxic uninodular goiter 11/20/2012 Nontoxic uninodular goiter 11/20/2012 Unspecified disorder of skin and subcutaneous tissue 12/02/2012 Closed fracture of one or more phalanges of foot 06/01/2013 Pain in limb 06/01/2013 Actinic keratosis 06/03/2013 Closed fracture of one or more phalanges of foot 06/04/2013 Pain in limb 06/04/2013 Difficulty in walking(719.7) Difficulty in walking 06/04/2013 Closed fracture of one or more phalanges of foot 06/25/2013 Pain in limb 06/25/2013 Difficulty in walking(719.7) Difficulty in walking 06/25/2013 Pain in limb 07/16/2013 Injury, other and unspecified, unspecified site 07/16/2013 Closed fracture of one or more phalanges of foot 07/16/2013 Other unknown and unspecified cause of morbidity or mortality 07/19/2013 Other screening mammogram 11/10/2013 Unspecified disorder of skin and subcutaneous tissue 12/13/2013 Screening for other and unspecified deficiency anemia 12/14/2013 Screening for diabetes mellitus 12/14/2013 Screening for lipoid disorders 12/14/2013 Unspecified otitis media 12/29/2013 Acute sinusitis, unspecified 01/07/2014 Nonsuppurative otitis media, not specified as acute or chronic 01/07/2014 Screening for lipoid disorders 01/16/2014 Disorder of bone and cartilage, unspecified 01/19/2014 Benign neoplasm of colon 01/19/2014 Need for prophylactic vaccination and inoculation against unspecified single disease 01/19/2014 Elevated blood pressure reading without diagnosis of hypertension 01/19/2014 Routine general medical examination at a health care facility 01/19/2014 Other unknown and unspecified cause of morbidity or mortality 02/20/2014 Disorder of bone and cartilage, unspecified 02/25/2014 Unspecified essential hypertension 03/17/2014 Disorder of bone and cartilage, unspecified 05/18/2014 Benign neoplasm of colon 05/18/2014 Need for prophylactic vaccination and inoculation against unspecified single disease 05/18/2014 Elevated blood pressure reading without diagnosis of hypertension 05/18/2014 Routine general medical examination at a health care facility 05/18/2014 Other unknown and unspecified cause of morbidity or mortality 06/13/2014 Other specified counseling 06/30/2014 Pain in joint, lower leg 08/02/2014 Pain in joint, shoulder region 08/02/2014 Pain in joint, lower leg 08/12/2014 Other screening mammogram 12/26/2014 Screening for other and unspecified deficiency anemia 12/29/2014 Screening for lipoid disorders 12/29/2014 Screening for diabetes mellitus 12/29/2014 Screening for lipoid disorders 01/23/2015 Elevated blood pressure reading without diagnosis of hypertension 01/23/2015 Need for prophylactic vaccination and inoculation against unspecified single disease 01/23/2015 Routine general medical examination at a health care facility 01/23/2015 Other unknown and unspecified cause of morbidity or mortality 02/20/2015 Abnormal MRI Other nonspecific (abnormal) findings on radiological and other examinations of body structure 05/22/2015 Disorder of bone and cartilage, unspecified 05/29/2015 Benign neoplasm of colon 05/29/2015 Need for prophylactic vaccination and inoculation against unspecified single disease 05/29/2015 Elevated blood pressure reading without diagnosis of hypertension 05/29/2015 Routine general medical examination at a health care facility 05/29/2015 Abnormal finding Other nonspecific abnormal finding 05/29/2015 Disorder of bone and cartilage, unspecified 05/31/2015 Benign neoplasm of colon 05/31/2015 Need for prophylactic vaccination and inoculation against unspecified single disease 05/31/2015 Elevated blood pressure reading without diagnosis of hypertension 05/31/2015 Routine general medical examination at a health care facility 05/31/2015 Abnormal finding Other nonspecific abnormal finding 05/31/2015 Angiomyolipoma of kidney, unspecified laterality 06/06/2015 Liver lesion Other specified disorders of liver 06/06/2015 Angiomyolipoma of kidney, unspecified laterality 06/14/2015 Angiomyolipoma Benign neoplasm of kidney, except pelvis 06/19/2015 Cough 12/08/2015 Liver lesion Other specified disorders of liver 12/20/2015 HTN, white coat Unspecified essential hypertension 12/20/2015 HTN, white coat Unspecified essential hypertension 12/27/2015 Osteopenia Disorder of bone and cartilage, unspecified 12/27/2015 Screening for deficiency anemia Screening for other and unspecified deficiency anemia 12/27/2015 Screening for diabetes mellitus (DM) Screening for diabetes mellitus 12/27/2015 Screening for hyperlipidemia Screening for lipoid disorders 12/27/2015 Palpitations 01/02/2016 Cough 01/02/2016 Palpitations 01/02/2016 Palpitations 01/02/2016 Cough 01/02/2016 Cough 01/02/2016 Palpitations 01/02/2016 Bronchitis Bronchitis, not specified as acute or chronic 01/02/2016 Palpitations 01/05/2016 Liver lesion Other specified disorders of liver 01/10/2016 HTN, white coat Unspecified essential hypertension 01/10/2016 Osteopenia Disorder of bone and cartilage, unspecified 01/10/2016 Screening for hyperlipidemia Screening for lipoid disorders 01/10/2016 Thyroid nodule Nontoxic uninodular goiter 01/10/2016 Thyroid nodule Nontoxic uninodular goiter 01/10/2016 Palpitations 01/10/2016 Bronchitis Bronchitis, not specified as acute or chronic 01/10/2016 Osteopenia Disorder of bone and cartilage, unspecified 01/29/2016 Thyroid nodule Nontoxic uninodular goiter 01/29/2016 Well adult exam Routine general medical examination at a health care facility 01/29/2016 Palpitations 01/31/2016 Palpitations 02/08/2016 Palpitations 02/21/2016 PAC (premature atrial contraction) Supraventricular premature beats 02/21/2016 Non-rheumatic mitral regurgitation Mitral valve disorders 02/21/2016 Palpitations 03/19/2016 Osteopenia Disorder of bone and cartilage, unspecified 04/08/2016 Thyroid nodule Nontoxic uninodular goiter 04/08/2016 Thyroid nodule Nontoxic uninodular goiter 04/08/2016 Osteopenia Disorder of bone and cartilage, unspecified 04/08/2016 Thyroid nodule Nontoxic uninodular goiter 04/19/2016 Osteopenia Disorder of bone and cartilage, unspecified 01/23/2017 Screening for deficiency anemia Screening for other and unspecified deficiency anemia 01/23/2017 Screening for diabetes mellitus (DM) Screening for diabetes mellitus 01/23/2017 Screening for hyperlipidemia Screening for lipoid disorders 01/23/2017 Osteopenia Disorder of bone and cartilage, unspecified 02/17/2017 Screening for deficiency anemia Screening for other and unspecified deficiency anemia 02/17/2017 Screening for diabetes mellitus (DM) Screening for diabetes mellitus 02/17/2017 Screening for hyperlipidemia Screening for lipoid disorders 02/17/2017 White coat syndrome without diagnosis of hypertension Elevated blood pressure reading without diagnosis of hypertension 02/26/2017 Well adult exam Routine general medical examination at a health care facility 02/26/2017 Screening for hyperlipidemia Screening for lipoid disorders 02/12/2018 Screening for diabetes mellitus (DM) Screening for diabetes mellitus 02/12/2018 Screening for deficiency anemia Screening for other and unspecified deficiency anemia 02/12/2018 Screening for hyperlipidemia Screening for lipoid disorders 03/01/2018 Screening for diabetes mellitus (DM) Screening for diabetes mellitus 03/01/2018 Screening for deficiency anemia Screening for other and unspecified deficiency anemia 03/01/2018 History of basal cell carcinoma Personal history of other malignant neoplasm of skin 03/02/2018 History of SCC (squamous cell carcinoma) of skin Personal history of other malignant neoplasm of skin 03/02/2018 Routine history and physical examination of adult Routine general medical examination at a health care facility 03/02/2018 Multinodular goiter Nontoxic multinodular goiter 06/04/2018 Osteopenia, unspecified location 06/04/2018 Multinodular goiter Nontoxic multinodular goiter 06/15/2018 Multinodular goiter Nontoxic multinodular goiter 06/17/2018 Osteopenia, unspecified location 06/17/2018 Actinic keratoses Actinic keratosis 06/22/2018 Neoplasm of uncertain behavior Neoplasm of uncertain behavior, site unspecified 06/22/2018 History of basal cell carcinoma Personal history of other malignant neoplasm of skin 06/22/2018 History of SCC (squamous cell carcinoma) of skin Personal history of other malignant neoplasm of skin 06/22/2018 Multiple nevi Benign neoplasm of skin, site unspecified 06/22/2018 Basal cell carcinoma, trunk Basal cell carcinoma of skin of trunk, except scrotum 07/13/2018 Basal cell carcinoma of neck Basal cell carcinoma of scalp and skin of neck 08/10/2018 Cellulitis of neck Cellulitis and abscess of neck 08/13/2018 History of basal cell carcinoma Personal history of other malignant neoplasm of skin 09/28/2018 Neoplasm of uncertain behavior Neoplasm of uncertain behavior, site unspecified 09/28/2018 Actinic keratoses Actinic keratosis 09/28/2018 Hypertension, unspecified type 10/21/2018 Bilateral foot pain Pain in limb 10/21/2018 Neuropathy Mononeuritis of unspecified site 11/06/2018 Foot pain, bilateral Pain in limb 11/06/2018 Neoplasm of uncertain behavior Neoplasm of uncertain behavior, site unspecified 12/28/2018 Actinic keratoses Actinic keratosis 12/28/2018 Hypertrophic scar Keloid scar 12/28/2018 Numbness Disturbance of skin sensation 02/08/2019 Foot pain, bilateral Pain in limb 02/08/2019 Neoplasm of uncertain behavior Neoplasm of uncertain behavior, site unspecified 02/22/2019 Basal cell carcinoma (BCC), unspecified site 02/25/2019 Basal cell carcinoma of skin of trunk Basal cell carcinoma of skin of trunk, except scrotum 03/16/2019 Numbness of foot Disturbance of skin sensation 03/17/2019 Well adult exam Routine general medical examination at a health care facility 03/17/2019 Depressive disorder Depressive disorder, not elsewhere classified 03/17/2019 Anxiety states Anxiety state, unspecified 03/17/2019 Routine history and physical examination of adult Routine general medical examination at a health care facility 03/17/2019 Basal cell carcinoma of skin of trunk Basal cell carcinoma of skin of trunk, except scrotum 03/30/2019 Numbness of foot Disturbance of skin sensation 04/12/2019 Pronation deformity of ankle, acquired, unspecified laterality 04/12/2019 Walking difficulty due to ankle and foot Difficulty in walking 04/12/2019 Idiopathic peripheral neuropathy Unspecified hereditary and idiopathic peripheral neuropathy 05/24/2019 Idiopathic peripheral neuropathy Unspecified hereditary and idiopathic peripheral neuropathy 05/24/2019 Screening for colon cancer Special screening for malignant neoplasms, colon 05/25/2019 Leukopenia, unspecified type 05/31/2019 Actinic keratoses Actinic keratosis 05/31/2019 History of basal cell carcinoma Personal history of other malignant neoplasm of skin 05/31/2019 History of SCC (squamous cell carcinoma) of skin Personal history of other malignant neoplasm of skin 05/31/2019 Scar Scar condition and fibrosis of skin 05/31/2019 Neoplasm of uncertain behavior Neoplasm of uncertain behavior, site unspecified 05/31/2019 Acute right ankle pain 06/03/2019 Leukopenia, unspecified type 06/03/2019 Acute right ankle pain 06/03/2019 Multinodular goiter Nontoxic multinodular goiter 06/16/2019 Paresthesia Disturbance of skin sensation 06/22/2019 Squamous cell carcinoma in situ Carcinoma in situ, site unspecified 06/28/2019 Actinic keratoses Actinic keratosis 06/28/2019 Scar, hypertrophic Keloid scar 06/28/2019 History of basal cell carcinoma Personal history of other malignant neoplasm of skin 06/28/2019 Neoplasm of uncertain behavior Neoplasm of uncertain behavior, site unspecified 08/30/2019 Multiple benign nevi Benign neoplasm of skin, site unspecified 08/30/2019 History of nonmelanoma skin cancer Personal history of other malignant neoplasm of skin 08/30/2019 Actinic keratosis due to exposure to sunlight 08/30/2019 Osteopenia, unspecified location 09/13/2019 Multinodular goiter Nontoxic multinodular goiter 09/13/2019 Menopausal disorder Unspecified menopausal and postmenopausal disorder 09/13/2019 Osteopenia, unspecified location 09/21/2019 Multinodular goiter Nontoxic multinodular goiter 09/21/2019 Paresthesia Disturbance of skin sensation 10/04/2019 Idiopathic peripheral neuropathy Unspecified hereditary and idiopathic peripheral neuropathy 10/04/2019 Hypertension, unspecified type 10/19/2019 Lumbar radiculopathy Thoracic or lumbosacral neuritis or radiculitis, unspecified 11/08/2019 Cough 11/12/2019 Wheezing 11/12/2019 Bronchitis Bronchitis, not specified as acute or chronic 11/12/2019 Lumbosacral radiculopathy at L5 Thoracic or lumbosacral neuritis or radiculitis, unspecified 11/25/2019 Anterolisthesis Congenital spondylolisthesis 11/25/2019 Cough 12/15/2019 Cough 12/15/2019 Subacute maxillary sinusitis Acute maxillary sinusitis 12/15/2019 Foraminal stenosis of lumbar region Spinal stenosis, lumbar region, without neurogenic claudication 12/17/2019 Lumbosacral stenosis with neurogenic claudication Spinal stenosis, lumbar region, with neurogenic claudication 12/17/2019 Facet arthritis of lumbar region Lumbosacral spondylosis without myelopathy 12/17/2019 Low back pain of over 3 months duration 12/17/2019 Neoplasm of uncertain behavior of skin 01/07/2020 Actinic keratosis 01/07/2020 History of nonmelanoma skin cancer Personal history of other malignant neoplasm of skin 01/07/2020 Seborrheic keratoses 01/07/2020 Hypertrophic scar Keloid scar 01/07/2020 SCC (squamous cell carcinoma) Squamous cell carcinoma of skin, site unspecified 01/11/2020 Basal cell carcinoma (BCC), unspecified site 01/11/2020 Open wound Open wound(s) (multiple) of unspecified site(s), without mention of complication 01/14/2020 Hypertension, unspecified type 04/23/2020 Inflamed seborrheic keratosis 06/14/2020 Neoplasm of uncertain behavior of skin 06/14/2020 Basal cell carcinoma (BCC) of pretibial region of right lower extremity 06/14/2020 Hypertension, unspecified type 06/15/2020 Screen for colon cancer Special screening for malignant neoplasms, colon 06/15/2020 Major depressive disorder, single episode, in full remission Major depressive disorder, single episode in full remission 06/15/2020 Anxiety states Anxiety state, unspecified 06/15/2020 Numbness of foot Disturbance of skin sensation 06/15/2020 Basal cell carcinoma (BCC), unspecified site 06/16/2020 Basal cell carcinoma (BCC) of right upper arm 07/03/2020 Need for vaccination Need for prophylactic vaccination and inoculation against unspecified single disease 07/05/2020 BCC (basal cell carcinoma), arm, right 07/12/2020 Face lesion Unspecified disorder of skin and subcutaneous tissue 07/12/2020 Bilateral lumbar radiculopathy 07/19/2020 Pain Generalized pain 08/15/2020 Pain Generalized pain 08/15/2020 Primary osteoarthritis of both knees Primary localized osteoarthrosis, lower leg 08/15/2020 Mild secondary hyperparathyroidism (HHS) 09/13/2020 Multinodular goiter Nontoxic multinodular goiter 09/13/2020 Multinodular goiter Nontoxic multinodular goiter 09/13/2020 Mild secondary hyperparathyroidism (HHS) 09/13/2020 Osteopenia, unspecified location 09/13/2020 Cellulitis of right upper extremity Cellulitis and abscess of upper arm and forearm 10/20/2020 Abscess Cellulitis and abscess of unspecified site 10/20/2020 Cellulitis of right upper extremity Cellulitis and abscess of upper arm and forearm 10/21/2020 Cellulitis, unspecified cellulitis site 10/22/2020 Abscess Cellulitis and abscess of unspecified site 10/22/2020 Abscess of right forearm Cellulitis and abscess of upper arm and forearm 10/23/2020 Cellulitis of right forearm Cellulitis and abscess of upper arm and forearm 10/23/2020 MRSA infection Methicillin resistant Staphylococcus aureus in conditions classified elsewhere and of unspecified site 10/23/2020 Hypertension, unspecified type 12/12/2020 Screening for lipid disorders 12/12/2020 Angiomyolipoma of kidney Benign neoplasm of kidney, except pelvis 12/12/2020 Hypertension, unspecified type 12/25/2020 Screening for lipid disorders 12/25/2020 Angiomyolipoma of kidney Benign neoplasm of kidney, except pelvis 12/25/2020 Benign essential HTN Essential hypertension, benign 12/25/2020 Chronic bilateral low back pain with bilateral sciatica 12/25/2020 Other secondary osteoarthritis of both knees 01/30/2021 Benign essential HTN Essential hypertension, benign 02/28/2021 Major depressive disorder, single episode, in full remission Major depressive disorder, single episode in full remission 02/28/2021 High risk medication use Encounter for long-term (current) use of other medications 02/28/2021 Lumbosacral stenosis with neurogenic claudication Spinal stenosis, lumbar region, with neurogenic claudication 02/28/2021 Pre-op evaluation Preoperative examination, unspecified 02/28/2021 Palpitation Palpitations 03/01/2021 Benign essential HTN Essential hypertension, benign 03/01/2021 High risk medication use Encounter for long-term (current) use of other medications 03/01/2021 Routine history and physical examination of adult Routine general medical examination at a health care facility 03/28/2021 Major depressive disorder, single episode, in full remission Major depressive disorder, single episode in full remission 03/28/2021 Benign essential HTN Essential hypertension, benign 03/28/2021 High risk medication use Encounter for long-term (current) use of other medications 03/28/2021 Lumbosacral stenosis with neurogenic claudication Spinal stenosis, lumbar region, with neurogenic claudication 03/28/2021 Dyslipidemia Other and unspecified hyperlipidemia 03/28/2021 Seasonal allergies Allergic rhinitis, cause unspecified 03/28/2021 Multinodular goiter Nontoxic multinodular goiter 09/13/2021 Bilateral lumbar radiculopathy 09/19/2021 Dyslipidemia Other and unspecified hyperlipidemia 09/25/2021 Lumbar radiculopathy, right 09/26/2021 Benign essential HTN Essential hypertension, benign 09/26/2021 Multinodular goiter Nontoxic multinodular goiter 10/01/2021 Mild secondary hyperparathyroidism (HHS) 10/01/2021 Multinodular goiter Nontoxic multinodular goiter 10/01/2021 Mild secondary hyperparathyroidism (HHS) 10/01/2021 Osteopenia, unspecified location 10/01/2021 Postmenopausal disorder Unspecified menopausal and postmenopausal disorder 10/01/2021 Left hip pain Pain in joint, pelvic region and thigh 10/04/2021 Left hip pain Pain in joint, pelvic region and thigh 10/05/2021 Lumbar back pain with radiculopathy affecting left lower extremity 11/28/2021 Multinodular goiter Nontoxic multinodular goiter 12/25/2021 Bilateral lumbar radiculopathy 12/26/2021 Contact with and (suspected) exposure to covid-19 03/15/2022 Bilateral lumbar radiculopathy 03/27/2022 Benign essential HTN Essential hypertension, benign 04/03/2022 Major depressive disorder, single episode, in full remission Major depressive disorder, single episode in full remission 04/03/2022 Lumbosacral stenosis with neurogenic claudication Spinal stenosis, lumbar region, with neurogenic claudication 04/03/2022 Dyslipidemia Other and unspecified hyperlipidemia 04/03/2022 Skin cancer Unspecified malignant neoplasm of skin, site unspecified 04/03/2022 Routine history and physical examination of adult Routine general medical examination at a health care facility 04/03/2022 Mild secondary hyperparathyroidism (HHS) 04/03/2022 Bilateral lumbar radiculopathy 07/10/2022 Mild secondary hyperparathyroidism (HHS) 08/22/2022 Multinodular goiter Nontoxic multinodular goiter 08/22/2022 Mild secondary hyperparathyroidism (HHS) 09/04/2022 Multinodular goiter Nontoxic multinodular goiter 09/04/2022 Mild secondary hyperparathyroidism (HHS) 09/12/2022 Multinodular goiter Nontoxic multinodular goiter 09/12/2022 Osteopenia, unspecified location 09/12/2022 Bilateral lumbar radiculopathy 10/09/2022 Benign paroxysmal positional vertigo due to bilateral vestibular disorder 11/28/2022 Major depressive disorder, single episode, in full remission Major depressive disorder, single episode in full remission 11/28/2022 Anxiety states Anxiety state, unspecified 11/28/2022 Mild secondary hyperparathyroidism (HHS) 11/28/2022 Essential hypertension 11/28/2022 Lumbar radiculopathy, right 01/22/2023 Essential hypertension 03/11/2023 Lumbar radiculopathy, right 03/19/2023 Lumbar radiculopathy, right 04/04/2023 Bilateral lumbar radiculopathy 04/04/2023 Bilateral lumbar radiculopathy 04/30/2023 Routine history and physical examination of adult Routine general medical examination at a health care facility 06/17/2023 Essential hypertension 06/17/2023 Major depressive disorder, single episode, in full remission Major depressive disorder, single episode in full remission 06/17/2023 Anxiety states Anxiety state, unspecified 06/17/2023 History of SCC (squamous cell carcinoma) of skin Personal history of other malignant neoplasm of skin 06/17/2023 Colonic adenoma Benign neoplasm of colon 06/17/2023 Screening for lipid disorders 06/17/2023 Screening for diabetes mellitus 06/17/2023 Lumbosacral stenosis with neurogenic claudication Spinal stenosis, lumbar region, with neurogenic claudication 06/17/2023 History of basal cell carcinoma Personal history of other malignant neoplasm of skin 06/17/2023 Mild secondary hyperparathyroidism (HHS) 06/17/2023 Multinodular goiter Nontoxic multinodular goiter 06/17/2023 Screening for diabetes mellitus 07/16/2023 Screening for lipid disorders 07/16/2023 Mild secondary hyperparathyroidism (HHS) 07/16/2023 Essential hypertension 07/22/2023 Pre-op evaluation Preoperative examination, unspecified 07/22/2023 Essential hypertension 07/22/2023 Lumbosacral stenosis with neurogenic claudication Spinal stenosis, lumbar region, with neurogenic claudication 07/22/2023 Major depressive disorder, single episode, in full remission Major depressive disorder, single episode in full remission 07/22/2023 Anxiety states Anxiety state, unspecified 07/22/2023 Abnormal EKG Nonspecific abnormal electrocardiogram (ECG) (EKG) 07/22/2023 Multinodular goiter Nontoxic multinodular goiter 08/27/2023 Multinodular goiter Nontoxic multinodular goiter 11/06/2023 Osteopenia, unspecified location 11/06/2023 Mild secondary hyperparathyroidism (HHS) 11/06/2023 Encounter for Medicare annual wellness exam Routine general medical examination at a health care facility 09/09/2024 Essential hypertension 09/09/2024 Major depressive disorder, single episode, in full remission Major depressive disorder, single episode in full remission 09/09/2024 Attention deficit hyperactivity disorder (ADHD), unspecified ADHD type 09/09/2024 History of SCC (squamous cell carcinoma) of skin Personal history of other malignant neoplasm of skin 09/09/2024 History of basal cell carcinoma Personal history of other malignant neoplasm of skin 09/09/2024 Multinodular goiter Nontoxic multinodular goiter 09/09/2024 Mild secondary hyperparathyroidism (HHS) 09/09/2024 Osteopenia, unspecified location 09/09/2024 Colonic adenoma Benign neoplasm of colon 09/09/2024 Screening for lipid disorders 09/09/2024 Solar purpura Other nonthrombocytopenic purpuras 09/09/2024 Screening for lipid disorders 09/13/2024 Essential hypertension 10/08/2024 Major depressive disorder, single episode, in full remission Major depressive disorder, single episode in full remission 10/08/2024 Attention deficit hyperactivity disorder (ADHD), unspecified ADHD type 10/08/2024 Pre-op evaluation Preoperative examination, unspecified 10/08/2024 Senile cataract of right eye, unspecified age-related cataract type 10/08/2024 Major depressive disorder, single episode, in full remission Major depressive disorder, single episode in full remission 10/25/2024 COVID 10/25/2024 Pre-op evaluation Preoperative examination, unspecified 11/02/2024 Osteopenia, unspecified location 11/02/2024 Multinodular goiter Nontoxic multinodular goiter 11/02/2024 Multinodular goiter Nontoxic multinodular goiter 11/11/2024 Vertigo Dizziness and giddiness 12/03/2024 Mild secondary hyperparathyroidism (HHS) 12/03/2024 Major depressive disorder, recurrent episode, in partial remission Major depressive disorder, recurrent episode, in partial or unspecified remission 12/03/2024 Multinodular goiter Nontoxic multinodular goiter 12/16/2024 Osteopenia, unspecified location 12/16/2024 Post-viral cough syndrome Cough 01/12/2025 Mild intermittent reactive airway disease with acute exacerbation (HHS) 01/12/2025 Essential hypertension 01/12/2025 Goals Goal Patient Goal Type Associated Problems Recent Progress Patient-Stated? Author Blood Pressure < 140/90 Blood Pressure 133/69(2024 10:45 AM EST) Jacqui Tatum, RN Care Teams Mechanical Inspector Relationship Specialty Start Date End Date Reta Schuler MD [address] [place] [id number] PCP - General Internal Medicine 09/09/24 Maria Cox NP [address] [place] [id number] PCP - Backup PCP Internal Medicine 09/09/24
--- OUTSIDE RECORDS SUMMARY | 2025-01-31 17:00 | XMS_ITS | Clinical Summary ---
Author Organization [facility] Address [address] [place] [address] Care Team Providers Care Mold Closer Name Role Phone Khurram Ferrer MD Primary Care Provider [phone] Allergies Active Allergy Reactions Criticality Noted Date Comments Codeine Muscle cramps Active Problems Problem Noted Date Diagnosed Date Basal cell carcinoma of skin 10/26/2012 Squamous cell carcinoma of skin 10/26/2012 Depression 10/26/2012 Vitamin d deficiency 10/26/2012 Osteopenia 06/05/2009 Solitary thyroid nodule 06/05/2009 Family History Medical History Relation Name Comments Other Father Paternal histor y of Thyroid Disorder Breast cancer Maternal Grandmother dx in her 70s Other Mother Maternal histor y of Hyperparathyroidism Relation Name Status Comments Father Maternal Grandmother Mother Social History Tobacco Use Types Packs/Day Years Used Date Smoking Tobacco: Former Comments:: Comments Unknown Sex and Gender Information Value Date Recorded Sex Assigned at Female 02/18/2022 5:09 PM EDT Legal Sex Female 3:11 AM EDT Gender Identity Female 02/18/2022 5:09 PM EDT Sexual Orientation Straight 02/18/2022 5: 09 PM EDT Last Filed Vital Signs Vital Sign Reading Time Taken Comments Blood Pressure 150/77 01/15/2016 9:51 AM EST Pulse 71 01/15/2016 9:51 AM EST Temperature - - Respiratory Rate - - Oxygen Saturation - - Inhaled Oxygen Concentration - - Weight 64.9 kg (143 lb) 01/15/2016 9:51 AM EST Height 159.4 cm (5' 2.75 ) 01/15/2016 9:51 AM ES T Body Mass Index 25.53 01/15/2016 9:51 AM EST Plan of Treatment Upcoming Encounters Date Type Department Care Team (Late st Contact Info) Description 03/02/2025 11:15 AM EDT Appointment [facility] [address] [place] [address] Health Maintenance Due Date Last Done Comments Medicare AWV 01/29/1946 CT Lung Cancer Screening (Baseline) 1997 RSV Vaccine (60+ years old and patients) (1 - 1-dose 75+ series) 2022 COVID-19 Vaccine ( season) 2024 09/16/2023, 08/26/2022, 02/28/2022, Additional history exists Influenza Vaccine (#1) 2024 , 08/26/2022, 09/22/2021, Additional history exists Alcohol/Substance Use Screening 11/24/2024 Depression Evaluation 11/24/2024 Health Care Proxy Review 11/24/2024 Social Drivers of Health Annual Screening 11/24/2024 DTaP,Tdap,and Td Vaccines (4 - Td or Tdap) 07/05/2030 07/05/2020, 07/05/2020, 06/19/2010, Additional history exists Hepatitis C Screening Completed 11/19/2012 Pneumococcal Vaccine: 50+ Years Completed 09/20/2019, 01/23/2015, 11/19/2012 Osteoporosis Screening Completed 08/08/2020, 2013 Zoster Vaccines Completed 08/02/2021, 07/0 04/2021, 11/19/2012 Mammogram Discontinued 03/01/2024, 04/0 02/2023, 02/21/2022, Additional history exists Hepatitis B Vaccines Aged Out No long er eligible based on patient's age to complete this topic Procedures * Due to [place] state law, this organization might not be sharing negative HIV tests. Procedure Name Priority Date/Time Associated Diagnosis Comments DIANE BILATERAL SCREENING DIGITAL MAMMOGRAM WITH YESENIA Routine 03/01/2024 11:56 AM EDT Breast cancer screening by mammogram DEXA BONE DENSITY AXIAL Routine 08/08/2020 9:27 AM EDT Menopause HEPATITIS C ANTIBODY, CONVERSION Routine 11/19/2012 9:25 AM EST from Last 3 Months or Most Recently Relevant to Health Maintenance Results * Due to [place] state law, this organization might not be sharing negative HIV tests. * DIANE Bilateral Screening Digital Mammogram With Yesenia (03/01/2024 11:56 AM EDT) Anatomical Region Laterality Modality Breast Bilateral Mammography Narrative 03/01/2024 4:48 PM EDT EXAMINATION DIANE Bilateral Screening Digital Mammogram With Yesenia. INDICATION Portia Contreras is a 79 y.o. female and is seen for: DIANE Bilateral Screening Digital Mammogram With Yesenia. CC and MLO views were obtained. FDA approved Transpara?? AI (artificial intelligence) software and R2 CAD were used as a concurrent reading aid in the interpretation of this study. COMPARISON Compared to: 02/25/2023 DIANE Bilateral Screening Digital Mammogram With Yesenia, 02/21/2022 DIANE Bilateral Screening Digital Mammogram With Yesenia, 01/22/2021 DIANE BILATERAL SCREENING DIGITAL MAMMOGRAM WITH YESENIA, 01/21/2020 DIANE Bilateral Screening Digital Mammogram With Yesenia, and 01/15/2019 DIANE Bilateral Screening Digital Mammogram With Yesenia Bilateral Breast Findings: The breasts have scattered areas of fibroglandular density. No significant masses, calcifications or other abnormalities are seen. IMPRESSION BI-RADS?? ATLAS category (overall): 1 - Negative MANAGEMENT [...] as possible to obtain the completed interpretation. us Khurram Ferrer MD IMG BI PROCEDURES Final R esult * DEXA Bone Density Axial (08/08/2020 9:27 AM EDT) Anatomical Region Laterality Modality Wrist, Hip, L-spine Computed Rad iography 08/08/2020 11:2 5 AM EDT Impressions 08/08/2020 11:27 AM EDT This patient has osteopenia. Thank you for the courtesy of this referral. Alfred Santana MD, PhD ?? [id number] Narrative 08/08/2020 11:27 AM EDT EXAM: ??BONE MINERAL DENSITY INDICATION: ??75year old post-menopausal female with estrogen deficiency . PROCEDURE: The bone mineral density (BMD) of the spine, left forearm, and proximal left femur was determined using an external X-ray source Hologic. COMPARISON: [id number] prior studies cannot be compared via BMD [...] mass and to help protect against falls. Procedure Note Alfred Santana MD PhD - 08/08/2020 EXAM: BONE MINERAL DENSITY INDICATION: 75year old post-menopausal female with estrogen deficiency. PROCEDURE: The bone mineral density (BMD) of the spine, left forearm, andproximal left femur was determined using an external X-ray sourceHologic. COMPARISON: [id number] prior studies cannot be compared via BMD [...] recommendations should be discussed with Health Care Providerand measurement of vitamin D levels should be considered. Carefulweight-bearing exercise is also useful in maintaining bone mass and tohelp protect against falls. IMPRESSION: This patient has osteopenia. Thank you for the courtesy of this referral. Alfred Santana MD, PhD [id number] Charito Neal [facility] DXA PROCEDURES Final Result * HEPATITIS C ANTIBODY, CONVERSION (11/19/2012 9:25 AM EST) Hepatitis C Antibody <0.02 <1.00 [facility] HCV Interpretation Negative [facility] Comment: Not infected with HCV, unless recent infection is suspected or other evidence exists to indicate HCV infection. 11/19/2012 9:25 AM EST 11/19/2012 10:19 PM EST us Krystle Chacon MD LAB HISTORICAL RESULTS Final Result [facility] [address] [place] [address], from Last 3 Months or Most Recently Relevant to Health Maintenance Insurance MEDICARE [facility] Care Teams Mold Closer Relationship Specialty Start Date End Date Khurram Ferrer MD PCP - General Internal Medicine 01/15/21
--- OUTSIDE RECORDS SUMMARY | 2025-01-31 17:00 | XMS_ITS | Encounter Summary ---
Author Organization [facility] Address [address] [place] [address] Care Team Providers Care Bank Vault Clerk Name Role Phone Reta Schuler MD Primary Care Provider [phone] Maria Cox LOAN EXPEDITOR Unavailable [phone] Reason for Visit * Reason Comments Cough Encounter Details Date Type Department Care Team (Late st Contact Info) Description 01/12/2025 9:45 AM EST Office Visit [facility] [address] [place] [phone] Kendal Garza MD [address] [place] [phone] Mild intermittent reactive airway disease with acute exacerbation (HHS) (Primary Dx); Post-viral cough syndrome; Essential hypertension Social History Tobacco Use Types Packs/Day Years Used Date Smoking Tobacco: Former Cigarettes 1 6 0 11/24/1969 - 11/24/1975 Passive Smoke Exposure: Never Smokeless Tobacco: Never Tobacco Cessation:Counseling Given: Not Answered Comments:remote hx quit Alcohol Use Standard Drinks/Week [...] / family Twice a week 12/03/2024 Attend muslim services Never 2024 Club Membership Yes 12/03/2024 [...] any clubs o r organizations such as alevism groups, unions, athletic groups, or school groups? 1 08/2025 How often do you attend meet ings of the clubs or organizations you belong to? 3 12/03/2024 Comments No Sex and Gender Information Value Date Recorded Sex Assigned at Not on file Legal Sex Female 8:32 PM EST Gender Identity Not on file Sexual Orientation Not on file Occupation Industry Job Start Date Job End Date retired Not on file Not on file Not on file documented as of this encounter Last Filed Vital Signs Vital Sign Reading Time Taken Comments Blood Pressure 133/69 01/12/2025 10:45 AM EST Pulse 93 01/12/2025 9:59 AM EST Temperature 36.8 ??C (98.2 ??F) 01/12/2025 9:59 AM ES T Respiratory Rate - - Oxygen Saturation 96% 01/12/2025 9:59 AM EST Inhaled Oxygen Concentration - - Weight 66.4 kg (146 lb 6.4 oz) 01/12/2025 9:59 A M EST Height - - Body Mass Index 27.44 12/16/2024 11:44 AM EST documented in this encounter Progress Notes * Kendal Garza MD - 01/12/2025 9:45 AM EST Rooming Tasks Health Maintenance Due Topic Date Due Colonoscopy 08/30/2023 - Patient had colonoscopy two weeks ago Skin Grader not necessary for this visit. No exam or procedure involving the breast, genital or rectal area is anticipated. Chief Complaint 79 y.o. female presents with: Cough Chief Complaint: Chief Complaint Patient presents with Cough Interval History: 79-year-old female with following medical problems presents complaining of cough and congestion. Patient states that she had influenza infection about 1 and half week ago. Symptoms started with cough, fevers and bodyaches. Most of the symptoms have resolved but productive cough persists. Cough is described as persistent productive of yellow phlegm, waking her up at night. Patient is feeling exhausted with lack of sleep. She has started using Mucinex with minimal effect. No reported fevers but does have some chills. Denies sinus pain, congestion but does have some rhinorrhea and postnasal drip. Denies sore throat. Denies associated symptoms of shortness of breath, chest pain, palpitations or diaphoresis. Past Medical/Family/Social History Reviewed with the patient Patient Active Problem List Diagnosis Osteopenia LBP (low back pain) Multinodular goiter Major depressive disorder, single episode, in full remission History of basal cell carcinoma History of SCC (squamous cell carcinoma) of skin Colonic adenoma Anxiety states White coat syndrome with hypertension Actinic keratoses Left knee DJD Angiomyolipoma of kidney Liver cyst Lumbosacral stenosis with neurogenic claudication Peripheral neuropathy Mild secondary hyperparathyroidism (HHS) Diverticulosis Solar purpura Allergies Allergen Reactions Codeine Nausea/GI Upset GI intolerance Seasonal Social History Tobacco Use Smoking status: Former Current packs/day: 0.00 Average packs/day: 1 pack/day for 6.0 years (6.0 ttl pk-yrs) Types: Cigarettes Start date: 11/24/1969 Quit date: 11/24/1975 Years since quittin.1 Passive exposure: Never Smokeless tobacco: Never Tobacco comments: remote hx quit Substance Use Topics Alcohol use: Yes Alcohol/week: 7.0 standard drinks of alcohol Types: 7 Glasses of wine per week Drug use: Yes Frequency: 3.0 times per week Types: Cannabis Comment: occ cannabis Review of patient's family history indicates: Problem: Kidney Disorder Relation: Father Age of Onset: (Not Specified) Comment: age 88 Problem: Cancer - Colon Relation: Father Age of Onset: 85 Problem: CAD/PVD - Early Relation: Father Age of Onset: (Not Specified) Problem: Heart Disorder Relation: Father Age of Onset: (Not Specified) Problem: Hypertension Relation: Mother Age of Onset: (Not Specified) Problem: Other Relation: Mother Age of Onset: (Not Specified) Comment: PARATHYROID Problem: Arthritis/Joint disorder Relation: Mother Age of Onset: (Not Specified) Problem: Cancer - Skin Relation: Mother Age of Onset: (Not Specified) Problem: Hearing Loss Relation: Mother Age of Onset: (Not Specified) Problem: Thyroid Disorder Relation: Mother Age of Onset: (Not Specified) Comment: parathyroid Problem: Stroke Relation: Maternal grandmother Age of Onset: (Not Specified) Outpatient Medications Marked as Taking for the 01/12/25 encounter (Office Visit) with Kendal Garza MD Medication Sig Dispense Refill predniSONE (DELTASONE) 10 MG tablet Take five tablets (50 mg total) by mouth 1 (one) time each day for 1 day, THEN four tablets (40 mg total) 1 (one) time each day for 1 day, THEN three tablets (30 mg total) 1 (one) time each day for 1 day, THEN two tablets (20 mg total) 1 (one) time each day for 1day, THEN one tablet (10 mg total) 1 (one) time each day for 1 day. 15 tablet 0 Benzonatate (TESSALON) 200 MG capsule Take one capsule (200 mg total) by mouth 3 (three) times a day if needed for cough for up to 10 days. 42 capsule 0 Meclizine HCl (ANTIVERT) 12.5 MG tablet Take one tablet (12.5 mg total) by mouth 3 (three) times a day if needed for dizziness or nausea for up to 10 days. 60 tablet 2 amLODIPine Besylate (Norvasc) 10 MG tablet Take one tablet (10 mg total) by mouth 1 (one) time eachday. 90 tablet 3 Methylphenidate HCl (RITALIN) 10 MG tablet Alendronate Sodium (FOSAMAX) 70 MG tablet TAKE 1 TABLET(70 MG) BY MOUTH 1 TIME EVERY WEEK FIRST THING IN THE MORNING WITH A FULL GLASS OF WATER. DO NOT LAY DOWN OR RECLINE FOR 30 MINUTES 12 tablet 4 Methylphenidate HCl (RITALIN LA) 20 MG 24 hr capsule Take by mouth 1 (one) time each day Aripiprazole (ABILIFY) 2 MG tablet Take 2 mg by mouth Take half tab (1mg) for 2 weeks and then increase to 2mg Niacinamide 500 MG Tab CR Take one tablet once daily 30 tablet DULoxetine HCl (CYMBALTA) 30 MG capsule Take one capsule daily 90 capsule 0 buPROPion HCl ER, XL, (WELLBUTRIN XL) 150 MG 24 hr tablet DULoxetine HCl [address] Particles Take 1 capsule daily buPROPion HCl ER, XL, 300 MG TABLET SR 24 HR Take with 150 mg daily Diclofenac Sodium 1 % Gel apply to affected areas as needed Fluorouracil 5 % Cream bid to affected areas on face x 2 wks 40 g 1 Calcium-Magnesium 500-250 MG Tab 1 DAILY Cholecalciferol (VITAMIN D) 2000 UNITS Cap 2 CAPSULE DAILY Magnesium 200 MG Tab 1 TABLET DAILY Review of Systems: As listed above and below Physical Examination: Blood pressure (!) 146/74, pulse 93, temperature 98.2 ??F (36.8 ??C), weight 146 lb 6.4 oz (66.4 kg), SpO2 96%. General Appearance: awake, alert, oriented x 3, in no acute distress Ears: canals and TMs NI Nose/Sinuses: Nares normal. Septum midline. Mucosa normal. No drainage or sinus tenderness. Mouth/Throat: Mucosa moist, no lesions; pharynx without erythema, edema or exudate. Neck: Supple, no mass, non-tender Lungs: Normal expansion. Clear to auscultation. No rales, rhonchi, or wheezing. Heart: Heart sounds are normal. Regular rate and rhythm without murmur, gallop or rub. Abdomen: Soft, non-tender, normal bowel sounds; no bruits, organomegaly or masses. Extremities: Extremities warm to touch, pink, with no edema. Laboratory Information : Recent labs/tests reviewed with patient. and No visits with results within 1 Month(s) from this visit. Latest known visit with results is: Orders Only on 11/02/2024 Component Date Value VIT D, 25-OH, TOTAL 11/02/2024 63 Glucose 11/02/2024 92 Urea Nitrogen Blood (BUN) 11/02/2024 15 Creatinine 11/02/2024 0.68 Sodium 11/02/2024 139 Potassium 11/02/2024 4.8 Chloride 11/02/2024 103 Carbon dioxide 11/02/2024 27 Calcium 11/02/2024 9.7 GFR 11/02/2024 89 FT4 11/02/2024 1.2 TSH (Thyrotropin) 11/02/2024 2.77 Parathyroid Hormone (PTH* 11/02/2024 50.4 Impression: ICD-10-CM 1. Mild intermittent reactive airway disease with acute exacerbation (HHS) J45.21 2. Post-viral cough syndrome R05.8 3. Essential hypertension I10 Plan: Discussed with patient about her symptoms, etiology and treatment options. As mentioned above, patient was diagnosed with influenza 1 and half week ago. Her viral infection is most likely resolved. She has postviral cough. Pulmonary exam appears benign with slightly diminished breath sounds at bases. She does have history of mild reactive airways, was using albuterol previously that caused palpitations. We have decided to use a short course of prednisone taper to help with inflamed airways. Also prescribed Tessalon Perles to help with cough. Discussed home care and OTC meds as needed for symptom relief. Advised to call if symptoms not better in 5 to 7 days. Blood pressure elevated initially, improved after rest. Advised home monitoring. Continue amlodipine at current dose. Discussed low-salt diet. Orders Placed This Encounter predniSONE (DELTASONE) 10 MG tablet Benzonatate (TESSALON) 200 MG capsule documented in this encounter Plan of Treatment Not on file documented as of this encounter Goals Goal Patient Goal Type Associated Problems Recent Progress Patient-Stated? Author Blood Pressure < 140/90 Blood Pressure 133/69(2024 10:45 AM EST) Jacqui Tatum RN documented as of this encounter Visit Diagnoses Diagnosis Mild intermittent reactive airway disease with acute exacerbation (HHS)- Primary Post-viral cough syndrome Cough Essential hypertension documented in this encounter Care Teams Bank Vault Clerk Relationship Specialty Start Date End Date Reta Schuler MD [address] [place] [address] PCP - General Internal Medicine 09/09/24 Maria Cox NP [address] [place] [address] PCP - Backup PCP Internal Medicine 09/09/24 documented as of this encounter
--- OUTSIDE RECORDS SUMMARY | 2025-01-31 17:00 | XMS_ITS | Encounter Summary ---
Author Organization [facility] Address [address] [place] [address] Care Team Providers Care Band Builder Name Role Phone Reta Schuler MD Primary Care Provider [phone] Maria Cox RN MANAGED CARE Unavailable [phone] Reason for Visit * Reason Comments Cough Encounter Details Date Type Department Care Team (Late st Contact Info) Description 01/12/2025 Telephone [facility] Medicine [address] [place] [phone] Reta Schuler MD [address] [place] [address] Cough Social History Tobacco Use Types Packs/Day Years Used Date Smoking Tobacco: Former Cigarettes 1 6 0 11/24/1969 - 11/24/1975 Passive Smoke Exposure: Never Smokeless Tobacco: Never Comments:remote hx quit Alcohol [...] / family Twice a week 12/03/2024 Attend sabianism services Never 2024 Club Membership Yes 12/03/2024 [...] any clubs o r organizations such as adventist groups, unions, athletic groups, or school groups? [...] encounter Miscellaneous Notes * Telephone Encounter - Nora Hoyt LPN - 01/12/2025 8:54 AM EST Patient recovering from flu 10 days ago Cough worsening interrupting sleep Cough audibly congested Denies fevers. Patient aware if chest xray needed [place] [facility] [facility] if available. Future Appointments Date Time Provider Department Phone 01/12/25 9:45 AM Kendal Garza MD [facility] [phone] Patient agreed with the plan and expressed understanding. * Telephone Encounter - Janneth Monroe - 01/12/2025 8:44 AM EST Reason for call: cough and flu How long have you had these symptoms? Over 1 week Is the patient having an emergent symptom? No Follow-up action needed: call transferred to Nurse queue documented in this encounter Plan of Treatment Not on file documented as of this encounter Goals Goal Patient Goal Type Associated Problems Recent Progress Patient-Stated? Author Blood Pressure < 140/90 Blood Pressure 133/69(2024 10:45 AM EST) No Jacqui De Jesus RN documented as of this encounter Visit Diagnoses Not on filedocumented in this encounter Care Teams Band Builder Relationship Specialty Start Date End Date Reta Schuler MD [address] [place] [phone] PCP - General Internal Medicine 09/09/24 Maria Cox NP [address] [place] [id number] PCP - Backup PCP Internal Medicine 09/09/24 documented as of this encounter
--- OUTSIDE RECORDS SUMMARY | 2025-01-31 17:00 | XMS_ITS | Clinical Summary ---
Author Organization [employer] [facility] Address [address] [place] [address] [place] [id number] Care Team Providers Care Muff Winder Name Role Phone Krystle Chacon Md Primary Care Provider [phone] Allergies Active Allergy Reactions Criticality Noted Date Comments Codeine GI intolerance Medications Fluoxetine 40 mg Oral Capsule Take 1 capsule daily; do not stop without consulting clinician 0 1 Active MULTI-VITAMIN ORAL 1qd Active CALCIUM CARBONATE (CALCIUM 600 ORAL) 1qd Active DOCOSAHEXANOIC ACID/EPA (FISH OIL ORAL) 2qd Active Cholecalciferol , Vitamin D3, (VITAMIN D) 2,000 unit Oral Capsule 1qd Active Magnesium 200 mg Oral Tablet 1qd Activ e Glucosam-Chond- Hrb 149-Hyal Ac (GLUCOS CHOND CPLX ADVANCED) 750-100-125 mg Oral Tablet 3qd Active CYANOCOBALAMIN, VITAMIN B-12, (B-12 DOTS ORAL) 1qd Active OTHER MEDICATION, , Transderm ET compunded cream 0 1 Active Bupropion HCl XL 300 mg Oral tablet extended release 24 hr None Entered Act lucy albuterol (PROAIR HFA) 90 mcg/actuation Inhalation HFA Aerosol Inhaler Use 2 puffs as instructed every 4-6 hours as needed; rinse mouthpiece at least weekly 1 Inhaler 1 4 Active Active Problems Problem Noted Date Diagnosed Date Left knee DJD 08/13/2014 Actinic keratoses 06/17/2014 HTN, white coat 03/17/2014 Squamous cell carcinoma in situ 08/15/2011 Overview (11/28/2011): scalp Colonic adenoma 06/20/2011 History of SCC (squamous cell carcinoma) of skin 06/19/2010 LBP (low back pain) 06/19/2010 Osteopenia 08/29/2008 Anxiety states 08/15/2008 Depressive disorder 08/15/2008 Overview (06/19/2010): Dr Raquel Lucero, [place] History of basal cell carcinoma 08/04/2008 Thyroid nodule Overview (06/19/2010): Dr Lindsey Immunizations Name Administration Dates Next Due Influenza Vaccine (Unspecified Formulation) 04/2013,10/24/2005 Pneumococ/Adult-Polysac (PPSV23) 11/19/2012 Pneumococ/Conjugate (PCV13) 01/23/2015 TD Vaccine (Adult) 05/24/2000 TdaP 06/19/2010 Zoster Live (Shingles) Vaccine, Zostavax 012 Surgical History Surgery Date Site/Laterality Comments COLONOSCOPY 09/29/02 Dr Muller-normal TONSILLECTOMY right knee arthroscopy 02/27 TORN MEDIAL MENISCUS SCC IN SITU LEFT LEG 07/26 MAMMOGRAM SCREENING 12.3.10, 11/03 neg COLONOSCOPY 01/04 Dr Muller-adenomas MAMMOGRAPHY DIGITAL SCREENIN G BILATERAL 12.16.13 neg COLON[address]COPY 9.11.14 Dr Muller no polyps/tortuous/repeat 5 years MAMMOGRAPHY DIGITAL NON SCRE EN BILATERAL 11/14/14 Bilateral neg - clinical followup Medical History Medical History Date Comments Basal cell carcinoma 1970 FACE Basal cell carcinoma 1992 SHOULDER History of atypical/dysplastic nevus 07/26 RIGHT ANKLE Fracture of great toe, right, closed 06/01/2013 Family History Relation Status Comments Brother Alive HTN Father (Age 86) COLON CA, SKIN CA, CAD, CRF Maternal Grandmother breast ca 6 0 Mother Alive HTN, HTN, parath yroid dz Social History Tobacco Use Types Packs/Day Years [...] 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 Not on file Not on file Obstetrics History Para Term AB IAB SAB Ectopic Multiple Livin g Live Births 2 2 0 0 0 0 0 0 2 Date Outcome GA Total Labor Labor/2nd/3rd Weight Sex Type Anes PTL January A1 A5 Name Clin Para Para Last Filed Vital Signs Vital Sign Reading Time Taken Comments Blood Pressure 145/77 01/23/2015 10:16 AM EST Pulse 66 01/23/2015 10:16 AM EST Temperature 37.2 ??C (98.9 ??F) 08/02/2014 4:11 PM ED T Respiratory Rate - - Oxygen Saturation 98% 01/07/2014 4:01 PM EST Inhaled Oxygen Concentration - - Weight 64 kg (141 lb) 01/23/2015 10:16 AM EST Height 159.4 cm (5' 2.75 ) 01/23/2015 10:[address] Body Mass Index 25.18 01/23/2015 10:16 AM EST Plan of Treatment Health Maintenance Due Date Last Done Comments OFFICE VISIT 1947 HEP B INITIAL SCREENING 1965 PAP: UPDATE W EDIT MODIFIERS 01/29/1968 PERIODIC HEALTH REVIEW 1997 COMPLETE EYE EXAM (65+YRS) 01/29/2012 06/12/2009 ZOSTER VACCINE (2 of 3) 01/14/2013 11/19/2012 * GLUCOSE OR A1C SCREENING - Q3YR 01/23/2018 01/23/2015, 01/16/2014, 11/19/2012, Additional history exists BONE DENSITY 02/15/2019 02/15/2014, 01/2010, 04/25/2004 COLORECTAL SCREENING : COLONOSCOPY 5 YEAR 08/04/2019 08/04/2014, 01/02/2011, 09/29/2002 LIPID SCREENING 01/24/2020 01/23/2015, 12/26, 11/19/2012, Additional history exists DTAP/TDAP/TD VACCINE (2 - Td or Tdap) 06/19/2020 06/19/2010, 05/24/2000 MAMMOGRAPHY: UPDATE W/ EDIT MODIFIER 2022 11/14/2014, 11/08/2013, 11/05/2012, Additional history exists RSV Vaccine Adult (1 - 1-dose 75+ series) 2022 COVID-19 Vaccine (2023- season) 2024 FLU SEASONAL (#1) 07/25/2024 08/18/2018, 09/29/2013, 10/24/2005 HEP C SCREENING Completed 11/19/2012 PNEUMOCOCCAL VACCINE(S) 50+ Completed 01/23/2015, 1 01/20/2012 HAEMOPHILUS INFLUENZA VACCINE Aged Out No longer eligible based on patient's age to complete this topic HEPATITIS A VACCINE Aged Out No longe r eligible based on patient's age to complete this topic HEPATITIS B VACCINE Aged Out No longe r eligible based on patient's age to complete this topic POLIO VACCINE Aged Out No longer elig ible based on patient's age to complete this topic RSV Vaccine //toddler Aged Out No longer eligible based on patient's age to complete this topic Procedures Procedure Name Priority Date/Time Associated Diagnosis Comments COMPREHENSIVE [place]ABOLIC [place] [place] Routine 01/23/2015 9:43 AM EST Screening for diabetes mellitus (DM) LIPID PROFILE Routine 01/23/2015 9:43 AM EST Screening for hyperlipidemia MAMMOGRAPHY DIGITAL SCREENING BILATERAL Routine 11/14/2014 BONE DENSITY STUDY Routine 02/15/2014 Osteopenia HEPATITIS C ANTIBODY Routine 11/19/2012 9:25 AM EST Need for hepatitis C screening test COLONOSCOPY Routine 01/02/2011 from Last 3 Months or Most Recently Relevant to Health Maintenance Results * (ABNORMAL) COMPREHENSIVE METABOLIC PROFILE W/GFR [place] (01/23/2015 9:43 AM EST) GLUCOSE 79 65 - 99 mg/dl [facility] BUN 11 7 - 25 mg/dL [facility] CREATININE 0.72 0.50 - 1.16 mg/dL [facility] SODIUM 134(L) 136 - 145 mmo/L [facility] POTASSIUM 4.1 3.5 - 5.3 mmol/L [facility] CHLORIDE 97(L) 98 - 107 mmo/L [facility] CALCIUM 9.3 8.5 - 10.4 mg/dL [facility] TOTAL PROTEIN 6.9 6.0 - 8.3 g/dL [facility] ALBUMIN 4.4 3.5 - 5.2 g/dL [facility] GLOBULIN 2 2 - 4 G/DL [facility] BILIRUBIN TOTAL 0.34 0.20 - 1.50 mg/dL [facility] ALKALINE PHOSPHATASE 74 33 - 130 U/L [facility] SGOT (AST) 21 <38 U/L [facility] SGPT (ALT) 20 <47 U/L [facility] CARBON DIOXIDE 26 23 - 33 mmol/L [facility] EGFR 86 >60 ml/min [facility] Comment: For patients greater than 18 years of and and if the patient is , please multiply result by 1.210 Venous Draw 01/23/2015 9:43 AM EST 01/23/2015 9:43 AM EST Narrative [facility] - 01/23/2015 11:56 AM EST fasting Patient's primary care provider is: ??Krystle Chacon us Krystle Chacon GENERAL LAB Final Result Performing Organization Address [facility] de Phone Number [facility] [address] [place] [address] * (ABNORMAL) LIPID PROFILE (01/23/2015 9:43 AM EST) CHOLESTEROL 223(H) <200 mg/dL [facility] TRIGLYCERIDES 68 <150 mg/dL [facility] HDL 89 >40 mg/dL [facility] Comment: NCEP GUIDELINES Desireable >60 mg/dL Borderline 40-59 mg/dL ?? Undesirable <40 mg/dL LDL 120 <130 mg/dL [facility] CHOL/HDL RATIO 2 0 - 5 CALC [facility] Venous Draw 01/23/2015 9:43 AM EST 01/23/2015 9:43 AM EST Narrative [facility] - 01/23/2015 11:56 AM EST fasting Patient's primary care provider is: ??Krystle Chacon us Krystle Chacon GENERAL LAB Final Result Performing Organization Address [facility] Co de Phone Number [facility] [address] [place] [address] * MAMMOGRAPHY DIGITAL SCREENING BILATERAL (11/14/2014) Anatomical Region Laterality Modality Breast Bilateral Other Krystle Chacon [facility] Final Result * BONE DENSITY STUDY (02/15/2014) Anatomical Region Laterality Modality Bone Density Other Krystle Chacon [facility] BONE DENSITY Edited * HEPATITIS C ANTIBODY (11/19/2012 9:25 AM EST) HEPATITIS C ANTIBODY < 0.02 <1.00 [facility] HEP C AB INTERP Negative [facility] Comment: Not infected with HCV, unless recent infection is suspected or other evidence exists to indicate HCV infection. Performing site ML: [employer] [address] [place] [address] Christopher Horton MD, ?? CLIA:[id number] Venous Draw 11/19/2012 9:25 AM EST 11/19/2012 9:25 AM EST Narrative [facility] - 11/20/2012 9:23 AM EST hepc added on per pool ??11-19-12 kr Patient's primary care provider is: ??Krystle Chacon Krystle Chacon GENERAL LAB Final Result [address] [address] * COLONOSCOPY (01/02/2011) Outside Provider PROCEDURES Final Result from Last 3 Months or Most Recently Relevant to Health Maintenance Advance Directives Documents on File Type Date Recorded Patient Health And Nutrition Specialist Expl anation Health Care Proxy 01/24/2014 5:03 PM [place] [facility] Health Care Proxy~2013~ Care Teams Muff Winder Relationship Specialty Start Date End Date Krystle Chacon MD [facility] [address] [place] [address] PCP - General 04/03/06
--- OUTSIDE RECORDS SUMMARY | 2025-01-31 17:01 | XMS_ITS | Referral Summary ---
Author Organization [facility] Address [address] [place] [address] Care Team Providers Care Medicare Compliance Auditor Name Role Phone Khurram Ferrer MD Primary Care Provider [phone] Allergies Active Allergy Reactions Criticality Noted Date Comments Codeine Muscle cramps Active Problems Problem Noted Date Diagnosed Date Basal cell carcinoma of skin 10/26/2012 Squamous cell carcinoma of skin 10/26/2012 Depression 10/26/2012 Vitamin d deficiency 10/26/2012 Osteopenia 06/05/2009 Solitary thyroid nodule 06/05/2009 Social History Tobacco Use Types Packs/Day Years [...] Info) Description 03/02/2025 11:15 AM EDT Appointment [facility] [address] [place] [address] Procedures * Due to [place] [facility] law, this organization might not be sharing [...] to Health Maintenance Results * Due to [place] [facility] law, this organization might not be sharing [...] to obtain the completed interpretation. us Khurram Churchill Car[facility] BI PROCEDURES Final R esult * DEXA Bone Density Axial (08/08/2020 9:27 AM EDT) Anatomical Region Laterality Modality Wrist, Hip, L-spine Computed Rad iography 08/08/2020 11:2 5 AM EDT Impressions 08/08/2020 11:27 AM EDT This patient has osteopenia. Thank you for the courtesy of this referral. Alfred Santana MD, PhD ?? [id number] Narrative 08/08/2020 11:27 AM EDT EXAM: ??BONE MINERAL DENSITY INDICATION: ??75year old post-menopausal female with estrogen deficiency . PROCEDURE: The bone mineral density (BMD) of the spine, left forearm, and proximal left femur was determined using an external X-ray source [employer]. COMPARISON: [id number] prior studies cannot be compared via BMD [...] determined using an external X-ray sourceHologic. COMPARISON: Top-bd-vfvxlo prior studies cannot be compared via BMD [...] of this referral. Alfred Santana MD, PhD [id number] [facility] [place]XA PROCED[place] Final Result * HEPATITIS C ANTIBODY, CONVERSION (11/19/2012 9:25 AM EST) Hepatitis C Antibody <0.02 <1.00 [facility] HCV Interpretation Negative [facility] Comment: Not infected with HCV, unless recent infection is suspected or other evidence exists to indicate HCV infection. 11/19/2012 9:25 AM EST 11/19/2012 10:19 PM EST us Krystle Chacon MD LAB HISTORICAL RESULTS Final Result [facility] [address] [place] [address], from Last 3 Months or Most Recently Relevant to Health Maintenance Insurance MEDICARE [facility] Care Teams Medicare Compliance Auditor Relationship Specialty Start Date End Date Khurram Ferrer MD PCP - General Internal Medicine 01/15/21
== END 2025-01-31 14:52 | disposition home or self-care (01) ==
LOC: HO.CT 14:51
PROVIDERS: PCP Internal Medicine; Visit Provider Physician Assistant
DX: M43.16 Spondylolisthesis, lumbar region (principal)
CPT/HCPCS: 72131

== ENCOUNTER → 2025-01-31 14:52 | Outpatient (BNV) | payer MEDICARE, SELFPAY | PROVIDERS: PCP Internal Medicine; Visit Provider Nuclear Medicine | DX: M51.369 Other intervertebral disc degeneration, lumbar region without mention of lumbar back pain or lower extremity pain (principal) | CPT/HCPCS: 72131 ==

== ENCOUNTER 2025-04-21 11:15 | Outpatient (AMB) | payer MEDICARE, SELFPAY ==
--- NOTE | 2025-04-21 11:17 | A.SPINEOV_ITS ---
Intake Visit Reasons: CT and 1 year f/u Intake Note: Ms. Contreras is here today for 1yr F/u and CT results. Health Care Marketing Manager Required: No Allergies codeine Allergy (Severe, Verified 08/30/24 13:41) Abdominal Pain Assessment & Plan Assessment & Plan (1) S/P spinal fusion: Code(s): Z98.1 - Arthrodesis status Category: Medical Plan Portia comes in today for her 1 year follow-up appointment. She had a CT scan completed at 10 months postoperatively to evaluate for fusion progress. I reviewed this during the session, it shows stable placement of posterior instrumentation from the fusion at L4-5. There is evidence of fusion between the interbody spacer. The instrumentation is intact and the screws are in place.Zeke reports that overall she continues to feel much better than she did prior to surgery. She does still have some occasional low back pain, but states that she understands that she has fairly significant arthritis and degeneration in her spine, which is likely contributory to this. She also reports some right-sided hip pain, which she is considering having worked up by our colleagues in Orthopedics. No new neurological deficits. The patient ambulates well and rises from a seated position without difficulty. She walks without any assistive devices. There is no need for continued routine follow up with Zeke. She may be discharged as a patient. Otoniel Phillips MD,PhD [facility] Coding Level of Care Code Global (41306) Diagnoses S/P spinal fusion Z98.1
--- OUTSIDE RECORDS SUMMARY | 2025-04-21 11:40 | XMS_ITS | Encounter Summary ---
Author Organization [facility] Address [address] [place] [address] Care Team Providers Care Wildlife Protector Name Role Phone Krystle Chacon MD MPH Primary Care Provider Shari Khurram Linn MD Primary Care Provider Christiano Juarez MD, Darshak Primary Care Provider [phone] Reta Schuler MD Primary Care Provider [phone] Maria Cox WEAVING SUPERVISOR Unavailable [phone] Reason for Visit * Reason Onset Date Comments Discussion With Provider 01/05/2016 Encounter Details Date Type Department Care Team (Late st Contact Info) Description 01/05/2016 Telephone [facility] Medicine [address] [place] [phone] Krystle Chacon, MPH Discussion With Provider [...] 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 palps are associated w NSR and occ wPACs. I advised consideration of starting low dose beta-gerardo Check cardiac enzymes F/u w me next week * Telephone Encounter - Jacque Leon - 01/05/2016 2:45 PM EST [facility] calling asking for Dr. Chacon to call Dr. Gould. [phone] documented in this encounter Plan of Treatment Upcoming Encounters Date Type Department Care Team (Latest Contact Info) Description 05/03/2025 10:00 AM EDT Minor Procedure/Test [facility] Cardiology [address] [place] [address] Julita Contreras NP [address] [place] [address] LOPEZ 05/13/2025 1:00 PM EDT Radiology [facility] Ultrasound [address] [place] [id number] 03/25/2025 PT IS AWARE OF PREP MS documented as of this encounter Goals Goal Patient Goal Type Associated Problems Recent Progress Patient-Stated? Author Blood Pressure < 140/90 Blood Pressure 129/77(2024 2:38 PM EDT) No Jacqui De Jesus, CHUY documented as of this encounter Visit Diagnoses Not on filedocumented in this encounter Care Teams Wildlife Protector Relationship Specialty Start Date End Date Krystle Chacon MD MPH PCP - General 11/11/14 12/11/20 Khurram Ferrer MD PCP - General Internal Medicine 12/12/20 05/24/24 Robert Lam MD [address] [facility] [address] [place] [address] PCP - General 05/25/24 09/08/24 Reta Schuler MD [address] [place] [address] PCP - General Internal Medicine 09/09/24 Maria Cox NP [address] [place] [address] PCP - Backup PCP Internal Medicine 09/09/24 documented as of this encounter
== END 2025-04-21 13:07 | disposition home or self-care (01) ==
LOC: HO.HNS 11:15
PROVIDERS: PCP Internal Medicine; Visit Provider Physician Assistant
DX: Z98.1 Arthrodesis status (principal)
CPT/HCPCS: 99213

== ENCOUNTER → 2025-04-21 11:15 | Outpatient (BNVA) | payer MEDICARE, SELFPAY | PROVIDERS: PCP Internal Medicine; Visit Provider Physician Assistant | DX: Z98.1 Arthrodesis status (principal) | CPT/HCPCS: 99212 ==